=== PATIENT | female | born 1985 | race Caucasian/White ===

== ENCOUNTER 2017-02-16 17:50 | Emergency (ER) | payer OTHER ==
[2017-02-16] MEDS ORDERED: Ketorolac 30 MG/ML SDV IVPUSH ONE (18:14)
[2017-02-16] MEDS ORDERED: Ondansetron 4 MG/2 ML SDV IVPUSH ONE (18:14)
[2017-02-16] MEDS ORDERED: Sodium Chloride 0.9% 1,000 ML IV ONE (18:14)
--- NOTE | 2017-02-16 18:17 | EDM.PDOC ---
<Arsh Silva - Last Filed: 02/16/17 18:20> ED HPI GENERAL MEDICAL PROBLEM - General Chief Complaint: Flank Pain Stated Complaint: PT HAS STOMACH PAINS Time Seen by Provider: 02/16/17 18:15 Source of Information: Reports: Patient - History of Present Illness INITIAL COMMENTS - FREE TEXT/NARRATIVE: HISTORY AND PHYSICAL: History of present illness: [] Patient presents with acute onset 8/10 right flank pain increasing throughout the day no nausea vomiting chills sweats. pain does radiate around to her abdomen Previous history of cholecystectomy, appendectomy MCKENZIE with BLO and 2 laparoscopies History of renal stones requiring lithotripsy Review of systems: As per history of present illness and below otherwise all systems reviewed and negative. Past medical history: As per history of present illness and as reviewed below otherwise noncontributory. Surgical history: As per history of present illness and as reviewed below otherwise noncontributory. Social history: No reported history of drug or alcohol abuse. Family history: As per history of present illness and as reviewed below otherwise noncontributory. Physical exam: HEENT: Atraumatic, normocephalic, pupils reactive, negative for conjunctival pallor or scleral icterus, mucous membranes moist, throat clear, neck supple, nontender, trachea midline. Lungs: Clear to auscultation, breath sounds equal bilaterally, chest nontender. Heart: S1S2, regular, negative for clicks, rubs, or JVD. Abdomen: Soft, nondistended, nontender. Negative for masses or hepatosplenomegaly. Negative for costovertebral tenderness. Pelvis: Stable nontender. Genitourinary: Deferred. Rectal: Deferred. Extremities: Atraumatic, negative for cords or calf pain. Neurovascular unremarkable. Neuro: Awake, alert, oriented. Cranial nerves II through XII unremarkable. Cerebellum unremarkable. Motor and sensory unremarkable throughout. Exam nonfocal. Diagnostics: [] Lab as below CT abdomen pelvis with Therapeutics: [] Liter normal saline bolus Zofran 8 mg IV Toradol 30 mg IV Impression: [] Right flank pain Definitive disposition and diagnosis as appropriate pending reevaluation and review of above. Right Flank Pain Score (Numeric/FACES): 10 - Related Data Allergies Allergy/AdvReac Type Severity Reaction Status Date / Time codeine Allergy Severe Respiratory Verified 02/16/17 18:08 Distress Latex, Natural Rubber Allergy Mild Rash Verified 02/16/17 18:08 Home Meds: Home Meds Albuterol [Ventolin HFA] 1 puff INH ASDIRECTED PRN 03/05/14 [History] traZODone 1 tab PO BEDTIME 08/28/15 [History] traMADol [Take Home: traMADol 50 MG, 4 Tab Pack] 1 tab PO TID PRN 10/09/15 [ History] traMADol HCl [Ultram] 50 mg PO Q4HR PRN #10 tablet 02/18/16 [Rx] Fluticasone/Salmeterol [Advair 250-50 Diskus] 2 inh IH BID #1 disk.w.dev [Rx] Amitriptyline [Elavil] 10 mg PO BEDTIME 02/16/17 [History] Past Medical History HEENT History: Reports: None Cardiovascular History: Reports: Hypertension Respiratory History: Reports: Asthma Other OB/BYN History: Hysterectomy Musculoskeletal History: Reports: None Neurological History: Reports: None Other Neuro History: Seizures as a child Psychiatric History: Reports: None Endocrine/Metabolic History: Reports: None Other Endocrine/Metabolic History: borderline diabetic Hematologic History: Reports: None Immunologic History: Reports: None Oncologic (Cancer) History: Reports: None Dermatologic History: Reports: None - Infectious Disease History Infectious Disease History: Reports: None - Past Surgical History HEENT Surgical History: Reports: None GI Surgical History: Reports: Cholecystectomy Other GI Surgeries/Procedures: diagnostic laparoscopy 2x Female Surgical History: Reports: section, Hysterectomy Social & Family History - Family History Family Medical History: Noncontributory - Tobacco Use Smoking Status *Q: Former Smoker Years of Tobacco use: 10 Packs/Tins Daily: 0.1 Used Tobacco, but Quit: Yes Month Tobacco Last Used: May 2015 Second Hand Smoke Exposure: No - Caffeine Use Caffeine Use: Reports: Coffee, Soda - Alcohol Use Days Per Week of Alcohol Use: 0 - Recreational Drug Use Recreational Drug Use: No Course - Vital Signs Last Recorded V/S: Last Vital Signs Temp 36.3 C 02/16/17 18:11 Pulse 111 H 02/16/17 18:52 Resp 22 H 02/16/17 18:52 BP 159/109 H 02/16/17 18:52 Pulse Ox 97 02/16/17 18:52 - Orders/Labs/Meds Orders: Active Orders 24 hr Category Date Time Status Abdomen wo Cont [CT] Stat Exams 02/16/17 18:20 Taken CULTURE URINE [RM] Stat Lab 02/16/17 18:16 Received Labs: Laboratory Tests 02/16/17 02/16/17 02/16/17 Range/Units 18:16 18:28 18:28 WBC 12.98 H (4.0-11.0) K/uL RBC 4.52 (4.30-5.90) M/uL Hgb 13.0 (12.0-16.0) g/dL Hct 40.7 (36.0-46.0) % MCV 90.0 (80.0-98.0) fL MCH 28.8 (27.0-32.0) pg MCHC 31.9 (31.0-37.0) g/dL RDW Std Deviation 46.0 (28.0-62.0) fl RDW Coeff of Pineda 14 (11.0-15.0) % Plt Count 285 (150-400) K/uL MPV 10.10 (7.40-12.00) fL Neut % (Auto) 68.0 (48.0-80.0) % Lymph % (Auto) 21.6 (16.0-40.0) % [place] % (Auto) 7.6 (0.0-15.0) % Eos % (Auto) 2.4 (0.0-7.0) % Baso % (Auto) 0.4 (0.0-1.5) % Neut # (Auto) 8.8 H (1.4-5.7) K/uL Lymph # (Auto) 2.8 H (0.6-2.4) K/uL [place] # (Auto) 1.0 H (0.0-0.8) K/uL Eos # (Auto) 0.3 (0.0-0.7) K/uL Baso # (Auto) 0.1 (0.0-0.1) K/uL Nucleated RBC % 0.0 /100WBC Nucleated RBCs # 0 K/uL Sodium 140 (136-146) mmol/L Potassium 4.1 (3.5-5.1) mmol/L Chloride 106 (98-110) mmol/L Carbon Dioxide 23 (21-31) mmol/L BUN 12 (6.0-23.0) mg/dL Creatinine 0.8 (0.6-1.5) mg/dL Est Cr Clr Drug Dosing 98.18 mL/min Estimated GFR (MDRD) > 60.0 ml/min Glucose 79 (60-110) mg/dL Calcium 9.1 (8.8-10.8) mg/dL Total Bilirubin 0.3 (0.1-1.5) mg/dL AST 11 (5-40) IU/L ALT 20 (8-54) IU/L Alkaline Phosphatase 60 (40-150) Total Protein 7.8 (6.0-8.0) g/dL Albumin 4.1 (3.5-5.0) g/dL Globulin 3.7 H (2.0-3.5) g/dL Albumin/Globulin Ratio 1.1 L (1.3-2.8) Amylase 21 (10-90) U/L Lipase 10 (7-80) U/L Urine Color YELLOW Urine Appearance SLT CLOUDY Urine pH 5.5 (5.0-8.0) Ur Specific [place] >= 1.030 (1.001-1.035) Urine Protein NEGATIVE (NEGATIVE) mg/dL Urine Glucose (UA) NEGATIVE (NEGATIVE) mg/dL Urine Ketones NEGATIVE (NEGATIVE) mg/dL Urine Occult Blood LARGE H (NEGATIVE) Urine Nitrite NEGATIVE (NEGATIVE) Urine Bilirubin NEGATIVE (NEGATIVE) Urine Urobilinogen 0.2 (<2.0) EU/dL Ur Leukocyte Esterase SMALL (NEGATIVE) Urine RBC 8-10 (0-2/HPF) Urine WBC 3-6 (0-5/HPF) Ur Epithelial Cells FEW (NONE-FEW) Urine Bacteria FEW (NEGATIVE) Meds: Medications Discontinued Medications Generic Name Dose Route Start Last Admin Trade Name Freq PRN Reason Stop Dose Admin Hydromorphone HCl 1 mg 02/16/17 19:06 02/16/17 19:11 Dilaudid IVPUSH 02/16/17 19:07 1 mg ONETIME ONE Administration Sodium Chloride 1,000 mls @ 999 mls/hr 02/16/17 18:14 02/16/17 18:26 Normal Saline IV 02/16/17 19:14 999 mls/hr STAT ONE Administration Ketorolac Tromethamine 30 mg 02/16/17 18:14 02/16/17 18:29 Toradol IVPUSH 02/16/17 18:15 30 mg ONETIME ONE Administration Ondansetron HCl 8 mg 02/16/17 18:14 02/16/17 18:31 Zofran IVPUSH 02/16/17 18:15 8 mg ONETIME ONE Administration Departure - Departure Disposition: Home, Self-Care 01 Clinical Impression: Chronic abdominal pain Forms: ED Department Discharge Additional Instructions: The following information is given to patients seen in the emergency department who are being discharged to home. This information is to outline your options for follow-up care. We provide all patients seen in our emergency department with a follow-up referral. The need for follow-up, as well as the timing and circumstances, are variable depending upon the specifics of your emergency department visit. If you don't have a primary care physician on staff, we will provide you with a referral. We always advise you to contact your personal physician following an emergency department visit to inform them of the circumstance of the visit and for follow-up with them and/or the need for any referrals to a consulting specialist. The emergency department will also refer you to a specialist when appropriate. This referral assures that you have the opportunity for followup care with a specialist. All of these measure are taken in an effort to provide you with optimal care, which includes your followup. Under all circumstances we always encourage you to contact your private physician who remains a resource for coordinating your care. When calling for followup care, please make the office aware that this follow-up is from your recent emergency room visit. If for any reason you are refused follow-up, please contact the [facility] emergency department at and asked to speak to the emergency department charge nurse. Followup primary medical doctor one to 2 days return as needed as discussed continue current medication <Joesph Becerril - Last Filed: 02/16/17 19:34> ED ROS GENERAL - Review of Systems Review Of Systems: ROS reveals no pertinent complaints other than HPI. ED EXAM, GENERAL - Physical Exam Exam: See Below (See dictation) Course - Vital Signs Text/Narrative:: CT reviewed by myself uroliths noted within the kidney with no evidence of obstruction there is an ill-defined left adnexal process patient's pain remains on the right side there is no other reported acute findings I discussed this at length with the patient particularly chronic intermittent nature of this and the suggestion has been made by her private doctor as to adhesions contributing to this and the risk benefit of surgical evaluation and/or intervention patient understands this and will seek followup and further management of her intermittent pain with her private medical doctor. Departure - Departure Time of Disposition: 19:33 Condition: good
[2017-02-16 18:57] LABS: CHLORIDE,CL 106 mmol/L (98-110); SODIUM,NA 140 mmol/L (136-146)
[2017-02-16] MEDS ORDERED: HYDROmorphone 1 MG/ML Syringe IVPUSH ONE (19:06)
[2017-02-16 20:08] VITALS: BP 148/90
--- NOTE | 2017-02-17 15:16 | CT ---
EXAM DATE: 02/16/17 PATIENT'S AGE: 31 Patient: ELVIS CASEY Facility: [place], [place] Site . Site : 1985 Study: CT Abdomen/Pelvis [id number]/29/2017 6:49:42 PM Ordering Physician: Renan Caban Final Report: INDICATION: r flank pain. history of kidney stones TECHNIQUE: CT abdomen and pelvis without contrast. COMPARISON: 08/30/2015 FINDINGS: Lower chest: Unremarkable. Liver: Unremarkable. Spleen: Unremarkable. Pancreas: Unremarkable. Gallbladder and bile ducts: Cholecystectomy. Kidneys: Bilateral nonobstructive intrarenal calculi. Adrenal glands: Unremarkable. GI tract: Unremarkable. Appendix is normal. Vascular structures: Unremarkable. Lymph nodes: Unremarkable. Miscellaneous: Postsurgical change along the ventral abdominal wall. Bilateral inguinal hernias. No free air or significant free fluid. Pelvic Organs: Hysterectomy changes. Incompletely evaluated 2.6 cm low attenuated structure within the left adnexa. Bones: Unremarkable for age. IMPRESSION: 1. Bilateral nonobstructive intrarenal calculi. 2. Incompletely evaluated 2.6 cm low attenuated structure within the left adnexa. Dictated by Du Vargas MD @ 02/16/2017 7:21:06 PM Dictated by: Du Vargas MD @ 02/16/2017 19:21:16 (Electronic Signature) Report Signed by Proxy and Original Signed Document filed in the Medical Record. [facility]
== END 2017-02-16 19:50 | disposition home or self-care (01) ==
LOC: MW.ED 17:50
DX: R10.9 Unspecified abdominal pain (principal); N20.0 Calculus of kidney; I10 Essential (primary) hypertension; J45.909 Unspecified asthma, uncomplicated; R73.03 Prediabetes; Z87.891 Personal history of nicotine dependence; Z90.49 Acquired absence of other specified parts of digestive tract; Z90.710 Acquired absence of both cervix and uterus; Z91.040 Latex allergy status; Z88.5 Allergy status to narcotic agent
CPT/HCPCS: 36415; 74150; 80053; 81001; 82150; 83690; 85025; 87086; 96361; 96374; 96375; 99284; J1170; J1885; J2405; J7040

== ENCOUNTER 2017-04-21 14:51 | Emergency (ER) | payer SELFPAY ==
[2017-04-21] MEDS ORDERED: Sodium Chloride 0.9% 1,000 ML IV ONE (15:08)
[2017-04-21] MEDS ORDERED: Ondansetron 4 MG/2 ML SDV IVPUSH ONE (15:08)
--- NOTE | 2017-04-21 15:24 | EDM.PDOC ---
ED HPI GENERAL MEDICAL PROBLEM - General Chief Complaint: Respiratory Problem Stated Complaint: COUGHING UP BLOOD,NAUSEA Time Seen by Provider: 04/21/17 15:21 Source of Information: Reports: Patient History Limitations: Reports: No Limitations - History of Present Illness INITIAL COMMENTS - FREE TEXT/NARRATIVE: History of present illness: [31-year-old female presents with global feelings of being unwell. Patient with same area of symptoms that have progressively occurred over the last several days and that she identified as individually not concerning her but now in retrospect all of the symptoms together in addition to her chronic low-grade nausea has made her feel that she needs to be evaluated. Patient includes feelings of constant nausea, vomiting of blood 2 days ago but not again, some loose stool diarrhea without blood, and feelings of weakness and general malaise.] Review of systems: As per history of present illness and below otherwise all systems reviewed and negative. Past medical history: As per history of present illness and as reviewed below otherwise noncontributory. Surgical history: As per history of present illness and as reviewed below otherwise noncontributory. Social history: No reported history of drug or alcohol abuse. Family history: As per history of present illness and as reviewed below otherwise noncontributory. Physical exam: HEENT: Atraumatic, normocephalic, pupils reactive, negative for conjunctival pallor or scleral icterus, mucous membranes moist, throat clear, neck supple, nontender, trachea midline. Lungs: Clear to auscultation, breath sounds equal bilaterally, chest nontender. Heart: S1S2, regular, negative for clicks, rubs, or JVD. Abdomen: Soft, nondistended, nontender. Negative for masses or hepatosplenomegaly. Negative for costovertebral tenderness. Pelvis: Stable nontender. Genitourinary: Deferred. Rectal: Deferred. Extremities: Atraumatic, negative for cords or calf pain. Neurovascular unremarkable. Neuro: Awake, alert, oriented. Cranial nerves II through XII unremarkable. Cerebellum unremarkable. Motor and sensory unremarkable throughout. Exam nonfocal. Global assessment is benign save as noted in the history of present illness. Patient is eating and drinking food during the visit without signs of nausea or vomiting but does indicate she has taken Zofran prior to arrival. Diagnostics: [UA, urine hCG, CBC, CMP, amylase, lipase,] Therapeutics: [IV fluid, Zofran] Impression: [UTI] Plan: [Followup with PCP, antibiotics] Definitive disposition and diagnosis as appropriate pending reevaluation and review of above. Generalized Pain Score (Numeric/FACES): 6 - Related Data Allergies Allergy/AdvReac Type Severity Reaction Status Date / Time codeine Allergy Severe Respiratory Verified 04/21/17 14:52 Distress Latex, Natural Rubber Allergy Mild Rash Verified 04/21/17 14:52 Home Meds: Home Meds Albuterol [Ventolin HFA] 1 puff INH ASDIRECTED PRN 03/05/14 [History] traZODone 150 mg PO BEDTIME 08/28/15 [History] Fluticasone/Salmeterol [Advair 250-50 Diskus] 2 inh IH BID #1 disk.w.dev [Rx] Amitriptyline [Elavil] 10 mg PO BEDTIME 02/16/17 [History] Metoclopramide [Reglan] 10 mg PO Q6H 04/21/17 [History] Nitrofurantoin Monohyd/M-Cryst [Macrobid 100 mg Capsule] 100 mg PO BID #20 capsule 04/21/17 [Rx] buPROPion [Wellbutrin SR] 100 mg PO BID 04/21/17 [History] Past Medical History HEENT History: Reports: None Cardiovascular History: Reports: Hypertension Respiratory History: Reports: Asthma Gastrointestinal History: Reports: None Genitourinary History: Reports: None Other OB/BYN History: Hysterectomy Musculoskeletal History: Reports: None Neurological History: Reports: None Other Neuro History: Seizures as a child Psychiatric History: Reports: Anxiety, Depression Endocrine/Metabolic History: Reports: None Other Endocrine/Metabolic History: borderline diabetic Hematologic History: Reports: None Immunologic History: Reports: None Oncologic (Cancer) History: Reports: None Dermatologic History: Reports: None - Infectious Disease History Infectious Disease History: Reports: None - Past Surgical History Head Surgeries/Procedures: Reports: None HEENT Surgical History: Reports: None GI Surgical History: Reports: Cholecystectomy Other GI Surgeries/Procedures: diagnostic laparoscopy 2x Female Surgical History: Reports: Section, Hysterectomy Social & Family History - Family History Family Medical History: Noncontributory - Tobacco Use Smoking Status *Q: Former Smoker Years of Tobacco use: 10 Packs/Tins Daily: 0.1 Used Tobacco, but Quit: Yes Month Tobacco Last Used: May 2015 Second Hand Smoke Exposure: No - Caffeine Use Caffeine Use: Reports: Soda Caffeine Use Comment: 1-3/day - Alcohol Use Days Per Week of Alcohol Use: 0 - Recreational Drug Use Recreational Drug Use: No ED ROS GENERAL - Review of Systems Review Of Systems: See Below (See history of present illness) ED EXAM, GENERAL - Physical Exam Exam: See Below (The history of present illness) Course - Vital Signs Last Recorded V/S: Last Vital Signs Temp 36.6 C 04/21/17 14:54 Pulse 98 04/21/17 14:54 Resp 20 04/21/17 14:54 BP 135/99 H 04/21/17 14:54 Pulse Ox 96 04/21/17 14:54 - Orders/Labs/Meds Labs: Laboratory Tests 04/21/17 04/21/17 04/21/17 Range/Units 15:26 15:26 15:30 WBC 11.40 H (4.0-11.0) K/uL RBC 4.95 (4.30-5.90) M/uL Hgb 14.2 (12.0-16.0) g/dL Hct 44.0 (36.0-46.0) % MCV 88.9 (80.0-98.0) fL MCH 28.7 (27.0-32.0) pg MCHC 32.3 (31.0-37.0) g/dL RDW Std Deviation 45.9 (28.0-62.0) fl RDW Coeff of Pineda 14 (11.0-15.0) % Plt Count 344 (150-400) K/uL MPV 10.40 (7.40-12.00) fL Neut % (Auto) 71.3 (48.0-80.0) % Lymph % (Auto) 19.6 (16.0-40.0) % [place] % (Auto) 5.7 (0.0-15.0) % Eos % (Auto) 2.8 (0.0-7.0) % Baso % (Auto) 0.6 (0.0-1.5) % Neut # (Auto) 8.1 H (1.4-5.7) K/uL Lymph # (Auto) 2.2 (0.6-2.4) K/uL [place] # (Auto) 0.7 (0.0-0.8) K/uL Eos # (Auto) 0.3 (0.0-0.7) K/uL Baso # (Auto) 0.1 (0.0-0.1) K/uL Nucleated RBC % 0.0 /100WBC Nucleated RBCs # 0 K/uL Sodium (136-146) mmol/L Potassium (3.5-5.1) mmol/L Chloride (98-110) mmol/L Carbon Dioxide (21-31) mmol/L BUN (6.0-23.0) mg/dL Creatinine (0.6-1.5) mg/dL Est Cr Clr Drug Dosing mL/min Estimated GFR (MDRD) ml/min Glucose (60-110) mg/dL Hemoglobin A1c (0.0-6.0) % Calcium (8.8-10.8) mg/dL Total Bilirubin (0.1-1.5) mg/dL AST (5-40) IU/L ALT (8-54) IU/L Alkaline Phosphatase (40-150) Total Protein (6.0-8.0) g/dL Albumin (3.5-5.0) g/dL Globulin (2.0-3.5) g/dL Albumin/Globulin Ratio (1.3-2.8) Urine Color YELLOW Urine Appearance CLEAR Urine pH 6.5 (5.0-8.0) Ur Specific [place] 1.010 (1.001-1.035) Urine Protein NEGATIVE (NEGATIVE) mg/dL Urine Glucose (UA) NEGATIVE (NEGATIVE) mg/dL Urine Ketones NEGATIVE (NEGATIVE) mg/dL Urine Occult Blood TRACE-LYSED (NEGATIVE) Urine Nitrite NEGATIVE (NEGATIVE) Urine Bilirubin NEGATIVE (NEGATIVE) Urine Urobilinogen 0.2 (<2.0) EU/dL Ur Leukocyte Esterase SMALL (NEGATIVE) Urine RBC 0-1 (0-2/HPF) Urine WBC 1-4 (0-5/HPF) Ur Epithelial Cells FEW (NONE-FEW) Urine Bacteria FEW (NEGATIVE) Urine HCG, Qual NEGATIVE (NEGATIVE) 04/21/17 04/21/17 Range/Units 15:30 15:30 WBC (4.0-11.0) K/uL RBC (4.30-5.90) M/uL Hgb (12.0-16.0) g/dL Hct (36.0-46.0) % MCV (80.0-98.0) fL MCH (27.0-32.0) pg MCHC (31.0-37.0) g/dL RDW Std Deviation (28.0-62.0) fl RDW Coeff of Pineda (11.0-15.0) % Plt Count (150-400) K/uL MPV (7.40-12.00) fL Neut % (Auto) (48.0-80.0) % Lymph % (Auto) (16.0-40.0) % [place] % (Auto) (0.0-15.0) % Eos % (Auto) (0.0-7.0) % Baso % (Auto) (0.0-1.5) % Neut # (Auto) (1.4-5.7) K/uL Lymph # (Auto) (0.6-2.4) K/uL [place] # (Auto) (0.0-0.8) K/uL Eos # (Auto) (0.0-0.7) K/uL Baso # (Auto) (0.0-0.1) K/uL Nucleated RBC % /100WBC Nucleated RBCs # K/uL Sodium 138 (136-146) mmol/L Potassium 4.2 (3.5-5.1) mmol/L Chloride 106 (98-110) mmol/L Carbon Dioxide 21 (21-31) mmol/L BUN 10 (6.0-23.0) mg/dL Creatinine 0.8 (0.6-1.5) mg/dL Est Cr Clr Drug Dosing 98.18 mL/min Estimated GFR (MDRD) > 60.0 ml/min Glucose 111 H (60-110) mg/dL Hemoglobin A1c 5.2 (0.0-6.0) % Calcium 9.5 (8.8-10.8) mg/dL Total Bilirubin 0.4 (0.1-1.5) mg/dL AST 12 (5-40) IU/L ALT 18 (8-54) IU/L Alkaline Phosphatase 74 (40-150) Total Protein 8.2 H (6.0-8.0) g/dL Albumin 4.3 (3.5-5.0) g/dL Globulin 3.9 H (2.0-3.5) g/dL Albumin/Globulin Ratio 1.1 L (1.3-2.8) Urine Color Urine Appearance Urine pH (5.0-8.0) Ur Specific [place] (1.001-1.035) Urine Protein (NEGATIVE) mg/dL Urine Glucose (UA) (NEGATIVE) mg/dL Urine Ketones (NEGATIVE) mg/dL Urine Occult Blood (NEGATIVE) Urine Nitrite (NEGATIVE) Urine Bilirubin (NEGATIVE) Urine Urobilinogen (<2.0) EU/dL Ur Leukocyte Esterase (NEGATIVE) Urine RBC (0-2/HPF) Urine WBC (0-5/HPF) Ur Epithelial Cells (NONE-FEW) Urine Bacteria (NEGATIVE) Urine HCG, Qual (NEGATIVE) Meds: Medications Discontinued Medications Generic Name Dose Route Start Last Admin Trade Name Freq PRN Reason Stop Dose Admin Sodium Chloride 1,000 mls @ 999 mls/hr 04/21/17 15:08 04/21/17 15:35 Normal Saline IV 04/21/17 16:08 999 mls/hr STAT ONE Administration Ondansetron HCl 8 mg 04/21/17 15:08 04/21/17 15:35 Zofran IVPUSH 04/21/17 15:09 8 mg ONETIME ONE Administration Departure - Departure Time of Disposition: 16:56 Disposition: Home, Self-Care 01 Condition: good Clinical Impression: UTI (lower urinary tract infection) - Discharge Information Prescriptions: Nitrofurantoin Monohyd/M-Cryst [Macrobid 100 mg Capsule] 100 mg PO BID #20 capsule Forms: ED Department Discharge Additional Instructions: The following information is given to patients seen in the emergency department who are being discharged to home. This information is to outline your options for follow-up care. We provide all patients seen in our emergency department with a follow-up referral. The need for follow-up, as well as the timing and circumstances, are variable depending upon the specifics of your emergency department visit. If you don't have a primary care physician on staff, we will provide you with a referral. We always advise you to contact your personal physician following an emergency department visit to inform them of the circumstance of the visit and for follow-up with them and/or the need for any referrals to a consulting specialist. The emergency department will also refer you to a specialist when appropriate. This referral assures that you have the opportunity for follow-up care with a specialist. All of these measure are taken in an effort to provide you with optimal care, which includes your follow-up. Under all circumstances we always encourage you to contact your private physician who remains a resource for coordinating your care. When calling for follow-up care, please make the office aware that this follow-up is from your recent emergency room visit. If for any reason you are refused follow-up, please contact the [facility] Emergency Department at and asked to speak to the emergency department charge nurse. Take medication as directed Followup with PCP in one to 2 days Return to ED as needed as discussed
[2017-04-21 16:06] LABS: CHLORIDE,CL 106 mmol/L (98-110); SODIUM,NA 138 mmol/L (136-146)
--- NOTE | 2017-04-21 16:34 | CR ---
EXAM DATE: 04/21/17 PATIENT'S AGE: 31 Patient: ELVIS CASEY Facility: [place], [place] Site . Site : 1985 Study: XRay Chest [id number]/1/2017 4:02:06 PM Ordering Physician: Doctor Keller Final Report: INDICATION: sob, TECHNIQUE: Chest 2 views COMPARISON: None FINDINGS: Cardiovascular and mediastinum: Heart size and vasculature are normal in caliber and appearance. Mediastinum is within normal limits. Lungs and pleural spaces: No focal consolidation. No sign of pleural effusion. No pneumothorax. Bones and soft tissues: No significant findings. IMPRESSION: No acute cardiopulmonary disease. Dictated by Du Vargas MD @ 04/21/2017 4:24:44 PM Dictated by: Du Vargas MD @ 04/21/2017 16:24:57 (Electronic Signature) Report Signed by Proxy. [facility]
[2017-04-21 17:09] VITALS: BP 134/90
== END 2017-04-21 17:10 | disposition home or self-care (01) ==
LOC: MW.ED 14:51
DX: N39.0 Urinary tract infection, site not specified (principal); I10 Essential (primary) hypertension; J45.909 Unspecified asthma, uncomplicated; Z90.49 Acquired absence of other specified parts of digestive tract; Z90.710 Acquired absence of both cervix and uterus; Z87.891 Personal history of nicotine dependence; Z88.5 Allergy status to narcotic agent; Z91.040 Latex allergy status; F41.9 Anxiety disorder, unspecified; F32.9 Major depressive disorder, single episode, unspecified
CPT/HCPCS: 36415; 71020; 80053; 81001; 81025; 83036; 85025; 96361; 96374; 99284; J2405; J7040

== ENCOUNTER 2017-10-02 10:03 | Emergency (ER) | payer SELFPAY ==
[2017-10-02] MEDS ORDERED: Albuterol 0.083% 2.5 MG/3 ML Neb Soln NEB ONE (10:40)
[2017-10-02] MEDS ORDERED: methylPREDNISolone Sodium Succinate 125 MG/2 ML SDV IM ONE (10:40)
--- NOTE | 2017-10-02 10:45 | EDM.PDOC ---
ED HPI GENERAL MEDICAL PROBLEM - General Chief Complaint: General Stated Complaint: COLD, COUGHING Time Seen by Provider: 10/02/17 10:41 Source of Information: Reports: Patient History Limitations: Reports: No Limitations - History of Present Illness INITIAL COMMENTS - FREE TEXT/NARRATIVE: History of present illness: [31-year-old female presenting with a weak ineffective cough, indicating fever and viral type symptoms for several days. Patient now indicates that the cough is producing a productive dark green mayberry sputum and that she feels like her chest is tight and that she is not moving good air.] Review of systems: As per history of present illness and below otherwise all systems reviewed and negative. Past medical history: As per history of present illness and as reviewed below otherwise noncontributory. Surgical history: As per history of present illness and as reviewed below otherwise noncontributory. Social history: No reported history of drug or alcohol abuse. Family history: As per history of present illness and as reviewed below otherwise noncontributory. Physical exam: HEENT: Atraumatic, normocephalic, pupils reactive, negative for conjunctival pallor or scleral icterus, mucous membranes moist, throat clear, neck supple, nontender, trachea midline. Lungs: Breath sounds diminished throughout otherwise breath sounds are equal bilaterally, chest nontender, with a weak productive cough Heart: S1S2, regular, negative for clicks, rubs, or JVD. Abdomen: Soft, nondistended, nontender. Negative for masses or hepatosplenomegaly. Negative for costovertebral tenderness. Pelvis: Stable nontender. Genitourinary: Deferred. Rectal: Deferred. Extremities: Atraumatic, negative for cords or calf pain. Neurovascular unremarkable. Neuro: Awake, alert, oriented. Cranial nerves II through XII unremarkable. Cerebellum unremarkable. Motor and sensory unremarkable throughout. Exam nonfocal. Diagnostics: [Chest x-ray] Therapeutics: [Albuterol nebulizer, Solu-Medrol IM] Impression: [#1 bronchitis #2 URI 3 cough ] Plan: [Antibiotics follow-up with PCP] Definitive disposition and diagnosis as appropriate pending reevaluation and review of above. Lower Chest Pain Score (Numeric/FACES): 7 - Related Data Allergies Allergy/AdvReac Type Severity Reaction Status Date / Time codeine Allergy Severe Respiratory Verified 10/02/17 10:27 Distress Latex, Natural Rubber Allergy Mild Rash Verified 10/02/17 10:27 Home Meds: Home Meds Albuterol [Ventolin HFA] 1 puff INH ASDIRECTED PRN 03/05/14 [History] traZODone 150 mg PO BEDTIME 08/28/15 [History] Fluticasone/Salmeterol [Advair 250-50 Diskus] 2 inh IH BID #1 disk.w.dev [Rx] Amitriptyline [Elavil] 10 mg PO BEDTIME 02/16/17 [History] Metoclopramide [Reglan] 10 mg PO Q6H 04/21/17 [History] buPROPion [Wellbutrin SR] 100 mg PO BID 04/21/17 [History] Amoxicillin/Potassium Clav [Augmentin 875-125 Tablet] 1 each PO BID #20 tablet 10/02/17 [Rx] methylPREDNISolone [Medrol] 4 mg PO DAILY #21 tab.ds.pk 10/02/17 [Rx] Past Medical History HEENT History: Reports: None Cardiovascular History: Reports: Hypertension Respiratory History: Reports: Asthma Gastrointestinal History: Reports: None Genitourinary History: Reports: None Other OB/BYN History: Hysterectomy Musculoskeletal History: Reports: None Neurological History: Reports: None Other Neuro History: Seizures as a child Psychiatric History: Reports: Anxiety, Depression Endocrine/Metabolic History: Reports: None Other Endocrine/Metabolic History: borderline diabetic Hematologic History: Reports: None Immunologic History: Reports: None Oncologic (Cancer) History: Reports: None Dermatologic History: Reports: None - Infectious Disease History Infectious Disease History: Reports: Chicken Pox - Past Surgical History Head Surgeries/Procedures: Reports: None HEENT Surgical History: Reports: None GI Surgical History: Reports: Cholecystectomy Other GI Surgeries/Procedures: diagnostic laparoscopy 2x Female Surgical History: Reports: Section, Hysterectomy Social & Family History - Family History Family Medical History: Noncontributory - Tobacco Use Smoking Status *Q: Former Smoker Years of Tobacco use: 10 Packs/Tins Daily: 0.1 Used Tobacco, but Quit: Yes Month Tobacco Last Used: October Second Hand Smoke Exposure: No - Caffeine Use Caffeine Use: Reports: None Caffeine Use Comment: 1-3/day - Alcohol Use Days Per Week of Alcohol Use: 0 - Recreational Drug Use Recreational Drug Use: No ED ROS GENERAL - Review of Systems Review Of Systems: See Below (See history of present illness) ED EXAM, GENERAL - Physical Exam Exam: See Below (See history of present illness) Course - Vital Signs Last Recorded V/S: Last Vital Signs Temp 36.3 C 10/02/17 10:29 Pulse 90 10/02/17 10:29 Resp 18 10/02/17 10:29 BP 137/83 10/02/17 10:29 Pulse Ox 98 10/02/17 10:29 - Orders/Labs/Meds Orders: Active Orders 24 hr Category Date Time Status RT Aerosol Therapy [RC] ASDIRECTED Care 10/02/17 10:40 Active CXR [Chest 2V] [CR] Stat Exams 10/02/17 10:45 Taken Meds: Medications Discontinued Medications Generic Name Dose Route Start Last Admin Trade Name Freq PRN Reason Stop Dose Admin Albuterol 2.5 mg 10/02/17 10:40 10/02/17 10:47 Proventil Neb Soln NEB 10/02/17 10:41 2.5 mg ONETIME ONE Administration Methylprednisolone Sodium Succinate 125 mg 10/02/17 10:40 10/02/17 11:09 Solu-Medrol IM 10/02/17 10:41 125 mg ONETIME ONE Administration Departure - Departure Time of Disposition: 11:49 Disposition: Home, Self-Care 01 Condition: Good Clinical Impression: Upper respiratory infection, Exacerbation of asthma - Discharge Information Prescriptions: Amoxicillin/Potassium Clav [Augmentin 875-125 Tablet] 1 each PO BID #20 tablet methylPREDNISolone [Medrol] 4 mg PO DAILY #21 tab.ds.pk Referrals: PCP,None [Primary Care Provider] - Forms: ED Department Discharge Additional Instructions: The following information is given to patients seen in the emergency department who are being discharged to home. This information is to outline your options for follow-up care. We provide all patients seen in our emergency department with a follow-up referral. The need for follow-up, as well as the timing and circumstances, are variable depending upon the specifics of your emergency department visit. If you don't have a primary care physician on staff, we will provide you with a referral. We always advise you to contact your personal physician following an emergency department visit to inform them of the circumstance of the visit and for follow-up with them and/or the need for any referrals to a consulting specialist. The emergency department will also refer you to a specialist when appropriate. This referral assures that you have the opportunity for follow-up care with a specialist. All of these measure are taken in an effort to provide you with optimal care, which includes your follow-up. Under all circumstances we always encourage you to contact your private physician who remains a resource for coordinating your care. When calling for follow-up care, please make the office aware that this follow-up is from your recent emergency room visit. If for any reason you are refused follow-up, please contact the [facility] Emergency Department at and asked to speak to the emergency department charge nurse. Medication as directed Follow up with PCP 1-2 days Return to ED as needed as discussed - My Orders Last 24 Hours: My Active Orders 10/02/17 10:40 RT Aerosol Therapy [RC] ASDIRECTED 10/02/17 10:45 CXR [Chest 2V] [CR] Stat - Assessment/Plan Last 24 Hours: My Active Orders 10/02/17 10:40 RT Aerosol Therapy [RC] ASDIRECTED 10/02/17 10:45 CXR [Chest 2V] [CR] Stat
[2017-10-02 12:27] VITALS: BP 135/70
--- NOTE | 2017-10-03 14:36 | CR ---
EXAM DATE: 10/02/17 PATIENT'S AGE: 31 Patient: ELVIS CASEY Facility: [place], [place] Site . Site : 1985 Study: XRay Chest [id number] 11:10:14 AM Ordering Physician: Doctor Keller Final Report: Indication: Cough. Technique: Two view chest. Comparison: Correlation is made with a previous two-view chest x-ray report April 21, 2017. Findings: There is a very faint opacity in the left upper lobe which could reflect subtle pneumonitis. Alternatively this may reflect superimposition of pulmonary and extrapulmonary structures. Clear right lung. Normal heart size and pulmonary vascularity. No pleural effusions. The included skeletal thorax is normal. Impression: Questionable faint opacity in the left upper lobe for which radiographic follow up is recommended. This may reflect superimposition of pulmonary and extrapulmonary structures. Dictated by Donald Marie MD @ Oct 02 2017 11:12AM (Electronic Signature) Report Signed by Proxy. YVES
== END 2017-10-02 12:25 | disposition home or self-care (01) ==
LOC: MW.ED 10:03
DX: J45.901 Unspecified asthma with (acute) exacerbation (principal); J06.9 Acute upper respiratory infection, unspecified; I10 Essential (primary) hypertension; Z88.5 Allergy status to narcotic agent; Z79.899 Other long term (current) drug therapy; Z91.040 Latex allergy status; Z87.891 Personal history of nicotine dependence
CPT/HCPCS: 71020; 94640; 96372; 99283; J2930; 99282

== ENCOUNTER 2017-12-08 07:26 | Emergency (ER) | payer BC ==
[2017-12-08 07:39] VITALS: BP 134/111
--- NOTE | 2017-12-08 08:11 | EDM.PDOC ---
ED HPI GENERAL MEDICAL PROBLEM - General Chief Complaint: Gastrointestinal Problem Stated Complaint: UNABLE TO GO TO THE BATHROOM Time Seen by Provider: 12/08/17 07:52 - History of Present Illness INITIAL COMMENTS - FREE TEXT/NARRATIVE: HISTORY AND PHYSICAL: History of present illness: Patient's a 32-year-old female presents with a concern of constipation she states at times she has felt what can only be described as prolapsed hemorrhoids when she strains to try to move her bowels she does not have this on arrival here and denies any other concern. No fever chills nausea vomiting abdominal pain Review of systems: As per history of present illness and below otherwise all systems reviewed and negative. Past medical history: As per history of present illness and as reviewed below otherwise noncontributory. Surgical history: As per history of present illness and as reviewed below otherwise noncontributory. Social history: No reported history of drug or alcohol abuse. Family history: As per history of present illness and as reviewed below otherwise noncontributory. Physical exam: HEENT: Atraumatic, normocephalic, pupils reactive, negative for conjunctival pallor or scleral icterus, mucous membranes moist, throat clear, neck supple, nontender, trachea midline. Lungs: Clear to auscultation, breath sounds equal bilaterally, chest nontender. Heart: S1S2, regular, negative for clicks, rubs, or JVD. Abdomen: Soft, nondistended, nontender. Negative for masses or hepatosplenomegaly. Negative for costovertebral tenderness. Pelvis: Stable nontender. Genitourinary: Deferred. Rectal: No evidence of rectal fissure or trauma digital exam deferred by patient Extremities: Atraumatic, negative for cords or calf pain. Neurovascular unremarkable. Neuro: Awake, alert, oriented. Cranial nerves II through XII unremarkable. Cerebellum unremarkable. Motor and sensory unremarkable throughout. Exam nonfocal. Diagnostics: [employer]: None Impression: Are 1 constipation Definitive disposition and diagnosis as appropriate pending reevaluation and review of above. Rectal Pain Score (Numeric/FACES): 10 - Related Data Allergies Allergy/AdvReac Type Severity Reaction Status Date / Time codeine Allergy Severe Respiratory Verified 12/08/17 07:39 Distress Latex, Natural Rubber Allergy Mild Rash Verified 12/08/17 07:39 Home Meds: Home Meds Albuterol [Ventolin HFA] 1 puff INH ASDIRECTED PRN 03/05/14 [History] traZODone 150 mg PO BEDTIME 08/28/15 [History] Fluticasone/Salmeterol [Advair 250-50 Diskus] 2 inh IH BID #1 disk.w.dev [Rx] buPROPion [Wellbutrin SR] 300 mg PO DAILY 04/21/17 [History] LORazepam 1 mg PO BID PRN 12/08/17 [History] traMADol HCl [Tramadol HCl] 50 mg PO BID PRN 12/08/17 [History] Past Medical History HEENT History: Reports: None Cardiovascular History: Reports: Hypertension Respiratory History: Reports: Asthma Gastrointestinal History: Reports: None Genitourinary History: Reports: None Other OB/BYN History: Hysterectomy Musculoskeletal History: Reports: None Neurological History: Reports: None Other Neuro History: Seizures as a child Psychiatric History: Reports: Anxiety, Depression Endocrine/Metabolic History: Reports: None Other Endocrine/Metabolic History: borderline diabetic Hematologic History: Reports: None Immunologic History: Reports: None Oncologic (Cancer) History: Reports: None Dermatologic History: Reports: None - Infectious Disease History Infectious Disease History: Reports: Chicken Pox - Past Surgical History Head Surgeries/Procedures: Reports: None HEENT Surgical History: Reports: None GI Surgical History: Reports: Cholecystectomy Other GI Surgeries/Procedures: diagnostic laparoscopy 2x Female Surgical History: Reports: Section, Hysterectomy Social & Family History - Family History Family Medical History: Noncontributory - Tobacco Use Smoking Status *Q: Current Every Day Smoker Years of Tobacco use: 15 Packs/Tins Daily: 0.2 Used Tobacco, but Quit: Yes Month Tobacco Last Used: October Second Hand Smoke Exposure: No - Caffeine Use Caffeine Use: Reports: None Caffeine Use Comment: 1-3/day - Alcohol Use Days Per Week of Alcohol Use: 0 - Recreational Drug Use Recreational Drug Use: No ED ROS GENERAL - Review of Systems Review Of Systems: ROS reveals no pertinent complaints other than HPI. ED EXAM, GENERAL - Physical Exam Exam: See Below (See dictation) Course - Vital Signs Last Recorded V/S: Last Vital Signs Temp 37.2 C 12/08/17 07:36 Pulse 131 H 12/08/17 07:36 Resp 22 H 12/08/17 07:36 BP 134/111 H 12/08/17 07:36 Pulse Ox 94 L 12/08/17 07:36 Departure - Departure Time of Disposition: 10:23 Disposition: Home, Self-Care 01 Condition: Good Clinical Impression: Constipation - Discharge Information Referrals: Adelita Perez DO [Primary Care Provider] - Forms: ED Department Discharge Additional Instructions: The following information is given to patients seen in the emergency department who are being discharged to home. This information is to outline your options for follow-up care. We provide all patients seen in our emergency department with a follow-up referral. The need for follow-up, as well as the timing and circumstances, are variable depending upon the specifics of your emergency department visit. If you don't have a primary care physician on staff, we will provide you with a referral. We always advise you to contact your personal physician following an emergency department visit to inform them of the circumstance of the visit and for follow-up with them and/or the need for any referrals to a consulting specialist. The emergency department will also refer you to a specialist when appropriate. This referral assures that you have the opportunity for followup care with a specialist. All of these measure are taken in an effort to provide you with optimal care, which includes your followup. Under all circumstances we always encourage you to contact your private physician who remains a resource for coordinating your care. When calling for followup care, please make the office aware that this follow-up is from your recent emergency room visit. If for any reason you are refused follow-up, please contact the [facility] emergency department at and asked to speak to the emergency department charge nurse. [facility] - General Surgery Professional Building [address] [place] [address], [address] [place] [address] Colace as directed Fleet Enema as directed call to schedule appointment with general surgery above continue current medications and return as needed as discussed
--- NOTE | 2017-12-08 08:42 | CR ---
EXAMINATION: Abdomen HISTORY: Constipation COMPARISON: 02/16/2017 TECHNIQUE: AP views of the abdomen FINDINGS: Small amount stool within the colon without evidence of obstruction. Cholecystectomy clips are noted. No abnormal calcifications project over the kidneys. Visualized osseous structures appear normal. IMPRESSION: 1. No acute findings within the abdomen.
== END 2017-12-08 10:35 | disposition home or self-care (01) ==
LOC: MW.ED 07:26
DX: K59.00 Constipation, unspecified (principal); I10 Essential (primary) hypertension; J45.909 Unspecified asthma, uncomplicated; F32.9 Major depressive disorder, single episode, unspecified; F17.210 Nicotine dependence, cigarettes, uncomplicated; Z79.899 Other long term (current) drug therapy; Z88.5 Allergy status to narcotic agent; Z91.040 Latex allergy status
CPT/HCPCS: 74018; 74018-26; 99283

== ENCOUNTER 2018-02-22 10:46 | Emergency (ER) | payer BC ==
--- NOTE | 2018-02-22 10:49 | EDM.PDOC ---
ED HPI GENERAL MEDICAL PROBLEM - General Stated Complaint: PER PT. SHE IS HAVING KIDNEY PROBLEMS Time Seen by Provider: 02/22/18 10:48 Source of Information: Reports: Patient History Limitations: Reports: No Limitations - History of Present Illness INITIAL COMMENTS - FREE TEXT/NARRATIVE: History of present illness: []Patient's had 3 days of bilateral flank pain and ran out of her tramadol yesterday. Patient also has chronic abdominal and flank pain with a history of kidney stones with placement of several stents in the past. She also has a history of IBS. She states that she does not know why she has this discomfort and has been worked up by her doctor for years and they cannot find an answer. Review of systems: As per history of present illness and below otherwise all systems reviewed and negative. Past medical history: As per history of present illness and as reviewed below otherwise noncontributory. Surgical history: As per history of present illness and as reviewed below otherwise noncontributory. Social history: No reported history of drug or alcohol abuse. Family history: As per history of present illness and as reviewed below otherwise noncontributory. Physical exam: General: Well developed, well nourished in NAD HEENT: Atraumatic, normocephalic, pupils reactive, negative for conjunctival pallor or scleral icterus, mucous membranes moist, throat clear, neck supple, nontender, trachea midline. Lungs: Clear to auscultation, breath sounds equal bilaterally, chest nontender. Heart: S1S2, regular, negative for clicks, rubs, or JVD. Abdomen: Soft, nondistended, nontender, no rebound or guarding. Negative for masses or hepatosplenomegaly. Negative for costovertebral tenderness. Pelvis: Stable nontender. Genitourinary: Deferred. Rectal: Deferred. Extremities: Atraumatic, negative for cords or calf pain. Neurovascular unremarkable. Neuro: Awake, alert, oriented. Cranial nerves II through XII unremarkable. Cerebellum unremarkable. Motor and sensory unremarkable throughout. Exam nonfocal. Diagnostics: []UA negative for blood or white cells Therapeutics: []Toradol for pain Impression: []Bilateral flank pain Plan: []Levsin for pain follow-up primary care return if symptoms worsen or change. Patient ran out of tramadol and I offered to give her a few tablets until she can get to her primary care but she declined a prescription for tramadol. Definitive disposition and diagnosis as appropriate pending reevaluation and review of above. back Pain Score (Numeric/FACES): 8 - Related Data Allergies Allergy/AdvReac Type Severity Reaction Status Date / Time codeine Allergy Severe Respiratory Verified 02/22/18 10:57 Distress Latex, Natural Rubber Allergy Mild Rash Verified 02/22/18 10:57 Home Meds: Home Meds Albuterol [Ventolin HFA] 1 puff INH ASDIRECTED PRN 03/05/14 [History] traZODone 150 mg PO BEDTIME 08/28/15 [History] Fluticasone/Salmeterol [Advair 250-50 Diskus] 2 inh IH BID #1 disk.w.dev [Rx] buPROPion [Wellbutrin SR] 300 mg PO DAILY 04/21/17 [History] LORazepam 1 mg PO BID PRN 12/08/17 [History] traMADol HCl [Tramadol HCl] 50 mg PO BID PRN 12/08/17 [History] Hyoscyamine Sulfate [Levsin] 0.125 mg PO TID PRN #20 tablet 02/22/18 [Rx] Past Medical History HEENT History: Reports: None Cardiovascular History: Reports: Hypertension Respiratory History: Reports: Asthma Gastrointestinal History: Reports: None Genitourinary History: Reports: None Other OB/BYN History: Hysterectomy Musculoskeletal History: Reports: None Neurological History: Reports: None Other Neuro History: Seizures as a child Psychiatric History: Reports: Anxiety, Depression Endocrine/Metabolic History: Reports: None Other Endocrine/Metabolic History: borderline diabetic Hematologic History: Reports: None Immunologic History: Reports: None Oncologic (Cancer) History: Reports: None Dermatologic History: Reports: None - Infectious Disease History Infectious Disease History: Reports: Chicken Pox - Past Surgical History Head Surgeries/Procedures: Reports: None HEENT Surgical History: Reports: None GI Surgical History: Reports: Cholecystectomy Other GI Surgeries/Procedures: diagnostic laparoscopy 2x Female Surgical History: Reports: Section, Hysterectomy Social & Family History - Family History Family Medical History: Noncontributory - Tobacco Use Smoking Status *Q: Current Every Day Smoker Years of Tobacco use: 15 Packs/Tins Daily: 0.2 Used Tobacco, but Quit: Yes Month/Year Tobacco Last Used: October Second Hand Smoke Exposure: No - Caffeine Use Caffeine Use: Reports: None Caffeine Use Comment: 1-3/day - Alcohol Use Days Per Week of Alcohol Use: 0 - Recreational Drug Use Recreational Drug Use: No ED ROS GENERAL - Review of Systems Review Of Systems: See Below (See history of present illness) ED EXAM, RENAL/ - Physical Exam Exam: See Below (See history of present illness) Course - Vital Signs Last Recorded V/S: Last Vital Signs Temp 98.6 F 02/22/18 11:00 Pulse 102 H 02/22/18 11:00 Resp 20 02/22/18 11:00 BP 129/96 H 02/22/18 11:00 Pulse Ox 97 02/22/18 11:00 - Orders/Labs/Meds Orders: Active Orders 24 hr Category Date Time Status UA W/MICROSCOPIC [URIN] Stat Lab 02/22/18 10:51 Ordered Labs: Laboratory Tests 02/22/18 Range/Units 10:51 Urine Color YELLOW Urine Appearance CLEAR Urine pH 6.5 (5.0-8.0) Ur Specific [place] <= 1.005 (1.001-1.035) Urine Protein NEGATIVE (NEGATIVE) mg/dL Urine Glucose (UA) NEGATIVE (NEGATIVE) mg/dL Urine Ketones NEGATIVE (NEGATIVE) mg/dL Urine Occult Blood NEGATIVE (NEGATIVE) Urine Nitrite NEGATIVE (NEGATIVE) Urine Bilirubin NEGATIVE (NEGATIVE) Urine Urobilinogen 0.2 (<2.0) EU/dL Ur Leukocyte Esterase TRACE (NEGATIVE) Urine RBC 0-1 (0-2/HPF) Urine WBC 0-1 (0-5/HPF) Ur Epithelial Cells FEW (NONE-FEW) Urine Bacteria FEW (NEGATIVE) Meds: Medications Discontinued Medications Generic Name Dose Route Start Last Admin Trade Name Freq PRN Reason Stop Dose Admin Ketorolac Tromethamine 60 mg 02/22/18 11:11 02/22/18 11:22 Toradol IM 02/22/18 11:12 60 mg ONETIME ONE Administration Departure - Departure Time of Disposition: 11:44 Disposition: Home, Self-Care 01 Condition: Good Clinical Impression: Bilateral flank pain - Discharge Information Prescriptions: Hyoscyamine Sulfate [Levsin] 0.125 mg PO TID PRN #20 tablet PRN Reason: Pain Referrals: PCP,None [Primary Care Provider] - Additional Instructions: The following information is given to patients seen in the emergency department who are being discharged to home. This information is to outline your options for follow-up care. We provide all patients seen in our emergency department with a follow-up referral. The need for follow-up, as well as the timing and circumstances, are variable depending upon the specifics of your emergency department visit. If you don't have a primary care physician on staff, we will provide you with a referral. We always advise you to contact your personal physician following an emergency department visit to inform them of the circumstance of the visit and for follow-up with them and/or the need for any referrals to a consulting specialist. The emergency department will also refer you to a specialist when appropriate. This referral assures that you have the opportunity for follow-up care with a specialist. All of these measure are taken in an effort to provide you with optimal care, which includes your follow-up. Under all circumstances we always encourage you to contact your private physician who remains a resource for coordinating your care. When calling for follow-up care, please make the office aware that this follow-up is from your recent emergency room visit. If for any reason you are refused follow-up, please contact the [facility] Emergency Department at and asked to speak to the emergency department charge nurse. Lopez as directed, increase fluids, follow-up with her primary care. [facility] [address] [place] [id number] - My Orders Last 24 Hours: My Active Orders 02/22/18 10:51 UA W/MICROSCOPIC [URIN] Stat - Assessment/Plan Last 24 Hours: My Active Orders 02/22/18 10:51 UA W/MICROSCOPIC [URIN] Stat
[2018-02-22 11:02] VITALS: BP 129/96
[2018-02-22] MEDS ORDERED: Ketorolac 60 MG/2 ML SDV IM ONE (11:11)
== END 2018-02-22 12:00 | disposition home or self-care (01) ==
LOC: MW.ED 10:46
DX: R10.9 Unspecified abdominal pain (principal); I10 Essential (primary) hypertension; J45.909 Unspecified asthma, uncomplicated; F32.9 Major depressive disorder, single episode, unspecified; F41.9 Anxiety disorder, unspecified; Z87.891 Personal history of nicotine dependence; Z88.5 Allergy status to narcotic agent; Z91.040 Latex allergy status; Z79.899 Other long term (current) drug therapy
CPT/HCPCS: 81001; 96372; 99283; J1885

== ENCOUNTER 2018-04-29 12:04 | Emergency (ER) | payer BC, OTHER ==
[2018-04-29] MEDS ORDERED: Sodium Chloride 0.9% 1,000 ML IV ONE (12:14)
[2018-04-29] MEDS ORDERED: Ondansetron 4 MG/2 ML SDV IVPUSH ONE (12:14)
--- NOTE | 2018-04-29 12:37 | EDM.PDOC ---
ED HPI GENERAL MEDICAL PROBLEM - General Chief Complaint: Syncope Stated Complaint: AMB Time Seen by Provider: 04/29/18 12:04 Source of Information: Reports: Patient, EMS History Limitations: Reports: Altered Mental Status - History of Present Illness INITIAL COMMENTS - FREE TEXT/NARRATIVE: HISTORY AND PHYSICAL: History of present illness: [Pt comes to ER via EMS after they were called to her work place w/ reports that she passed out. She was working at [employer] when she felt a warm sensation spread over her. The next thing that she remembers is her boss was standing over her. EMS reports that she has been in and out of consciousness since they appeared on scene. She complains of a headache to her L frontal forehead and pain in her neck. Admits that she has been a lot of high sodium foods, and not drinking very much water. Temperature at work felt hot today. She has otherwise been feeling well and in her normal state of good health. Reports a history of seizure disorder, but has not had a seizure since 2010. Does not take medication for seizures. History of hysterectomy. No fever or chills. No sore throat or runny nose or headache. No cough, chest pain, SOA, dyspnea. Appetite has been normal. No abd pain, nausea, vomiting, constipation or vomiting. No swelling or cyanosis to extremities. Normal mood. Follows regularly w/ Dr. Perez. ] Review of systems: As per history of present illness and below otherwise all systems reviewed and negative. Past medical history: As per history of present illness and as reviewed below otherwise noncontributory. Surgical history: As per history of present illness and as reviewed below otherwise noncontributory. Social history: No reported history of drug or alcohol abuse. Family history: As per history of present illness and as reviewed below otherwise noncontributory. Physical exam: General: WDWN, female in no acute distress. She is dozing on and off throughout examination upon presentation to the ER. HEENT: Atraumatic, normocephalic. Nystgmus bilaterally. Oral mucous membranes moist, throat clear. neck supple, nontender, no lymphadenopathy. Lungs: Clear to auscultation, breath sounds equal bilaterally. Heart: S1S2, regular rate and rhythm. Abdomen: Abdomen is obese, Soft, nondistended, nontender. Negative for masses, guarding or rebound. Negative for costovertebral tenderness. Pelvis: Stable nontender. Genitourinary: Deferred. Rectal: Deferred. Extremities: Atraumatic, negative for cords or calf pain. NO cyanosis or edema to feet or lower leg. Neurovascular unremarkable. Neuro: Awake, alert, oriented. Motor and sensory unremarkable throughout. Exam nonfocal. Diagnostics: [CBC, CMP, UA, troponin, UDS, head CT without contrast, CT C-spine without contrast] Therapeutics: [1 liter NS, Zofran 4mg IV, Toradol 30mg IV] Impression: [concussion hematuria] Plan: [CT head and C-spine are WNL. C-collar removed at 1250. She is more alert and conversational. CBC, CMP, lactic acid are WNL. UA shows a large amount of blood , and 50-60 Complains of a headache. Toradol 30mg given IV. Rx written for Zofran ODT 4 mg #10 sig one by mouth every 8 hours as needed for nausea. Is given an excuse from work until she can follow-up with her primary care next week. We discussed brain rest, pushing fluids to avoid dehydration. She is in agreement with today's plan. All questions are answered and concerns are addressed. ] Definitive disposition and diagnosis as appropriate pending reevaluation and review of above. Head Pain Score (Numeric/FACES): 8 - Related Data Allergies Allergy/AdvReac Type Severity Reaction Status Date / Time codeine Allergy Severe Respiratory Verified 04/29/18 12:17 Distress Latex, Natural Rubber Allergy Mild Rash Verified 04/29/18 12:17 Home Meds: Home Meds Albuterol [Ventolin HFA] 1 puff INH ASDIRECTED PRN 03/05/14 [History] traZODone 150 mg PO BEDTIME 08/28/15 [History] Fluticasone/Salmeterol [Advair 250-50 Diskus] 2 inh IH BID #1 disk.w.dev [Rx] buPROPion [Wellbutrin SR] 300 mg PO DAILY 04/21/17 [History] LORazepam 1 mg PO BID PRN 12/08/17 [History] traMADol HCl [Tramadol HCl] 50 mg PO BID PRN 12/08/17 [History] Hyoscyamine Sulfate [Levsin] 0.125 mg PO TID PRN #20 tablet 02/22/18 [Rx] Past Medical History HEENT History: Reports: None Cardiovascular History: Reports: Hypertension Respiratory History: Reports: Asthma Gastrointestinal History: Reports: None Genitourinary History: Reports: Renal Calculus Other OB/BYN History: Hysterectomy Musculoskeletal History: Reports: None Neurological History: Reports: None Other Neuro History: Seizures as a child Psychiatric History: Reports: Anxiety, Depression Endocrine/Metabolic History: Reports: None Other Endocrine/Metabolic History: borderline diabetic Hematologic History: Reports: None Immunologic History: Reports: None Oncologic (Cancer) History: Reports: None Dermatologic History: Reports: None - Infectious Disease History Infectious Disease History: Reports: Chicken Pox - Past Surgical History Head Surgeries/Procedures: Reports: None HEENT Surgical History: Reports: None GI Surgical History: Reports: Cholecystectomy Other GI Surgeries/Procedures: diagnostic laparoscopy 2x Female Surgical History: Reports: Section, Hysterectomy, Lithotripsy /ESWL Social & Family History - Family History Family Medical History: Noncontributory - Tobacco Use Smoking Status *Q: Current Every Day Smoker Years of Tobacco use: 18 Packs/Tins Daily: 0.5 - Caffeine Use Caffeine Use: Reports: Coffee, Soda Caffeine Use Comment: 1-3/day - Recreational Drug Use Recreational Drug Use: No ED ROS GENERAL - Review of Systems Review Of Systems: ROS reveals no pertinent complaints other than HPI. - Physical Exam Exam: See Below Course - Vital Signs Last Recorded V/S: Last Vital Signs Temp 97.6 F 04/29/18 12:13 Pulse 72 04/29/18 14:25 Resp 18 04/29/18 14:25 BP 147/94 H 04/29/18 14:25 Pulse Ox 98 04/29/18 14:25 - Orders/Labs/Meds Orders: Active Orders 24 hr Category Date Time Status EKG Documentation Completion [RC] STAT Care 04/29/18 12:11 Active C-Spine [Cervical Spine wo Cont] [CT] Stat Exams 04/29/18 12:10 Taken Head wo Cont [CT] Stat Exams 04/29/18 12:09 Taken DRUG SCREEN, URINE [URCHEM] Stat Lab 04/29/18 13:34 Ordered UA W/MICROSCOPIC [URIN] Stat Lab 04/29/18 13:35 Ordered Labs: Laboratory Tests 04/29/18 04/29/18 04/29/18 Range/Units 12:45 12:45 12:45 WBC 7.37 (4.0-11.0) K/uL RBC 4.30 (4.30-5.90) M/uL Hgb 12.6 (12.0-16.0) g/dL Hct 39.3 (36.0-46.0) % MCV 91.4 (80.0-98.0) fL MCH 29.3 (27.0-32.0) pg MCHC 32.1 (31.0-37.0) g/dL RDW Std Deviation 45.2 (28.0-62.0) fl RDW Coeff of Pineda 14 (11.0-15.0) % Plt Count 275 (150-400) K/uL MPV 10.50 (7.40-12.00) fL Neut % (Auto) 68.4 (48.0-80.0) % Lymph % (Auto) 21.7 (16.0-40.0) % Grayson % (Auto) 6.6 (0.0-15.0) % Eos % (Auto) 2.6 (0.0-7.0) % Baso % (Auto) 0.7 (0.0-1.5) % Neut # (Auto) 5.0 (1.4-5.7) K/uL Lymph # (Auto) 1.6 (0.6-2.4) K/uL Grayson # (Auto) 0.5 (0.0-0.8) K/uL Eos # (Auto) 0.2 (0.0-0.7) K/uL Baso # (Auto) 0.1 (0.0-0.1) K/uL Nucleated RBC % 0.0 /100WBC Nucleated RBCs # 0 K/uL Lactate 1.6 (0.20-2.00) mmol/L Sodium 140 (136-145) mmol/L Potassium 4.1 (3.5-5.1) mmol/L Chloride 106 (98-107) mmol/L Carbon Dioxide 27.9 (21.0-32.0) mmol/L BUN 7 (7.0-18.0) mg/dL Creatinine 0.9 (0.6-1.0) mg/dL Est Cr Clr Drug Dosing 76.77 mL/min Estimated GFR (MDRD) > 60.0 ml/min Glucose 112 H (74-106) mg/dL Calcium 8.6 (8.5-10.1) mg/dL Total Bilirubin 0.3 (0.2-1.0) mg/dL AST 11 L (15-37) IU/L ALT 22 (14-63) IU/L Alkaline Phosphatase 60 (46-116) U/L Troponin I < 0.050 (0.000-0.056) ng/mL Total Protein 7.1 (6.4-8.2) g/dL Albumin 3.4 (3.4-5.0) g/dL Globulin 3.7 H (2.0-3.5) g/dL Albumin/Globulin Ratio 0.9 L (1.3-2.8) Urine Color Urine Appearance Urine pH (5.0-8.0) Ur Specific [place] (1.001-1.035) Urine Protein (NEGATIVE) mg/dL Urine Glucose (UA) (NEGATIVE) mg/dL Urine Ketones (NEGATIVE) mg/dL Urine Occult Blood (NEGATIVE) Urine Nitrite (NEGATIVE) Urine Bilirubin (NEGATIVE) Urine Urobilinogen (<2.0) EU/dL Ur Leukocyte Esterase (NEGATIVE) Urine RBC (0-2/HPF) Urine WBC (0-5/HPF) Ur Epithelial Cells (NONE-FEW) Amorphous Sediment (NEGATIVE) Urine Bacteria (NEGATIVE) Urine Opiates Screen (NEGATIVE) Ur Oxycodone Screen (NEGATIVE) Urine Methadone Screen (NEGATIVE) Ur Barbiturates Screen (NEGATIVE) Ur Phencyclidine Scrn (NEGATIVE) Ur Amphetamine Screen (NEGATIVE) U Methamphetamines Scrn (NEGATIVE) U Benzodiazepines Scrn (NEGATIVE) U Cocaine Metab Screen (NEGATIVE) U Marijuana (THC) Screen (NEGATIVE) 04/29/18 04/29/18 Range/Units 13:34 13:35 WBC (4.0-11.0) K/uL RBC (4.30-5.90) M/uL Hgb (12.0-16.0) g/dL Hct (36.0-46.0) % MCV (80.0-98.0) fL MCH (27.0-32.0) pg MCHC (31.0-37.0) g/dL RDW Std Deviation (28.0-62.0) fl RDW Coeff of Pineda (11.0-15.0) % Plt Count (150-400) K/uL MPV (7.40-12.00) fL Neut % (Auto) (48.0-80.0) % Lymph % (Auto) (16.0-40.0) % Grayson % (Auto) (0.0-15.0) % Eos % (Auto) (0.0-7.0) % Baso % (Auto) (0.0-1.5) % Neut # (Auto) (1.4-5.7) K/uL Lymph # (Auto) (0.6-2.4) K/uL Grayson # (Auto) (0.0-0.8) K/uL Eos # (Auto) (0.0-0.7) K/uL Baso # (Auto) (0.0-0.1) K/uL Nucleated RBC % /100WBC Nucleated RBCs # K/uL Lactate (0.20-2.00) mmol/L Sodium (136-145) mmol/L Potassium (3.5-5.1) mmol/L Chloride (98-107) mmol/L Carbon Dioxide (21.0-32.0) mmol/L BUN (7.0-18.0) mg/dL Creatinine (0.6-1.0) mg/dL Est Cr Clr Drug Dosing mL/min Estimated GFR (MDRD) ml/min Glucose (74-106) mg/dL Calcium (8.5-10.1) mg/dL Total Bilirubin (0.2-1.0) mg/dL AST (15-37) IU/L ALT (14-63) IU/L Alkaline Phosphatase (46-116) U/L Troponin I (0.000-0.056) ng/mL Total Protein (6.4-8.2) g/dL Albumin (3.4-5.0) g/dL Globulin (2.0-3.5) g/dL Albumin/Globulin Ratio (1.3-2.8) Urine Color YELLOW Urine Appearance CLOUDY Urine pH 7.5 (5.0-8.0) Ur Specific [place] 1.015 (1.001-1.035) Urine Protein NEGATIVE (NEGATIVE) mg/dL Urine Glucose (UA) NEGATIVE (NEGATIVE) mg/dL Urine Ketones NEGATIVE (NEGATIVE) mg/dL Urine Occult Blood LARGE H (NEGATIVE) Urine Nitrite NEGATIVE (NEGATIVE) Urine Bilirubin NEGATIVE (NEGATIVE) Urine Urobilinogen 0.2 (<2.0) EU/dL Ur Leukocyte Esterase NEGATIVE (NEGATIVE) Urine RBC 50-60 (0-2/HPF) Urine WBC 0-2 (0-5/HPF) Ur Epithelial Cells MODERATE (NONE-FEW) Amorphous Sediment LIGHT (NEGATIVE) Urine Bacteria FEW (NEGATIVE) Urine Opiates Screen NEGATIVE (NEGATIVE) Ur Oxycodone Screen NEGATIVE (NEGATIVE) Urine Methadone Screen NEGATIVE (NEGATIVE) Ur Barbiturates Screen NEGATIVE (NEGATIVE) Ur Phencyclidine Scrn NEGATIVE (NEGATIVE) Ur Amphetamine Screen NEGATIVE (NEGATIVE) U Methamphetamines Scrn NEGATIVE (NEGATIVE) U Benzodiazepines Scrn NEGATIVE (NEGATIVE) U Cocaine Metab Screen NEGATIVE (NEGATIVE) U Marijuana (THC) Screen NEGATIVE (NEGATIVE) Meds: Medications Discontinued Medications Generic Name Dose Route Start Last Admin Trade Name Freq PRN Reason Stop Dose Admin Sodium Chloride 1,000 mls @ 999 mls/hr 04/29/18 12:14 04/29/18 12:35 Normal Saline IV 04/29/18 13:14 999 mls/hr STAT ONE Administration Ketorolac Tromethamine 30 mg 04/29/18 13:21 04/29/18 13:29 Toradol IVPUSH 04/29/18 13:22 30 mg ONETIME ONE Administration Ondansetron HCl 4 mg 04/29/18 12:14 04/29/18 12:34 Zofran IVPUSH 04/29/18 12:15 4 mg ONETIME ONE Administration Departure - Departure Time of Disposition: 14:05 Disposition: Home, Self-Care 01 Condition: Good Clinical Impression: Concussion - Discharge Information Instructions: Concussion, Adult, [id number] Referrals: PCP,None [Primary Care Provider] - Forms: ED Department Discharge Additional Instructions: The following information is given to patients seen in the emergency department who are being discharged to home. This information is to outline your options for follow-up care. We provide all patients seen in our emergency department with a follow-up referral. The need for follow-up, as well as the timing and circumstances, are variable depending upon the specifics of your emergency department visit. If you don't have a primary care physician on staff, we will provide you with a referral. We always advise you to contact your personal physician following an emergency department visit to inform them of the circumstance of the visit and for follow-up with them and/or the need for any referrals to a consulting specialist. The emergency department will also refer you to a specialist when appropriate. This referral assures that you have the opportunity for follow-up care with a specialist. All of these measure are taken in an effort to provide you with optimal care, which includes your follow-up. Under all circumstances we always encourage you to contact your private physician who remains a resource for coordinating your care. When calling for follow-up care, please make the office aware that this follow-up is from your recent emergency room visit. If for any reason you are refused follow-up, please contact the [facility] emergency department at and asked to speak to the emergency department charge nurse. [address] [address] . Follow-up with your local PCP or at the clinic listed above on Tuesday as you have scheduled. Brain rest, push fluids, get plenty of rest. No work until follow-up with PCP. Return to ER as needed as discussed. - My Orders Last 24 Hours: My Active Orders 04/29/18 12:09 Head wo Cont [CT] Stat 04/29/18 12:10 C-Spine [Cervical Spine wo Cont] [CT] Stat 04/29/18 12:11 EKG Documentation Completion [RC] STAT 04/29/18 13:34 DRUG SCREEN, URINE [URCHEM] Stat 04/29/18 13:35 UA W/MICROSCOPIC [URIN] Stat - Assessment/Plan Last 24 Hours: My Active Orders 04/29/18 12:09 Head wo Cont [CT] Stat 04/29/18 12:10 C-Spine [Cervical Spine wo Cont] [CT] Stat 04/29/18 12:11 EKG Documentation Completion [RC] STAT 04/29/18 13:34 DRUG SCREEN, URINE [URCHEM] Stat 04/29/18 13:35 UA W/MICROSCOPIC [URIN] Stat
[2018-04-29 13:04] LABS: CHLORIDE,CL 106 mmol/L (98-107); SODIUM,NA 140 mmol/L (136-145)
[2018-04-29] MEDS ORDERED: Ketorolac 30 MG/ML SDV IVPUSH ONE (13:21)
[2018-04-29 14:31] VITALS: BP 147/94
--- NOTE | 2018-05-01 14:11 | CT ---
EXAM DATE: 04/29/18 PATIENT'S AGE: 32 Patient: ELVIS CSAEY Facility: [place], [place] Site . Site : 1985 Study: CT Head [id number] 12:33:44 PM Ordering Physician: Doctor Keller Final Report: INDICATION: fall, loc, head ache CT SCAN HEAD WITHOUT CONTRAST TECHNIQUE: Direct axial non-contrast images of the head from foramen magnum to vertex are provided. FINDINGS: Axial images of the brain demonstrate a normal appearance of the ventricles, sulci and basal cistern. There is no evidence of intracranial hemorrhage, infarct, mass or mass effect. Vera-white differentiation is normal throughout. Visualized mastoid air cells and middle ear cavities are clear. The visualized paranasal sinuses are clear other than mucous retention cyst dependent right maxillary. The orbits are symmetric. Calvarium intact. CONCLUSION: Unremarkable unenhanced head CT. Please note that all CT scans at this facility use dose modulation, iterative reconstruction, and/or weight-based dosing when appropriate to reduce radiation dose to as low as reasonably achievable. Dictated by: Artur Griffith MD @ 04/29/2018 12:43:18 (Electronic Signature) Report Signed by Proxy. [facility]
--- NOTE | 2018-05-01 14:12 | CT ---
EXAM DATE: 04/29/18 PATIENT'S AGE: 32 Patient: ELVIS CASEY Facility: [place], [place] Site . Site : 1985 Study: CT Spine Cervical [id number] 12:37:03 PM Ordering Physician: Doctor Keller Final Report: INDICATION: fall, loc, head ache, neck pain TECHNIQUE: Helical non-contrast images of the cervical spine from skull base to thoracic inlet were obtained. Axial, coronal and sagittal thin section 2-D reformats are provided. FINDINGS: There is no acute fracture or malalignment. Prevertebral soft tissues are within normal limits. No significant degenerative change is present. Visualized posterior fossa is unremarkable. Central canal is lower normal diameter. IMPRESSION: No acute fracture or malalignment cervical spine. No acute findings. Please note that all CT scans at this facility use dose modulation, iterative reconstruction, and/or weight-based dosing when appropriate to reduce radiation dose to as low as reasonably achievable. Dictated by: Artur Griffith MD @ 04/29/2018 12:51:41 (Electronic Signature) Report Signed by Proxy. [facility]
== END 2018-04-29 14:27 | disposition home or self-care (01) ==
LOC: MW.ED 12:04
DX: S06.0X9A Concussion with loss of consciousness of unspecified duration, initial encounter (principal); R31.9 Hematuria, unspecified; I10 Essential (primary) hypertension; J45.909 Unspecified asthma, uncomplicated; Z79.899 Other long term (current) drug therapy; Z88.5 Allergy status to narcotic agent; Z91.040 Latex allergy status; F41.9 Anxiety disorder, unspecified; F32.9 Major depressive disorder, single episode, unspecified; F17.210 Nicotine dependence, cigarettes, uncomplicated; W22.8XXA Striking against or struck by other objects, initial encounter; Y99.0 Civilian activity done for income or pay
CPT/HCPCS: 36415; 70450; 72125; 80053; 80305; 81001; 83605; 84484; 85025; 93005; 96361; 96374; 96375; 99285; J1885; J2405; J7040; 99284

== ENCOUNTER 2018-05-02 17:18 | Emergency (ER) | payer BC, OTHER ==
[2018-05-02] MEDS ORDERED: Ondansetron 4 MG/2 ML SDV IVPUSH ONE (17:59)
[2018-05-02] MEDS ORDERED: Acetaminophen 500 MG Tab PO ONE (18:01)
[2018-05-02] MEDS ORDERED: LORazepam 2 MG/ML SDV IVPUSH ONE (18:03)
--- NOTE | 2018-05-02 18:23 | EDM.PDOC ---
ED HPI GENERAL MEDICAL PROBLEM - General Chief Complaint: Headache Stated Complaint: FELL AND HIT HEAD A FEW DAYS AGO Time Seen by Provider: 05/02/18 17:35 Source of Information: Reports: Patient History Limitations: Reports: No Limitations - History of Present Illness INITIAL COMMENTS - FREE TEXT/NARRATIVE: Presents to the ER reporting concussion. 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 On that visit a review of the records indicates that CT scan of the head, hematology, chemistries and drug screens were negative. She was diagnosed with concussion. She saw her primary provider yesterday when she continued to have symptoms of word finding, nausea, difficulty remembering things and left frontal headache. She was put on what sounds like modified brain rest and sent home. She continues to have the same symptoms so she came in today. She did try to take some alternating Tylenol and ibuprofen for the headache but every time she tried she threw it back up. She did take Zofran for the nausea the first day which helped but since it has not helped. head Pain Score (Numeric/FACES): 7 - Related Data Allergies Allergy/AdvReac Type Severity Reaction Status Date / Time codeine Allergy Severe Respiratory Verified 05/02/18 17:20 Distress Latex, Natural Rubber Allergy Mild Rash Verified 05/02/18 17:20 Home Meds: Home Meds Albuterol [Ventolin HFA] 1 puff INH ASDIRECTED PRN 03/05/14 [History] traZODone 150 mg PO BEDTIME 08/28/15 [History] Fluticasone/Salmeterol [Advair 250-50 Diskus] 2 inh IH BID #1 disk.w.dev [Rx] buPROPion [Wellbutrin SR] 300 mg PO DAILY 04/21/17 [History] LORazepam 1 mg PO BID PRN 12/08/17 [History] traMADol HCl [Tramadol HCl] 50 mg PO BID PRN 12/08/17 [History] Hyoscyamine Sulfate [Levsin] 0.125 mg PO TID PRN #20 tablet 02/22/18 [Rx] Past Medical History HEENT History: Reports: None Cardiovascular History: Reports: Hypertension Respiratory History: Reports: Asthma Gastrointestinal History: Reports: None Genitourinary History: Reports: Renal Calculus [employer] 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 (See Below) Other OB/BYN History: Hysterectomy Musculoskeletal History: Reports: None Neurological History: Reports: Concussion, Other (See Below) Other Neuro History: Seizures as a child Psychiatric History: Reports: Anxiety, Depression Endocrine/Metabolic 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 (See Below) Other Endocrine/Metabolic History: borderline diabetic Hematologic History: Reports: None Immunologic History: Reports: None Oncologic (Cancer) History: Reports: None Dermatologic History: Reports: None - Infectious Disease History Infectious Disease History: Reports: Chicken Pox - Past Surgical History Head Surgeries/Procedures: Reports: None HEENT Surgical History: Reports: None Cardiovascular Surgical History: Reports: None Respiratory Surgical History: Reports: None GI Surgical History: Reports: Cholecystectomy Other GI Surgeries/Procedures: diagnostic laparoscopy 2x Female Surgical History: Reports: Section, Hysterectomy, Lithotripsy /ESWL Endocrine Surgical History: Reports: None Neurological Surgical History: Reports: None Musculoskeletal Surgical History: Reports: None Dermatological Surgical History: Reports: None Social & Family History - Family History Family Medical History: Noncontributory - Tobacco Use Smoking Status *Q: Never Smoker Second Hand Smoke Exposure: No - Caffeine Use Caffeine Use: Reports: None Caffeine Use Comment: 1-3/day - Recreational Drug Use Recreational Drug Use: No ED ROS GENERAL - Review of Systems Review Of Systems: ROS reveals no pertinent complaints other than HPI. Constitutional: Denies: Fever - Physical Exam Exam: See Below Exam Limited By: No Limitations General Appearance: Alert, Moderate Distress (Due to headache and anxiety) Eye Exam: Bilateral Eye: EOMI, PERRL Ears: Normal External Exam Nose: Normal Inspection Throat/Mouth: Normal Inspection Head Exam: Atraumatic, Normocephalic Neck: Normal Inspection Respiratory/Chest: No Respiratory Distress, Lungs Clear, Normal Breath Sounds Cardiovascular: Normal Peripheral Pulses, Regular Rate, Rhythm, No Murmur GI/Abdominal: Soft Neuro Exam (Abbreviated): Alert, Oriented, CN II-XII Intact, No Motor/Sensory Deficits, Slow to Respond (Took time to figure out how to respond to what I was asking but then responded appropriately), Memory Loss Recent Events (had to think before saying things) Psychiatric: Anxious, Other (Hyperventilating) Skin Exam: Warm, Dry, Intact, Normal Color, No Rash Course - Vital Signs Last Recorded V/S: Last Vital Signs Temp 36.2 C 05/02/18 17:20 Pulse 84 05/02/18 17:20 Resp 18 05/02/18 17:20 BP 150/94 H 05/02/18 17:20 Pulse Ox 100 05/02/18 17:20 - Orders/Labs/Meds Meds: Medications Discontinued Medications Generic Name Dose Route Start Last Admin Trade Name Galo PRN Reason Stop Dose Admin Acetaminophen 1,000 mg 05/02/18 18:01 05/02/18 18:16 Tylenol Extra Strength PO 05/02/18 18:02 1,000 mg ONETIME ONE Administration Lorazepam 0.5 mg 05/02/18 18:03 05/02/18 18:15 Ativan IVPUSH 05/02/18 18:04 0.5 mg ONETIME ONE Administration Ondansetron HCl 4 mg 05/02/18 17:59 05/02/18 18:10 Zofran IVPUSH 05/02/18 18:00 4 mg ONETIME ONE Administration - Re-Assessments/Exams Free Text/Narrative Re-Assessment/Exam: 05/02/18 19:18 The patient is calm, responding briskly and appropriately. Conversive without word finding or memory deficits. Headache has improved and nausea has resolved. Departure - Departure Time of Disposition: 19:19 Disposition: Home, Self-Care 01 Condition: Good Clinical Impression: Concussion Qualifiers: Encounter type: subsequent encounter - Discharge Information Referrals: Adelita Perez DO [Primary Care Provider] - Additional Instructions: 1. Brain rest: No flurescent lights, TV, computer screens, cell phone games, facebook, etc. No reading, analytic or technical activities. 2. Zofran every 6 hours as needed for nausea. 3. Ativan 1/2 tab every 4-6 hours as needed for anxiety and 1 tab at bedtime for sleep. 4. Tylenol 500mg tabs 2 tabs three times daily for headache. 5. Follow up with Dr. Perez. May suggest the SAC and SADA tests to gauge recovery progress. 6. Rest quietly. May get up to bathroom and around house. Guard against blood clots in the legs by doing ankle flex/extend exercises often.
[2018-05-02 19:44] VITALS: BP 133/88
== END 2018-05-02 19:40 | disposition home or self-care (01) ==
LOC: MW.ED 17:18
DX: S06.0X9A Concussion with loss of consciousness of unspecified duration, initial encounter (principal); I10 Essential (primary) hypertension; J45.909 Unspecified asthma, uncomplicated; F41.9 Anxiety disorder, unspecified; F32.9 Major depressive disorder, single episode, unspecified; Z88.5 Allergy status to narcotic agent; Z91.040 Latex allergy status; Z79.899 Other long term (current) drug therapy; W19.XXXA Unspecified fall, initial encounter
CPT/HCPCS: 96374; 96375; 99283; A9270; J2060; J2405; 99284

== ENCOUNTER 2019-02-03 22:11 | Emergency (ER) | payer SELFPAY ==
--- NOTE | 2019-02-03 23:42 | EDM.PDOC ---
ED HPI GENERAL MEDICAL PROBLEM - General Chief Complaint: Upper Extremity Injury/Pain Stated Complaint: LT HAND HURTS Time Seen by Provider: 02/03/19 23:39 Source of Information: Reports: Patient - History of Present Illness INITIAL COMMENTS - FREE TEXT/NARRATIVE: HISTORY AND PHYSICAL: History of present illness: [Patient fell forward today hyperflexing her second third digit on her left hand she has pain with extension swelling of the second digit tendon function is intact flexor and extensor the entire limb is neurovascularly intact unaffected above the wrist, she did splint earlier however her fingers are sore in the straight position or extended position rather, she presents as such 5 out of 10 nonradiating pain No other injury no head injury or loss of consciousness no fever nausea vomiting chills sweats Review of systems: As per history of present illness and below otherwise all systems reviewed and negative. Past medical history: As per history of present illness and as reviewed below otherwise noncontributory. Surgical history: As per history of present illness and as reviewed below otherwise noncontributory. Social history: No reported history of drug or alcohol abuse. Family history: As per history of present illness and as reviewed below otherwise noncontributory. Physical exam: HEENT: Atraumatic, normocephalic, pupils reactive, negative for conjunctival pallor or scleral icterus, mucous membranes moist, throat clear, neck supple, nontender, trachea midline. Lungs: Clear to auscultation, breath sounds equal bilaterally, chest nontender. Heart: S1S2, regular, negative for clicks, rubs, or JVD. Abdomen: Soft, nondistended, nontender. Negative for masses or hepatosplenomegaly. Negative for costovertebral tenderness. Pelvis: Stable nontender. Genitourinary: Deferred. Rectal: Deferred. Extremities: Atraumatic, negative for cords or calf pain. Neurovascular unremarkable. Neuro: Awake, alert, oriented. Cranial nerves II through XII unremarkable. Cerebellum unremarkable. Motor and sensory unremarkable throughout. Exam nonfocal. Diagnostics: [Left hand 3 views ] Therapeutics: [Splint Rest ice ibuprofen] Impression: [Left hand injury] Definitive disposition and diagnosis as appropriate pending reevaluation and review of above. left hand Pain Score (Numeric/FACES): 9 - Related Data Allergies Allergy/AdvReac Type Severity Reaction Status Date / Time codeine Allergy Severe Respiratory Verified 09/13/18 07:29 Distress Latex, Natural Rubber Allergy Mild Rash Verified 09/13/18 07:29 Home Meds: Home Meds traZODone 150 mg PO BEDTIME 08/28/15 [History] traMADol HCl [Tramadol HCl] 50 mg PO BID PRN 12/08/17 [History] clonazePAM [Clonazepam] 1 mg PO BID PRN 09/13/18 [History] Divalproex Sodium [Depakote] 500 mg PO DAILY 02/03/19 [History] Vortioxetine Hydrobromide [Trintellix] 5 mg PO DAILY 02/03/19 [History] Past Medical History HEENT History: Reports: None Cardiovascular History: Reports: Hypertension Respiratory History: Reports: Asthma Gastrointestinal History: Reports: None Genitourinary History: Reports: Renal Calculus 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 OFFICE DIRECTOR 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 (See Below) Other FRONT OFFICE DIRECTOR History: Hysterectomy Musculoskeletal History: Reports: None Neurological History: Reports: Concussion, Other (See Below) Other Neuro History: Seizures as a child Psychiatric History: Reports: Anxiety, Depression Endocrine/Metabolic 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 (See Below) Other Endocrine/Metabolic History: borderline diabetic Hematologic History: Reports: None Immunologic History: Reports: None Oncologic (Cancer) History: Reports: None Dermatologic History: Reports: None - Infectious Disease History Infectious Disease History: Reports: Chicken Pox - Past Surgical History Head Surgeries/Procedures: Reports: None HEENT Surgical History: Reports: None Cardiovascular Surgical History: Reports: None Respiratory Surgical History: Reports: None GI Surgical History: Reports: Cholecystectomy Other GI Surgeries/Procedures: diagnostic laparoscopy 2x Female Surgical History: Reports: Section, Hysterectomy, Lithotripsy /ESWL Endocrine Surgical History: Reports: None Neurological Surgical History: Reports: None Musculoskeletal Surgical History: Reports: None Dermatological Surgical History: Reports: None Social & Family History - Family History Family Medical History: Noncontributory - Tobacco Use Smoking Status *Q: Never Smoker - Caffeine Use Caffeine Use: Reports: Coffee, Soda Caffeine Use Comment: 1-3/day - Recreational Drug Use Recreational Drug Use: No Review of Systems - Review of Systems Review Of Systems: See Below ED EXAM, GENERAL - Physical Exam Exam: See Below Course - Vital Signs Last Recorded V/S: Last Vital Signs Temp 98.1 F 02/03/19 22:30 Pulse 94 02/03/19 22:30 Resp 20 02/03/19 22:30 BP 157/105 H 02/03/19 22:30 Pulse Ox 97 02/03/19 22:30 - Orders/Labs/Meds Orders: Active Orders 24 hr Category Date Time Status Hand Comp Min 3V Lt [CR] Stat Exams 02/03/19 22:40 Taken Departure - Departure Time of Disposition: 23:41 Disposition: Home, Self-Care 01 Condition: Good Clinical Impression: Injury of left hand - Discharge Information Referrals: PCP,None [Primary Care Provider] - Additional Instructions: The following information is given to patients seen in the emergency department who are being discharged to home. This information is to outline your options for follow-up care. We provide all patients seen in our emergency department with a follow-up referral. The need for follow-up, as well as the timing and circumstances, are variable depending upon the specifics of your emergency department visit. If you don't have a primary care physician on staff, we will provide you with a referral. We always advise you to contact your personal physician following an emergency department visit to inform them of the circumstance of the visit and for follow-up with them and/or the need for any referrals to a consulting specialist. The emergency department will also refer you to a specialist when appropriate. This referral assures that you have the opportunity for follow-up care with a specialist. All of these measure are taken in an effort to provide you with optimal care, which includes your follow-up. Under all circumstances we always encourage you to contact your private physician who remains a resource for coordinating your care. When calling for follow-up care, please make the office aware that this follow-up is from your recent emergency room visit. If for any reason you are refused follow-up, please contact the [facility] emergency department at and asked to speak to the emergency department charge nurse. - My Orders Last 24 Hours: My Active Orders 02/03/19 22:40 Hand Comp Min 3V Lt [CR] Stat - Assessment/Plan Last 24 Hours: My Active Orders 02/03/19 22:40 Hand Comp Min 3V Lt [CR] Stat
[2019-02-04 00:36] VITALS: BP 153/107
--- NOTE | 2019-02-05 11:23 | CR ---
EXAM DATE: 02/03/19 PATIENT'S AGE: 33 Patient: ELVIS CASEY Facility: [facility] Site . Site : 1985 Study: XRay-Extremity Left hand-02/03/2019 10:57:51 PM Ordering Physician: Doctor Keller Final Report: Indication: Pain after fall Technique: Three views left hand Comparison: Nine Findings: Bones: Alignment is normal. No fractures or bone lesions. Joint spaces: Unremarkable. Soft tissues: Unremarkable. Impression: Negative. Dictated by Melanie Rivas MD @ Feb 03 2019 11:19PM Signed by: Melanie Rivas MD @02/03/2019 11:19:30 PM (Electronic Signature) Report Signed by Proxy. YVES
== END 2019-02-04 00:35 | disposition home or self-care (01) ==
LOC: MW.ED 22:11
DX: S69.92XA Unspecified injury of left wrist, hand and finger(s), initial encounter (principal); I10 Essential (primary) hypertension; J45.909 Unspecified asthma, uncomplicated; F41.9 Anxiety disorder, unspecified; F32.9 Major depressive disorder, single episode, unspecified; Z88.5 Allergy status to narcotic agent; Z91.040 Latex allergy status; Z79.899 Other long term (current) drug therapy; X50.9XXA Other and unspecified overexertion or strenuous movements or postures, initial encounter
CPT/HCPCS: 73130-26-LT; 73130-LT; 99283-25

== ENCOUNTER 2019-07-01 15:18 | Emergency (ER) | payer SELFPAY ==
--- NOTE | 2019-07-01 15:22 | EDM.PDOC ---
ED HPI GENERAL MEDICAL PROBLEM - General Stated Complaint: SPIDER BITE/INFECTION Time Seen by Provider: 07/01/19 15:19 Source of Information: Reports: Patient History Limitations: Reports: No Limitations - History of Present Illness INITIAL COMMENTS - FREE TEXT/NARRATIVE: History of present illness: []She has a lesion on her left inner thigh that she thinks is a spider bite that has progressively gotten bigger and more painful. There is no drainage from the wound. She denies any fevers or chills. Review of systems: As per history of present illness and below otherwise all systems reviewed and negative. Past medical history: As per history of present illness and as reviewed below otherwise noncontributory. Surgical history: As per history of present illness and as reviewed below otherwise noncontributory. Social history: No reported history of drug or alcohol abuse. Family history: As per history of present illness and as reviewed below otherwise noncontributory. Physical exam: General: Well developed, well nourished in NAD HEENT: Atraumatic, normocephalic, pupils reactive, negative for conjunctival pallor or scleral icterus, mucous membranes moist, throat clear, neck supple, nontender, trachea midline. Lungs: Clear to auscultation, breath sounds equal bilaterally, chest nontender. Heart: S1S2, regular, negative for clicks, rubs, or JVD. Abdomen: NABS, Soft, nondistended, nontender. Negative for masses or hepatosplenomegaly. Negative for costovertebral tenderness. Pelvis: Stable nontender. Genitourinary: Deferred. Rectal: Deferred. Extremities: Patient has a 12 x 12 cm area of erythema with a center pustule on her left medial thigh there is no fluctuance tender and warm to palpation. No drainage., negative for cords or calf pain. Neurovascular unremarkable. Neuro: Awake, alert, oriented. Cranial nerves II through XII unremarkable. Cerebellum unremarkable. Motor and sensory unremarkable throughout. Exam nonfocal. Skin:warm and dry Diagnostics: None Therapeutics: None ED Course: Stable Impression: Insect bite with secondary cellulitis Prescriptions: Keflex Plan: Take meds as directed, follow up with your primary care physician, return to ER if symptoms worsen or change. Definitive disposition and diagnosis as appropriate pending reevaluation and review of above. Left Leg Pain Score (Numeric/FACES): 6 - Related Data Allergies Allergy/AdvReac Type Severity Reaction Status Date / Time codeine Allergy Severe Respiratory Verified 07/01/19 15:27 Distress Latex, Natural Rubber Allergy Mild Rash Verified 07/01/19 15:27 Home Meds: Home Meds traZODone 150 mg PO BEDTIME 08/28/15 [History] traMADol HCl [Tramadol HCl] 50 mg PO BID PRN 12/08/17 [History] clonazePAM [Clonazepam] 1 mg PO BID PRN 09/13/18 [History] Divalproex Sodium [Depakote] 500 mg PO DAILY 02/03/19 [History] Vortioxetine Hydrobromide [Trintellix] 5 mg PO DAILY 02/03/19 [History] cephALEXin [Keflex] 500 mg PO Q8H #21 cap 07/01/19 [Rx] Past Medical History HEENT History: Reports: None Cardiovascular History: Reports: Hypertension Respiratory History: Reports: Asthma Gastrointestinal History: Reports: None Genitourinary History: Reports: Renal Calculus 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 STAYER 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 (See Below) Other SEAM STAYER History: Hysterectomy Musculoskeletal History: Reports: None Neurological History: Reports: Concussion, Other (See Below) Other Neuro History: Seizures as a child Psychiatric History: Reports: Anxiety, Depression Endocrine/Metabolic 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 (See Below) Other Endocrine/Metabolic History: borderline diabetic Hematologic History: Reports: None Immunologic History: Reports: None Oncologic (Cancer) History: Reports: None Dermatologic History: Reports: None - Infectious Disease History Infectious Disease History: Reports: Chicken Pox - Past Surgical History Head Surgeries/Procedures: Reports: None HEENT Surgical History: Reports: None Cardiovascular Surgical History: Reports: None Respiratory Surgical History: Reports: None GI Surgical History: Reports: Cholecystectomy Other GI Surgeries/Procedures: diagnostic laparoscopy 2x Female Surgical History: Reports: Section, Hysterectomy, Lithotripsy /ESWL Endocrine Surgical History: Reports: None Neurological Surgical History: Reports: None Musculoskeletal Surgical History: Reports: None Dermatological Surgical History: Reports: None Social & Family History - Family History Family Medical History: Noncontributory - Caffeine Use Caffeine Use: Reports: Coffee, Soda Caffeine Use Comment: 1-3/day ED ROS GENERAL - Review of Systems Review Of Systems: See Below ED EXAM, SKIN/RASH Exam: See Below Course - Vital Signs Last Recorded V/S: Last Vital Signs Temp 96.6 F 07/01/19 15:30 Pulse 100 07/01/19 15:30 Resp 20 07/01/19 15:30 BP 159/92 H 07/01/19 15:30 Pulse Ox 97 07/01/19 15:30 Departure - Departure Time of Disposition: 15:35 Disposition: Home, Self-Care 01 Condition: Good Clinical Impression: Cellulitis of thigh Insect bite Qualifiers: Encounter type: initial encounter - Discharge Information *PRESCRIPTION DRUG MONITORING PROGRAM REVIEWED*: No *COPY OF PRESCRIPTION DRUG MONITORING REPORT IN PATIENT JOSE A: No Prescriptions: cephALEXin [Keflex] 500 mg PO Q8H #21 cap Additional Instructions: The following information is given to patients seen in the emergency department who are being discharged to home. This information is to outline your options for follow-up care. We provide all patients seen in our emergency department with a follow-up referral. The need for follow-up, as well as the timing and circumstances, are variable depending upon the specifics of your emergency department visit. If you don't have a primary care physician on staff, we will provide you with a referral. We always advise you to contact your personal physician following an emergency department visit to inform them of the circumstance of the visit and for follow-up with them and/or the need for any referrals to a consulting specialist. The emergency department will also refer you to a specialist when appropriate. This referral assures that you have the opportunity for follow-up care with a specialist. All of these measure are taken in an effort to provide you with optimal care, which includes your follow-up. Under all circumstances we always encourage you to contact your private physician who remains a resource for coordinating your care. When calling for follow-up care, please make the office aware that this follow-up is from your recent emergency room visit. If for any reason you are refused follow-up, please contact the [facility] Emergency Department at and asked to speak to the emergency department charge nurse. Take meds as directed, follow up with your primary care physician, return to ER if symptoms worsen or change. [facility] [address] [place] [id number]
[2019-07-01 15:32] VITALS: BP 159/92; PULSE 100
== END 2019-07-01 15:58 | disposition home or self-care (01) ==
LOC: MW.ED 15:18
DX: S70.362A Insect bite (nonvenomous), left thigh, initial encounter (principal); L03.116 Cellulitis of left lower limb; I10 Essential (primary) hypertension; J45.909 Unspecified asthma, uncomplicated; F41.9 Anxiety disorder, unspecified; F32.9 Major depressive disorder, single episode, unspecified; Z88.5 Allergy status to narcotic agent; Z91.040 Latex allergy status; Z79.899 Other long term (current) drug therapy; W57.XXXA Bitten or stung by nonvenomous insect and other nonvenomous arthropods, initial encounter
CPT/HCPCS: 99282

== ENCOUNTER 2019-07-08 20:33 | Emergency (ER) | payer SELFPAY ==
--- NOTE | 2019-07-08 20:46 | EDM.PDOC ---
ED HPI GENERAL MEDICAL PROBLEM - General Chief Complaint: Skin Complaint Stated Complaint: LEFT THIGH- SPIDER BITE? Time Seen by Provider: 07/08/19 20:40 - History of Present Illness INITIAL COMMENTS - FREE TEXT/NARRATIVE: HISTORY AND PHYSICAL: History of present illness: Patient's a 33-year-old white female sensory concern of cellulitis to her left thigh she was seen and initially put on Keflex after incision and drainage there is no significant improvement so she was recently prescribed clindamycin this was 2 days prior. No fever chills nausea vomiting or other complaints Review of systems: As per history of present illness and below otherwise all systems reviewed and negative. Past medical history: As per history of present illness and as reviewed below otherwise noncontributory. Surgical history: As per history of present illness and as reviewed below otherwise noncontributory. Social history: No reported history of drug or alcohol abuse. Family history: As per history of present illness and as reviewed below otherwise noncontributory. Physical exam: HEENT: Atraumatic, normocephalic, pupils reactive, negative for conjunctival pallor or scleral icterus, mucous membranes moist, throat clear, neck supple, nontender, trachea midline. Lungs: Clear to auscultation, breath sounds equal bilaterally, chest nontender. Heart: S1S2, regular, negative for clicks, rubs, or JVD. Abdomen: Soft, nondistended, nontender. Negative for masses or hepatosplenomegaly. Negative for costovertebral tenderness. Pelvis: Stable nontender. Genitourinary: Deferred. Rectal: Deferred. Extremities: Patient has a area of erythema with a central area of excoriation there is no fluctuance noted minimal induration CMS neurovascular exams unremarkable Neuro: Awake, alert, oriented. Cranial nerves II through XII unremarkable. Cerebellum unremarkable. Motor and sensory unremarkable throughout. Exam nonfocal. Diagnostics: None Therapeutics: None Impression: #1 cellulitis Definitive disposition and diagnosis as appropriate pending reevaluation and review of above. - Related Data Allergies Allergy/AdvReac Type Severity Reaction Status Date / Time codeine Allergy Severe Respiratory Verified 07/01/19 15:27 Distress Latex, Natural Rubber Allergy Mild Rash Verified 07/01/19 15:27 Home Meds: Home Meds traZODone 150 mg PO BEDTIME 08/28/15 [History] traMADol HCl [Tramadol HCl] 50 mg PO BID PRN 12/08/17 [History] clonazePAM [Clonazepam] 1 mg PO BID PRN 09/13/18 [History] Divalproex Sodium [Depakote] 500 mg PO DAILY 02/03/19 [History] Vortioxetine Hydrobromide [Trintellix] 5 mg PO DAILY 02/03/19 [History] cephALEXin [Keflex] 500 mg PO Q8H #21 cap 07/01/19 [Rx] Past Medical History HEENT History: Reports: None Cardiovascular History: Reports: Hypertension Respiratory History: Reports: Asthma Gastrointestinal History: Reports: None Genitourinary History: Reports: Renal Calculus TALCER 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 (See Below) Other TALCER History: Hysterectomy Musculoskeletal History: Reports: None Neurological History: Reports: Concussion, Other (See Below) Other Neuro History: Seizures as a child Psychiatric History: Reports: Anxiety, Depression Endocrine/Metabolic 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 (See Below) Other Endocrine/Metabolic History: borderline diabetic Hematologic History: Reports: None Immunologic History: Reports: None Oncologic (Cancer) History: Reports: None Dermatologic History: Reports: None - Infectious Disease History Infectious Disease History: Reports: Chicken Pox - Past Surgical History Head Surgeries/Procedures: Reports: None HEENT Surgical History: Reports: None Cardiovascular Surgical History: Reports: None Respiratory Surgical History: Reports: None GI Surgical History: Reports: Cholecystectomy Other GI Surgeries/Procedures: diagnostic laparoscopy 2x Female Surgical History: Reports: Section, Hysterectomy, Lithotripsy /ESWL Endocrine Surgical History: Reports: None Neurological Surgical History: Reports: None Musculoskeletal Surgical History: Reports: None Dermatological Surgical History: Reports: None Social & Family History - Family History Family Medical History: Noncontributory - Caffeine Use Caffeine Use: Reports: Coffee, Soda Caffeine Use Comment: 1-3/day ED ROS GENERAL - Review of Systems Review Of Systems: ROS reveals no pertinent complaints other than HPI. ED EXAM, SKIN/RASH Exam: See Below (See dictation) Departure - Departure Time of Disposition: 20:46 Disposition: Home, Self-Care 01 Condition: Good Clinical Impression: Cellulitis - Discharge Information Referrals: PCP,None [Primary Care Provider] - Additional Instructions: The following information is given to patients seen in the emergency department who are being discharged to home. This information is to outline your options for follow-up care. We provide all patients seen in our emergency department with a follow-up referral. The need for follow-up, as well as the timing and circumstances, are variable depending upon the specifics of your emergency department visit. If you don't have a primary care physician on staff, we will provide you with a referral. We always advise you to contact your personal physician following an emergency department visit to inform them of the circumstance of the visit and for follow-up with them and/or the need for any referrals to a consulting specialist. The emergency department will also refer you to a specialist when appropriate. This referral assures that you have the opportunity for followup care with a specialist. All of these measure are taken in an effort to provide you with optimal care, which includes your followup. Under all circumstances we always encourage you to contact your private physician who remains a resource for coordinating your care. When calling for followup care, please make the office aware that this follow-up is from your recent emergency room visit. If for any reason you are refused follow-up, please contact the [facility] emergency department at and asked to speak to the emergency department charge nurse. [facility] - General Surgery Professional Building [address] [place] [address], [address] [place] [address] Continue clindamycin as prescribed Bactrim as prescribed follow-up Gen. surgery above call to schedule appointment return as needed as discussed
[2019-07-08 21:18] VITALS: BP 156/74
== END 2019-07-08 21:06 | disposition home or self-care (01) ==
LOC: MW.ED 20:33
DX: L03.116 Cellulitis of left lower limb (principal); F41.9 Anxiety disorder, unspecified; F32.9 Major depressive disorder, single episode, unspecified; I10 Essential (primary) hypertension; J45.909 Unspecified asthma, uncomplicated; Z88.5 Allergy status to narcotic agent; Z91.030 Bee allergy status; Z79.899 Other long term (current) drug therapy
CPT/HCPCS: 99282; 99283

== ENCOUNTER 2019-08-11 09:18 | Emergency (ER) | payer SELFPAY ==
[2019-08-11] MEDS ORDERED: Albuterol/Ipratropium 3.0-0.5 MG/3 ML Neb Soln NEB ONE (09:20)
--- NOTE | 2019-08-11 09:21 | EDM.PDOC ---
ED HPI GENERAL MEDICAL PROBLEM - General Stated Complaint: SOB, COUGHING , WHEEZING Time Seen by Provider: 08/11/19 09:20 Source of Information: Reports: Patient - History of Present Illness INITIAL COMMENTS - FREE TEXT/NARRATIVE: HISTORY AND PHYSICAL: History of present illness: [Patient with asthma presents with cough shortness of breath and wheeze able speak in full sentences no pursed lip breathing no muffled voice drooling or trismus No fever nausea vomiting chills sweats She has secondary complaint of sore throat and tonsillar swelling again no muffled voice drooling or trismus And a another complaint of pedal edema ] Review of systems: As per history of present illness and below otherwise all systems reviewed and negative. Past medical history: As per history of present illness and as reviewed below otherwise noncontributory. Surgical history: As per history of present illness and as reviewed below otherwise noncontributory. Social history: No reported history of drug or alcohol abuse. Family history: As per history of present illness and as reviewed below otherwise noncontributory. Physical exam: HEENT: Atraumatic, normocephalic, pupils reactive, negative for conjunctival pallor or scleral icterus, mucous membranes moist, throat clear, neck supple, nontender, trachea midline. Tonsillar swelling Lungs: Clear to auscultation, breath sounds equal bilaterally, chest nontender. Heart: S1S2, regular, negative for clicks, rubs, or JVD. Abdomen: Soft, nondistended, nontender. Negative for masses or hepatosplenomegaly. Negative for costovertebral tenderness. Pelvis: Stable nontender. Genitourinary: Deferred. Rectal: Deferred. Extremities: Atraumatic, negative for cords or calf pain. Neurovascular unremarkable. Neuro: Awake, alert, oriented. Cranial nerves II through XII unremarkable. Cerebellum unremarkable. Motor and sensory unremarkable throughout. Exam nonfocal. Diagnostics: BC BMP UA [HCG, chest 1 view ]Chest 1 view Soft tissue neck with contrast CT Therapeutics: [DuoNeb Solu-Medrol Cleocin 300 mg 3 times a day #30 no refill Lasix 10 mg by mouth daily #5 no refill Prednisone 20 mg by mouth daily #5 no refill Patient discussed in detail with Dr. Echeverria, ENT on-call at [facility] he will see the shunt Tuesday morning 9 AM at his clinic for tonsil evaluation ] Impression: [Asthma exacerbation] Bronchitis Sinusitis Possible tonsillar abscess Definitive disposition and diagnosis as appropriate pending reevaluation and review of above. throat Pain Score (Numeric/FACES): 7 - Related Data Allergies Allergy/AdvReac Type Severity Reaction Status Date / Time codeine Allergy Severe Respiratory Verified 08/11/19 09:22 Distress Latex, Natural Rubber Allergy Mild Rash Verified 08/11/19 09:22 Home Meds: Home Meds traZODone 150 mg PO BEDTIME 08/28/15 [History] traMADol HCl [Tramadol HCl] 50 mg PO BID PRN 12/08/17 [History] clonazePAM [Clonazepam] 1 mg PO BID PRN 09/13/18 [History] Past Medical History HEENT History: Reports: None Cardiovascular History: Reports: Hypertension Respiratory History: Reports: Asthma Gastrointestinal History: Reports: None Genitourinary History: Reports: Renal Calculus VAMP MAKER 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 (See Below) Other VAMP MAKER History: Hysterectomy Musculoskeletal History: Reports: None Neurological History: Reports: Concussion, Other (See Below) Other Neuro History: Seizures as a child Psychiatric History: Reports: Anxiety, Depression Endocrine/Metabolic 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 (See Below) Other Endocrine/Metabolic History: borderline diabetic Hematologic History: Reports: None Immunologic History: Reports: None Oncologic (Cancer) History: Reports: None Dermatologic History: Reports: None - Infectious Disease History Infectious Disease History: Reports: Chicken Pox - Past Surgical History Head Surgeries/Procedures: Reports: None HEENT Surgical History: Reports: None Cardiovascular Surgical History: Reports: None Respiratory Surgical History: Reports: None GI Surgical History: Reports: Cholecystectomy Other GI Surgeries/Procedures: diagnostic laparoscopy 2x Female Surgical History: Reports: Section, Hysterectomy, Lithotripsy /ESWL Endocrine Surgical History: Reports: None Neurological Surgical History: Reports: None Musculoskeletal Surgical History: Reports: None Dermatological Surgical History: Reports: None Social & Family History - Family History Family Medical History: Noncontributory - Caffeine Use Caffeine Use: Reports: Coffee, Soda Caffeine Use Comment: 1-3/day ED ROS GENERAL - Review of Systems Review Of Systems: See Below ED EXAM, GENERAL - Physical Exam Exam: See Below Course - Vital Signs Last Recorded V/S: Last Vital Signs Temp 97.3 F 08/11/19 09:24 Pulse 91 08/11/19 11:02 Resp 16 08/11/19 11:02 BP 151/88 H 08/11/19 11:02 Pulse Ox 97 08/11/19 11:02 - Orders/Labs/Meds Orders: Active Orders 24 hr Category Date Time Status RT Aerosol Therapy [RC] ASDIRECTED Care 08/11/19 09:20 Active Labs: Laboratory Tests 08/11/19 08/11/19 08/11/19 Range/Units 09:27 09:27 09:50 WBC 9.63 (4.0-11.0) K/uL RBC 4.56 (4.30-5.90) M/uL Hgb 13.1 (12.0-16.0) g/dL Hct 41.7 (36.0-46.0) % MCV 91.4 (80.0-98.0) fL MCH 28.7 (27.0-32.0) pg MCHC 31.4 (31.0-37.0) g/dL RDW Std Deviation 51.4 (28.0-62.0) fl RDW Coeff of Pineda 15 (11.0-15.0) % Plt Count 358 (150-400) K/uL MPV 10.30 (7.40-12.00) fL Neut % (Auto) 70.3 (48.0-80.0) % Lymph % (Auto) 17.7 (16.0-40.0) % [place] % (Auto) 8.1 (0.0-15.0) % Eos % (Auto) 3.4 (0.0-7.0) % Baso % (Auto) 0.5 (0.0-1.5) % Neut # (Auto) 6.8 H (1.4-5.7) K/uL Lymph # (Auto) 1.7 (0.6-2.4) K/uL [place] # (Auto) 0.8 (0.0-0.8) K/uL Eos # (Auto) 0.3 (0.0-0.7) K/uL Baso # (Auto) 0.1 (0.0-0.1) K/uL Nucleated RBC % 0.0 /100WBC Nucleated RBCs # 0 K/uL Sodium (136-145) mmol/L Potassium (3.5-5.1) mmol/L Chloride (98-107) mmol/L Carbon Dioxide (21.0-32.0) mmol/L BUN (7.0-18.0) mg/dL Creatinine (0.6-1.0) mg/dL Est Cr Clr Drug Dosing mL/min Estimated GFR (MDRD) ml/min Glucose (74-106) mg/dL Calcium (8.5-10.1) mg/dL Urine Color YELLOW Urine Appearance SLT CLOUDY Urine pH 7.0 (5.0-8.0) Ur Specific [place] 1.010 (1.001-1.035) Urine Protein NEGATIVE (NEGATIVE) mg/dL Urine Glucose (UA) NEGATIVE (NEGATIVE) mg/dL Urine Ketones NEGATIVE (NEGATIVE) mg/dL Urine Occult Blood NEGATIVE (NEGATIVE) Urine Nitrite NEGATIVE (NEGATIVE) Urine Bilirubin NEGATIVE (NEGATIVE) Urine Urobilinogen 0.2 (<2.0) EU/dL Ur Leukocyte Esterase NEGATIVE (NEGATIVE) Urine RBC 0-2 (0-2/HPF) Urine WBC 0-3 (0-5/HPF) Ur Epithelial Cells MODERATE (NONE-FEW) Urine Bacteria FEW (NEGATIVE) Urine HCG, Qual NEGATIVE (NEGATIVE) 08/11/19 Range/Units 09:50 WBC (4.0-11.0) K/uL RBC (4.30-5.90) M/uL Hgb (12.0-16.0) g/dL Hct (36.0-46.0) % MCV (80.0-98.0) fL MCH (27.0-32.0) pg MCHC (31.0-37.0) g/dL RDW Std Deviation (28.0-62.0) fl RDW Coeff of Pineda (11.0-15.0) % Plt Count (150-400) K/uL MPV (7.40-12.00) fL Neut % (Auto) (48.0-80.0) % Lymph % (Auto) (16.0-40.0) % [place] % (Auto) (0.0-15.0) % Eos % (Auto) (0.0-7.0) % Baso % (Auto) (0.0-1.5) % Neut # (Auto) (1.4-5.7) K/uL Lymph # (Auto) (0.6-2.4) K/uL [place] # (Auto) (0.0-0.8) K/uL Eos # (Auto) (0.0-0.7) K/uL Baso # (Auto) (0.0-0.1) K/uL Nucleated RBC % /100WBC Nucleated RBCs # K/uL Sodium 139 (136-145) mmol/L Potassium 4.1 (3.5-5.1) mmol/L Chloride 104 (98-107) mmol/L Carbon Dioxide 26.0 (21.0-32.0) mmol/L BUN 11 (7.0-18.0) mg/dL Creatinine 0.8 (0.6-1.0) mg/dL Est Cr Clr Drug Dosing 96.36 mL/min Estimated GFR (MDRD) > 60.0 ml/min Glucose 99 (74-106) mg/dL Calcium 8.9 (8.5-10.1) mg/dL Urine Color Urine Appearance Urine pH (5.0-8.0) Ur Specific [place] (1.001-1.035) Urine Protein (NEGATIVE) mg/dL Urine Glucose (UA) (NEGATIVE) mg/dL Urine Ketones (NEGATIVE) mg/dL Urine Occult Blood (NEGATIVE) Urine Nitrite (NEGATIVE) Urine Bilirubin (NEGATIVE) Urine Urobilinogen (<2.0) EU/dL Ur Leukocyte Esterase (NEGATIVE) Urine RBC (0-2/HPF) Urine WBC (0-5/HPF) Ur Epithelial Cells (NONE-FEW) Urine Bacteria (NEGATIVE) Urine HCG, Qual (NEGATIVE) Meds: Medications Discontinued Medications Generic Name Dose Route Start Last Admin Trade Name Galo PRN Reason Stop Dose Admin Albuterol/Ipratropium 3 ml 08/11/19 09:20 08/11/19 09:43 Duoneb 3.0-0.5 Mg/3 Ml NEB 08/11/19 09:21 3 ml ONETIME ONE Administration Iopamidol 80 ml 08/11/19 10:55 08/11/19 10:56 Isovue Multipack-370 (76%) IVPUSH 08/11/19 10:56 80 ml ONETIME STA Administration Methylprednisolone Sodium Succinate 125 mg 08/11/19 09:35 08/11/19 09:43 Solu-Medrol IVPUSH 08/11/19 09:36 125 mg ONETIME ONE Administration Departure - Departure Time of Disposition: 11:42 Disposition: Home, Self-Care 01 Condition: Good Clinical Impression: Asthma exacerbation, Sinusitis, Bronchitis - Discharge Information Referrals: Adelita Perez DO [Primary Care Provider] - Additional Instructions: Medication as prescribed Return if symptoms persist or worsen despite treatment Patient was discussed in detail with , ENT on-call at [facility] He has recommended medications as above as well as follow-up with him at 9 AM on Tuesday morning in his clinic [facility] phone number [phone], the switchboard could connect you with his clinic however he is expecting you at 9 AM in his clinic for evaluation The following information is given to patients seen in the emergency department who are being discharged to home. This information is to outline your options for follow-up care. We provide all patients seen in our emergency department with a follow-up referral. The need for follow-up, as well as the timing and circumstances, are variable depending upon the specifics of your emergency department visit. If you don't have a primary care physician on staff, we will provide you with a referral. We always advise you to contact your personal physician following an emergency department visit to inform them of the circumstance of the visit and for follow-up with them and/or the need for any referrals to a consulting specialist. The emergency department will also refer you to a specialist when appropriate. This referral assures that you have the opportunity for follow-up care with a specialist. All of these measure are taken in an effort to provide you with optimal care, which includes your follow-up. Under all circumstances we always encourage you to contact your private physician who remains a resource for coordinating your care. When calling for follow-up care, please make the office aware that this follow-up is from your recent emergency room visit. If for any reason you are refused follow-up, please contact the [facility] emergency department at and asked to speak to the emergency department charge nurse. - My Orders Last 24 Hours: My Active Orders 08/11/19 09:20 RT Aerosol Therapy [RC] ASDIRECTED - Assessment/Plan Last 24 Hours: My Active Orders 08/11/19 09:20 RT Aerosol Therapy [RC] ASDIRECTED
[2019-08-11] MEDS ORDERED: methylPREDNISolone Sodium Succinate 125 MG/2 ML SDV IVPUSH ONE (09:35)
[2019-08-11 10:24] LABS: BLOOD UREA NITROGEN,BUN 11 mg/dL (7.0-18.0); CHLORIDE,CL 104 mmol/L (98-107); GLUCOSE RANDOM 99 mg/dL (74-106); POTASSIUM,K 4.1 mmol/L (3.5-5.1); SODIUM,NA 139 mmol/L (136-145)
[2019-08-11] MEDS ORDERED: Iopamidol 755 MG/ML 500 ML Multipack Bottle IVPUSH STA (10:55)
[2019-08-11 11:03] VITALS: PULSE 91
--- NOTE | 2019-08-11 11:06 | CR ---
HISTORY: Shortness of breath, cough. TECHNIQUE: One view chest. COMPARISON: No prior. FINDINGS: Cardiac size and pulmonary vasculature within normal limits. There is no consolidation or pulmonary edema. No pneumothorax or pleural effusion. No acute bony abnormality. IMPRESSION: No acute disease. Dictated by Gabe Ramos MD @ 08/11/2019 11:04:29 AM Dictated by: Gabe Ramos MD @ 08/11/2019 11:04:31 (Electronically Signed)
--- NOTE | 2019-08-11 11:17 | CT ---
INDICATION: Left pain, swelling and sore throat for 1 week. No fever. TECHNIQUE: CT of the neck with 80 cc Isovue 370 IV iodinated contrast agent. Coronal and sagittal reconstructions. COMPARISON: No prior studies available for comparison at this institution. FINDINGS: Enlargement of the palatine tonsils with mild associated narrowing of the airway. On the right, there is an approximately 6-7 mm area of low density within the right palatine tonsil (series 201, image 26 and 25). The parapharyngeal fat planes are maintained. The epiglottis is normal. Increased size and number of bilateral cervical lymph nodes which may be reactive. There is a 2.4 cm polyp versus mucous retention cyst in the right maxillary sinus. All the major vascular structures opacify normally with contrast material. There are scattered vascular calcifications within the aortic arch and branch vessels. The salivary glands and thyroid gland are normal in appearance. The oral cavity, pharyngeal and laryngeal spaces are normal in appearance. No periapical lucencies surrounding the visualized teeth. The suprahyoid and infrahyoid spaces are normal. There is reversal of cervical lordosis which may be due to muscle spasm or posture. No lytic or blastic process within the imaged osseous structures. The paraspinous muscles are symmetric and normal in appearance. Visualized portions of the brain are within normal limits. The orbital contents are normal. No abnormality is demonstrated in the mediastinum or supraclavicular regions. No pneumothorax or pleural effusion. The visualized pulmonary apices are clear. IMPRESSION: 1. Enlargement of the palatine tonsils with mild associated narrowing of the airway. On the right, there is an approximately 6-7 mm area of low density within the right palatine tonsil consistent with small intratonsillar developing abscess. 2. Increased size and number of bilateral cervical lymph nodes which may be reactive in etiology. Please note that all CT scans at this facility use dose modulation, iterative reconstruction, and/or weight-based dosing when appropriate to reduce radiation dose to as low as reasonably achievable. Dictated by Eliezer Lala MD @ Aug 13 2019 9:08AM Signed by Dr. Eliezer Lala @ Aug 13 2019 9:19AM
[2019-08-11 12:01] VITALS: BP 161/98
== END 2019-08-11 12:00 | disposition home or self-care (01) ==
LOC: MW.ED 09:18
DX: J45.901 Unspecified asthma with (acute) exacerbation (principal); J32.9 Chronic sinusitis, unspecified; I10 Essential (primary) hypertension; Z79.899 Other long term (current) drug therapy; Z88.5 Allergy status to narcotic agent; Z91.040 Latex allergy status
CPT/HCPCS: 70491; 71045; 80048; 81001; 81025; 85025; 94640; 96374; 99284; J2930; Q9967; J7620-GY

== ENCOUNTER 2019-10-03 06:16 | Emergency (ER) | payer SELFPAY ==
--- NOTE | 2019-10-03 06:47 | EDM.PDOC ---
ED HPI GENERAL MEDICAL PROBLEM - General Chief Complaint: ENT Problem Stated Complaint: RECENT TONSILLECTOMY- SPITTING UP BLOOD Time Seen by Provider: 10/03/19 06:31 - History of Present Illness INITIAL COMMENTS - FREE TEXT/NARRATIVE: HISTORY AND PHYSICAL: History of present illness: The patient is a 33-year-old female who underwent a tonsillectomy in [place] with Dr. Dubois on September 26, one week ago, and who has been doing well and finished her liquid hydrocodone and has been doing well with just plain Tylenol and presents with complaints of bleeding from her tonsillectomy surgical site that started this morning. She said that she had an episode of some gagging and a small episode of vomiting and it started him pink tinged blood. She says she is not feeling gross bleeding down the back of her throat and she is spitting up some blood. There've not been any clots. She has Zofran at home that she took for the nausea and vomiting. She is just very stressed about the bleeding and came for evaluation. Review of systems: As per history of present illness and below otherwise all systems reviewed and negative. Past medical history: As per history of present illness and as reviewed below otherwise noncontributory. Surgical history: As per history of present illness and as reviewed below otherwise noncontributory. Social history: No reported history of drug or alcohol abuse. Family history: As per history of present illness and as reviewed below otherwise noncontributory. Physical exam: General: Well-developed well-nourished female who is overweight and nontoxic and has only slightly muffled voice and is phonating well and not breathless. Vital signs are noted by me HEENT: Atraumatic, normocephalic, pupils reactive, negative for conjunctival pallor or scleral icterus, mucous membranes moist, throat clear, neck supple, nontender, trachea midline. There is some shoddy anterior cervical adenopathy but no nuchal rigidity and no posterior adenopathy. The tonsillar crypts are not swollen or erythematous and the healing eschar and tonsillectomy scabs are intact with a small area that is missing on the left side with some fresh streaks of red blood there but no active bleeding or clots are appreciated. Lungs: Clear to auscultation, breath sounds equal bilaterally, chest nontender. Heart: S1S2, regular Abdomen: Soft, nondistended, nontender. Negative for masses or hepatosplenomegaly. Negative for costovertebral tenderness. Pelvis: Stable nontender. Genitourinary: Deferred. Rectal: Deferred. Extremities: Atraumatic, negative for cords or calf pain. Neurovascular unremarkable. Neuro: Awake, alert, oriented. Cranial nerves II through XII unremarkable. Cerebellum unremarkable. Motor and sensory unremarkable throughout. Exam nonfocal. Diagnostics: [] Therapeutics: [] Case was discussed with the patient's surgeon Dr. Dubois at 6:42 AM. He says that that part of the scab likely fell off when the patient had a small emesis and that is normal to have some bleeding. He asked me to let the patient know that he will be in his office this afternoon for clinic hours and that she is welcome to make an appointment to have him take a look at things as she chooses. She should continue all of her home management as previously. She states understanding and is comfortable with this care plan. She is not spitting any blood here in the ED Impression: Postoperative bleeding status post tonsillectomy stable Definitive disposition and diagnosis as appropriate pending reevaluation and review of above. throat area Pain Score (Numeric/FACES): 8 - Related Data Allergies Allergy/AdvReac Type Severity Reaction Status Date / Time codeine Allergy Severe Respiratory Verified 10/03/19 06:23 Distress Latex, Natural Rubber Allergy Mild Rash Verified 10/03/19 06:23 Home Meds: Home Meds traZODone 150 mg PO BEDTIME 08/28/15 [History] traMADol HCl [Tramadol HCl] 50 mg PO BID PRN 12/08/17 [History] clonazePAM [Clonazepam] 1 mg PO BID PRN 09/13/18 [History] Albuterol Sulfate [Proair Hfa] 8.5 gm IH ASDIRECTED 10/03/19 [History] Fluticasone/Salmeterol [Advair 250-50 Diskus] 1 each IH ASDIRECTED 10/03/19 [ History] Past Medical History HEENT History: Reports: None Cardiovascular History: Reports: Hypertension Respiratory History: Reports: Asthma Gastrointestinal History: Reports: None Genitourinary History: Reports: Renal Calculus DELINEATOR 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 (See Below) Other DELINEATOR History: Hysterectomy Musculoskeletal History: Reports: None Neurological History: Reports: Concussion, Other (See Below) Other Neuro History: Seizures as a child Psychiatric History: Reports: Anxiety, Depression Endocrine/Metabolic 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 (See Below) Other Endocrine/Metabolic History: borderline diabetic Insulin Pump Model and Warm In Worker: None Hematologic History: Reports: None Immunologic History: Reports: None Oncologic (Cancer) History: Reports: None Dermatologic History: Reports: None - Infectious Disease History Infectious Disease History: Reports: None - Past Surgical History Head Surgeries/Procedures: Reports: None HEENT Surgical History: Reports: Tonsillectomy Cardiovascular Surgical History: Reports: None Respiratory Surgical History: Reports: None GI Surgical History: Reports: Cholecystectomy Other GI Surgeries/Procedures: diagnostic laparoscopy 2x Female Surgical History: Reports: Section, Hysterectomy, Lithotripsy /ESWL Endocrine Surgical History: Reports: None Neurological Surgical History: Reports: None Musculoskeletal Surgical History: Reports: None Dermatological Surgical History: Reports: None Social & Family History - Family History Family Medical History: Noncontributory - Tobacco Use Smoking Status *Q: Former Smoker Used Tobacco, but Quit: No - Caffeine Use Caffeine Use: Reports: None Caffeine Use Comment: 1-3/day - Recreational Drug Use Recreational Drug Use: No ED ROS GENERAL - Review of Systems Review Of Systems: Comprehensive ROS is negative, except as noted in HPI. ED EXAM, GENERAL - Physical Exam Exam: See Below (See dictation) Course - Vital Signs Last Recorded V/S: Last Vital Signs Temp 36.4 C 10/03/19 06:23 Pulse 89 10/03/19 06:23 Resp 18 10/03/19 06:23 BP 173/98 H 10/03/19 06:23 Pulse Ox 98 10/03/19 06:23 Departure - Departure Time of Disposition: 06:48 Disposition: Home, Self-Care 01 Condition: Good Clinical Impression: Postoperative bleeding from incision - Discharge Information Referrals: Adelita Perez DO [Primary Care Provider] - Yash Dubois MD [Ordering Only Provider] - Additional Instructions: The following information is given to patients seen in the emergency department who are being discharged to home. This information is to outline your options for follow-up care. We provide all patients seen in our emergency department with a follow-up referral. The need for follow-up, as well as the timing and circumstances, are variable depending upon the specifics of your emergency department visit. If you don't have a primary care physician on staff, we will provide you with a referral. We always advise you to contact your personal physician following an emergency department visit to inform them of the circumstance of the visit and for follow-up with them and/or the need for any referrals to a consulting specialist. The emergency department will also refer you to a specialist when appropriate. This referral assures that you have the opportunity for followup care with a specialist. All of these measure are taken in an effort to provide you with optimal care, which includes your followup. Under all circumstances we always encourage you to contact your private physician who remains a resource for coordinating your care. When calling for followup care, please make the office aware that this follow-up is from your recent emergency room visit. If for any reason you are refused follow-up, please contact the [facility] emergency department at and ask to speak to the emergency department charge nurse. [address] [place] [address] [facility] Primary care- Internal Medicine and Family [id number] Dubois's office this morning and schedule an appointment with him this afternoon as you choose to have him take a look at the area. Continue all other postoperative care instructions. Push hydration and take Zofran regularly today to prevent any nausea or vomiting. Return to the ER as needed and as discussed
[2019-10-03 06:58] VITALS: BP 150/78; PULSE 74
== END 2019-10-03 06:55 | disposition home or self-care (01) ==
LOC: MW.ED 06:16
DX: J95.831 Postprocedural hemorrhage of a respiratory system organ or structure following other procedure (principal); I10 Essential (primary) hypertension; J45.909 Unspecified asthma, uncomplicated; F41.9 Anxiety disorder, unspecified; F32.9 Major depressive disorder, single episode, unspecified; Z88.5 Allergy status to narcotic agent; Z79.899 Other long term (current) drug therapy; Z87.891 Personal history of nicotine dependence
CPT/HCPCS: 99283

== ENCOUNTER 2019-10-05 23:38 | Emergency (ER) | payer SELFPAY ==
--- NOTE | 2019-10-05 23:54 | EDM.PDOC ---
ED HPI GENERAL MEDICAL PROBLEM - General Chief Complaint: ENT Problem Stated Complaint: COUGHING UP BLOOD Time Seen by Provider: 10/05/19 23:43 - History of Present Illness INITIAL COMMENTS - FREE TEXT/NARRATIVE: HISTORY AND PHYSICAL: History of present illness: The patient is a 33-year-old female who underwent a tonsillectomy approximately 9-10 days ago and who was seen here 2 days ago for an episode of vomiting with some bleeding after the left tonsillar crypt scab had fallen off and who was supposed to follow-up with Dr. Dubois later that afternoon but did not make that appointment, presents this evening with complaints of bleeding from the tonsillar areas again. She said that she had a normal day and ate normally and then she was lying in bed and felt some trickling of blood which made her gag and cough and she has been spitting up small amounts of blood since that time. She does not have any specific increase in her pain in this area and is having no trouble breathing or swallowing. She is concerned about this repeat bleeding. The patient says she only gag and then coughed and the bleeding seemed to worsen she has not actually coughing consistently. She has no shortness of breath. She's had no recent fevers or chills nausea or vomiting Review of systems: As per history of present illness and below otherwise all systems reviewed and negative. Past medical history: As per history of present illness and as reviewed below otherwise noncontributory. Surgical history: As per history of present illness and as reviewed below otherwise noncontributory. Social history: No reported history of drug or alcohol abuse. Family history: As per history of present illness and as reviewed below otherwise noncontributory. Physical exam: MO: Well-developed well-nourished overweight female who is nontoxic and vital signs are noted by me. Patient was making a throat clearing noise on my evaluation which she was strictly told not to do as this may aggravate the area HEENT: Atraumatic, normocephalic, pupils reactive, negative for conjunctival pallor or scleral icterus, mucous membranes moist, throat clear, neck supple, nontender, trachea midline. The tonsillar crypts have some oozing of blood noted left greater than right and the scab on the right that it seemed to days ago on the right tonsillar crypt is now on. There is no swelling and uvula is midline and there is no overt ac aggressive bleeding appreciated Lungs: Clear to auscultation, breath sounds equal bilaterally, chest nontender. Heart: S1S2, regular rhythm and borderline heart rate at 100 but no overt murmurs Abdomen: Soft, nondistended, nontender. NABS Pelvis: Deferred Genitourinary: Deferred. Rectal: Deferred. Extremities: Atraumatic, full range of motion Neurovascular unremarkable. Neuro: Awake, alert, oriented. Cranial nerves II through XII unremarkable. Cerebellum unremarkable. Motor and sensory unremarkable throughout. Exam nonfocal. Diagnostics: [] Therapeutics: Patient was given cold ice water to put in her mouth and tilt her head back and allowed to sit there and then either spit or swallow. She was told not to gargle or clear her throat. 0002: Case was discussed with Silvino who agreed with my management and said there is really nothing else to do other than that. He has advised me to tell the patient that if this recurs she should do the cold ice water treatment as we did here and if it continues for an hour she needs to go to [facility] ER and have him called and he will have to come in if potentially cauterize the areas. The patient is currently not bleeding and feels improved and is aware of this plan. Impression: Postoperative bleeding Definitive disposition and diagnosis as appropriate pending reevaluation and review of above. throat Pain Score (Numeric/FACES): 10 - Related Data Allergies Allergy/AdvReac Type Severity Reaction Status Date / Time codeine Allergy Severe Respiratory Verified 10/05/19 23:47 Distress Latex, Natural Rubber Allergy Mild Rash Verified 10/05/19 23:47 Home Meds: Home Meds . 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 Musculoskeletal History: Reports: None Neurological History: Reports: Concussion, Other (See Below) Other Neuro History: Seizures as a child Psychiatric History: Reports: Anxiety, Depression Endocrine/Metabolic 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 (See Below) Other Endocrine/Metabolic History: borderline diabetic Insulin Pump Model and Business Support Administrator: None Hematologic History: Reports: None Immunologic History: Reports: None Oncologic (Cancer) History: Reports: None Dermatologic History: Reports: None - Infectious Disease History Infectious Disease History: Reports: None - Past Surgical History Head Surgeries/Procedures: Reports: None HEENT Surgical History: Reports: Tonsillectomy Cardiovascular Surgical History: Reports: None Respiratory Surgical History: Reports: None GI Surgical History: Reports: Cholecystectomy Other GI Surgeries/Procedures: diagnostic laparoscopy 2x Female Surgical History: Reports: Section, Hysterectomy, Lithotripsy /ESWL Endocrine Surgical History: Reports: None Neurological Surgical History: Reports: None Musculoskeletal Surgical History: Reports: None Dermatological Surgical History: Reports: None Social & Family History - Family History Family Medical History: Noncontributory - Caffeine Use Caffeine Use: Reports: None Caffeine Use Comment: 1-3/day ED ROS GENERAL - Review of Systems Review Of Systems: Comprehensive ROS is negative, except as noted in HPI. ED EXAM, GENERAL - Physical Exam Exam: See Below (See dictation) Course - Vital Signs Last Recorded V/S: Last Vital Signs Temp 36.2 C 10/05/19 23:40 Pulse 100 10/05/19 23:40 Resp 18 10/05/19 23:40 BP 146/104 H 10/05/19 23:40 Pulse Ox 96 10/05/19 23:40 Departure - Departure Time of Disposition: 00:16 Disposition: Home, Self-Care 01 Condition: Good Clinical Impression: Postoperative bleeding from incision - Discharge Information Forms: ED Department Discharge Additional Instructions: The following information is given to patients seen in the emergency department who are being discharged to home. This information is to outline your options for follow-up care. We provide all patients seen in our emergency department with a follow-up referral. The need for follow-up, as well as the timing and circumstances, are variable depending upon the specifics of your emergency department visit. If you don't have a primary care physician on staff, we will provide you with a referral. We always advise you to contact your personal physician following an emergency department visit to inform them of the circumstance of the visit and for follow-up with them and/or the need for any referrals to a consulting specialist. The emergency department will also refer you to a specialist when appropriate. This referral assures that you have the opportunity for followup care with a specialist. All of these measure are taken in an effort to provide you with optimal care, which includes your followup. Under all circumstances we always encourage you to contact your private physician who remains a resource for coordinating your care. When calling for followup care, please make the office aware that this follow-up is from your recent emergency room visit. If for any reason you are refused follow-up, please contact the [facility] emergency department at and ask to speak to the emergency department charge nurse. [facility]- Internal Medicine and Family [address] [address] Please continue to monitor the symptoms and do the cold/ice water treatment as we did here in the ED to stop any further bleeding going forward. Remember that if the bleeding persists doing the ice water or 1 hour you need to go to the ER in [place] and have Dr. Dubois paged to come to see you as we discussed. Do not clear your throat are goal or cough and less absolutely necessary as this will aggravate the bleeding. Return to ER as needed and as discussed
[2019-10-06 00:27] VITALS: BP 150/100; PULSE 88
== END 2019-10-06 00:25 | disposition home or self-care (01) ==
LOC: MW.ED 23:38
DX: J95.830 Postprocedural hemorrhage of a respiratory system organ or structure following a respiratory system procedure (principal); I10 Essential (primary) hypertension; Z90.710 Acquired absence of both cervix and uterus; Z88.5 Allergy status to narcotic agent; Z91.040 Latex allergy status; Z98.890 Other specified postprocedural states; Z90.49 Acquired absence of other specified parts of digestive tract
CPT/HCPCS: 99282; 99283

== ENCOUNTER 2020-02-02 22:15 | Emergency (ER) | payer SELFPAY | END 2020-02-02 22:36 | disposition left against medical advice (07) | LOC: MW.ED 22:15 | DX: Z53.21 Procedure and treatment not carried out due to patient leaving prior to being seen by health care provider (principal) ==

== ENCOUNTER 2020-02-03 09:11 | Emergency (ER) | payer SELFPAY ==
[2020-02-03] MEDS ORDERED: Promethazine 25 MG/ML SDV IM ONE (09:38)
[2020-02-03] MEDS ORDERED: Sodium Chloride 0.9% 1,000 ML IV ONE (09:38)
--- NOTE | 2020-02-03 10:03 | EDM.PDOC ---
ED HPI GENERAL MEDICAL PROBLEM - General Chief Complaint: Gastrointestinal Problem Stated Complaint: VOMITING Time Seen by Provider: 02/03/20 09:32 Source of Information: Reports: Patient History Limitations: Reports: No Limitations - History of Present Illness INITIAL COMMENTS - FREE TEXT/NARRATIVE: HISTORY OF PRESENT ILLNESS: Patient is a 34-year-old female who complains of nausea vomiting diarrhea since . She has multiple episodes of emesis per day which is now progressed to dry heaving. States she has upper crampy abdominal pain just prior to episodes of emesis. Denies any present abdominal pain. No rash or neck stiffness. Has chronic mild dry cough secondary to GERD which is unchanged from baseline. Denies any chest pain or dyspnea. No fevers or chills. Denies any urinary symptoms. No melena hematochezia. No vaginal bleeding or discharge. Patient has history of hysterectomy. Pt needs a work note REVIEW OF SYSTEMS: Other than the symptoms associated with the present events, the following is reported with regard to recent health: General: (-) fever. HENT: (-) congestion. Respiratory: (-) cough. Cardiovascular: (-) chest pain. GI: (+) n/v/d : (-) urinary complaints. Musculoskeletal: (-) other aches or pains. Endocrine: (-) generalized weakness. Neurological: (-) localized weakness. Skin: (-) rash PAST MEDICAL HISTORY: reviewed as per nursing notes SOCIAL HISTORY: reviewed as per nursing notes, MEDICATIONS: Per nurse's note ALLERGIES: Per nurse's note, reviewed by me PHYSICAL EXAMINATION: GENERALIZED APPEARANCE: well developed, well nourished in no distress VITAL SIGNS: Per nurse's note, reviewed by me SKIN: Warm, dry; (-) cyanosis; (-) rash. HEAD: (-) scalp swelling, (-) tenderness. EYES: (-) conjunctival pallor, (-) scleral icterus. ENMT: (-) stridor; mucous membranes moist. NECK: (-) tenderness, (-) stiffness, CHEST AND RESPIRATORY: (-) rales, (-) rhonchi, (-) wheezes; breath sounds equal bilaterally. HEART AND CARDIOVASCULAR: (-) irregularity; (-) murmur, (-) gallop. ABDOMEN AND GI: Soft; (-) tenderness, (-) guarding, (-) rebound, (-) palpable masses, (-) CVAT EXTREMITIES: (-) deformity, (-) edema. NEURO AND PSYCH: Alert. Cranial nerves grossly intact; strength symmetric. gait steady DIAGNOSTICS: Labs ordered and reviewed EMERGENCY DEPARTMENT COURSE AND TREATMENT: Patient's condition remained stable during Emergency Department evaluation. Given IVF and Phenergan. After history , physical exam, and diagnostic evaluation, the etiology for the patient's vomiting and diarrhea is unclear, but likely viral. On serial examination, the abdomen remained soft without peritoneal signs. Laboratory data was non- diagnostic. After treatment, vomiting resolved and hydration status was satisfactory. I think the patient is at low risk for significant abdominal pathology based on serial exams and ER evaluation. I felt that outpatient management with close followup by the patient's primary care provider in 1-2 days was appropriate. The patient's questions were answered, and discharge precautions and reasons to return to the ER were discussed. Pt states she has Zofran at home and does not require any prescriptions. PLAN AND FOLLOW-UP: Patient received written and verbal instructions regarding this condition. Return to ED immediately with any new or worsening symptoms. Follow up to be arranged by Patient with pcp in 1-2 days for further evaluation. Given discharge precautions. Patient expressed verbal understanding. Abdominal Pain Score (Numeric/FACES): 6 - Related Data Allergies Allergy/AdvReac Type Severity Reaction Status Date / Time codeine Allergy Severe Respiratory Verified 02/03/20 09:24 Distress Latex, Natural Rubber Allergy Mild Rash Verified 02/03/20 09:24 Home Meds: Home Meds Bismuth Subsalicylate [Pepto Bismol] 262 mg PO DAILY 02/03/20 [History] Cholecalciferol (Vitamin D3) [Vitamin D3] 5,000 unit PO DAILY 02/03/20 [History] Famotidine [Acid Controller] 10 mg PO DAILY 02/03/20 [History] Furosemide 20 mg PO DAILY 02/03/20 [History] Metoprolol Tartrate 25 mg PO BID 02/03/20 [History] Mv-Min/Vit C/Glut/Lysine/Hb124 [Airborne Effervescent Tablet] 1 each PO DAILY [History] Ondansetron [Zofran ODT] 4 mg PO Q6H PRN 02/03/20 [History] Past Medical History HEENT History: Reports: None Cardiovascular History: Reports: Hypertension Respiratory History: Reports: Asthma Gastrointestinal History: Reports: None Genitourinary History: Reports: Renal Calculus 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 (See Below) 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: Hysterectomy Musculoskeletal History: Reports: None Neurological History: Reports: Concussion, Other (See Below) Other Neuro History: Seizures as a child Psychiatric History: Reports: Anxiety, Depression Endocrine/Metabolic 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 (See Below) Other Endocrine/Metabolic History: borderline diabetic Insulin Pump Model and Director Of Integrated Marketing: None Hematologic History: Reports: None Immunologic History: Reports: None Oncologic (Cancer) History: Reports: None Dermatologic History: Reports: None - Infectious Disease History Infectious Disease History: Reports: MRSA - Past Surgical History Head Surgeries/Procedures: Reports: None HEENT Surgical History: Reports: Tonsillectomy Cardiovascular Surgical History: Reports: None Respiratory Surgical History: Reports: None GI Surgical History: Reports: Cholecystectomy Other GI Surgeries/Procedures: diagnostic laparoscopy 2x Female Surgical History: Reports: Section, Hysterectomy, Lithotripsy /ESWL Endocrine Surgical History: Reports: None Neurological Surgical History: Reports: None Musculoskeletal Surgical History: Reports: None Dermatological Surgical History: Reports: None Social & Family History - Family History Family Medical History: Noncontributory - Tobacco Use Smoking Status *Q: Never Smoker Second Hand Smoke Exposure: No - Caffeine Use Caffeine Use: Reports: Soda Caffeine Use Comment: 1-3/day - Recreational Drug Use Recreational Drug Use: No ED ROS GENERAL - Review of Systems Review Of Systems: See Below (see dictation) ED EXAM, GENERAL - Physical Exam Exam: See Below (see dictation) Course - Vital Signs Last Recorded V/S: Last Vital Signs Temp 97.6 F 02/03/20 09:31 Pulse 91 02/03/20 09:31 Resp 23 H 02/03/20 09:31 BP 151/93 H 02/03/20 09:31 Pulse Ox 97 02/03/20 09:31 - Orders/Labs/Meds Labs: Laboratory Tests 02/03/20 02/03/20 Range/Units 09:55 09:55 WBC 9.30 (4.0-11.0) K/uL RBC 4.48 (4.30-5.90) M/uL Hgb 12.6 (12.0-16.0) g/dL Hct 40.8 (36.0-46.0) % MCV 91.1 (80.0-98.0) fL MCH 28.1 (27.0-32.0) pg MCHC 30.9 L (31.0-37.0) g/dL RDW Std Deviation 50.9 (28.0-62.0) fl RDW Coeff of Pineda 15 (11.0-15.0) % Plt Count 312 (150-400) K/uL MPV 10.60 (7.40-12.00) fL Neut % (Auto) 56.3 (48.0-80.0) % Lymph % (Auto) 30.8 (16.0-40.0) % [place] % (Auto) 8.3 (0.0-15.0) % Eos % (Auto) 4.0 (0.0-7.0) % Baso % (Auto) 0.6 (0.0-1.5) % Neut # (Auto) 5.2 (1.4-5.7) K/uL Lymph # (Auto) 2.9 H (0.6-2.4) K/uL [place] # (Auto) 0.8 (0.0-0.8) K/uL Eos # (Auto) 0.4 (0.0-0.7) K/uL Baso # (Auto) 0.1 (0.0-0.1) K/uL Nucleated RBC % 0.0 /100WBC Nucleated RBCs # 0 K/uL Sodium 140 (136-145) mmol/L Potassium 4.2 (3.5-5.1) mmol/L Chloride 104 (98-107) mmol/L Carbon Dioxide 25.3 (21.0-32.0) mmol/L BUN 10 (7.0-18.0) mg/dL Creatinine 0.8 (0.6-1.0) mg/dL Est Cr Clr Drug Dosing TNP Estimated GFR (MDRD) > 60.0 ml/min Glucose 87 (74-106) mg/dL Calcium 8.6 (8.5-10.1) mg/dL Total Bilirubin 0.2 (0.2-1.0) mg/dL AST 13 L (15-37) IU/L ALT 30 (14-63) IU/L Alkaline Phosphatase 70 (46-116) U/L Total Protein 7.1 (6.4-8.2) g/dL Albumin 3.3 L (3.4-5.0) g/dL Globulin 3.8 (2.6-4.0) g/dL Albumin/Globulin Ratio 0.9 (0.9-1.6) Lipase 70 L (73-393) U/L Meds: Medications Discontinued Medications Generic Name Dose Route Start Last Admin Trade Name Freq PRN Reason Stop Dose Admin Sodium Chloride 1,000 mls @ 1,000 mls/hr 02/03/20 09:38 02/03/20 10:08 Normal Saline IV 02/03/20 10:37 1,000 mls/hr .Bolus ONE Administration Promethazine HCl 25 mg 02/03/20 09:38 02/03/20 10:08 Phenergan IM 02/03/20 09:39 25 mg ONETIME ONE Administration Departure - Departure Time of Disposition: 11:21 Disposition: Home, Self-Care 01 Condition: Good Clinical Impression: Vomiting, Diarrhea - Discharge Information *PRESCRIPTION DRUG MONITORING PROGRAM REVIEWED*: Not Applicable *COPY OF PRESCRIPTION DRUG MONITORING REPORT IN PATIENT JOSE A: Not Applicable Instructions: Vomiting, Adult, Diarrhea, Adult, [id number] Referrals: PCP,None [Primary Care Provider] - Christi Underwood [Ordering Only Provider] - 2 Days Forms: ED Department Discharge Additional Instructions: The following information is given to patients seen in the emergency department who are being discharged to home. This information is to outline your options for follow-up care. We provide all patients seen in our emergency department with a follow-up referral. The need for follow-up, as well as the timing and circumstances, are variable depending upon the specifics of your emergency department visit. If you don't have a primary care physician on staff, we will provide you with a referral. We always advise you to contact your personal physician following an emergency department visit to inform them of the circumstance of the visit and for follow-up with them and/or the need for any referrals to a consulting specialist. The emergency department will also refer you to a specialist when appropriate. This referral assures that you have the opportunity for follow-up care with a specialist. All of these measure are taken in an effort to provide you with optimal care, which includes your follow-up. Under all circumstances we always encourage you to contact your private physician who remains a resource for coordinating your care. When calling for follow-up care, please make the office aware that this follow-up is from your recent emergency room visit. If for any reason you are refused follow-up, please contact the [facility] Emergency Department at and asked to speak to the emergency department charge nurse. Sepsis Event Note - Evaluation Sepsis Screening Result: No Definite Risk - Focused Exam Vital Signs: Vital Signs Temp Pulse Resp BP Pulse Ox 02/03/20 09:31 97.6 F 91 23 H 151/93 H 97 Date Exam was Performed: 02/03/20 Time Exam was Performed: 11:22
[2020-02-03 10:34] LABS: BLOOD UREA NITROGEN,BUN 10 mg/dL (7.0-18.0); CARBON DIOXIDE,CO2 25.3 mmol/L (21.0-32.0); CHLORIDE,CL 104 mmol/L (98-107); GLUCOSE RANDOM 87 mg/dL (74-106); LIPASE 70 U/L (73-393); POTASSIUM,K 4.2 mmol/L (3.5-5.1); SODIUM,NA 140 mmol/L (136-145)
[2020-02-03 12:08] VITALS: BP 132/88; PULSE 105
== END 2020-02-03 11:39 | disposition home or self-care (01) ==
LOC: MW.ED 09:11
DX: R11.2 Nausea with vomiting, unspecified (principal); R19.7 Diarrhea, unspecified; I10 Essential (primary) hypertension; J45.909 Unspecified asthma, uncomplicated; Z90.49 Acquired absence of other specified parts of digestive tract; Z88.5 Allergy status to narcotic agent; Z91.040 Latex allergy status; Z79.899 Other long term (current) drug therapy
CPT/HCPCS: 36415; 80053; 83690; 85025; 96360; 96372; 99284; J2550; J7030; 99283

== ENCOUNTER 2020-05-21 22:27 | Emergency (ER) | payer SELFPAY ==
--- NOTE | 2020-05-21 22:58 | EDM.PDOC ---
ED HPI GENERAL MEDICAL PROBLEM - General Chief Complaint: Skin Complaint Stated Complaint: POSSIBLE TATTOO INFECTION Time Seen by Provider: 05/21/20 22:29 Source of Information: Reports: Patient History Limitations: Reports: No Limitations - History of Present Illness INITIAL COMMENTS - FREE TEXT/NARRATIVE: 34-year-old female past medical history of GERD, asthma, MRSA infections presenting with concern for an infected tattoo. Approximately 10 days ago, the patient had her brother placed some tattoo ink in a pre-existing tattoo. Since then, she has been concerned about the presence of a scab in the area where the tattoo work is done, she is concerned that the tattoo site may be infected. Denies any history of diabetes, fever, chills, nausea, vomiting, or leg swelling. right lower leg Pain Score (Numeric/FACES): 6 - Related Data Allergies Allergy/AdvReac Type Severity Reaction Status Date / Time codeine Allergy Severe Respiratory Verified 05/21/20 22:42 Distress Latex, Natural Rubber Allergy Mild Rash Verified 05/21/20 22:42 Penicillins Allergy Respiratory Verified 05/21/20 22:42 Distress Home Meds: Home Meds ClonazePAM [KlonoPIN] 0.5 mg PO BID 05/21/20 [History] traMADol [Ultram] 50 tab PO BID 05/21/20 [History] traZODone HCl [Trazodone HCl] 150 mg PO DAILY 05/21/20 [History] Past Medical History HEENT History: Reports: None Cardiovascular History: Reports: Hypertension Respiratory History: Reports: Asthma Gastrointestinal History: Reports: None Genitourinary History: Reports: Renal Calculus PHARMACEUTICAL COMPOUNDING SUPERVISOR History: Reports: None Other PHARMACEUTICAL COMPOUNDING SUPERVISOR History: Hysterectomy Musculoskeletal History: Reports: None Neurological History: Reports: Concussion, Other (See Below) Other Neuro History: Seizures as a child Psychiatric History: Reports: Anxiety, Depression Endocrine/Metabolic 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 (See Below) Other Endocrine/Metabolic History: borderline diabetic Insulin Pump Model and Mill Turner: None Hematologic History: Reports: None Immunologic History: Reports: None Oncologic (Cancer) History: Reports: None Dermatologic History: Reports: None - Infectious Disease History Infectious Disease History: Reports: MRSA - Past Surgical History Head Surgeries/Procedures: Reports: None HEENT Surgical History: Reports: Tonsillectomy Cardiovascular Surgical History: Reports: None Respiratory Surgical History: Reports: None GI Surgical History: Reports: Cholecystectomy Other GI Surgeries/Procedures: diagnostic laparoscopy 2x Female Surgical History: Reports: Section, Hysterectomy, Lithotripsy/ESWL Endocrine Surgical History: Reports: None Neurological Surgical History: Reports: None Musculoskeletal Surgical History: Reports: None Dermatological Surgical History: Reports: None Social & Family History - Family History Family Medical History: Noncontributory - Tobacco Use Smoking Status *Q: Never Smoker - Caffeine Use Caffeine Use: Reports: Soda Caffeine Use Comment: 1-3/day - Recreational Drug Use Recreational Drug Use: No ED ROS GENERAL - Review of Systems Review Of Systems: See Below Constitutional: Denies: Fever, Chills Respiratory: Denies: Shortness of Breath Cardiovascular: Denies: Chest Pain GI/Abdominal: Denies: Nausea, Vomiting Skin: Reports: Lesions. Denies: Pruritis, Rash, Erythema, Urticaria ED EXAM, SKIN/RASH Exam: See Below Text/Narrative:: Vital signs reviewed. Nursing notes reviewed. Constitutional: Awake, alert, non-distressed. Head: Normocephalic, atraumatic. Eyes: EOMI, conjunctiva normal, no discharge, no scleral icterus. Ears, Nose, Throat: External ears and nose normal, moist oral mucosa. Cardiovascular: Tachycardic, 2+ radial pulse, capillary refill less than 2 seconds. Pulmonary: normal work of breathing, no accessory muscle use. Abdomen/GI: nondistended Musculoskeletal: No deformities. Integumentary: Appropriate color for ethnicity, warm, dry, no pallor or jaundice, no rash. Tattoo to the lateral aspect of the right lower leg with expected scabbing, mild surrounding erythema in a symmetric fashion not c onsistent with cellulitis. No streaking, induration, warmth, or fluctuance. Neurologic: Alert, answering questions appropriately, normal speech, no facial droop, moving all extremities well. Psychiatric: Appropriate mood and affect, normal thought process. Course - Vital Signs Text/Narrative:: Patient hemodynamically stable, afebrile, well-appearing, looks nontoxic. Differential diagnosis includes but is not limited to: Scalp, expected tattoo healing, cellulitis, abscess, etc. Initially mildly tachycardic, heart rate spontaneously improved. Examination of the tattoo shows no evidence of infection, but it is somewhat scabbed over. No sign of an abscess. No indication for antibiotics at this point. I counseled the patient to continue her triple antibiotic ointment as she is already doing and follow-up with a primary medical clinic if needed in the next week or so. Plan: Patient is stable to discharge home with outpatient primary care follow- up. Strict emergency department return precautions were provided, patient indicated understanding. All questions were answered prior to departure. Discharged in good condition. Last Recorded V/S: Last Vital Signs Temp 36.5 C 05/21/20 22:40 Pulse 102 H 05/21/20 22:40 Resp 18 05/21/20 22:40 BP 140/99 H 05/21/20 22:40 Pulse Ox 98 05/21/20 22:55 Departure - Departure Time of Disposition: 22:57 Disposition: Home, Self-Care 01 Condition: Good Clinical Impression: Tattoo reaction - Discharge Information *PRESCRIPTION DRUG MONITORING PROGRAM REVIEWED*: Not Applicable *COPY OF PRESCRIPTION DRUG MONITORING REPORT IN PATIENT JOSE A: Not Applicable Referrals: Adelita Perez DO [Primary Care Provider] - 1 Week (As needed) Forms: ED Department Discharge Additional Instructions: Thank you for choosing the [facility] emergency department in [place] for your medical needs today. It was a pleasure caring for you. You were seen in the emergency department for valuation of your tattoo site. There does not appear to be an infection at this point. I would continue applying the antibiotic ointment 2-3 times daily as you already are. Return to the ER immediately if you notice worsening symptoms such as swelling, streaking redness, fever, nausea, vomiting, chills, or any other concerns. Please return the emergency department immediately if your symptoms worsen or if you feel worse. The following information is given to patients seen in the emergency department who are being discharged. This information is to outline your options for follow-up care. We provide all patients seen in our emergency department with a follow-up referral. The need for follow-up, as well as the timing and circumstances, are variable depending upon the specifics of your emergency department visit. If you don't have a primary care physician on staff, we will provide you with a referral. We always advise you to contact your personal physician following an emergency department visit to inform them of the circumstance of the visit and for follow-up with them and/or the need for any referrals to a consulting specialist. The emergency department will also refer you to a specialist when appropriate. This referral assures that you have the opportunity for follow-up care with a specialist. All of these measure are taken in an effort to provide you with optimal care, which includes your follow-up. Under all circumstances we always encourage you to contact your private physician who remains a resource for coordinating your care. When calling for follow-up care, please make the office aware that this follow-up is from your recent emergency room visit. If for any reason you are refused follow-up, please contact the [facility] Emergency Department at and asked to speak to the emergency department charge nurse. If you do not have a primary care physician that is caring for you, you can contact these clinics below to set up an appointment to establish care: [facility] - Primary Care [address] [place] [id number] [address] Sepsis Event Note (ED) - Evaluation Sepsis Screening Result: No Definite Risk - Focused Exam Vital Signs: Vital Signs Temp Pulse Resp BP Pulse Ox 05/21/20 22:55 98 05/21/20 22:40 36.5 C 102 H 18 140/99 H 97
[2020-05-21 23:20] VITALS: BP 135/91; PULSE 96
== END 2020-05-21 23:10 | disposition home or self-care (01) ==
LOC: MW.ED 22:27
DX: L81.8 Other specified disorders of pigmentation (principal); I10 Essential (primary) hypertension; F41.9 Anxiety disorder, unspecified; F32.9 Major depressive disorder, single episode, unspecified; Z88.5 Allergy status to narcotic agent; Z88.0 Allergy status to penicillin; Z91.040 Latex allergy status; Z79.899 Other long term (current) drug therapy
CPT/HCPCS: 99282

== ENCOUNTER 2020-08-05 13:26 | Emergency (ER) | payer SELFPAY ==
[2020-08-05] MEDS ORDERED: Sodium Chloride 0.9% 1,000 ML IV ONE ×2 (13:33→15:09)
--- NOTE | 2020-08-05 14:09 | EDM.PDOC ---
<Loida Jama R - Last Filed: 08/05/20 19:07> ED HPI GENERAL MEDICAL PROBLEM - General Chief Complaint: Respiratory Problem Stated Complaint: TROUBLE BREATHING Time Seen by Provider: 08/05/20 13:30 - Related Data Allergies Allergy/AdvReac Type Severity Reaction Status Date / Time codeine Allergy Severe Respiratory Verified 08/05/20 13:40 Distress Latex, Natural Rubber Allergy Mild Rash Verified 08/05/20 13:40 Penicillins Allergy Respiratory Verified 08/05/20 13:40 Distress Home Meds: Home Meds ClonazePAM [KlonoPIN] 0.5 mg PO BID 05/21/20 [History] traMADol [Ultram] 50 tab PO BID 05/21/20 [History] traZODone HCl [Trazodone HCl] 150 mg PO DAILY 05/21/20 [History] lisinopriL [Lisinopril] mg PO DAILY 08/05/20 [History] ED ROS GENERAL - Review of Systems Review Of Systems: Comprehensive ROS is negative, except as noted in HPI. ED EXAM, GENERAL - Physical Exam Exam: See Below Departure - Departure Time of Disposition: 19:07 Disposition: Home, Self-Care 01 Clinical Impression: Cough - Discharge Information Instructions: Cough, Adult, [id number] Referrals: Adelita Perez DO [Primary Care Provider] - Forms: ED Department Discharge Additional Instructions: The following information is given to patients seen in the emergency department who are being discharged to home. This information is to outline your options for follow-up care. We provide all patients seen in our emergency department with a follow-up referral. The need for follow-up, as well as the timing and circumstances, are variable depending upon the specifics of your emergency department visit. If you don't have a primary care physician on staff, we will provide you with a referral. We always advise you to contact your personal physician following an emergency department visit to inform them of the circumstance of the visit and for follow-up with them and/or the need for any referrals to a consulting specialist. The emergency department will also refer you to a specialist when appropriate. This referral assures that you have the opportunity for follow-up care with a specialist. All of these measure are taken in an effort to provide you with optimal care, which includes your follow-up. Under all circumstances we always encourage you to contact your private physician who remains a resource for coordinating your care. When calling for follow-up care, please make the office aware that this follow-up is from your recent emergency room visit. If for any reason you are refused follow-up, please contact the [facility] Emergency Department at and asked to speak to the emergency department charge nurse. 1. It is uncertain what is causing your long-standing cough. Please follow-up with your primary provider and seek a pulmonology referral. <Renard Cardenas E - Last Filed: 08/06/20 10:13> ED HPI GENERAL MEDICAL PROBLEM - General Source of Information: Reports: Patient History Limitations: Reports: No Limitations - History of Present Illness INITIAL COMMENTS - FREE TEXT/NARRATIVE: HISTORY AND PHYSICAL: History of present illness: Patient is a 34-year-old female who presents to the emergency room with complaints of cough, shortness of breath, generalized weakness and chills. She states she has had a cough for approximately 4 months that kind of waxes and wanes. States she has seen her primary care provider, Dr. Perez who has done several chest x-rays and has placed her on antibiotics. States she last took "2 separate antibiotics" in April, although unsure of what medication she was taking. Today she had to leave work early as she felt "weak in the knees" and could not stop coughing. Upon registering into the emergency room she states she had a coughing fit and fell to the ground. She does not believe she lost consciousness but felt "weak". She denies hitting her head or having any loss of consciousness. She states she has had multiple COVID-19 screenings and all have been negative, she finds this inaccurate. Review of systems: As per history of present illness and below otherwise all systems reviewed and negative. Past medical history: As per history of present illness and as reviewed below otherwise noncontributory. Surgical history: As per history of present illness and as reviewed below otherwise noncontributory. Social history: See social history for further information Family history: As per history of present illness and as reviewed below otherwise noncontributory. Physical exam: General: Well developed and well nourished. Alert and orientated x 3. Nontoxic in appearance and in no acute distress. Vital signs are stable and have been reviewed by me. Nursing notes were reviewed. HEENT: Atraumatic, normocephalic, pupils equal and reactive bilaterally, negative for conjunctival pallor or scleral icterus, mucous membranes moist, TMs normal bilaterally, throat clear, neck supple, nontender, trachea midline. No drooling or trismus noted. No meningeal signs. No hot potato voice noted. Lungs: Diminished with fine expiratory wheezing to the bases upon auscultation, breath sounds equal bilaterally. Dry harsh cough noted Heart: S1S2, regular rate and rhythm without overt murmur Abdomen: Soft, nondistended, nontender. Negative for masses or hepatosplenomegaly. Negative for costovertebral tenderness. Skin: Intact, warm, dry. No lesions or rashes noted. Hematologic: No petechiae or purpra. Mucosa appropriate color and normal nail bed color and refill. Extremities: Atraumatic, moves all extremities per self without difficulty or deficits, negative for cords or calf pain. Neurovascular unremarkable. Neuro: Awake, alert, oriented. Cranial nerves II through XII unremarkable. Cerebellum unremarkable. Motor and sensory unremarkable throughout. Exam nonfocal. Psychiatric: Mood and affect are appropriate. Normal thought process. Answering questions appropriately. Notes: I did have Dr Cevallos evaluate this patient as well. The initial CT of chest was suboptimal due to IV site/timing. Loida Beck and Dr Cevallos took over on this patient at 1700. Please see note. Diagnostics: CBC, CMP, UA, urine , CT chest Therapeutics: IV fluid Definitive disposition and diagnosis as appropriate pending reevaluation and review of above. Past Medical History HEENT History: Reports: None Cardiovascular History: Reports: Hypertension Respiratory History: Reports: Asthma Gastrointestinal History: Reports: None Genitourinary History: Reports: Renal Calculus VEGETABLE SORTER History: Reports: None Other VEGETABLE SORTER History: Hysterectomy Musculoskeletal History: Reports: None Neurological History: Reports: Concussion, Other (See Below) Other Neuro History: Seizures as a child Psychiatric History: Reports: Anxiety, Depression Endocrine/Metabolic 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 (See Below) Other Endocrine/Metabolic History: borderline diabetic Insulin Pump Model and Finance Insurance Manager: None Hematologic History: Reports: None Immunologic History: Reports: None Oncologic (Cancer) History: Reports: None Dermatologic History: Reports: None - Infectious Disease History Infectious Disease History: Reports: MRSA - Past Surgical History Head Surgeries/Procedures: Reports: None HEENT Surgical History: Reports: Tonsillectomy Cardiovascular Surgical History: Reports: None Respiratory Surgical History: Reports: None GI Surgical History: Reports: Cholecystectomy Other GI Surgeries/Procedures: diagnostic laparoscopy 2x Female Surgical History: Reports: Section, Hysterectomy, Lithotripsy/ESWL Endocrine Surgical History: Reports: None Neurological Surgical History: Reports: None Musculoskeletal Surgical History: Reports: None Dermatological Surgical History: Reports: None Social & Family History - Family History Family Medical History: Noncontributory - Tobacco Use Smoking Status *Q: Current Every Day Smoker Years of Tobacco use: 5 Packs/Tins Daily: 1 - Caffeine Use Caffeine Use: Reports: None Caffeine Use Comment: 1-3/day - Recreational Drug Use Recreational Drug Use: No Course - Vital Signs Last Recorded V/S: Last Vital Signs Temp 97.7 F 08/05/20 19:22 Pulse 71 08/05/20 19:22 Resp 18 08/05/20 19:22 BP 116/82 08/05/20 19:22 Pulse Ox 97 08/05/20 19:22 - Orders/Labs/Meds Orders: Active Orders 24 hr Category Date Time Status Ang Chest [CT] Routine Exams 08/05/20 15:38 Taken Ang Chest [CT] Stat Exams 08/05/20 15:00 Taken Labs: Laboratory Tests 08/05/20 08/05/20 08/05/20 Range/Units 13:45 13:45 13:45 WBC 14.36 H (4.0-11.0) K/uL RBC 4.85 (4.30-5.90) M/uL Hgb 13.6 (12.0-16.0) g/dL Hct 43.1 (36.0-46.0) % MCV 88.9 (80.0-98.0) fL MCH 28.0 (27.0-32.0) pg MCHC 31.6 (31.0-37.0) g/dL RDW Std Deviation 49.2 (28.0-62.0) fl RDW Coeff of Pineda 15 (11.0-15.0) % Plt Count 362 (150-400) K/uL MPV 10.50 (7.40-12.00) fL Neut % (Auto) 71.6 (48.0-80.0) % Lymph % (Auto) 20.3 (16.0-40.0) % Jennings % (Auto) 6.1 (0.0-15.0) % Eos % (Auto) 1.7 (0.0-7.0) % Baso % (Auto) 0.3 (0.0-1.5) % Neut # (Auto) 10.3 H (1.4-5.7) K/uL Lymph # (Auto) 2.9 H (0.6-2.4) K/uL Jennings # (Auto) 0.9 H (0.0-0.8) K/uL Eos # (Auto) 0.2 (0.0-0.7) K/uL Baso # (Auto) 0.1 (0.0-0.1) K/uL Nucleated RBC % 0.0 /100WBC Nucleated RBCs # 0 K/uL D-Dimer, Quantitative 0.71 H (0.0-0.50) mg/L FEU Sodium 138 (136-145) mmol/L Potassium 4.1 (3.5-5.1) mmol/L Chloride 105 (98-107) mmol/L Carbon Dioxide 18.3 L (21.0-32.0) mmol/L BUN 14 (7.0-18.0) mg/dL Creatinine 0.7 (0.6-1.0) mg/dL Est Cr Clr Drug Dosing 109.08 mL/min Estimated GFR (MDRD) > 60.0 ml/min Glucose 96 (74-106) mg/dL Calcium 8.7 (8.5-10.1) mg/dL Total Bilirubin 0.3 (0.2-1.0) mg/dL AST 15 (15-37) IU/L ALT 30 (14-63) IU/L Alkaline Phosphatase 68 (46-116) U/L Troponin I (0.000-0.056) ng/mL Total Protein 7.9 (6.4-8.2) g/dL Albumin 3.7 (3.4-5.0) g/dL Globulin 4.2 H (2.6-4.0) g/dL Albumin/Globulin Ratio 0.9 (0.9-1.6) TSH 3rd Generation 1.97 (0.36-3.74) uIU/mL Urine Color Urine Appearance Urine pH (5.0-8.0) Ur Specific [place] (1.001-1.035) Urine Protein (NEGATIVE) mg/dL Urine Glucose (UA) (NEGATIVE) mg/dL Urine Ketones (NEGATIVE) mg/dL Urine Occult Blood (NEGATIVE) Urine Nitrite (NEGATIVE) Urine Bilirubin (NEGATIVE) Urine Urobilinogen (<2.0) EU/dL Ur Leukocyte Esterase (NEGATIVE) Urine RBC (0-2/HPF) Urine WBC (0-5/HPF) Ur Epithelial Cells (NONE-FEW) Urine Bacteria (NEGATIVE) Urine HCG, Qual (NEGATIVE) SARS CoV-2 RNA Rapid ANGELES (NEGATIVE) 08/05/20 08/05/20 08/05/20 Range/Units 13:45 14:38 14:38 WBC (4.0-11.0) K/uL RBC (4.30-5.90) M/uL Hgb (12.0-16.0) g/dL Hct (36.0-46.0) % MCV (80.0-98.0) fL MCH (27.0-32.0) pg MCHC (31.0-37.0) g/dL RDW Std Deviation (28.0-62.0) fl RDW Coeff of Pineda (11.0-15.0) % Plt Count (150-400) K/uL MPV (7.40-12.00) fL Neut % (Auto) (48.0-80.0) % Lymph % (Auto) (16.0-40.0) % Jennings % (Auto) (0.0-15.0) % Eos % (Auto) (0.0-7.0) % Baso % (Auto) (0.0-1.5) % Neut # (Auto) (1.4-5.7) K/uL Lymph # (Auto) (0.6-2.4) K/uL Jennings # (Auto) (0.0-0.8) K/uL Eos # (Auto) (0.0-0.7) K/uL Baso # (Auto) (0.0-0.1) K/uL Nucleated RBC % /100WBC Nucleated RBCs # K/uL D-Dimer, Quantitative (0.0-0.50) mg/L FEU Sodium (136-145) mmol/L Potassium (3.5-5.1) mmol/L Chloride (98-107) mmol/L Carbon Dioxide (21.0-32.0) mmol/L BUN (7.0-18.0) mg/dL Creatinine (0.6-1.0) mg/dL Est Cr Clr Drug Dosing mL/min Estimated GFR (MDRD) ml/min Glucose (74-106) mg/dL Calcium (8.5-10.1) mg/dL Total Bilirubin (0.2-1.0) mg/dL AST (15-37) IU/L ALT (14-63) IU/L Alkaline Phosphatase (46-116) U/L Troponin I < 0.050 (0.000-0.056) ng/mL Total Protein (6.4-8.2) g/dL Albumin (3.4-5.0) g/dL Globulin (2.6-4.0) g/dL Albumin/Globulin Ratio (0.9-1.6) TSH 3rd Generation (0.36-3.74) uIU/mL Urine Color YELLOW Urine Appearance SLT CLOUDY Urine pH 6.5 (5.0-8.0) Ur Specific [place] 1.020 (1.001-1.035) Urine Protein NEGATIVE (NEGATIVE) mg/dL Urine Glucose (UA) NEGATIVE (NEGATIVE) mg/dL Urine Ketones NEGATIVE (NEGATIVE) mg/dL Urine Occult Blood TRACE-INTACT H (NEGATIVE) Urine Nitrite NEGATIVE (NEGATIVE) Urine Bilirubin NEGATIVE (NEGATIVE) Urine Urobilinogen 0.2 (<2.0) EU/dL Ur Leukocyte Esterase NEGATIVE (NEGATIVE) Urine RBC 1-3 (0-2/HPF) Urine WBC 0-1 (0-5/HPF) Ur Epithelial Cells FEW (NONE-FEW) Urine Bacteria FEW (NEGATIVE) Urine HCG, Qual NEGATIVE (NEGATIVE) SARS CoV-2 RNA Rapid ANGELES (NEGATIVE) 08/05/20 Range/Units 18:05 WBC (4.0-11.0) K/uL RBC (4.30-5.90) M/uL Hgb (12.0-16.0) g/dL Hct (36.0-46.0) % MCV (80.0-98.0) fL MCH (27.0-32.0) pg MCHC (31.0-37.0) g/dL RDW Std Deviation (28.0-62.0) fl RDW Coeff of Pineda (11.0-15.0) % Plt Count (150-400) K/uL MPV (7.40-12.00) fL Neut % (Auto) (48.0-80.0) % Lymph % (Auto) (16.0-40.0) % Jennings % (Auto) (0.0-15.0) % Eos % (Auto) (0.0-7.0) % Baso % (Auto) (0.0-1.5) % Neut # (Auto) (1.4-5.7) K/uL Lymph # (Auto) (0.6-2.4) K/uL Jennings # (Auto) (0.0-0.8) K/uL Eos # (Auto) (0.0-0.7) K/uL Baso # (Auto) (0.0-0.1) K/uL Nucleated RBC % /100WBC Nucleated RBCs # K/uL D-Dimer, Quantitative (0.0-0.50) mg/L FEU Sodium (136-145) mmol/L Potassium (3.5-5.1) mmol/L Chloride (98-107) mmol/L Carbon Dioxide (21.0-32.0) mmol/L BUN (7.0-18.0) mg/dL Creatinine (0.6-1.0) mg/dL Est Cr Clr Drug Dosing mL/min Estimated GFR (MDRD) ml/min Glucose (74-106) mg/dL Calcium (8.5-10.1) mg/dL Total Bilirubin (0.2-1.0) mg/dL AST (15-37) IU/L ALT (14-63) IU/L Alkaline Phosphatase (46-116) U/L Troponin I (0.000-0.056) ng/mL Total Protein (6.4-8.2) g/dL Albumin (3.4-5.0) g/dL Globulin (2.6-4.0) g/dL Albumin/Globulin Ratio (0.9-1.6) TSH 3rd Generation (0.36-3.74) uIU/mL Urine Color Urine Appearance Urine pH (5.0-8.0) Ur Specific [place] (1.001-1.035) Urine Protein (NEGATIVE) mg/dL Urine Glucose (UA) (NEGATIVE) mg/dL Urine Ketones (NEGATIVE) mg/dL Urine Occult Blood (NEGATIVE) Urine Nitrite (NEGATIVE) Urine Bilirubin (NEGATIVE) Urine Urobilinogen (<2.0) EU/dL Ur Leukocyte Esterase (NEGATIVE) Urine RBC (0-2/HPF) Urine WBC (0-5/HPF) Ur Epithelial Cells (NONE-FEW) Urine Bacteria (NEGATIVE) Urine HCG, Qual (NEGATIVE) SARS CoV-2 RNA Rapid ANGELES NEGATIVE (NEGATIVE) Meds: Medications Discontinued Medications Generic Name Dose Route Start Last Admin Trade Name Freq PRN Reason Stop Dose Admin Sodium Chloride 1,000 mls @ 999 mls/hr 08/05/20 13:33 08/05/20 13:52 Normal Saline IV 08/05/20 14:33 999 mls/hr STAT ONE Administration Sodium Chloride 1,000 mls @ 999 mls/hr 08/05/20 15:09 08/05/20 15:55 Normal Saline IV 08/05/20 16:09 999 mls/hr STAT ONE Administration Sepsis Event Note (ED) - Evaluation Sepsis Screening Result: No Definite Risk
[2020-08-05 14:30] LABS: BLOOD UREA NITROGEN,BUN 14 mg/dL (7.0-18.0); CARBON DIOXIDE,CO2 18.3 mmol/L (21.0-32.0); CHLORIDE,CL 105 mmol/L (98-107); GLUCOSE RANDOM 96 mg/dL (74-106); POTASSIUM,K 4.1 mmol/L (3.5-5.1); SODIUM,NA 138 mmol/L (136-145)
--- NOTE | 2020-08-05 15:23 | PCM.SN.2 ---
- Free Text/Narrative Note: The patient was presented to me by the mid-level provider, who sees patients independently as a licensed independent practitioner by [facility] and [facility] law. Up until the time that I was consulted and assumed supervision, the mid-level provider had been solely and independently caring for this patient and they were responsible for all aspects of care including performing the history and physical, formulating medical decision making, ordering medications, and ordering and evaluating testing. I have personally and independently seen and evaluated the patient at bedside and, if available, have spoken with the with the family. I agree with the history, physical, medical decision making, and plan of treatment as documented by the mid-level provider. I have performed the medical decision making for this patient, including assessing the results of all diagnostic testing and I have instructed the mid-level provider to document the results and carry through with the treatment plan that I deemed appropriate. If needed, any other comments, a focused physical examination, or my own medical decision making are documented below. In brief, this is a 34-year-old female with a past medical history of GERD, asthma, hypertension presenting with chronic cough and shortness of breath. Noted of had multiple negative COVID tests. Patient experienced a near syncopal episode at the triage desk and was helped up off the floor by nurses. Had a near syncopal episode after coughing repeatedly. 4 month history of nonproductive cough and SOB. States she has been evaluated by her primary clinic and has had several COVID tests and chest x-ray series without a diagnosis. Not feeling better. Cough and SOB are at baseline, not changed today. Denies CP. States she is now feeling generally weak, which prompted her ED presentation today. She was coughing multiple times in rapid succession in triage and felt like she was going to lose consciousness due to lightheadedness, which she states has happened before due to her cough. No longer feeling lightheaded now. Work-up here shows mild leukocytosis. D-dimer elevated at 0.71. Troponin negative. TSH within normal limits. Electrolytes show mildly low CO2 at 18.3. Urinalysis shows trace occult blood, no evidence of infection. 12-lead ECG non-i schemic, no RV strain, preexcitation, or arrhythmia. SARS-CoV-2 testing negative. LIN Cardenas had initially pursued CT pulmonary angiogram but my suspicion for PE is low. Cough and SOB present for four months, not any worse today. When I examined the pt, HR is 93, SPO2 100% on room air. Not hypoxic or tachypneic. 12-lead ECG shows no RV strain pattern. No historical RFs for VTE such as leg pain/swelling, hemoptysis, recent surgery or immobilization or long travel, no h/o active malignancy. Symptoms chronic at this point, not any different today. She did feel transiently lightheaded after a forceful coughing spell in triage but is feeling better now. Low suspicion for cardiogenic syncope given the details of the presentation, work-up, and review of ECG. POWER TRANSFORMER REPAIR SUPERVISOR Ronald did pursue a CT pulmonary angiogram study. The contrast did not adequately opacify the pulmonary vasculature, but the lung parenchyma itself shows no infiltrate. We did attempt to re-establish more robust IV access to pursue the CT pulmonary angiogram, unfortunately the new IV stopped functioning. I did engage in shared decision making with the patient regarding additional attempts at IV access to repeat the CT pulmonary angiogram. She does not want any more IV starts to facilitate this and is comfortable not repeating the CTPA. I explained that my concern for PE/VTE is low at this point and she is comfortable with the very minor risk of a missed PE. She is comfortable with this risk. My suspicion for PE is low and she does not need to be anticoagulated empirically. There is no evidence of pneumonia, COVID infection, or another infectious process. No e/o bronchospasm, lungs are clear. Hemodynamically stable. We are going to discharge her home to follow-up with her primary doctor's office, she likely needs to be referred to pulmonology at this point given that her symptoms are chronic. She is comfortable with this plan.
--- NOTE | 2020-08-05 18:53 | CT ---
CT chest Technique: Multiple axial sections through the chest were obtained. Very suboptimal opacification of the pulmonary arteries are seen. No gross filling defects within the main pulmonary arteries are seen. Emboli within the segmental or subsegmental pulmonary arteries could easily be missed. The visualized upper abdominal structures show no discrete abnormality. No pericardial thickening is appreciated. Aorta shows no aneurysm. Mediastinum and hilar regions show no adenopathy. Lungs are clear with no acute parenchymal change. No pleural effusions are seen. Bone window settings were reviewed which show no acute bony abnormality. Impression: 1. Poor opacification of pulmonary arteries. No larger pulmonary emboli within the main pulmonary arteries are seen. Pulmonary emboli within the segmental or subsegmental branches could be missed. 2. Nothing acute is otherwise seen on CT study of the chest. Diagnostic code #3 This report was dictated in MDT MTDD
[2020-08-05 19:23] VITALS: BP 116/82; PULSE 71
== END 2020-08-05 19:20 | disposition home or self-care (01) ==
LOC: MW.ED 13:26
DX: R05 Cough (principal); F32.9 Major depressive disorder, single episode, unspecified; I10 Essential (primary) hypertension; J45.909 Unspecified asthma, uncomplicated; F17.210 Nicotine dependence, cigarettes, uncomplicated; Z88.0 Allergy status to penicillin; Z88.5 Allergy status to narcotic agent; Z91.040 Latex allergy status; Z79.899 Other long term (current) drug therapy; Z90.49 Acquired absence of other specified parts of digestive tract
CPT/HCPCS: 36415; 71275; 80053; 81001; 81025; 84443; 84484; 85025; 85379; 87635; 93005; 96360; 96361; 99285; J7030; U0002

== ENCOUNTER 2021-01-22 10:31 | Emergency (ER) | payer SELFPAY ==
--- NOTE | 2021-01-22 10:40 | EDM.PDOC ---
ED HPI GENERAL MEDICAL PROBLEM - General Stated Complaint: COUGH WEAKNESS Time Seen by Provider: 01/22/21 10:33 Source of Information: Reports: Patient History Limitations: Reports: No Limitations - History of Present Illness INITIAL COMMENTS - FREE TEXT/NARRATIVE: 35-year-old female with history of hypertension and asthma presents with symptoms concerning for Covid. She has had 2 days of generalized malaise, diffuse myalgia, dry cough, subjective fevers and chills, decreased appetite, dizziness, lightheadedness, shortness of breath. 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 She coughs so hard that she would gag and vomit. ROS: A 10-point review of systems, other than pertinent positives and negatives as stated per HPI, is otherwise negative Past medical history: No additional pertinent history Past Surgical history: No additional pertinent history Social history: No additional pertinent history Family history: No additional pertinent history PHYSICAL EXAM General: AOx4, GCS = 15, BMI = 45 HEENT: dry mucous membrane Neck: supple, no meningismus, no Kernig or Brudzinski Cardiac: S1S2 RRR Respiratory: Diminished breath sounds with trace wheezing bilaterally Abdomen: Soft, nontender, no rebound or guarding, nondistended, no pulsatile mass. Back: nontender Musculoskeletal: NVI distally, no deformity Neuro: No focal deficits, CN 2 - 12 WNL. general aches Pain Score (Numeric/FACES): 8 - Related Data Allergies Allergy/AdvReac Type Severity Reaction Status Date / Time codeine Allergy Severe Respiratory Verified 01/22/21 10:58 Distress Latex, Natural Rubber Allergy Mild Rash Verified 01/22/21 10:58 Penicillins Allergy Respiratory Verified 01/22/21 10:58 Distress Home Meds: Home Meds ClonazePAM [KlonoPIN] 0.5 mg PO BID 05/21/20 [History] traMADol [Ultram] 50 tab PO BID 05/21/20 [History] traZODone HCl [Trazodone HCl] 150 mg PO DAILY 05/21/20 [History] lisinopriL [Lisinopril] mg PO DAILY 08/05/20 [History] predniSONE [Prednisone] 50 mg PO DAILY #5 tablet 01/22/21 [Rx] Past Medical History HEENT History: Reports: None Cardiovascular History: Reports: Hypertension Respiratory History: Reports: Asthma Gastrointestinal History: Reports: None Genitourinary History: Reports: Renal Calculus CEMENT DESPATCH OPERATOR History: Reports: None Other CEMENT DESPATCH OPERATOR History: Hysterectomy Musculoskeletal History: Reports: None Neurological History: Reports: Concussion, Other (See Below) Other Neuro History: Seizures as a child Psychiatric History: Reports: Anxiety, Depression Endocrine/Metabolic 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 (See Below) Other Endocrine/Metabolic History: borderline diabetic Insulin Pump Model and Metallurgical Lab Technician: None Hematologic History: Reports: None Immunologic History: Reports: None Oncologic (Cancer) History: Reports: None Dermatologic History: Reports: None - Infectious Disease History Infectious Disease History: Reports: MRSA - Past Surgical History Head Surgeries/Procedures: Reports: None HEENT Surgical History: Reports: Tonsillectomy Cardiovascular Surgical History: Reports: None Respiratory Surgical History: Reports: None GI Surgical History: Reports: Cholecystectomy Other GI Surgeries/Procedures: diagnostic laparoscopy 2x Female Surgical History: Reports: Section, Hysterectomy, Lithotripsy/ESWL Endocrine Surgical History: Reports: None Neurological Surgical History: Reports: None Musculoskeletal Surgical History: Reports: None Dermatological Surgical History: Reports: None Social & Family History - Family History Family Medical History: No Pertinent Family History - Caffeine Use Caffeine Use: Reports: None Caffeine Use Comment: 1-3/day ED ROS GENERAL - Review of Systems Review Of Systems: See Below (see dictation) ED EXAM, GENERAL - Physical Exam Exam: See Below (see dictation) Course - Vital Signs Last Recorded V/S: Last Vital Signs Temp 97.6 F 01/22/21 10:59 Pulse 105 H 01/22/21 10:59 Resp 16 01/22/21 10:59 BP 158/102 H 01/22/21 10:59 Pulse Ox 93 L 01/22/21 10:59 - Orders/Labs/Meds Orders: Active Orders 24 hr Category Date Time Status RT Aerosol Therapy [RC] ASDIRECTED Care 01/22/21 11:34 Active Labs: Laboratory Tests 01/22/21 Range/Units 10:48 Influenza Type A RNA NEGATIVE (NEGATIVE) Influenza Type B RNA NEGATIVE (NEGATIVE) SARS-CoV-2 RNA (ANGELES) NEGATIVE (NEGATIVE) Meds: Medications Discontinued Medications Generic Name Dose Route Start Last Admin Trade Name Desmondq PRN Reason Stop Dose Admin Albuterol/Ipratropium 3 ml 01/22/21 11:34 01/22/21 12:34 Duoneb 3.0-0.5 Mg/3 Ml NEB 01/22/21 11:35 3 ml ONETIME ONE Administration Prednisone 60 mg 01/22/21 11:34 01/22/21 12:38 Prednisone PO 01/22/21 11:35 60 mg ONETIME ONE Administration - Re-Assessments/Exams Free Text/Narrative Re-Assessment/Exam: 01/22/21 1304 After duoneb treatment in the ER, she improved and is currently stable for discharge. I performed a repeat exam and did not appreciate new abnormal findings. Patient exhibits normal vital signs and has a normal gait on road test. I advised the patient to return to the ER for reevaluation if symptoms worsened, including fever, worsening pain, or any other worrisome symptoms. I instructed the patient to follow up with their PCP within 2-3 days. MEDICAL DECISION MAKING: I reviewed the patients past medical records, lab and radiographic findings. I discussed the case with the patient. My differential diagnosis included: Bronchitis, Covid, URI. This patient was evaluated for the symptoms described in the history of present illness. They were evaluated in the context of the global COVID-19 pandemic, which necessitated consideration that the patient might be at risk for infection with the SARS-CoV-2 virus that causes COVID-19. Institutional protocols and algorithms that pertain to the evaluation of patients at risk for COVID-19 are in a state of rapid change based on information released by regulatory bodies including the CDC and federal and state organizations. These policies and algorithms were followed during the patient's care. I wore full PPE, N95, face shield, gown and gloves throughout my evaluation and care of this patient. I recommended home isolation. given home isolation instructions. The patient is well appearing, not in respiratory distress, not hypoxic, no tachyneia, no retractions. I instructed patient to measure her pulse ox using a pulse oximeter whenever she feels dyspneic, and to return if her pulse ox is less than 90%, and to return immediately for worsening symptoms, sob, chest pain, lightheadedness or other concerns. Patient voiced understanding and questions answered. Departure - Departure Time of Disposition: 13:05 Disposition: Home, Self-Care 01 Condition: Good Clinical Impression: Suspected COVID-19 virus infection Asthma Qualifiers: Asthma severity: unspecified severity Asthma complication type: with acute exacerbation Qualified Code(s): J45.901 - Unspecified asthma with (acute) exacerbation - Discharge Information *PRESCRIPTION DRUG MONITORING PROGRAM REVIEWED*: Not Applicable *COPY OF PRESCRIPTION DRUG MONITORING REPORT IN PATIENT JOSE A: Not Applicable Prescriptions: predniSONE [Prednisone] 50 mg PO DAILY #5 tablet Instructions: Asthma Attack Referrals: Adelita Perez DO [Primary Care Provider] - Additional Instructions: The need for follow-up, as well as the timing and circumstances, are variable depending upon the specifics of your emergency department visit. If you don't have a primary care physician on staff, we will provide you with a referral. We always advise you to contact your personal physician following an emergency department visit to inform them of the circumstance of the visit and for follow-up with them and/or the need for any referrals to a consulting specialist. The emergency department will also refer you to a specialist when appropriate. This referral assures that you have the opportunity for follow-up care with a specialist. All of these measure are taken in an effort to provide you with optimal care, which includes your follow-up. Under all circumstances we always encourage you to contact your private physician who remains a resource for coordinating your care. When calling for follow-up care, please make the office aware that this follow-up is from your recent emergency room visit. If for any reason you are refused follow-up, please contact the [facility] Emergency Department at and asked to speak to the emergency department charge nurse. If you do not have a primary care doctor, please follow up with the clinics below within 3-5 days. [facility] - Primary Care [address] [place] [address] [facility] [address] [place] [address] Sepsis Event Note (ED) - Focused Exam Vital Signs: Vital Signs Temp Pulse Resp BP Pulse Ox 01/22/21 10:59 97.6 F 105 H 16 158/102 H 93 L - My Orders Last 24 Hours: My Active Orders 01/22/21 11:34 RT Aerosol Therapy [RC] ASDIRECTED - Assessment/Plan Last 24 Hours: My Active Orders 01/22/21 11:34 RT Aerosol Therapy [RC] ASDIRECTED
[2021-01-22 11:04] VITALS: BP 158/102; PULSE 105
[2021-01-22] MEDS ORDERED: Albuterol/Ipratropium 3.0-0.5 MG/3 ML Neb Soln NEB ONE (11:34)
[2021-01-22] MEDS ORDERED: predniSONE 20 MG Tab PO ONE (11:34)
[2021-01-22 11:51] LABS: CORONAVIRUS COVID-19 NAA NEGATIVE (NEGATIVE); INFLUENZA A NAA NEGATIVE (NEGATIVE); INFLUENZA B NAA NEGATIVE (NEGATIVE)
--- NOTE | 2021-01-22 12:35 | CR ---
HISTORY: Cough. TECHNIQUE: Portable frontal view the chest. COMPARISON: Chest x-ray 08/11/2019. FINDINGS: No airspace consolidation. No pleural effusion or pneumothorax. Pulmonary vasculature and cardiomediastinal silhouette are within normal limits. IMPRESSION: No cardiopulmonary abnormality. Dictated by Arsh Barfield MD @ Jan 22 2021 12:33PM Signed by Dr. Arsh Barfield @ Jan 22 2021 12:34PM
== END 2021-01-22 13:15 | disposition home or self-care (01) ==
LOC: MW.ED 10:31
DX: J45.901 Unspecified asthma with (acute) exacerbation (principal); I10 Essential (primary) hypertension; Z90.710 Acquired absence of both cervix and uterus; Z88.5 Allergy status to narcotic agent; Z91.040 Latex allergy status; Z88.0 Allergy status to penicillin; Z79.899 Other long term (current) drug therapy; Z20.822 Contact with and (suspected) exposure to COVID-19
CPT/HCPCS: 0240U; 71045; 94640; 99284; A9270; 99282; J7620-GY

== ENCOUNTER 2021-03-30 19:41 | Emergency (ER) | payer SELFPAY ==
[2021-03-30] MEDS ORDERED: Doxycycline 100 MG Cap PO ONE (20:20)
--- NOTE | 2021-03-30 20:26 | EDM.PDOC ---
ED HPI GENERAL MEDICAL PROBLEM - General Chief Complaint: Skin Complaint Stated Complaint: BUMP ON RT UNDERARM, POSSIBLE INFECTION Time Seen by Provider: 03/30/21 19:48 - History of Present Illness INITIAL COMMENTS - FREE TEXT/NARRATIVE: History of present illness: [] The patient has an abscess in the right axilla. Its been there for a month. It was purulent and she drained it after sterilizing and needle with heat and then alcohol. She still has accumulation of right axillary purulent material at the abscess site and she has pain and tenderness there. She has no systemic signs of illness. She has previous MRSA abscess that was quite complicated in the left groin. Review of systems: As per history of present illness and below otherwise all systems reviewed and negative. Past medical history: As per history of present illness and as reviewed below otherwise noncontributory. Surgical history: As per history of present illness and as reviewed below otherwise noncontributory. Social history: No reported history of drug or alcohol abuse. Family history: As per history of present illness and as reviewed below otherwise noncontributory. Physical exam: Constitutional - well developed, well-nourished and in no acute distress HEENT - normocephalic, no evidence of trauma - external nose and mouth normal - no mass in neck and no JVD - mucosae moist EYES - full EOM, PERRL, no icterus - no evidence of inflammation, injection, or drainage Respiratory - no respiratory distress, equal bilateral expansion Musculoskeletal no gross deformity of long bones or joints - no tenderness, swelling or edema Neurologic - Alert and oriented times four - CN II-XII grossly intact - motor sensory and coordination symmetrically normal Psychiatric - appropriate mood and affect with normal thought content Hematologic - No petechiae or purpura - mucosa appropriate color and sclera not pale - normal nail bed color and refill Integument -right axilla has an erythematous area that is quite tender. It is not fluctuant. There is purulence in the entrance to a elliptical shaped 6 mm incision that has begun to heal pretty well but is still somewhat open in the center. No rash or evidence of trauma - normal turgor Diagnostics: [] Therapeutics: [] Impression: [] Plan: [] Definitive disposition and diagnosis as appropriate pending reevaluation and review of above. right arm pit Pain Score (Numeric/FACES): 6 - Related Data Allergies Allergy/AdvReac Type Severity Reaction Status Date / Time codeine Allergy Severe Respiratory Verified 03/30/21 19:59 Distress Latex, Natural Rubber Allergy Mild Rash Verified 03/30/21 19:59 Penicillins Allergy Respiratory Verified 03/30/21 19:59 Distress Home Meds: Home Meds ClonazePAM [KlonoPIN] 0.5 mg PO BID 05/21/20 [History] traMADol [Ultram] 50 tab PO BID 05/21/20 [History] traZODone HCl [Trazodone HCl] 150 mg PO DAILY 05/21/20 [History] lisinopriL [Lisinopril] mg PO DAILY 08/05/20 [History] predniSONE [Prednisone] 50 mg PO DAILY #5 tablet 01/22/21 [Rx] Doxycycline [Vibramycin] 100 mg PO BID 5 Days #10 cap 03/30/21 [Rx] Past Medical History HEENT History: Reports: None Cardiovascular History: Reports: Hypertension Respiratory History: Reports: Asthma Gastrointestinal History: Reports: None Genitourinary History: Reports: Renal Calculus GREENHOUSE TECHNICIAN History: Reports: None Other GREENHOUSE TECHNICIAN History: Hysterectomy Musculoskeletal History: Reports: None Neurological History: Reports: Concussion, Other (See Below) Other Neuro History: Seizures as a child Psychiatric History: Reports: Anxiety, Depression Endocrine/Metabolic 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 (See Below) Other Endocrine/Metabolic History: borderline diabetic Insulin Pump Model and Paper Winder: None Hematologic History: Reports: None Immunologic History: Reports: None Oncologic (Cancer) History: Reports: None Dermatologic History: Reports: None - Infectious Disease History Infectious Disease History: Reports: Chicken Pox, MRSA - Past Surgical History Head Surgeries/Procedures: Reports: None HEENT Surgical History: Reports: Tonsillectomy Cardiovascular Surgical History: Reports: None Respiratory Surgical History: Reports: None GI Surgical History: Reports: Cholecystectomy Other GI Surgeries/Procedures: diagnostic laparoscopy 2x Female Surgical History: Reports: Section, Hysterectomy, Lithotripsy/ESWL Endocrine Surgical History: Reports: None Neurological Surgical History: Reports: None Musculoskeletal Surgical History: Reports: None Oncologic Surgical History: Reports: None Dermatological Surgical History: Reports: None Social & Family History - Family History Family Medical History: No Pertinent Family History - Caffeine Use Caffeine Use: Reports: None Caffeine Use Comment: 1-3/day ED ROS GENERAL - Review of Systems Review Of Systems: Comprehensive ROS is negative, except as noted in HPI. ED EXAM, SKIN/RASH Exam: See Below Text/Narrative:: My physical exam is in the HPI ED SKIN PROCEDURES - I&D Site: Right axilla Probed to Break Up Loculations: No Progress/Comments: A sterile needle was placed beneath the purulent material in the open wound on the right axilla and saline used to irrigate. The purulence came out in its entirety and the wound appears clear. Course - Vital Signs Last Recorded V/S: Last Vital Signs Temp 36.6 C 03/30/21 20:00 Pulse 88 03/30/21 20:00 Resp 18 03/30/21 20:00 BP 153/92 H 03/30/21 20:00 Pulse Ox 97 03/30/21 20:00 - Orders/Labs/Meds Meds: Medications Discontinued Medications Generic Name Dose Route Start Last Admin Trade Name Freq PRN Reason Stop Dose Admin Doxycycline Hyclate 100 mg 03/30/21 20:20 Doxycycline 100 Mg Cap PO 03/30/21 20:21 ONETIME ONE Departure - Departure Time of Disposition: 20:21 Disposition: Home, Self-Care 01 Condition: Good Clinical Impression: Abscess of axilla, right - Discharge Information Prescriptions: Doxycycline [Vibramycin] 100 mg PO BID 5 Days #10 cap Instructions: Skin Abscess Referrals: Adelita Perez DO [Primary Care Provider] - Additional Instructions: Warm compresses are advised. If there is accumulation of purulent material gently put the sterile needle deeper than the purulent material and irrigate with sterile saline. [facility] - Primary Care [address] [place] [id number] [id number] The following information is given to patients seen in the emergency department who are being discharged to home. This information is to outline your options for follow-up care. We provide all patients seen in our emergency department with a follow-up referral. The need for follow-up, as well as the timing and circumstances, are variable depending upon the specifics of your emergency department visit. If you don't have a primary care physician on staff, we will provide you with a referral. We always advise you to contact your personal physician following an emergency department visit to inform them of the circumstance of the visit and for follow-up with them and/or the need for any referrals to a consulting specialist. The emergency department will also refer you to a specialist when appropriate. This referral assures that you have the opportunity for follow-up care with a specialist. All of these measure are taken in an effort to provide you with optimal care, which includes your follow-up. Under all circumstances we always encourage you to contact your private physician who remains a resource for coordinating your care. When calling for follow-up care, please make the office aware that this follow-up is from your recent emergency room visit. If for any reason you are refused follow-up, please contact the [facility] Emergency Department at and asked to speak to the emergency department charge nurse. Sepsis Event Note (ED) - Evaluation Sepsis Screening Result: No Definite Risk - Focused Exam Vital Signs: Vital Signs Temp Pulse Resp BP Pulse Ox 03/30/21 20:00 36.6 C 88 18 153/92 H 97
[2021-03-30 20:42] VITALS: BP 142/102; PULSE 83
== END 2021-03-30 20:44 | disposition home or self-care (01) ==
LOC: MW.ED 19:41
DX: L02.411 Cutaneous abscess of right axilla (principal); I10 Essential (primary) hypertension; Z88.5 Allergy status to narcotic agent; Z88.0 Allergy status to penicillin; Z91.040 Latex allergy status; Z79.899 Other long term (current) drug therapy
CPT/HCPCS: 99283; A9270; 10060

== ENCOUNTER 2021-04-19 12:21 | Emergency (ER) | payer SELFPAY ==
[2021-04-19] MEDS ORDERED: Albuterol/Ipratropium 3.0-0.5 MG/3 ML Neb Soln ONE ×2 (13:27→14:16)
--- NOTE | 2021-04-19 14:20 | EDM.PDOC ---
ED HPI GENERAL MEDICAL PROBLEM - General Chief Complaint: Respiratory Problem Stated Complaint: PHLEM VOMITTING Time Seen by Provider: 04/19/21 12:23 Source of Information: Reports: Patient History Limitations: Reports: No Limitations - History of Present Illness INITIAL COMMENTS - FREE TEXT/NARRATIVE: HISTORY AND PHYSICAL: History of present illness: Patient is a 35-year-old female who presents to the emergency department secondary to a persistent cough which started 6 days ago with concerned asthma exacerbation. Patient reports that she has a history of asthma and occasionally she will get asthma exacerbations when she gets a viral infection and noted that she initially had runny nose start her symptoms. Patient states that she called her doctor's office 6 days ago and was given Medrol Dosepak to help with her symptoms and finished the pack yesterday with worsening cough again today. Patient reports that she normally has well-controlled asthma and only uses her rescue inhaler occasionally and her Advair twice per day. Patient is a former smoker and denies any current tobacco use. Patient denies any sick contacts. Patient denies any dyspnea or shortness of breath. Notes that she has vomited a few times due to heavy coughing. Patient denies fever, chills, chest pain, shortness of breath. Denies headache, neck stiff ness, change in vision, syncope, or near syncope. Denies nausea, abdominal pain, diarrhea, constipation, or dysuria. Has not noted any blood in urine or stool. Patient has been eating and drinking appropriately. Review of systems: As per history of present illness and below otherwise all systems reviewed and negative. Past medical history: As per history of present illness and as reviewed below otherwise noncontributory. Surgical history: As per history of present illness and as reviewed below otherwise noncontributory. Social history: See social history for further information Family history: As per history of present illness and as reviewed below otherwise noncontributory. Physical exam: General: Patient is alert, oriented, and in no acute distress. Patient sitting comfortably on exam table. Patient tachycardic at 110 but remainder vitals are stable and reviewed by me. HEENT: Atraumatic, normocephalic, pupils equal and reactive bilaterally, negative for conjunctival pallor or scleral icterus, mucous membranes moist, TMs normal bilaterally, throat clear, neck supple, nontender, trachea midline. No drooling or trismus noted. No meningeal signs. No hot potato voice noted. Lungs: Expiratory wheezing noted throughout all lung nieto. Spasmatic dry cough on exam. Otherwise, breath sounds equal. Patient speaking clearly without breathlessness, no stridor, no accessory muscle use or respiratory distress. Heart: S1S2, regular rate and rhythm without overt murmur Abdomen: Exam limited due to body habitus. Soft, nondistended, nontender. Negative for masses or hepatosplenomegaly. Negative for costovertebral tenderness. Pelvis: Stable nontender. Genitourinary: Deferred. Rectal: Deferred. Skin: Intact, warm, dry. No lesions or rashes noted. Extremities: Atraumatic, negative for cords or calf pain. Neurovascular unremarkable. Neuro: Awake, alert, oriented. Cranial nerves II through XII unremarkable. Cerebellum unremarkable. Motor and sensory unremarkable throughout. Exam nonfocal. Notes: Patient is a 35-year-old female that presents emergency department secondary to a 6-day history of cough and viral symptoms. Upon examination patient, she is noted to have a spasmodic dry cough but able to carry out a conversation and in no respiratory distress. Patient noted to be tachycardic in the 110s the remainder of vitals are stable with oxygen 97% on room air. Diffuse expiratory wheezes in all lung nieto noted. DuoNeb x 3 initiated. Will obtain cardiac evaluation including D-dimer, and chest x-ray. After obtained urine sample from patient, noted to have gross hematuria. Patient mentions that she has had hematuria for the last several days but had not mention this prior on HPI and also notes vague back discomfort. Will obtain abdominal pelvic CT due to gross hematuria. While awaiting lab work, upon reevaluation of patient, she is more comfortable following total of 3 continuous DuoNebs. Wheezing has completely resolved and patient has also obtained IV Solu-Medrol and magnesium at this time. She continues to have occasional spasmodic coughing but is much more comfortable on exam and remains vitally stable. HR 110s. See Dr. Dickson dictation for specific EKG interpretation. However, EKG showed regular sinus tachycardia without signs of ischemia. Chest x-ray shows no acute cardiopulmonary findings. Bladder scan shows postvoid residual of 20 cc. CBC and CMP mild derangements, unremarkable. D-dimer within normal limits. UA showed elevated urine protein, large occult blood, nitrate positive, bilirubin small, trace leukocyte esterase, and RBCs too numerous to count with 0 white blood cells. Abdominal pelvic CT scan shows the urinary bladder is only minimally distended and cannot be optimally evaluated. By history, the patient has a urinary tract infection. No CT evidence for pyelonephritis. Few small stones in the left kidney not as well-visualized as on the prior exam due to IV contrast. The tiny stones in the right kidney are not discernibly possibly r elated to them being obscured by renal enhancement. Splenomegaly with the spleen being slightly larger today. Moderate subcutaneous edema abdomen and pelvis was more prominent. Hysterectomy. Upon reexamination patient is tearful and crying on exam/anxious appearing with continued bouts of increasing spasmodic coughing but vitally remained stable and tachycardic around 120s to 130s at this time. Patient also is expressing a headache due to frequent coughing. Will give patient IV Toradol, Ativan, guaifenesin-codeine, and nebulized lidocaine and reassess patient. Upon reexamination patient following therapeutics, she is much more comfortable with only intermittent light coughing. Heart rate has come down to 108 on exam and has remaines otherwise vitally stable throughout stay in ED. She expresses much improvement of her symptoms. All incidental findings of imaging and lab work today discussed with patient and the importance to have this followed up with her primary care provider. With improvement of symptoms with therapeutics, and tachycardia noted to be related to coughing episodes in the presence of a negative ddimer and no SOB, and HR that improves with resolution of her coughing, will place patient on prednisone due to asthma exacerbation with instruction of continuing her home asthma medications. Patient also has significant hematuria, positive nitrate, and leukocyte esterase so will treat for possible underlying urinary tract infection with Bactrim with instruction for follow up for resolution of hematuria. Patient is stable for discharge to home. Strict return precautions thoroughly discussed with patient. Discussed importance for follow-up with a primary care provider Voices understanding and is agreeable to plan of care. Denies any further questions or concerns at this time. Diagnostics: CBC, CMP, chest x-ray, EKG, D-dimer, abdominal pelvic CT, UA with culture, pertussis, Covid and influenza Therapeutics: DuoNeb, IV Solu-Medrol, magnesium, Toradol, Ativan, cough suppressant with codeine, nebulized lidocaine, bladder scan Prescription: Bactrim, prednisone, guaifenesin with codeine Impression: Asthma exacerbation Upper respiratory infection Urinary tract infection Plan: 1. Start taking the Prednisone prescription tomorrow as prescribed to you. Otherwise, take medications as prescribed. Use cough drops and/or other over the counter medications as needed for throat discomfort as discussed. Drink small but frequent sips of fluid to prevent dehydration. 2. Alternate Ibuprofen and Tylenol as directed for pain and discomfort. 3. Follow up with your primary care provider as discussed. Continue to use your at home asthma medications as needed and as prescribed to you. 4. Return to the ED as needed and as discussed. Definitive disposition and diagnosis as appropriate pending reevaluation and review of above. Back Pain Score (Numeric/FACES): 8 - Related Data Allergies Allergy/AdvReac Type Severity Reaction Status Date / Time codeine Allergy Severe Respiratory Verified 04/19/21 12:53 Distress Latex, Natural Rubber Allergy Mild Rash Verified 04/19/21 12:53 Penicillins Allergy Respiratory Verified 04/19/21 12:53 Distress Home Meds: Home Meds traMADol [Ultram] 50 tab PO BID 05/21/20 [History] traZODone HCl [Trazodone HCl] 150 mg PO DAILY 05/21/20 [History] lisinopriL [Lisinopril] mg PO DAILY 08/05/20 [History] Doxycycline [Vibramycin] 100 mg PO BID 5 Days #10 cap 03/30/21 [Rx] Albuterol [Ventolin HFA] 04/19/21 [History] Budesonide [Pulmicort] 0.5 mg IH BID 04/19/21 [History] Cyclobenzaprine [Flexeril] 10 mg PO TID PRN 04/19/21 [History] Fluticasone Propion/Salmeterol [Advair 250-50 Diskus] 2 puff INH DAILY 04/19/21 [History] LORazepam [Ativan] 1 mg PO BID PRN 04/19/21 [History] traZODone 50 mg PO DAILY 04/19/21 [History] Past Medical History HEENT History: Reports: None Cardiovascular History: Reports: Hypertension Respiratory History: Reports: Asthma Gastrointestinal History: Reports: None Genitourinary History: Reports: Renal Calculus CARD SERVICES SPECIALIST History: Reports: None Other CARD SERVICES SPECIALIST History: Hysterectomy Musculoskeletal History: Reports: None Neurological History: Reports: Concussion, Other (See Below) Other Neuro History: Seizures as a child Psychiatric History: Reports: Anxiety, Depression Endocrine/Metabolic 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 (See Below) Other Endocrine/Metabolic History: borderline diabetic Insulin Pump Model and Inner Diameter Grinder Tool: None Hematologic History: Reports: None Immunologic History: Reports: None Oncologic (Cancer) History: Reports: None Dermatologic History: Reports: None - Infectious Disease History Infectious Disease History: Reports: Chicken Pox, MRSA - Past Surgical History Head Surgeries/Procedures: Reports: None HEENT Surgical History: Reports: Tonsillectomy Cardiovascular Surgical History: Reports: None Respiratory Surgical History: Reports: None GI Surgical History: Reports: Cholecystectomy Other GI Surgeries/Procedures: diagnostic laparoscopy 2x Female Surgical History: Reports: Section, Hysterectomy, Lithotripsy/ESWL Endocrine Surgical History: Reports: None Neurological Surgical History: Reports: None Musculoskeletal Surgical History: Reports: None Oncologic Surgical History: Reports: None Dermatological Surgical History: Reports: None Social & Family History - Family History Family Medical History: No Pertinent Family History - Caffeine Use Caffeine Use: Reports: Coffee Caffeine Use Comment: 1-3/day - Recreational Drug Use Recreational Drug Use: No ED ROS GENERAL - Review of Systems Review Of Systems: Comprehensive ROS is negative, except as noted in HPI. ED EXAM, GENERAL - Physical Exam Exam: See Below (See dictation) Course - Vital Signs Last Recorded V/S: Last Vital Signs Temp 97.1 F 04/19/21 12:42 Pulse 108 H 04/19/21 19:45 Resp 20 04/19/21 19:45 BP 149/85 H 04/19/21 19:41 Pulse Ox 99 04/19/21 19:45 - Orders/Labs/Meds Orders: Active Orders 24 hr Category Date Time Status Bladder Scan [RC] ASDIRECTED Care 04/19/21 14:47 Active EKG Documentation Completion [RC] STAT Care 04/19/21 13:48 Active RT Aerosol Therapy [RC] ASDIRECTED Care 04/19/21 14:29 Active RT Aerosol Therapy [RC] ASDIRECTED Care 04/19/21 14:30 Active RT Aerosol Therapy [RC] ASDIRECTED Care 04/19/21 14:40 Active B PERTUSSIS IGG/M/A AB [REF] Stat Lab 04/19/21 14:05 Received SAUL PERTUSS NUCLEIC ACID AMP [MREF] Stat Lab 04/19/21 14:20 Received CULTURE URINE [MREF] Stat Lab 04/19/21 15:04 Received Labs: Laboratory Tests 04/19/21 04/19/21 04/19/21 Range/Units 13:39 14:05 14:05 WBC 7.76 (4.0-11.0) K/uL RBC 4.61 (4.30-5.90) M/uL Hgb 13.2 (12.0-16.0) g/dL Hct 41.9 (36.0-46.0) % MCV 90.9 (80.0-98.0) fL MCH 28.6 (27.0-32.0) pg MCHC 31.5 (31.0-37.0) g/dL RDW Std Deviation 52.6 (28.0-62.0) fl RDW Coeff of Pineda 16 H (11.0-15.0) % Plt Count 328 (150-400) K/uL MPV 10.50 (7.40-12.00) fL Neut % (Auto) 53.9 (48.0-80.0) % Lymph % (Auto) 35.7 (16.0-40.0) % [place] % (Auto) 7.0 (0.0-15.0) % Eos % (Auto) 2.8 (0.0-7.0) % Baso % (Auto) 0.6 (0.0-1.5) % Neut # (Auto) 4.2 (1.4-5.7) K/uL Lymph # (Auto) 2.8 H (0.6-2.4) K/uL [place] # (Auto) 0.5 (0.0-0.8) K/uL Eos # (Auto) 0.2 (0.0-0.7) K/uL Baso # (Auto) 0.1 (0.0-0.1) K/uL Nucleated RBC % 0.0 /100WBC Nucleated RBCs # 0 K/uL D-Dimer, Quantitative (0.0-0.50) mg/L FEU Sodium 136 (136-145) mmol/L Potassium 3.7 (3.5-5.1) mmol/L Chloride 103 (98-107) mmol/L Carbon Dioxide 19.3 L (21.0-32.0) mmol/L BUN 9 (7.0-18.0) mg/dL Creatinine 0.8 (0.6-1.0) mg/dL Est Cr Clr Drug Dosing 94.54 mL/min Estimated GFR (MDRD) > 60.0 ml/min Glucose 118 H (74-106) mg/dL Calcium 8.4 L (8.5-10.1) mg/dL Total Bilirubin 0.2 (0.2-1.0) mg/dL AST 15 (15-37) IU/L ALT 35 (14-63) IU/L Alkaline Phosphatase 79 (46-116) U/L Total Protein 7.8 (6.4-8.2) g/dL Albumin 3.6 (3.4-5.0) g/dL Globulin 4.2 H (2.6-4.0) g/dL Albumin/Globulin Ratio 0.9 (0.9-1.6) Urine Color RED Urine Appearance CLOUDY Urine pH 5.0 (5.0-8.0) Ur Specific [place] 1.025 (1.001-1.035) Urine Protein 100 H (NEGATIVE) mg/dL Urine Glucose (UA) NEGATIVE (NEGATIVE) mg/dL Urine Ketones NEGATIVE (NEGATIVE) mg/dL Urine Occult Blood LARGE H (NEGATIVE) Urine Nitrite POSITIVE H (NEGATIVE) Urine Bilirubin SMALL H (NEGATIVE) Urine Ictotest Urine Urobilinogen 1.0 (<2.0) EU/dL Ur Leukocyte Esterase TRACE H (NEGATIVE) Urine RBC TOO NUMEROUS TO CT H (0-2/HPF) Urine WBC 0-2 (0-5/HPF) Ur Epithelial Cells RARE (NONE-FEW) Urine Bacteria RARE (NEGATIVE) Urinalysis Comment Influenza Type A RNA (NEGATIVE) Influenza Type B RNA (NEGATIVE) SARS-CoV-2 RNA (ANGELES) (NEGATIVE) 04/19/21 04/19/21 Range/Units 14:20 16:37 WBC (4.0-11.0) K/uL RBC (4.30-5.90) M/uL Hgb (12.0-16.0) g/dL Hct (36.0-46.0) % MCV (80.0-98.0) fL MCH (27.0-32.0) pg MCHC (31.0-37.0) g/dL RDW Std Deviation (28.0-62.0) fl RDW Coeff of Pineda (11.0-15.0) % Plt Count (150-400) K/uL MPV (7.40-12.00) fL Neut % (Auto) (48.0-80.0) % Lymph % (Auto) (16.0-40.0) % [place] % (Auto) (0.0-15.0) % Eos % (Auto) (0.0-7.0) % Baso % (Auto) (0.0-1.5) % Neut # (Auto) (1.4-5.7) K/uL Lymph # (Auto) (0.6-2.4) K/uL [place] # (Auto) (0.0-0.8) K/uL Eos # (Auto) (0.0-0.7) K/uL Baso # (Auto) (0.0-0.1) K/uL Nucleated RBC % /100WBC Nucleated RBCs # K/uL D-Dimer, Quantitative 0.50 (0.0-0.50) mg/L FEU Sodium (136-145) mmol/L Potassium (3.5-5.1) mmol/L Chloride (98-107) mmol/L Carbon Dioxide (21.0-32.0) mmol/L BUN (7.0-18.0) mg/dL Creatinine (0.6-1.0) mg/dL Est Cr Clr Drug Dosing mL/min Estimated GFR (MDRD) ml/min Glucose (74-106) mg/dL Calcium (8.5-10.1) mg/dL Total Bilirubin (0.2-1.0) mg/dL AST (15-37) IU/L ALT (14-63) IU/L Alkaline Phosphatase (46-116) U/L Total Protein (6.4-8.2) g/dL Albumin (3.4-5.0) g/dL Globulin (2.6-4.0) g/dL Albumin/Globulin Ratio (0.9-1.6) Urine Color Urine Appearance Urine pH (5.0-8.0) Ur Specific [place] (1.001-1.035) Urine Protein (NEGATIVE) mg/dL Urine Glucose (UA) (NEGATIVE) mg/dL Urine Ketones (NEGATIVE) mg/dL Urine Occult Blood (NEGATIVE) Urine Nitrite (NEGATIVE) Urine Bilirubin (NEGATIVE) Urine Ictotest Urine Urobilinogen (<2.0) EU/dL Ur Leukocyte Esterase (NEGATIVE) Urine RBC (0-2/HPF) Urine WBC (0-5/HPF) Ur Epithelial Cells (NONE-FEW) Urine Bacteria (NEGATIVE) Urinalysis Comment Influenza Type A RNA NEGATIVE (NEGATIVE) Influenza Type B RNA NEGATIVE (NEGATIVE) SARS-CoV-2 RNA (ANGELES) NEGATIVE (NEGATIVE) Meds: Medications Discontinued Medications Generic Name Dose Route Start Last Admin Trade Name Freq PRN Reason Stop Dose Admin Albuterol/Ipratropium Confirm 04/19/21 13:27 04/19/21 14:41 Albuterol/Ipratropium 3.0-0.5 Mg/3 Ml Neb Soln Administered 04/19/21 13:28 Not Given Dose 3 ml .ROUTE .STK-MED ONE Albuterol/Ipratropium Confirm 04/19/21 14:16 04/19/21 14:41 Albuterol/Ipratropium 3.0-0.5 Mg/3 Ml Neb Soln Administered 04/19/21 14:17 Not Given Dose 6 ml .ROUTE .STK-MED ONE Albuterol/Ipratropium 3 ml 04/19/21 14:29 04/19/21 19:38 Albuterol/Ipratropium 3.0-0.5 Mg/3 Ml Neb Soln NEB 04/19/21 14:30 3 ml ONETIME ONE Administration Albuterol/Ipratropium 3 ml 04/19/21 14:30 04/19/21 19:38 Albuterol/Ipratropium 3.0-0.5 Mg/3 Ml Neb Soln NEB 04/19/21 14:31 3 ml ONETIME ONE Administration Albuterol/Ipratropium 3 ml 04/19/21 14:40 04/19/21 19:38 Albuterol/Ipratropium 3.0-0.5 Mg/3 Ml Neb Soln NEB 04/19/21 14:41 3 ml ONETIME ONE Administration Guaifenesin/Codeine Phosphate 5 ml 04/19/21 18:13 04/19/21 19:20 Codeine/Guaifenesin 10-100 Mg/5 Ml Syrup 5 Ml Cup PO 04/19/21 18:14 5 ml ONETIME ONE Administration Sodium Chloride 1,000 mls @ 999 mls/hr 04/19/21 14:31 04/19/21 15:14 Normal Saline IV 04/19/21 15:31 999 mls/hr STAT ONE Administration Magnesium Sulfate 2 gm in 50 mls @ 50 mls/hr 04/19/21 14:45 04/19/21 15:23 Magnesium Sulfate In Water 2 Gm/50 Ml IV 04/19/21 15:44 50 mls/hr ONETIME ONE Administration Sodium Chloride 1,000 mls @ 999 mls/hr 04/19/21 18:25 04/19/21 18:32 Normal Saline IV 04/19/21 19:25 999 mls/hr STAT ONE Administration Iopamidol 100 ml 04/19/21 15:48 04/19/21 15:48 Iopamidol 755 Mg/Ml 500 Ml Multipack Bottle IVPUSH 04/19/21 15:49 100 ml ONETIME ONE Administration Ketorolac Tromethamine 30 mg 04/19/21 18:12 04/19/21 18:26 Ketorolac 30 Mg/Ml Sdv IVPUSH 04/19/21 18:13 30 mg ONETIME ONE Administration Lidocaine HCl 5 ml 04/19/21 18:23 04/19/21 19:20 Lidocaine 1% 5 Ml Sdv INJECT 04/19/21 18:24 5 ml ONETIME ONE Administration Lorazepam 1 mg 04/19/21 18:13 04/19/21 18:22 Lorazepam 2 Mg/Ml Sdv IVPUSH 04/19/21 18:14 1 mg ONETIME ONE Administration Magnesium Sulfate 2 gm 04/19/21 14:31 Magnesium Sulfate (4.06 Meq/Ml) 5 Gm/10 Ml Sdv IV 04/19/21 14:32 NOW STA Methylprednisolone Sodium Succinate 125 mg 04/19/21 14:29 04/19/21 15:18 Methylprednisolone Sodium Succinate 125 Mg/2 Ml Sdv IVPUSH 04/19/21 14:30 125 mg ONETIME ONE Administration Ondansetron HCl 4 mg 04/19/21 18:18 04/19/21 18:53 Ondansetron 4 Mg/2 Ml Sdv IVPUSH 04/19/21 18:19 4 mg ONETIME ONE Administration Departure - Departure Time of Disposition: 19:46 Disposition: Home, Self-Care 01 Clinical Impression: Asthma exacerbation Qualifiers: Asthma severity: moderate Asthma persistence: unspecified Qualified Code(s): J45.901 - Unspecified asthma with (acute) exacerbation Upper respiratory infection Qualifiers: URI type: unspecified URI Qualified Code(s): J06.9 - Acute upper respiratory infection, unspecified Urinary tract infection Qualifiers: Urinary tract infection type: acute cystitis Hematuria presence: with hematuria Qualified Code(s): N30.01 - Acute cystitis with hematuria - Discharge Information Instructions: Upper Respiratory Infection, Adult, Urinary Tract Infection, Adult, Asthma Attack Referrals: Adelita Perez DO [Primary Care Provider] - Forms: ED Department Discharge Additional Instructions: The following information is given to patients seen in the emergency department who are being discharged to home. This information is to outline your options for follow-up care. We provide all patients seen in our emergency department with a follow-up referral. The need for follow-up, as well as the timing and circumstances, are variable depending upon the specifics of your emergency department visit. If you don't have a primary care physician on staff, we will provide you with a referral. We always advise you to contact your personal physician following an emergency department visit to inform them of the circumstance of the visit and for follow-up with them and/or the need for any referrals to a consulting specialist. The emergency department will also refer you to a specialist when appropriate. This referral assures that you have the opportunity for follow-up care with a specialist. All of these measure are taken in an effort to provide you with optimal care, which includes your follow-up. Under all circumstances we always encourage you to contact your private physician who remains a resource for coordinating your care. When calling for follow-up care, please make the office aware that this follow-up is from your recent emergency room visit. If for any reason you are refused follow-up, please contact the [facility] Emergency Department at and asked to speak to the emergency department charge nurse. [facility] [address] [place] [id number] [facility] [address] [place] [address] 1. Start taking the Prednisone prescription tomorrow as prescribed to you. Otherwise, take medications as prescribed. Use cough drops and/or other over the counter medications as needed for throat discomfort as discussed. Drink small but frequent sips of fluid to prevent dehydration. 2. Alternate Ibuprofen and Tylenol as directed for pain and discomfort. 3. Follow up with your primary care provider as discussed. Continue to use your at home asthma medications as needed and as prescribed to you. 4. Return to the ED as needed and as discussed. Sepsis Event Note (ED) - Evaluation Sepsis Screening Result: No Definite Risk - Focused Exam Vital Signs: Vital Signs Temp Pulse Resp BP Pulse Ox 04/19/21 19:45 108 H 20 99 04/19/21 19:41 113 H 20 149/85 H 99 04/19/21 12:42 97.1 F 109 H 152/96 H 97 - My Orders Last 24 Hours: My Active Orders 04/19/21 13:48 EKG Documentation Completion [RC] STAT 04/19/21 14:05 B PERTUSSIS IGG/M/A AB [REF] Stat 04/19/21 14:20 BORD PERTUSS NUCLEIC ACID AMP [MREF] Stat 04/19/21 14:29 RT Aerosol Therapy [RC] ASDIRECTED 04/19/21 14:30 RT Aerosol Therapy [RC] ASDIRECTED 04/19/21 14:40 RT Aerosol Therapy [RC] ASDIRECTED 04/19/21 14:47 Bladder Scan [RC] ASDIRECTED 04/19/21 15:04 CULTURE URINE [MREF] Stat - Assessment/Plan Last 24 Hours: My Active Orders 04/19/21 13:48 EKG Documentation Completion [RC] STAT 04/19/21 14:05 B PERTUSSIS IGG/M/A AB [REF] Stat 04/19/21 14:20 BORD PERTUSS NUCLEIC ACID AMP [MREF] Stat 04/19/21 14:29 RT Aerosol Therapy [RC] ASDIRECTED 04/19/21 14:30 RT Aerosol Therapy [RC] ASDIRECTED 04/19/21 14:40 RT Aerosol Therapy [RC] ASDIRECTED 04/19/21 14:47 Bladder Scan [RC] ASDIRECTED 04/19/21 15:04 CULTURE URINE [MREF] Stat
[2021-04-19] MEDS ORDERED: Albuterol/Ipratropium 3.0-0.5 MG/3 ML Neb Soln NEB ONE ×3 (14:29→14:40)
[2021-04-19] MEDS ORDERED: methylPREDNISolone Sodium Succinate 125 MG/2 ML SDV IVPUSH ONE (14:29)
[2021-04-19] MEDS ORDERED: Sodium Chloride 0.9% 1,000 ML IV ONE ×2 (14:31→18:25)
[2021-04-19] MEDS ORDERED: Magnesium Sulfate (4.06 MEQ/ML) 5 GM/10 ML SDV IV STA (14:31)
[2021-04-19] MEDS ORDERED: Magnesium Sulfate/Water 2 GM/50 ML BAG IV ONE (14:45)
[2021-04-19 14:52] LABS: BLOOD UREA NITROGEN,BUN 9 mg/dL (7.0-18.0); CARBON DIOXIDE,CO2 19.3 mmol/L (21.0-32.0); CHLORIDE,CL 103 mmol/L (98-107); GLUCOSE RANDOM 118 mg/dL (74-106); POTASSIUM,K 3.7 mmol/L (3.5-5.1); SODIUM,NA 136 mmol/L (136-145)
--- NOTE | 2021-04-19 15:07 | CR ---
Indication: Severe cough Comparison: Single view chest January 22, 2021 Technique: PA and Lateral views chest Findings: There is no focal consolidation, effusion, or pneumothorax. The cardiomediastinal silhouette is within normal limits. The bony thorax is grossly intact. Impression: No acute cardiopulmonary abnormality. Dictated by Claude Gonzalez MD @ 04/19/2021 3:06:[address] Claude Gonzalez @ Apr 19 2021 3:06PM
[2021-04-19 15:16] LABS: CORONAVIRUS COVID-19 NAA NEGATIVE (NEGATIVE); INFLUENZA A NAA NEGATIVE (NEGATIVE); INFLUENZA B NAA NEGATIVE (NEGATIVE)
--- NOTE | 2021-04-19 15:21 | PCM.EKG ---
#1 Interpretation EKG Date: 04/19/21 Time: 14:08 Rhythm: NSR Rate (Beats/Min): 111 [place]: Normal P-Wave: Present QRS: Normal ST-T: Normal QT: Normal RI/PQ Interval: 117 Comparison: NA - No Prior EKG EKG Interpretation Comments: normal EKG
[2021-04-19] MEDS ORDERED: Iopamidol 755 MG/ML 500 ML Multipack Bottle IVPUSH ONE (15:48)
--- NOTE | 2021-04-19 16:44 | CT ---
INDICATION: Gross hematuria with coughing. Bilateral flank pain. Current urinary tract infection. TECHNIQUE: CT of abdomen and pelvis performed after IV injection of 100 mL of Isovue-370. Comparison : CT 02/16/2017 FINDINGS: Moderate subcutaneous edema diffusely in the abdominal and pelvic wall more prominent. Cholecystectomy without significant biliary dilatation. The spleen is moderately enlarged measuring 15 cm and is larger when it measured 13.5 cm. The splenic prominence is likely in part related to body habitus. Mild nodular thickening of the adrenal glands benign greater on the left. Small stones in the left kidney stable. The tiny stones in the right kidney seen previously are difficult to identify a possibly due to IV contrast obscuring them. The urinary bladder is only minimally distended and cannot be optimally evaluated. By history the patient has cystitis. No specific CT abnormality identified to explain the hematuria other than the left renal stones. Postoperative changes involving anterior abdominal wall again noted. Collateral vessels in the anterior abdominal wall and posterior to the anterior abdominal wall. Hysterectomy. Appendix is normal. Follicles in the left ovary. Remainder negative. IMPRESSION: 1. The urinary bladder is only minimally distended and cannot be optimally evaluated. By history the patient has a urinary tract infection. No CT evidence for pyelonephritis. 2. Few small stones in the left kidney not as well visualized as on the prior exam due to IV contrast. The tiny stones in the right kidney are not discernible possibly related to them being obscured by renal enhancement. 3. Splenomegaly with the spleen being slightly larger today. 4. Moderate subcutaneous edema abdomen and pelvis walker more prominent. 5. Hysterectomy. Please note that all CT scans at this facility use dose modulation, iterative reconstruction, and/or weight-based dosing when appropriate to reduce radiation dose to as low as reasonably achievable. Dictated by Charles Kidd MD @ 04/19/2021 4:43:[address] Charles Kidd @ Apr 19 2021 4:43PM
[2021-04-19] MEDS ORDERED: Ketorolac 30 MG/ML SDV IVPUSH ONE (18:12)
[2021-04-19] MEDS ORDERED: Codeine/guaiFENesin 10-100 MG/5 ML Syrup 5 ML Cup PO ONE (18:13)
[2021-04-19] MEDS ORDERED: LORazepam 2 MG/ML SDV IVPUSH ONE (18:13)
[2021-04-19] MEDS ORDERED: Ondansetron 4 MG/2 ML SDV IVPUSH ONE (18:18)
[2021-04-19 21:59] VITALS: BP 149/91; PULSE 118
== END 2021-04-19 20:00 | disposition home or self-care (01) ==
LOC: MW.ED 12:21
DX: J45.901 Unspecified asthma with (acute) exacerbation (principal); N39.0 Urinary tract infection, site not specified; J06.9 Acute upper respiratory infection, unspecified; I10 Essential (primary) hypertension; Z88.5 Allergy status to narcotic agent; Z91.040 Latex allergy status; Z88.0 Allergy status to penicillin; Z20.822 Contact with and (suspected) exposure to COVID-19
CPT/HCPCS: 0240U; 36415; 71046; 74177; 80053; 81001; 85025; 85379; 86615; 87086; 93005; 96365; 96375; 99284; A9270; J1885; J2060; J2405; J2930; J3475; J7030; Q9967; 93010; J7620-GY

== ENCOUNTER 2021-08-14 19:13 | Emergency (ER) | payer SELFPAY ==
--- NOTE | 2021-08-14 19:20 | EDM.PDOC ---
ED HPI GENERAL MEDICAL PROBLEM - General Chief Complaint: General Stated Complaint: EMS Time Seen by Provider: 08/14/21 19:14 Source of Information: Reports: Patient History Limitations: Reports: No Limitations - History of Present Illness INITIAL COMMENTS - FREE TEXT/NARRATIVE: Patient is a 35-year-old female with a history of a heart murmur and depression presents today for syncope-like episodes. Per EMS and the patient she was at home to where she will have bouts of passing out for few minutes and wake up was not postictal. Patient does not remember this. EMS states that she does a few times while there was transported here and she did not have any shakiness and that she would wake up and not have any confusion. Patient states that she may have failed no other syncopes at home has some pain to her right eye. Denies any vision changes any confusion at the moment changes patient numbness weakness in the extremities. She denies any fever chills or drug use. Right Face/Facial Pain Score (Numeric/FACES): 9 - Related Data Allergies Allergy/AdvReac Type Severity Reaction Status Date / Time Latex, Natural Rubber Allergy Mild Rash Verified 04/19/21 12:53 Penicillins Allergy Respiratory Verified 04/19/21 12:53 Distress Home Meds: Home Meds traMADol [Ultram] 50 tab PO BID 05/21/20 [History] traZODone HCl [Trazodone HCl] 150 mg PO DAILY 05/21/20 [History] lisinopriL [Lisinopril] mg PO DAILY 08/05/20 [History] Doxycycline [Vibramycin] 100 mg PO BID 5 Days #10 cap 03/30/21 [Rx] Albuterol [Ventolin HFA] 04/19/21 [History] Budesonide [Pulmicort] 0.5 mg IH BID 04/19/21 [History] Cyclobenzaprine [Flexeril] 10 mg PO TID PRN 04/19/21 [History] Fluticasone Propion/Salmeterol [Advair 250-50 Diskus] 2 puff INH DAILY 04/19/21 [History] LORazepam [Ativan] 1 mg PO BID PRN 04/19/21 [History] traZODone 50 mg PO DAILY 04/19/21 [History] Past Medical History HEENT History: Reports: None Cardiovascular History: Reports: Hypertension Respiratory History: Reports: Asthma Gastrointestinal History: Reports: None Genitourinary History: Reports: Renal Calculus MANAGER FINANCIAL PLANNING History: Reports: None Other MANAGER FINANCIAL PLANNING History: Hysterectomy Musculoskeletal History: Reports: None Neurological History: Reports: Concussion, Other (See Below) Other Neuro History: Seizures as a child Psychiatric History: Reports: Anxiety, Depression Endocrine/Metabolic 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 (See Below) Other Endocrine/Metabolic History: borderline diabetic Insulin Pump Model and Gasoline 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 Hematologic History: Reports: None Immunologic History: Reports: None Oncologic (Cancer) History: Reports: None Dermatologic History: Reports: None - Infectious Disease History Infectious Disease History: Reports: Chicken Pox, MRSA - Past Surgical History Head Surgeries/Procedures: Reports: None HEENT Surgical History: Reports: Tonsillectomy Cardiovascular Surgical History: Reports: None Respiratory Surgical History: Reports: None GI Surgical History: Reports: Cholecystectomy Other GI Surgeries/Procedures: diagnostic laparoscopy 2x Female Surgical History: Reports: Section, Hysterectomy, Lithotripsy/ESWL Endocrine Surgical History: Reports: None Neurological Surgical History: Reports: None Musculoskeletal Surgical History: Reports: None Oncologic Surgical History: Reports: None Dermatological Surgical History: Reports: None Social & Family History - Family History Family Medical History: No Pertinent Family History - Caffeine Use Caffeine Use: Reports: Coffee Caffeine Use Comment: 1-3/day ED ROS GENERAL - Review of Systems Review Of Systems: See Below Constitutional: Reports: No Symptoms HEENT: Reports: No Symptoms Respiratory: Reports: No Symptoms Cardiovascular: Reports: Syncope Endocrine: Reports: No Symptoms GI/Abdominal: Reports: No Symptoms : Reports: No Symptoms Musculoskeletal: Reports: No Symptoms Skin: Reports: No Symptoms Neurological: Reports: No Symptoms Psychiatric: Reports: No Symptoms Hematologic/Lymphatic: Reports: No Symptoms Immunologic: Reports: No Symptoms - Physical Exam Exam: See Below Exam Limited By: No Limitations General Appearance: Alert, WD/WN, No Apparent Distress Eye Exam: Bilateral Eye: EOMI, PERRL Nose: Normal Inspection Head Exam: Atraumatic, Normocephalic Respiratory/Chest: No Respiratory Distress, Lungs Clear, Normal Breath Sounds Cardiovascular: Normal Peripheral Pulses, Regular Rate, Rhythm GI/Abdominal: Normal Bowel Sounds, Soft, Non-Tender Neuro Exam (Abbreviated): Alert, Oriented, CN II-XII Intact, Normal Cognition Extremities: Normal Inspection #1 Interpretation EKG Date: 08/14/21 Time: 19:16 Rhythm: NSR Rate (Beats/Min): 79 ST-T: Normal Course - Vital Signs Last Recorded V/S: Last Vital Signs Temp 97.2 F 08/14/21 19:17 Pulse 91 08/14/21 19:17 Resp 20 08/14/21 19:17 BP 145/100 H 08/14/21 19:17 Pulse Ox 98 08/14/21 19:17 - Orders/Labs/Meds Labs: Laboratory Tests 08/14/21 08/14/21 08/14/21 Range/Units 19:20 19:22 19:45 WBC (4.0-11.0) K/uL RBC (4.30-5.90) M/uL Hgb (12.0-16.0) g/dL Hct (36.0-46.0) % MCV (80.0-98.0) fL MCH (27.0-32.0) pg MCHC (31.0-37.0) g/dL RDW Std Deviation (28.0-62.0) fl RDW Coeff of Pineda (11.0-15.0) % Plt Count (150-400) K/uL MPV (7.40-12.00) fL Neut % (Auto) (48.0-80.0) % Lymph % (Auto) (16.0-40.0) % Irwin % (Auto) (0.0-15.0) % Eos % (Auto) (0.0-7.0) % Baso % (Auto) (0.0-1.5) % Neut # (Auto) (1.4-5.7) K/uL Lymph # (Auto) (0.6-2.4) K/uL Irwin # (Auto) (0.0-0.8) K/uL Eos # (Auto) (0.0-0.7) K/uL Baso # (Auto) (0.0-0.1) K/uL Nucleated RBC % /100WBC Nucleated RBCs # K/uL Sodium (136-145) mmol/L Potassium (3.5-5.1) mmol/L Chloride (98-107) mmol/L Carbon Dioxide (21.0-32.0) mmol/L BUN (7.0-18.0) mg/dL Creatinine (0.6-1.0) mg/dL Est Cr Clr Drug Dosing mL/min Estimated GFR (MDRD) ml/min Glucose (74-106) mg/dL Lactic Acid 1.7 (0.4-2.0) mmol/L Calcium (8.5-10.1) mg/dL Phosphorus (2.6-4.7) mg/dL Magnesium (1.8-2.4) mg/dL Total Bilirubin (0.2-1.0) mg/dL AST (15-37) IU/L ALT (14-63) IU/L Alkaline Phosphatase (46-116) U/L Creatine Kinase (26-308) U/L Total Protein (6.4-8.2) g/dL Albumin (3.4-5.0) g/dL Globulin (2.6-4.0) g/dL Albumin/Globulin Ratio (0.9-1.6) Lipase (73-393) U/L HCG, Qual (NEG) Urine Color YELLOW Urine Appearance CLEAR Urine pH 6.0 (5.0-8.0) Ur Specific [place] >= 1.030 (1.001-1.035) Urine Protein NEGATIVE (NEGATIVE) mg/dL Urine Glucose (UA) NEGATIVE (NEGATIVE) mg/dL Urine Ketones NEGATIVE (NEGATIVE) mg/dL Urine Occult Blood NEGATIVE (NEGATIVE) Urine Nitrite NEGATIVE (NEGATIVE) Urine Bilirubin NEGATIVE (NEGATIVE) Urine Urobilinogen 0.2 (<2.0) EU/dL Ur Leukocyte Esterase NEGATIVE (NEGATIVE) Urine Opiates Screen NEGATIVE (NEGATIVE) Ur Oxycodone Screen NEGATIVE (NEGATIVE) Urine Methadone Screen NEGATIVE (NEGATIVE) Ur Barbiturates Screen NEGATIVE (NEGATIVE) Ur Phencyclidine Scrn NEGATIVE (NEGATIVE) Ur Amphetamine Screen NEGATIVE (NEGATIVE) U Methamphetamines Scrn NEGATIVE (NEGATIVE) U Benzodiazepines Scrn POSITIVE (NEGATIVE) U Cocaine Metab Screen NEGATIVE (NEGATIVE) U Marijuana (THC) Screen NEGATIVE (NEGATIVE) Ethyl Alcohol mg/dL 08/14/21 08/14/21 08/14/21 Range/Units 19:45 19:45 19:45 WBC 10.85 (4.0-11.0) K/uL RBC 4.64 (4.30-5.90) M/uL Hgb 13.4 (12.0-16.0) g/dL Hct 41.2 (36.0-46.0) % MCV 88.8 (80.0-98.0) fL MCH 28.9 (27.0-32.0) pg MCHC 32.5 (31.0-37.0) g/dL RDW Std Deviation 47.8 (28.0-62.0) fl RDW Coeff of Pineda 15 (11.0-15.0) % Plt Count 339 (150-400) K/uL MPV 10.00 (7.40-12.00) fL Neut % (Auto) 64.4 (48.0-80.0) % Lymph % (Auto) 24.8 (16.0-40.0) % Irwin % (Auto) 6.1 (0.0-15.0) % Eos % (Auto) 4.2 (0.0-7.0) % Baso % (Auto) 0.5 (0.0-1.5) % Neut # (Auto) 7.0 H (1.4-5.7) K/uL Lymph # (Auto) 2.7 H (0.6-2.4) K/uL Irwin # (Auto) 0.7 (0.0-0.8) K/uL Eos # (Auto) 0.5 (0.0-0.7) K/uL Baso # (Auto) 0.1 (0.0-0.1) K/uL Nucleated RBC % 0.0 /100WBC Nucleated RBCs # 0 K/uL Sodium 141 (136-145) mmol/L Potassium 3.6 (3.5-5.1) mmol/L Chloride 107 (98-107) mmol/L Carbon Dioxide 26.5 (21.0-32.0) mmol/L BUN 10 (7.0-18.0) mg/dL Creatinine 0.8 (0.6-1.0) mg/dL Est Cr Clr Drug Dosing 94.54 mL/min Estimated GFR (MDRD) > 60.0 ml/min Glucose 126 H (74-106) mg/dL Lactic Acid (0.4-2.0) mmol/L Calcium 8.4 L (8.5-10.1) mg/dL Phosphorus 3.6 (2.6-4.7) mg/dL Magnesium 1.9 (1.8-2.4) mg/dL Total Bilirubin 0.2 (0.2-1.0) mg/dL AST 9 L (15-37) IU/L ALT 30 (14-63) IU/L Alkaline Phosphatase 81 (46-116) U/L Creatine Kinase 59 (26-308) U/L Total Protein 7.5 (6.4-8.2) g/dL Albumin 3.4 (3.4-5.0) g/dL Globulin 4.1 H (2.6-4.0) g/dL Albumin/Globulin Ratio 0.8 L (0.9-1.6) Lipase 105 (73-393) U/L HCG, Qual NEGATIVE (NEG) Urine Color Urine Appearance Urine pH (5.0-8.0) Ur Specific [place] (1.001-1.035) Urine Protein (NEGATIVE) mg/dL Urine Glucose (UA) (NEGATIVE) mg/dL Urine Ketones (NEGATIVE) mg/dL Urine Occult Blood (NEGATIVE) Urine Nitrite (NEGATIVE) Urine Bilirubin (NEGATIVE) Urine Urobilinogen (<2.0) EU/dL Ur Leukocyte Esterase (NEGATIVE) Urine Opiates Screen (NEGATIVE) Ur Oxycodone Screen (NEGATIVE) Urine Methadone Screen (NEGATIVE) Ur Barbiturates Screen (NEGATIVE) Ur Phencyclidine Scrn (NEGATIVE) Ur Amphetamine Screen (NEGATIVE) U Methamphetamines Scrn (NEGATIVE) U Benzodiazepines Scrn (NEGATIVE) U Cocaine Metab Screen (NEGATIVE) U Marijuana (THC) Screen (NEGATIVE) Ethyl Alcohol < 3.0 mg/dL Meds: Medications Discontinued Medications Generic Name Dose Route Start Last Admin Trade Name Galo PRN Reason Stop Dose Admin Diphenhydramine HCl 25 mg 08/14/21 19:23 08/14/21 19:28 Diphenhydramine 50 Mg/Ml Sdv IVPUSH 08/14/21 19:24 25 mg ONETIME ONE Administration Metoclopramide HCl 10 mg 08/14/21 19:23 08/14/21 19:28 Metoclopramide 10 Mg/2 Ml Sdv IVPUSH 08/14/21 19:24 10 mg ONETIME ONE Administration - Re-Assessments/Exams Free Text/Narrative Re-Assessment/Exam: 08/15/21 05:39 As per orders okay for some reason the globe we cannot locate patient or family. Departure - Departure Time of Disposition: 19:00 Disposition: Eloped 07 Condition: Good Clinical Impression: Syncope - Discharge Information Referrals: Adelita Perez DO [Primary Care Provider] - Forms: ED Department Discharge Sepsis Event Note (ED) - Focused Exam Vital Signs: Vital Signs Temp Pulse Resp BP Pulse Ox 08/14/21 19:17 97.2 F 91 20 145/100 H 98 - Assessment/Plan Plan: Patient is a 35-year-old female presents today for possible syncope. Will obtain EKG labs x-ray and CT scans and reassess patient.
[2021-08-14 19:22] VITALS: BP 145/100; PULSE 91
[2021-08-14] MEDS ORDERED: Metoclopramide 10 MG/2 ML SDV IVPUSH ONE (19:23)
[2021-08-14] MEDS ORDERED: diphenhydrAMINE 50 MG/ML SDV IVPUSH ONE (19:23)
[2021-08-14 20:09] LABS: BLOOD UREA NITROGEN,BUN 10 mg/dL (7.0-18.0); CARBON DIOXIDE,CO2 26.5 mmol/L (21.0-32.0); CHLORIDE,CL 107 mmol/L (98-107); GLUCOSE RANDOM 126 mg/dL (74-106); LIPASE 105 U/L (73-393); POTASSIUM,K 3.6 mmol/L (3.5-5.1); SODIUM,NA 141 mmol/L (136-145)
== END 2021-08-14 20:12 | disposition left against medical advice (07) ==
LOC: MW.ED 19:13
DX: R55 Syncope and collapse (principal); I10 Essential (primary) hypertension; Z91.048 Other nonmedicinal substance allergy status; Z79.899 Other long term (current) drug therapy
CPT/HCPCS: 36415; 80053; 80305; 80307; 81003; 82550; 83605; 83690; 83735; 84100; 84703; 85025; 93005; 96374; 96375; 99284; J1200; J2765

== ENCOUNTER 2021-10-02 17:54 | Emergency (ER) | payer SELFPAY ==
[2021-10-02] MEDS ORDERED: Sodium Chloride 0.9% 10 ML Syringe FLUSH PRN (18:10)
[2021-10-02] MEDS ORDERED: Sodium Chloride 0.9% 2.5 ML Syringe FLUSH PRN (18:10)
[2021-10-02] MEDS ORDERED: Albuterol 8 GM Inhaler INH ONE (18:13)
--- NOTE | 2021-10-02 18:18 | EDM.PDOC ---
<Armand Saldivar - Last Filed: 10/02/21 18:40> ED HPI GENERAL MEDICAL PROBLEM - General Chief Complaint: Respiratory Problem Stated Complaint: NOT FEELING WELL Time Seen by Provider: 10/02/21 18:00 - History of Present Illness INITIAL COMMENTS - FREE TEXT/NARRATIVE: 35-year-old female with a history of asthma presents with concern for COVID. Patient initially felt ill on September 16 with headache and muscle aches. She is slowly developed a gradually worsening cough and shortness of breath associated with low-grade temperatures to 100.7 as well as myalgias arthralgias and profound fatigue. Patient also notes that diarrhea started for 5 days ago and posttussive emesis began 2 or 3 days ago. Patient's family all have similar symptoms. Patient had a positive home Covid test on September 22 she then had a negative COVID home test on the on the . Patient has been taking Tylenol and ibuprofen with minimal relief no radiation or other associated symptoms. back Pain Score (Numeric/FACES): 8 - Related Data Allergies Allergy/AdvReac Type Severity Reaction Status Date / Time Latex, Natural Rubber Allergy Mild Rash Verified 10/02/21 18:06 Penicillins Allergy Respiratory Verified 10/02/21 18:06 Distress Home Meds: Home Meds traMADol [Ultram] 50 tab PO BID 05/21/20 [History] traZODone HCl [Trazodone HCl] 150 mg PO DAILY 05/21/20 [History] lisinopriL [Lisinopril] 10 mg PO DAILY 08/05/20 [History] Doxycycline [Vibramycin] 100 mg PO BID 5 Days #10 cap 03/30/21 [Rx] Albuterol [Ventolin HFA] 2 puff INH Q6H PRN 04/19/21 [History] Budesonide [Pulmicort] 0.5 mg IH BID 04/19/21 [History] Cyclobenzaprine [Flexeril] 10 mg PO TID PRN 04/19/21 [History] Fluticasone Propion/Salmeterol [Advair 250-50 Diskus] 2 puff INH DAILY 04/19/21 [History] LORazepam [Ativan] 1 mg PO BID PRN 04/19/21 [History] traZODone 50 mg PO DAILY 04/19/21 [History] predniSONE [Prednisone] 50 mg PO DAILY #4 tablet 10/02/21 [Rx] Past Medical History HEENT History: Reports: None Cardiovascular History: Reports: Hypertension Respiratory History: Reports: Asthma Gastrointestinal History: Reports: None Genitourinary History: Reports: Renal Calculus RN DELIVERY History: Reports: None Other RN DELIVERY History: Hysterectomy Musculoskeletal History: Reports: None Neurological History: Reports: Concussion, Other (See Below) Other Neuro History: Seizures as a child Psychiatric History: Reports: Anxiety, Depression Endocrine/Metabolic 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 (See Below) Other Endocrine/Metabolic History: borderline diabetic Insulin Pump Model and Dimensional Inspector: None Hematologic History: Reports: None Immunologic History: Reports: None Oncologic (Cancer) History: Reports: None Dermatologic History: Reports: None - Infectious Disease History Infectious Disease History: Reports: Chicken Pox, MRSA - Past Surgical History Head Surgeries/Procedures: Reports: None HEENT Surgical History: Reports: Tonsillectomy Cardiovascular Surgical History: Reports: None Respiratory Surgical History: Reports: None GI Surgical History: Reports: Cholecystectomy Other GI Surgeries/Procedures: diagnostic laparoscopy 2x Female Surgical History: Reports: Section, Hysterectomy, Lithotripsy/ESWL Endocrine Surgical History: Reports: None Neurological Surgical History: Reports: None Musculoskeletal Surgical History: Reports: None Oncologic Surgical History: Reports: None Dermatological Surgical History: Reports: None Social & Family History - Family History Family Medical History: No Pertinent Family History - Caffeine Use Caffeine Use: Reports: Coffee, Soda Caffeine Use Comment: 1-3/day ED ROS GENERAL - Review of Systems Review Of Systems: See Below Free Text/Narrative/Comment: General: Per HPI Skin: No rash. Eyes: No vision problems. ENT: No sore throat. Neck: No neck stiffness. Respiratory: Per HPI Cardiac: Positive for mild chest tightness Gastrointestinal: Per HPI Urinary: No dysuria. Musculoskeletal: Per HPI Neurologic: Per HPI ED EXAM, GENERAL - Physical Exam Exam: See Below Free Text/Narrative:: General Appearance: No acute distress, nontoxic but diaphoretic Skin: No rash HEENT: Normocephalic/atraumatic, sclera anicteric, mucous membranes moist Neck: Normal range of motion Chest and Lungs: Globally distant breath sounds likely related to body habitus faint crackles with diffuse expiratory wheeze, no tachypnea and no retractions Cardiovascular: Minimally tachycardic rate regular rhythm intact distal perfusion Abdomen: Soft, non-tender Back: Normal Musculoskeletal: No edema or tenderness Neurologic: Awake, alert, no obvious deficits, moving all extremities Psychiatric: Appropriate, cooperative #1 Interpretation EKG Date: 10/02/21 Time: 18:40 EKG Interpretation Comments: Sinus tachycardia rate of 102 otherwise unremarkable EKG without acute ischemia Departure - Departure Disposition: DC/Tfer to [facility]/[place] [address] Clinical Impression: Pneumonia due to COVID-19 virus Asthma Qualifiers: Asthma severity: unspecified severity Asthma complication type: with acute exacerbation Qualified Code(s): J45.901 - Unspecified asthma with (acute) exacerbation - Discharge Information Instructions: Asthma, Adult, COVID-19: What to Do If You Are Sick- [facility] (02/04/2021) Referrals: Adelita Perez DO [Primary Care Provider] - Forms: ED Department Discharge Additional Instructions: Use inhaler 2 puffs 4 times a day for the next 2 days then as needed. Take steroids as prescribed. It is daily once and since you took a dose today your next dose is tomorrow. Return for any shortness of breath or change or worsening condition. The following information is given to patients seen in the emergency department who are being discharged to home. This information is to outline your options for follow-up care. We provide all patients seen in our emergency department with a follow-up referral. The need for follow-up, as well as the timing and circumstances, are variable depending upon the specifics of your emergency department visit. If you don't have a primary care physician on staff, we will provide you with a referral. We always advise you to contact your personal physician following an emergency department visit to inform them of the circumstance of the visit and for follow-up with them and/or the need for any referrals to a consulting specialist. The emergency department will also refer you to a specialist when appropriate. This referral assures that you have the opportunity for follow-up care with a specialist. All of these measure are taken in an effort to provide you with optimal care, which includes your follow-up. Primary care clinics in the area: [facility] [address] [place] [address] [facility] [address] [place] [id number] Under all circumstances we always encourage you to contact your private physician who remains a resource for coordinating your care. When calling for follow-up care, please make the office aware that this follow-up is from your [facility] emergency room visit. If for any reason you are refused follow-up, please contact the [facility] Emergency Department at and asked to speak to the emergency department charge nurse. - Assessment/Plan Assessment:: 35-year-old female presenting with signs and symptoms that are most consistent with COVID-19 infection. I suspect her home Covid test were false negatives will do formal testing here. Bacterial pneumonia is a consideration x-ray pending. Given the vomiting dehydration is a consideration TATIANA is a consideration relevant labs are pending. Myocarditis is a consideration felt less likely but EKG troponin pending. Patient does have a headache but has no meningismus nothing suggest meningitis or encephalitis. Patient is oxygen on room air primarily in the low 90s. Will give 4 puffs from an albuterol inhaler and continue to monitor oxygen. EKG is w/out acute ischemia. Pt signed out to Dr. Mendenhall pending results and final disposition. <Matt Mendenhall - Last Filed: 10/02/21 21:46> Course - Vital Signs Text/Narrative:: Differential diagnosis :PE, Covid, asthma, ACS, CHF, other Patient presents as outlined above. Patient is positive for Covid has some mild hypoxia and after breathing treatment reevaluation O2 sats near 95%. She is well-appearing and nontoxic. Steroids with the breathing treatments that she has at home with return precautions Last Recorded V/S: Last Vital Signs Temp 36.8 C 10/02/21 21:14 Pulse 93 10/02/21 19:20 Resp 17 10/02/21 19:20 BP 143/95 H 10/02/21 19:20 Pulse Ox 91 L 10/02/21 19:20 - Orders/Labs/Meds Orders: Active Orders 24 hr Category Date Time Status RT Post Treatment Assessment [RC] Click to Edit Care 10/02/21 18:13 Active RT Pre-Treatment Assessment [RC] Click to Edit Care 10/02/21 18:13 Active Sodium Chloride 0.9% [Saline Flush] Med 10/02/21 18:10 Active 10 ml FLUSH ASDIRECTED PRN Sodium Chloride 0.9% [Saline Flush] Med 10/02/21 18:10 Active 2.5 ml FLUSH ASDIRECTED PRN Saline Lock Insert [OM.PC] Stat Oth 10/02/21 18:10 Ordered Medication Orders Sodium Chloride (Sodium Chloride 0.9% 10 Ml Syringe) 10 ml FLUSH ASDIRECTED PRN PRN Reason: Keep Vein Open Last Admin: 10/02/21 18:45 Dose: 10 ml Documented by: JENNY Sodium Chloride (Sodium Chloride 0.9% 2.5 Ml Syringe) 2.5 ml FLUSH ASDIRECTED PRN PRN Reason: Keep Vein Open Last Admin: 10/02/21 18:45 Dose: 2.5 ml Documented by: JENNY Labs: Laboratory Tests 10/02/21 10/02/21 10/02/21 Range/Units 18:31 20:50 20:50 WBC 3.84 L (4.0-11.0) K/uL RBC 4.56 (4.30-5.90) M/uL Hgb 12.8 (12.0-16.0) g/dL Hct 40.1 (36.0-46.0) % MCV 87.9 (80.0-98.0) fL MCH 28.1 (27.0-32.0) pg MCHC 31.9 (31.0-37.0) g/dL RDW Std Deviation 51.7 (28.0-62.0) fl RDW Coeff of Pineda 16 H (11.0-15.0) % Plt Count 170 (150-400) K/uL MPV 10.20 (7.40-12.00) fL Neut % (Auto) 60.9 (48.0-80.0) % Lymph % (Auto) 30.7 (16.0-40.0) % Richardson % (Auto) 7.8 (0.0-15.0) % Eos % (Auto) 0.3 (0.0-7.0) % Baso % (Auto) 0.3 (0.0-1.5) % Neut # (Auto) 2.3 (1.4-5.7) K/uL Lymph # (Auto) 1.2 (0.6-2.4) K/uL Richardson # (Auto) 0.3 (0.0-0.8) K/uL Eos # (Auto) 0.0 (0.0-0.7) K/uL Baso # (Auto) 0.0 (0.0-0.1) K/uL Nucleated RBC % 0.0 /100WBC Nucleated RBCs # 0 K/uL Sodium 140 (136-145) mmol/L Potassium 3.6 (3.5-5.1) mmol/L Chloride 104 (98-107) mmol/L Carbon Dioxide 25.5 (21.0-32.0) mmol/L BUN 7 (7.0-18.0) mg/dL Creatinine 0.8 (0.6-1.0) mg/dL Est Cr Clr Drug Dosing 94.54 mL/min Estimated GFR (MDRD) > 60.0 ml/min Glucose 113 H (74-106) mg/dL Calcium 8.1 L (8.5-10.1) mg/dL Total Bilirubin 0.3 (0.2-1.0) mg/dL AST 71 H (15-37) IU/L ALT 62 (14-63) IU/L Alkaline Phosphatase 72 (46-116) U/L Troponin I < 0.050 (0.000-0.056) ng/mL B-Natriuretic Peptide (<100) PG/ML Total Protein 7.7 (6.4-8.2) g/dL Albumin 3.2 L (3.4-5.0) g/dL Globulin 4.5 H (2.6-4.0) g/dL Albumin/Globulin Ratio 0.7 L (0.9-1.6) Influenza Type A RNA NEGATIVE (NEGATIVE) Influenza Type B RNA NEGATIVE (NEGATIVE) SARS-CoV-2 RNA (ANGELES) POSITIVE H (NEGATIVE) 10/02/21 Range/Units 20:50 WBC (4.0-11.0) K/uL RBC (4.30-5.90) M/uL Hgb (12.0-16.0) g/dL Hct (36.0-46.0) % MCV (80.0-98.0) fL MCH (27.0-32.0) pg MCHC (31.0-37.0) g/dL RDW Std Deviation (28.0-62.0) fl RDW Coeff of Pineda (11.0-15.0) % Plt Count (150-400) K/uL MPV (7.40-12.00) fL Neut % (Auto) (48.0-80.0) % Lymph % (Auto) (16.0-40.0) % Richardson % (Auto) (0.0-15.0) % Eos % (Auto) (0.0-7.0) % Baso % (Auto) (0.0-1.5) % Neut # (Auto) (1.4-5.7) K/uL Lymph # (Auto) (0.6-2.4) K/uL Richardson # (Auto) (0.0-0.8) K/uL Eos # (Auto) (0.0-0.7) K/uL Baso # (Auto) (0.0-0.1) K/uL Nucleated RBC % /100WBC Nucleated RBCs # K/uL Sodium (136-145) mmol/L Potassium (3.5-5.1) mmol/L Chloride (98-107) mmol/L Carbon Dioxide (21.0-32.0) mmol/L BUN (7.0-18.0) mg/dL Creatinine (0.6-1.0) mg/dL Est Cr Clr Drug Dosing mL/min Estimated GFR (MDRD) ml/min Glucose (74-106) mg/dL Calcium (8.5-10.1) mg/dL Total Bilirubin (0.2-1.0) mg/dL AST (15-37) IU/L ALT (14-63) IU/L Alkaline Phosphatase (46-116) U/L Troponin I (0.000-0.056) ng/mL B-Natriuretic Peptide 4 (<100) PG/ML Total Protein (6.4-8.2) g/dL Albumin (3.4-5.0) g/dL Globulin (2.6-4.0) g/dL Albumin/Globulin Ratio (0.9-1.6) Influenza Type A RNA (NEGATIVE) Influenza Type B RNA (NEGATIVE) SARS-CoV-2 RNA (ANGELES) (NEGATIVE) Meds: Medications Generic Name Dose Route Start Last Admin Trade Name Freq PRN Reason Stop Dose Admin Sodium Chloride 10 ml 10/02/21 18:10 10/02/21 18:45 Sodium Chloride 0.9% 10 Ml Syringe FLUSH 10 ml ASDIRECTED PRN Administration Keep Vein Open Sodium Chloride 2.5 ml 10/02/21 18:10 10/02/21 18:45 Sodium Chloride 0.9% 2.5 Ml Syringe FLUSH 2.5 ml ASDIRECTED PRN Administration Keep Vein Open Discontinued Medications Generic Name Dose Route Start Last Admin Trade Name Freq PRN Reason Stop Dose Admin Acetaminophen 975 mg 10/02/21 20:34 10/02/21 21:14 Acetaminophen 325 Mg Tab PO 10/02/21 20:35 975 mg NOW ONE Administration Albuterol 8 gm 10/02/21 18:13 10/02/21 18:40 Albuterol 8 Gm Inhaler INH 10/02/21 18:14 8 gm ONETIME ONE Administration Prednisone 50 mg 10/02/21 19:41 10/02/21 19:54 Prednisone 10 Mg Tab PO 10/02/21 19:42 50 mg ONETIME ONE Administration Departure - Departure Time of Disposition: 21:43 Condition: Good Sepsis Event Note (ED) - Focused Exam Vital Signs: Vital Signs Temp Temp Pulse Resp BP Pulse Ox 10/02/21 21:14 36.8 C 10/02/21 19:20 93 17 143/95 H 91 L 10/02/21 18:06 38.3 C H 108 H 28 H 147/94 H 89 L
--- NOTE | 2021-10-02 19:20 | CR ---
INDICATION: Cough. Shortness of breath. COMPARISON: 04/19/2021. FINDINGS: A portable AP upright view of the chest was obtained. The cardiac silhouette and pulmonary vasculature are within normal limits. The lungs are clear of acute infiltrates. Impression: No evidence of acute pulmonary disease. Dictated by Alexander Alexander MD @ 10/02/2021 7:18:56 PM (Electronically Signed)
[2021-10-02 19:25] LABS: CORONAVIRUS COVID-19 NAA POSITIVE (NEGATIVE); INFLUENZA A NAA NEGATIVE (NEGATIVE); INFLUENZA B NAA NEGATIVE (NEGATIVE)
[2021-10-02] MEDS ORDERED: predniSONE 10 MG Tab PO ONE (19:41)
[2021-10-02] MEDS ORDERED: Acetaminophen 325 MG Tab PO ONE (20:34)
[2021-10-02 21:21] LABS: BLOOD UREA NITROGEN,BUN 7 mg/dL (7.0-18.0); CARBON DIOXIDE,CO2 25.5 mmol/L (21.0-32.0); CHLORIDE,CL 104 mmol/L (98-107); GLUCOSE RANDOM 113 mg/dL (74-106); POTASSIUM,K 3.6 mmol/L (3.5-5.1); SODIUM,NA 140 mmol/L (136-145)
[2021-10-02 22:01] VITALS: BP 171/112; PULSE 108
== END 2021-10-02 22:22 | disposition home or self-care (01) ==
LOC: MW.ED 17:54
DX: U07.1 COVID-19 (principal); J12.82 Pneumonia due to coronavirus disease 2019; J45.901 Unspecified asthma with (acute) exacerbation; I10 Essential (primary) hypertension; Z91.040 Latex allergy status; Z88.0 Allergy status to penicillin; Z79.899 Other long term (current) drug therapy
CPT/HCPCS: 0240U; 36415; 71045; 80053; 83880; 84484; 85025; 99285; A9270

== ENCOUNTER 2021-10-05 12:28 | Inpatient (IN) | payer SELFPAY ==
[2021-10-05] MEDS ORDERED: Sodium Chloride 0.9% 1,000 ML IV ONE (12:42)
[2021-10-05] MEDS ORDERED: Acetaminophen 500 MG Tab PO ONE (12:43)
[2021-10-05] MEDS ORDERED: Ondansetron 4 MG/2 ML SDV IVPUSH ONE (12:43)
--- NOTE | 2021-10-05 12:49 | EDM.PDOC ---
ED HPI GENERAL MEDICAL PROBLEM - General Chief Complaint: Respiratory Problem Stated Complaint: COVID POS/SOB Time Seen by Provider: 10/05/21 12:32 Source of Information: Reports: Patient History Limitations: Reports: No Limitations - History of Present Illness INITIAL COMMENTS - FREE TEXT/NARRATIVE: HISTORY AND PHYSICAL: History of present illness: Patient is a 35-year-old female who presents to the emergency room with known COVID-19 complaining of increased shortness of breath and feeling generally unwell. Patient states symptoms started with a mild cough on 09/22/2021. She was evaluated in the emergency room on 10/02/2021 and tested positive but was well enough to go home. She was given an albuterol inhaler and prescription for prednisone. She states she has progressively has had increased shortness of breath, cough, fever, nausea and diarrhea over the past 24 to 48 hours. She has been using Tylenol and ibuprofen without much relief. Patient denies any change in vision, syncope or near syncope. Denies any chest pain, back pain, abdominal pain, constipation or dysuria. Has not noted any blood in urine or stool. Patient has not been eating and drinking appropriately to decreased appetite and illness. Review of systems: As per history of present illness and below otherwise all systems reviewed and negative. Past medical history: As per history of present illness and as reviewed below otherwise noncontributory. Surgical history: As per history of present illness and as reviewed below otherwise noncontributory. Social history: See social history for further information Family history: As per history of present illness and as reviewed below otherwise noncontributory. Physical exam: General: Well developed and well nourished 35-year-old female. Alert and orientated x 3. Nontoxic in appearance and in no acute distress. Vital signs are stable and have been reviewed by me. Nursing notes were reviewed. HEENT: Atraumatic, normocephalic, pupils equal and reactive bilaterally, negative for conjunctival pallor or scleral icterus, mucous membranes dry/tacky, TMs normal bilaterally, throat clear, neck supple, nontender, trachea midline. No drooling or trismus noted. No meningeal signs. No hot potato voice noted. Lungs: Clear to auscultation bilaterally. No wheezes, rales, or rhonchi. Chest nontender. Normal work of breathing, no accessory muscles used. Heart: S1S2, regular rate and rhythm without overt murmur, gallops, or rubs. No JVD. No peripheral edema Abdomen: Soft, nondistended, nontender. Normoactive bowel sounds. Negative for masses or costovertebral tenderness. Skin: Intact, warm, dry. No lesions or rashes noted. Hematologic: No petechiae or purpra. Mucosa appropriate color and normal nail bed color and refill. Extremities: Atraumatic, moves all extremities per self without difficulty or deficits, negative for cords or calf pain. Neurovascular unremarkable. Neuro: Awake, alert, oriented. Cranial nerves II through XII unremarkable. Cerebellum unremarkable. Motor and sensory unremarkable throughout. Exam nonfocal. Psychiatric: Mood and affect are appropriate. Normal thought process. Answering questions appropriately. Please note that the patient was seen and evaluated during the 2019 SARS-CoV-2 novel coronavirus pandemic period. Community viral transmission is ongoing at time of this encounter and the emergency department is operating under pandemic response procedures. Medical Decision Makin10/02/21: COVID-19 testing is positive. Essentially normal CBC and CMP. Normal chest x-ray per radiology. Patient is a 35-year-old female who presents to the emergency room with complaints of increased shortness of breath, fever and generally feeling unwell over the past few days. Patient states she has had COVID type symptoms since 09/22/2021 was officially diagnosed on 10/02/2021. Since being seen in the emergency room on the she has progressively gotten worse. Upon arrival the patient is tachycardic with a temperature of 102. She did meet criteria for sepsis although I do not have any concern for sepsis as this is typical with COVID-19. Due to these risk factors I will do blood cultures and a lactate at this time. We will hold on any antibiotics as I do not feel it is warranted. Chest x-ray shows patchy bilateral infiltrates possibly increased compared to prior study. Findings worrisome for COVID pneumonia. Patient has mild lab derangements. Normal lactate. She continues to require 2 L per nasal cannula to sat above 90%. I have talked with the patient about today's findings, in addition to providing specific details for plan of care. Dr. Toth, hospitalist on-call, was consulted on this patient. He is agreeable to keeping her for further care and management. Patient is aware and agreeable as well. Vital signs are improving. Diagnostics: CBC, CMP, CXR, VBG, Lactate, BC x 2 Therapeutics: NS @ 125mls, Remdesivir, Decadron Impression: COVID pneumonia Plan: Inpatient admission Definitive disposition and diagnosis as appropriate pending reevaluation and review of above. - Related Data Allergies Allergy/AdvReac Type Severity Reaction Status Date / Time Latex, Natural Rubber Allergy Mild Rash Verified 10/05/21 12:42 Penicillins Allergy Respiratory Verified 10/05/21 12:42 Distress Home Meds: Home Meds traMADol [Ultram] 50 tab PO BID 05/21/20 [History] traZODone HCl [Trazodone HCl] 150 mg PO DAILY 05/21/20 [History] lisinopriL [Lisinopril] 10 mg PO DAILY 08/05/20 [History] Doxycycline [Vibramycin] 100 mg PO BID 5 Days #10 cap 03/30/21 [Rx] Albuterol [Ventolin HFA] 2 puff INH Q6H PRN 04/19/21 [History] Budesonide [Pulmicort] 0.5 mg IH BID 04/19/21 [History] Cyclobenzaprine [Flexeril] 10 mg PO TID PRN 04/19/21 [History] Fluticasone Propion/Salmeterol [Advair 250-50 Diskus] 2 puff INH DAILY 04/19/21 [History] LORazepam [Ativan] 1 mg PO BID PRN 04/19/21 [History] predniSONE [Prednisone] 50 mg PO DAILY #4 tablet 10/02/21 [Rx] Past Medical History HEENT History: Reports: None Cardiovascular History: Reports: Hypertension Respiratory History: Reports: Asthma Gastrointestinal History: Reports: None Genitourinary History: Reports: Renal Calculus [employer] SAL[employer]ANT History: Reports: None Other [employer] SAL[employer]ANT History: Hysterectomy Musculoskeletal History: Reports: None Neurological History: Reports: Concussion, Other (See Below) Other Neuro History: Seizures as a child Psychiatric History: Reports: Anxiety, Depression Endocrine/Metabolic 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 (See Below) Other Endocrine/Metabolic History: borderline diabetic Insulin Pump Model and Meat Team Lead: None Hematologic History: Reports: None Immunologic History: Reports: None Oncologic (Cancer) History: Reports: None Dermatologic History: Reports: None - Infectious Disease History Infectious Disease History: Reports: Chicken Pox, MRSA - Past Surgical History Head Surgeries/Procedures: Reports: None HEENT Surgical History: Reports: Tonsillectomy Cardiovascular Surgical History: Reports: None Respiratory Surgical History: Reports: None GI Surgical History: Reports: Cholecystectomy Other GI Surgeries/Procedures: diagnostic laparoscopy 2x Female Surgical History: Reports: Section, Hysterectomy, L ithotripsy/ESWL Endocrine Surgical History: Reports: None Neurological Surgical History: Reports: None Musculoskeletal Surgical History: Reports: None Oncologic Surgical History: Reports: None Dermatological Surgical History: Reports: None Social & Family History - Family History Family Medical History: No Pertinent Family History - Caffeine Use Caffeine Use: Reports: None Caffeine Use Comment: 1-3/day ED ROS GENERAL - Review of Systems Review Of Systems: Comprehensive ROS is negative, except as noted in HPI. ED EXAM, GENERAL - Physical Exam Exam: See Below (See dictation) Course - Vital Signs Last Recorded V/S: Last Vital Signs Temp 101.5 F H 10/05/21 13:42 Pulse 111 H 10/05/21 13:42 Resp 18 10/05/21 13:42 BP 134/91 H 10/05/21 13:42 Pulse Ox 96 10/05/21 13:42 - Orders/Labs/Meds Orders: Active Orders 24 hr Category Date Time Status EKG Documentation Completion [RC] STAT Care 10/05/21 12:42 Active COMPREHENSIVE METABOLIC PN,CMP [CHEM] Stat Lab 10/05/21 13:44 Received CULTURE BLOOD [BC] Stat Lab 10/05/21 13:11 Received CULTURE BLOOD [BC] Stat Lab 10/05/21 13:21 Received UA RFX JACKY AND CULT IF INDIC [URIN] Stat Lab 10/05/21 12:42 Ordered Remdesivir 200 mg Med 10/05/21 13:50 Active Sodium Chloride 0.9% [Normal Saline] 250 ml IV ONETIME Sodium Chloride 0.9% [Normal Saline] 1,000 ml Med 10/05/21 12:42 Active IV STAT Blood Culture x2 Reflex Set [OM.PC] Stat Oth 10/05/21 12:44 Ordered Medication Orders Sodium Chloride (Normal Saline) 1,000 mls @ 100 mls/hr IV STAT ONE Stop: 10/05/21 22:41 Last Admin: 10/05/21 13:31 Dose: 100 mls/hr Documented by: JENNY Remdesivir 200 mg/ Sodium (Chloride) 250 mls @ 250 mls/hr IV ONETIME ONE Stop: 10/05/21 14:49 Last Admin: 10/05/21 13:59 Dose: 250 mls/hr Documented by: JENNY Labs: Laboratory Tests 10/05/21 10/05/21 10/05/21 Range/Units 13:03 13:11 13:11 WBC 5.15 (4.0-11.0) K/uL RBC 4.62 (4.30-5.90) M/uL Hgb 12.8 (12.0-16.0) g/dL Hct 40.3 (36.0-46.0) % MCV 87.2 (80.0-98.0) fL MCH 27.7 (27.0-32.0) pg MCHC 31.8 (31.0-37.0) g/dL RDW Std Deviation 52.0 (28.0-62.0) fl RDW Coeff of Pineda 16 H (11.0-15.0) % Plt Count 194 (150-400) K/uL MPV 10.70 (7.40-12.00) fL Neut % (Auto) 77.5 (48.0-80.0) % Lymph % (Auto) 18.4 (16.0-40.0) % Giles % (Auto) 3.9 (0.0-15.0) % Eos % (Auto) 0.0 (0.0-7.0) % Baso % (Auto) 0.2 (0.0-1.5) % Neut # (Auto) 4.0 (1.4-5.7) K/uL Lymph # (Auto) 1.0 (0.6-2.4) K/uL Giles # (Auto) 0.2 (0.0-0.8) K/uL Eos # (Auto) 0.0 (0.0-0.7) K/uL Baso # (Auto) 0.0 (0.0-0.1) K/uL Nucleated RBC % 0.0 /100WBC Nucleated RBCs # 0 K/uL VBG pH 7.43 H (7.31-7.41) VBG pCO2 38 L (41-51) mmHG VBG pO2 51 mmHG VBG HCO3 26 (23-28) mEq/L VBG Total CO2 23 L (24-29) mmol/L VBG Base Excess 1.3 (-2.0-3.0) Lactic Acid 1.1 (0.4-2.0) mmol/L Meds: Medications Generic Name Dose Route Start Last Admin Trade Name Freq PRN Reason Stop Dose Admin Sodium Chloride 1,000 mls @ 100 mls/hr 10/05/21 12:42 10/05/21 13:31 Normal Saline IV 10/05/21 22:41 100 mls/hr STAT ONE Administration Remdesivir 200 mg/ Sodium 250 mls @ 250 mls/hr 10/05/21 13:50 10/05/21 13:59 Chloride IV 10/05/21 14:49 250 mls/hr ONETIME ONE Administration Discontinued Medications Generic Name Dose Route Start Last Admin Trade Name Freq PRN Reason Stop Dose Admin Acetaminophen 1,000 mg 10/05/21 12:43 10/05/21 13:25 Acetaminophen 500 Mg Tab PO 10/05/21 12:44 1,000 mg ONETIME ONE Administration Dexamethasone 6 mg 10/05/21 13:15 10/05/21 13:31 Dexamethasone 4 Mg/Ml Sdv IVPUSH 10/05/21 13:16 6 mg ONETIME ONE Administration Remdesivir 200 mg/ Sodium 250 mls @ 250 mls/hr 10/05/21 13:15 10/05/21 13:54 Chloride IV 10/05/21 13:16 Not Given ONETIME ONE Ondansetron HCl 4 mg 10/05/21 12:43 10/05/21 13:22 Ondansetron 4 Mg/2 Ml Sdv IVPUSH 10/05/21 12:44 4 mg ONETIME ONE Administration Departure - Departure Time of Disposition: 14:14 Disposition: Admitted As Inpatient 65 Clinical Impression: Pneumonia due to COVID-19 virus, Hypoxia - Discharge Information Sepsis Event Note (ED) - Evaluation Sepsis Screening Result: Possible Sepsis Risk - Focused Exam Vital Signs: Vital Signs Temp Pulse Resp BP Pulse Ox 10/05/21 13:42 101.5 F H 111 H 18 134/91 H 96 10/05/21 12:34 102.8 F H 123 H 22 H 130/92 H 87 L - My Orders Last 24 Hours: My Active Orders 10/05/21 12:42 EKG Documentation Completion [RC] STAT UA RFX JACKY AND CULT IF INDIC [URIN] Stat Sodium Chloride 0.9% [Normal Saline] 1,000 ml IV STAT 10/05/21 12:44 Blood Culture x2 Reflex Set [OM.PC] Stat 10/05/21 13:11 CULTURE BLOOD [BC] Stat 10/05/21 13:21 CULTURE BLOOD [BC] Stat 10/05/21 13:44 COMPREHENSIVE METABOLIC PN,CMP [CHEM] Stat 10/05/21 13:50 Remdesivir 200 mg Sodium Chloride 0.9% [Normal Saline] 250 ml IV ONETIME - Assessment/Plan Last 24 Hours: My Active Orders 10/05/21 12:42 EKG Documentation Completion [RC] STAT UA RFX JACKY AND CULT IF INDIC [URIN] Stat Sodium Chloride 0.9% [Normal Saline] 1,000 ml IV STAT 10/05/21 12:44 Blood Culture x2 Reflex Set [OM.PC] Stat 10/05/21 13:11 CULTURE BLOOD [BC] Stat 10/05/21 13:21 CULTURE BLOOD [BC] Stat 10/05/21 13:44 COMPREHENSIVE METABOLIC PN,CMP [CHEM] Stat 10/05/21 13:50 Remdesivir 200 mg Sodium Chloride 0.9% [Normal Saline] 250 ml IV ONETIME
[2021-10-05] MEDS ORDERED: REMDESIVIR 200 MG in Sodium Chloride 0.9% 250 ML IV ONE ×2 (13:15→13:50)
[2021-10-05] MEDS ORDERED: Dexamethasone 4 MG/ML SDV IVPUSH ONE (13:15)
--- NOTE | 2021-10-05 13:19 | CR ---
INDICATION: Hypoxia, COVID TECHNIQUE: Chest 2 views. COMPARISON: 10/02/2021 FINDINGS: Cardiovascular and mediastinum: Heart size and vasculature are normal in caliber and appearance. Mediastinum is within normal limits. Lungs and pleural spaces: Patchy bilateral infiltrates. No sign of pleural effusion. No pneumothorax. Bones and soft tissues: No significant findings. IMPRESSION: Patchy bilateral infiltrates possibly increased compared to prior study. Findings worrisome for COVID pneumonia. Dictated by Eliezer Aviles MD @ 10/05/2021 1:18:57 PM (Electronically Signed)
[2021-10-05 14:20] LABS: BLOOD UREA NITROGEN,BUN 10 mg/dL (7.0-18.0); CARBON DIOXIDE,CO2 25.9 mmol/L (21.0-32.0); CHLORIDE,CL 103 mmol/L (98-107); GLUCOSE RANDOM 142 mg/dL (74-106); SODIUM,NA 138 mmol/L (136-145)
--- NOTE | 2021-10-05 14:48 | PCM.HP.2 ---
H&P History of Present Illness - General Date of Service: 10/05/21 Admit Problem/Dx: Admission Diagnosis/Problem Admission Diagnosis/Problem Viral pneumonia - History of Present Illness Initial Comments - Free Text/Narative: The patient is a 35-year-old female, on day 1 of service, who has a significant past medical history of asthma, hypertension, anxiety, and insomnia, who was admitted to the medical floor due to COVID-19 pneumonia. The patient first started to have symptoms on 09/22/2021 which included shortness of breath, weakness, body aches throughout her ribs and back, nausea and nonbilious and nonbloody vomiting, diarrhea devoid of blood or mucus, irritability, and loss of taste and smell. Over the last 10 days the symptoms have become worse. On 10/02/2021 the patient was diagnosed with COVID-19 infection and received prednisone and albuterol treatments, nonetheless her symptoms have become worse to the point where she came to the emergency department today with extreme shortness of breath and was found to be 86% on O2 saturation. When given 2 L of oxygen she jumped up to 94%. With respect to her social history, she denies smoking, alcohol consumption, and recreational drug use. Her family history is significant for breast cancer in her mother. She has allergies to latex as well as penicillin. She has no other health concerns at this time. On CBC, her white blood cell count is 5.15, hemoglobin is 12.8, hematocrit is 40.3, and platelet count is 194. On CMP, her sodium is 138, potassium is 4.0, chloride is 103, carbon dioxide 25.9, BUN is 10, creatinine is 0.8. On chest x-ray, bilateral infiltrates are seen representing COVID-19. On EKG, normal sinus rhythm is seen. In the emergency department, the patient received remdesivir 200 mg IV once, dexamethasone 6 mg once, Zofran 4 mg IV once, she had 2 blood cultures done, urine analysis with culture if necessary, she had 1000 mL IV bolus of normal saline, and the tests that are listed above. - Related Data Allergies/Adverse Reactions: Allergies Allergy/AdvReac Type Severity Reaction Status Date / Time Latex, Natural Rubber Allergy Mild Rash Verified 10/05/21 12:42 Penicillins Allergy Respiratory Verified 10/05/21 12:42 Distress Home Medications: Home Meds traMADol [Ultram] 50 tab PO BID 05/21/20 [History] traZODone HCl [Trazodone HCl] 150 mg PO DAILY 05/21/20 [History] lisinopriL [Lisinopril] 10 mg PO DAILY 08/05/20 [History] Doxycycline [Vibramycin] 100 mg PO BID 5 Days #10 cap 03/30/21 [Rx] Albuterol [Ventolin HFA] 2 puff INH Q6H PRN 04/19/21 [History] Budesonide [Pulmicort] 0.5 mg IH BID 04/19/21 [History] Cyclobenzaprine [Flexeril] 10 mg PO TID PRN 04/19/21 [History] Fluticasone Propion/Salmeterol [Advair 250-50 Diskus] 2 puff INH DAILY 04/19/21 [History] LORazepam [Ativan] 1 mg PO BID PRN 04/19/21 [History] predniSONE [Prednisone] 50 mg PO DAILY #4 tablet 10/02/21 [Rx] Past Medical History HEENT History: Reports: None Cardiovascular History: Reports: Hypertension Respiratory History: Reports: Asthma Gastrointestinal History: Reports: None Genitourinary History: Reports: Renal Calculus 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 Other OB/BYN History: Hysterectomy Musculoskeletal History: Reports: None Neurological History: Reports: Concussion, Other (See Below) Other Neuro History: Seizures as a child Psychiatric History: Reports: Anxiety, Depression Endocrine/Metabolic History: Reports: Obesity/BMI 30+, Other (See Below) Other Endocrine/Metabolic History: borderline diabetic 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 Hematologic History: Reports: None Immunologic History: Reports: None Oncologic (Cancer) History: Reports: None Dermatologic History: Reports: None - Infectious Disease History Infectious Disease History: Reports: Chicken Pox, MRSA - Past Surgical History Head Surgeries/Procedures: Reports: None HEENT Surgical History: Reports: Tonsillectomy Cardiovascular Surgical History: Reports: None Respiratory Surgical History: Reports: None GI Surgical History: Reports: Cholecystectomy Other GI Surgeries/Procedures: diagnostic laparoscopy 2x Female Surgical History: Reports: Section, Hysterectomy, Lithotripsy/ESWL Endocrine Surgical History: Reports: None Neurological Surgical History: Reports: None Musculoskeletal Surgical History: Reports: None Oncologic Surgical History: Reports: None Dermatological Surgical History: Reports: None Social & Family History - Family History Family Medical History: No Pertinent Family History - Tobacco Use Tobacco Use Status *Q: Former Tobacco User Used Tobacco, but Quit: Yes Month/Year Tobacco Last Used: 2019 - Caffeine Use Caffeine Use: Reports: Coffee Caffeine Use Comment: 1-3/day - Recreational Drug Use Recreational Drug Use: No H&P Review of Systems - Review of Systems: Review Of Systems: See Below General: Reports: Chills, Weakness, Fatigue. Denies: Fever, Diaphoresis HEENT: Denies: Headaches, Sore Throat Pulmonary: Reports: Shortness of Breath, Wheezing, Cough Cardiovascular: Reports: Dyspnea on Exertion. Denies: Chest Pain, Palpitations Gastrointestinal: Reports: Decreased Appetite, Nausea, Vomiting. Denies: Abdominal Pain Genitourinary: Denies: Dysuria Musculoskeletal: Reports: Back Pain, Muscle Pain Exam - Exam Exam: See Below - Vital Signs Vital Signs: Last Vital Signs Temp 101.5 F H 10/05/21 13:42 Pulse 111 H 10/05/21 13:42 Resp 18 10/05/21 13:42 BP 134/91 H 10/05/21 13:42 Pulse Ox 96 10/05/21 13:42 Weight: 350 lb - Exam General: Alert, Oriented, Mild Distress HEENT: EOMI, Other (Dry mucous membranes) Neck: Trachea Midline. No: Lymphadenopathy Lungs: Wheezing Cardiovascular: Regular Rate, Regular Rhythm GI/Abdominal Exam: Normal Bowel Sounds, Soft, Non-Tender Extremities: No Pedal Edema - Patient Data Lab Results Last 24 hrs: Laboratory Results - last 24 hr 10/05/21 10/05/21 10/05/21 Range/Units 13:03 13:11 13:11 WBC 5.15 (4.0-11.0) K/uL RBC 4.62 (4.30-5.90) M/uL Hgb 12.8 (12.0-16.0) g/dL Hct 40.3 (36.0-46.0) % MCV 87.2 (80.0-98.0) fL MCH 27.7 (27.0-32.0) pg MCHC 31.8 (31.0-37.0) g/dL RDW Std Deviation 52.0 (28.0-62.0) fl RDW Coeff of Pineda 16 H (11.0-15.0) % Plt Count 194 (150-400) K/uL MPV 10.70 (7.40-12.00) fL Neut % (Auto) 77.5 (48.0-80.0) % Lymph % (Auto) 18.4 (16.0-40.0) % [place] % (Auto) 3.9 (0.0-15.0) % Eos % (Auto) 0.0 (0.0-7.0) % Baso % (Auto) 0.2 (0.0-1.5) % Neut # (Auto) 4.0 (1.4-5.7) K/uL Lymph # (Auto) 1.0 (0.6-2.4) K/uL [place] # (Auto) 0.2 (0.0-0.8) K/uL Eos # (Auto) 0.0 (0.0-0.7) K/uL Baso # (Auto) 0.0 (0.0-0.1) K/uL Nucleated RBC % 0.0 /100WBC Nucleated RBCs # 0 K/uL VBG pH 7.43 H (7.31-7.41) VBG pCO2 38 L (41-51) mmHG VBG pO2 51 mmHG VBG HCO3 26 (23-28) mEq/L VBG Total CO2 23 L (24-29) mmol/L VBG Base Excess 1.3 (-2.0-3.0) Sodium (136-145) mmol/L Potassium (3.5-5.1) mmol/L Chloride (98-107) mmol/L Carbon Dioxide (21.0-32.0) mmol/L BUN (7.0-18.0) mg/dL Creatinine (0.6-1.0) mg/dL Est Cr Clr Drug Dosing mL/min Estimated GFR (MDRD) ml/min Glucose (74-106) mg/dL Lactic Acid 1.1 (0.4-2.0) mmol/L Calcium (8.5-10.1) mg/dL Total Bilirubin (0.2-1.0) mg/dL AST (15-37) IU/L ALT (14-63) IU/L Alkaline Phosphatase (46-116) U/L Total Protein (6.4-8.2) g/dL Albumin (3.4-5.0) g/dL Globulin (2.6-4.0) g/dL Albumin/Globulin Ratio (0.9-1.6) 10/05/21 Range/Units 13:44 WBC (4.0-11.0) K/uL RBC (4.30-5.90) M/uL Hgb (12.0-16.0) g/dL Hct (36.0-46.0) % MCV (80.0-98.0) fL MCH (27.0-32.0) pg MCHC (31.0-37.0) g/dL RDW Std Deviation (28.0-62.0) fl RDW Coeff of Pineda (11.0-15.0) % Plt Count (150-400) K/uL MPV (7.40-12.00) fL Neut % (Auto) (48.0-80.0) % Lymph % (Auto) (16.0-40.0) % [place] % (Auto) (0.0-15.0) % Eos % (Auto) (0.0-7.0) % Baso % (Auto) (0.0-1.5) % Neut # (Auto) (1.4-5.7) K/uL Lymph # (Auto) (0.6-2.4) K/uL [place] # (Auto) (0.0-0.8) K/uL Eos # (Auto) (0.0-0.7) K/uL Baso # (Auto) (0.0-0.1) K/uL Nucleated RBC % /100WBC Nucleated RBCs # K/uL VBG pH (7.31-7.41) VBG pCO2 (41-51) mmHG VBG pO2 mmHG VBG HCO3 (23-28) mEq/L VBG Total CO2 (24-29) mmol/L VBG Base Excess (-2.0-3.0) Sodium 138 (136-145) mmol/L Potassium 4.0 (3.5-5.1) mmol/L Chloride 103 (98-107) mmol/L Carbon Dioxide 25.9 (21.0-32.0) mmol/L BUN 10 (7.0-18.0) mg/dL Creatinine 0.8 (0.6-1.0) mg/dL Est Cr Clr Drug Dosing 94.54 mL/min Estimated GFR (MDRD) > 60.0 ml/min Glucose 142 H (74-106) mg/dL Lactic Acid (0.4-2.0) mmol/L Calcium 7.4 L (8.5-10.1) mg/dL Total Bilirubin 0.3 (0.2-1.0) mg/dL AST 87 H (15-37) IU/L ALT 74 H (14-63) IU/L Alkaline Phosphatase 73 (46-116) U/L Total Protein 7.4 (6.4-8.2) g/dL Albumin 2.9 L (3.4-5.0) g/dL Globulin 4.5 H (2.6-4.0) g/dL Albumin/Globulin Ratio 0.6 L (0.9-1.6) Result Diagrams: 10/05/21 13:11 10/05/21 13:44 Sepsis Event Note - Evaluation Sepsis Screening Result: Possible Sepsis Risk - Focused Exam Vital Signs: Vital Signs Temp Pulse Resp BP Pulse Ox 10/05/21 13:42 101.5 F H 111 H 18 134/91 H 96 10/05/21 12:34 102.8 F H 123 H 22 H 130/92 H 87 L - Problem List (1) HTN (hypertension) SNOMED Code(s): 89486470 ICD Code: I10 - ESSENTIAL (PRIMARY) HYPERTENSION Status: Acute Current Visit: Yes (2) Anxiety SNOMED Code(s): 27501015 ICD Code: F41.9 - ANXIETY DISORDER, UNSPECIFIED Status: Acute Current Visit: Yes (3) Insomnia SNOMED Code(s): 536025627 ICD Code: G47.00 - INSOMNIA, UNSPECIFIED Status: Acute Current Visit: Yes (4) Hypoxia SNOMED Code(s): 099716597 ICD Code: R09.02 - HYPOXEMIA Status: Acute Current Visit: Yes (5) Pneumonia due to COVID-19 virus SNOMED Code(s): 757424135764587801 ICD Code: U07.1 - COVID-19; J12.82 - PNEUMONIA DUE TO CORONAVIRUS DISEASE 2019 Status: Acute Current Visit: Yes (6) Asthma SNOMED Code(s): 018476684 ICD Code: J45.909 - UNSPECIFIED ASTHMA, UNCOMPLICATED Status: Acute Current Visit: No Qualifiers: Asthma severity: unspecified severity Asthma complication type: with acute exacerbation Qualified Code(s): J45.901 - Unspecified asthma with (acute) exacerbation (7) Vomiting SNOMED Code(s): 827511778 ICD Code: R11.10 - VOMITING, UNSPECIFIED Status: Acute Current Visit: No Problem List Initiated/Reviewed/Updated: Yes Orders Last 24hrs: Active Orders 24 hr Category Date Time Status Admission Status [Patient Status] [ADT] Stat ADT 10/05/21 13:52 Active RT Post Treatment Assessment [RC] Click to Edit Care 10/05/21 14:40 Ordered RT Pre-Treatment Assessment [RC] Click to Edit Care 10/05/21 14:40 Ordered Clear Liquid Diet [DIET] Diet 10/05/21 Dinner Ordered CBC WITH AUTO DIFF [HEME] AM Lab 10/06/21 05:11 Ordered CBC WITH AUTO DIFF [HEME] AM Lab 10/07/21 05:11 Ordered CBC WITH AUTO DIFF [HEME] AM Lab 10/08/21 05:11 Ordered CMP [COMPREHENSIVE METABOLIC PN,CMP] [CHEM] AM Lab 10/06/21 05:11 Ordered CMP [COMPREHENSIVE METABOLIC PN,CMP] [CHEM] AM Lab 10/07/21 05:11 Ordered CMP [COMPREHENSIVE METABOLIC PN,CMP] [CHEM] AM Lab 10/08/21 05:11 Ordered CULTURE BLOOD [BC] Stat Lab 10/05/21 13:11 Received CULTURE BLOOD [BC] Stat Lab 10/05/21 13:21 Received UA RFX JACKY AND CULT IF INDIC [URIN] Stat Lab 10/05/21 12:42 Ordered Albuterol/Ipratropium [Combivent Respimat] Med 10/05/21 14:45 Ordered 1 gm INH Q4H Enoxaparin [Lovenox] Med 10/05/21 14:45 Ordered 40 mg SUBCUT Q24H Ondansetron [Zofran] Med 10/05/21 14:33 Ordered 4 mg IVPUSH Q4H PRN Pantoprazole [ProTONIX IV] 40 mg Med 10/05/21 14:45 Ordered Sodium Chloride 0.9% [Normal Saline] 10 ml IV DAILY Remdesivir 100 mg Med 10/06/21 14:45 Ordered Sodium Chloride 0.9% [Normal Saline AdvBag] 100 ml IV Q24H Remdesivir 200 mg Med 10/05/21 13:50 Active Sodium Chloride 0.9% [Normal Saline] 250 ml IV ONETIME Sodium Chloride 0.9% [Normal Saline] 1,000 ml Med 10/05/21 12:42 Active IV STAT dexAMETHasone [Decadron] Med 10/06/21 13:00 Ordered 6 mg IVPUSH Q24H guaiFENesin [Robitussin] Med 10/05/21 14:41 Ordered 100 mg PO Q6H PRN Blood Culture x2 Reflex Set [OM.PC] Stat Oth 10/05/21 12:44 Ordered Code Status [Resuscitation Status] Stat Resus Stat 10/05/21 14:29 Ordered Medication Orders Albuterol/Ipratropium (Albuterol/Ipratropium 4 Gm Inhalation [place]) 1 gm INH Q4H IMLAD Dexamethasone (Dexamethasone 4 Mg/Ml Sdv) 6 mg IVPUSH Q24H MILAD Enoxaparin Sodium (Enoxaparin 40 Mg/0.4 Ml Syringe) 40 mg SUBCUT Q24H MILAD Guaifenesin (Guaifenesin 100 Mg/5 Ml Soln 5 Ml Ud Cup) 100 mg PO Q6H PRN PRN Reason: Cough Sodium Chloride (Normal Saline) 1,000 mls @ 100 mls/hr IV STAT ONE Stop: 10/05/21 22:41 Last Admin: 10/05/21 13:31 Dose: 100 mls/hr Documented by: STRUALA Remdesivir 200 mg/ Sodium (Chloride) 250 mls @ 250 mls/hr IV ONETIME ONE Stop: 10/05/21 14:49 Last Admin: 10/05/21 13:59 Dose: 250 mls/hr Documented by: STRUALA Pantoprazole Sodium 40 mg/ (Sodium Chloride) 10 mls @ 300 mls/hr IV DAILY MILAD Remdesivir 100 mg/ Sodium (Chloride) 100 mls @ 100 mls/hr IV Q24H MILAD Stop: 10/09/21 15:44 Ondansetron HCl (Ondansetron 4 Mg/2 Ml Sdv) 4 mg IVPUSH Q4H PRN PRN Reason: Vomiting Assessment/Plan Comment:: Admit the patient to the medical floor, vitals per unit routine, activity up ad radha., clear liquid diet, DVT prophylaxis with Lovenox 40 mg subcutaneously once a day, GI prophylaxis with pantoprazole 40 mg per IV route once a day, the patient is full code. 1. COVID-19 pneumonia -The patient was given remdesivir 200 mg per IV route once in the ED, we will continue with 100 mg per IV route of the same medication starting tomorrow, 1 of 4 bags -The patient was given dexamethasone while in the ED, we will continue with IV Decadron 6 mg starting tomorrow afternoon, every 24 hours -We started Zofran because the patient feels nauseous and is vomiting and can only hold down liquids -Combivent is scheduled and duo nebs are as needed, for shortness of breath -Robitussin is on board for cough -Oxygen will be supplied as needed -We will encourage incentive spirometry in the prone position -Monitor the patient with daily CBC/CMP 2. Hypertension -We will continue the patient's home dose of lisinopril 3. Insomnia -We will continue the patient's home dose of trazodone 4. Anxiety -We will continue the patient's home dose of lorazepam 5. Asthma -We are holding the patient's home medications, duo nebs and Combivent are on board
[2021-10-05] MEDS ORDERED: Albuterol/Ipratropium 3.0-0.5 MG/3 ML Neb Soln NEB PRN (14:50)
[2021-10-05] MEDS ORDERED: LISINOPRIL 2.5 MG PO SCH (15:00)
[2021-10-05] MEDS ORDERED: Losartan 50 MG Tab PO SCH (15:19)
[2021-10-05] MEDS: Albuterol/Ipratropium 4 GM Inhalation Spray INH SCH ×3 (15:32→22:11)
[2021-10-05] MEDS: Pantoprazole 40 MG in Sodium Chloride 0.9% 10 ML IV SCH (15:33)
[2021-10-05] MEDS: Enoxaparin 40 MG/0.4 ML Syringe SUBCUT SCH (15:38)
[2021-10-05] MEDS: guaiFENesin 100 MG/5 ML Soln 5 ML UD Cup PO PRN ×2 (16:22→22:25)
--- NOTE | 2021-10-05 16:29 | PCM.EKG ---
#1 Interpretation EKG Date: 10/05/21 Time: 13:50 Rhythm: Other (sinus tach) Rate (Beats/Min): 110 ST-T: Normal
[2021-10-05] MEDS: LORazepam 1 MG Tab PO PRN (16:41)
[2021-10-05] MEDS: Losartan 50 MG Tab PO SCH (16:42)
[2021-10-05] MEDS: Levofloxacin/Dextrose 5%-Water 750 MG in Premix Bag 1 BAG IV SCH (17:22)
[2021-10-05] MEDS: Ondansetron 4 MG/2 ML SDV IVPUSH PRN (20:49)
[2021-10-05] MEDS: traZODone 50 MG Tab PO SCH (22:11)
[2021-10-06] MEDS: Ondansetron 4 MG/2 ML SDV IVPUSH PRN ×2 (01:19→06:44)
[2021-10-06] MEDS: Albuterol/Ipratropium 4 GM Inhalation Spray INH SCH ×6 (03:37→22:15)
[2021-10-06] MEDS: guaiFENesin 100 MG/5 ML Soln 5 ML UD Cup PO PRN ×3 (06:44→20:10)
[2021-10-06 07:45] LABS: BLOOD UREA NITROGEN,BUN 9 mg/dL (7.0-18.0); CARBON DIOXIDE,CO2 24.2 mmol/L (21.0-32.0); CHLORIDE,CL 105 mmol/L (98-107); GLUCOSE RANDOM 149 mg/dL (74-106); POTASSIUM,K 3.8 mmol/L (3.5-5.1); SODIUM,NA 138 mmol/L (136-145)
[2021-10-06] MEDS: Losartan 50 MG Tab PO SCH (09:00)
[2021-10-06] MEDS: Pantoprazole 40 MG in Sodium Chloride 0.9% 10 ML IV SCH (09:01)
--- NOTE | 2021-10-06 11:26 | PCM.PN ---
- General Info Date of Service: 10/06/21 Subjective Update: The patient is a 35-year-old female, on day 2 of service, who has a significant past medical history of asthma, hypertension, anxiety, and insomnia, who was admitted to the medical floor due to COVID-19 pneumonia. The patient is currently on Vapotherm, oxygen flow rate of 40, FiO2 of 85, and saturating at 92%. The patient upon interview complains of shortness of breath upon rest and on exertion. She is also complaining of a cough productive of clear to white sputum devoid of blood or mucus. The use of baricitinib was explained to the patient along with the risks and benefits and she complied to its use. Both the patient and myself have signed the baricitinib fact sheet and it has been provided to nursing staff. She will be started on baricitinib 4 mg per oral route once a day starting today. She has no other health concerns at this time. - Review of Systems General: Reports: Weakness, Fatigue. Denies: Fever HEENT: Denies: Headaches, Sore Throat, Rhinitis Pulmonary: Reports: Shortness of Breath, Cough, Sputum Cardiovascular: Denies: Chest Pain, Palpitations Gastrointestinal: Denies: Abdominal Pain Genitourinary: Denies: Dysuria - Patient Data Vitals - Most Recent: Last Vital Signs Temp 97.2 F 10/06/21 09:00 Pulse 87 10/06/21 09:00 Resp 18 10/06/21 09:00 BP 136/101 H 10/06/21 09:00 Pulse Ox 92 L 10/06/21 09:00 Weight - Most Recent: 351 lb 3.2 oz I&O - Last 24 Hours: Intake & Output 10/05/21 10/06/21 10/06/21 22:59 06:59 14:59 Intake Total 360 700 Output Total 0 1400 Balance 360 -700 Lab Results Last 24 Hours: Laboratory Results - last 24 hr 10/05/21 10/05/21 10/05/21 Range/Units 13:03 13:11 13:11 WBC 5.15 (4.0-11.0) K/uL RBC 4.62 (4.30-5.90) M/uL Hgb 12.8 (12.0-16.0) g/dL Hct 40.3 (36.0-46.0) % MCV 87.2 (80.0-98.0) fL MCH 27.7 (27.0-32.0) pg MCHC 31.8 (31.0-37.0) g/dL RDW Std Deviation 52.0 (28.0-62.0) fl RDW Coeff of [place] 16 H (11.0-15.0) % Plt Count 194 (150-400) K/uL MPV 10.70 (7.40-12.00) fL Neut % (Auto) 77.5 (48.0-80.0) % Lymph % (Auto) 18.4 (16.0-40.0) % [place] % (Auto) 3.9 (0.0-15.0) % Eos % (Auto) 0.0 (0.0-7.0) % Baso % (Auto) 0.2 (0.0-1.5) % Neut # (Auto) 4.0 (1.4-5.7) K/uL Lymph # (Auto) 1.0 (0.6-2.4) K/uL [place] # (Auto) 0.2 (0.0-0.8) K/uL Eos # (Auto) 0.0 (0.0-0.7) K/uL Baso # (Auto) 0.0 (0.0-0.1) K/uL Nucleated RBC % 0.0 /100WBC Nucleated RBCs # 0 K/uL VBG pH 7.43 H (7.31-7.41) VBG pCO2 38 L (41-51) mmHG VBG pO2 51 mmHG VBG HCO3 26 (23-28) mEq/L VBG Total CO2 23 L (24-29) mmol/L VBG Base Excess 1.3 (-2.0-3.0) Sodium (136-145) mmol/L Potassium (3.5-5.1) mmol/L Chloride (98-107) mmol/L Carbon Dioxide (21.0-32.0) mmol/L BUN (7.0-18.0) mg/dL Creatinine (0.6-1.0) mg/dL Est Cr Clr Drug Dosing mL/min Estimated GFR (MDRD) ml/min Glucose (74-106) mg/dL Lactic Acid 1.1 (0.4-2.0) mmol/L Calcium (8.5-10.1) mg/dL Total Bilirubin (0.2-1.0) mg/dL AST (15-37) IU/L ALT (14-63) IU/L Alkaline Phosphatase (46-116) U/L C-Reactive Protein (0.00-0.90) mg/dL Total Protein (6.4-8.2) g/dL Albumin (3.4-5.0) g/dL Globulin (2.6-4.0) g/dL Albumin/Globulin Ratio (0.9-1.6) Urine Color Urine Appearance Urine pH (5.0-8.0) Ur Specific [place] (1.001-1.035) Urine Protein (NEGATIVE) mg/dL Urine Glucose (UA) (NEGATIVE) mg/dL Urine Ketones (NEGATIVE) mg/dL Urine Occult Blood (NEGATIVE) Urine Nitrite (NEGATIVE) Urine Bilirubin (NEGATIVE) Urine Urobilinogen (<2.0) EU/dL Ur Leukocyte Esterase (NEGATIVE) Urine RBC (0-2/HPF) Urine WBC (0-5/HPF) Ur Epithelial Cells (NONE-FEW) Urine Bacteria (NEGATIVE) Urine Mucus (NONE-MOD) 10/05/21 10/05/21 10/06/21 Range/Units 13:44 16:20 06:45 WBC 4.19 (4.0-11.0) K/uL RBC 4.47 (4.30-5.90) M/uL Hgb 12.6 (12.0-16.0) g/dL Hct 39.5 (36.0-46.0) % MCV 88.4 (80.0-98.0) fL MCH 28.2 (27.0-32.0) pg MCHC 31.9 (31.0-37.0) g/dL RDW Std Deviation 53.8 (28.0-62.0) fl RDW Coeff of [place] 17 H (11.0-15.0) % Plt Count 228 (150-400) K/uL MPV 10.50 (7.40-12.00) fL Neut % (Auto) 55.8 (48.0-80.0) % Lymph % (Auto) 32.5 (16.0-40.0) % [place] % (Auto) 11.5 (0.0-15.0) % Eos % (Auto) 0.0 (0.0-7.0) % Baso % (Auto) 0.2 (0.0-1.5) % Neut # (Auto) 2.3 (1.4-5.7) K/uL Lymph # (Auto) 1.4 (0.6-2.4) K/uL [place] # (Auto) 0.5 (0.0-0.8) K/uL Eos # (Auto) 0.0 (0.0-0.7) K/uL Baso # (Auto) 0.0 (0.0-0.1) K/uL Nucleated RBC % 0.0 /100WBC Nucleated RBCs # 0 K/uL VBG pH (7.31-7.41) VBG pCO2 (41-51) mmHG VBG pO2 mmHG VBG HCO3 (23-28) mEq/L VBG Total CO2 (24-29) mmol/L VBG Base Excess (-2.0-3.0) Sodium 138 (136-145) mmol/L Potassium 4.0 (3.5-5.1) mmol/L Chloride 103 (98-107) mmol/L Carbon Dioxide 25.9 (21.0-32.0) mmol/L BUN 10 (7.0-18.0) mg/dL Creatinine 0.8 (0.6-1.0) mg/dL Est Cr Clr Drug Dosing 94.54 mL/min Estimated GFR (MDRD) > 60.0 ml/min Glucose 142 H (74-106) mg/dL Lactic Acid (0.4-2.0) mmol/L Calcium 7.4 L (8.5-10.1) mg/dL Total Bilirubin 0.3 (0.2-1.0) mg/dL AST 87 H (15-37) IU/L ALT 74 H (14-63) IU/L Alkaline Phosphatase 73 (46-116) U/L C-Reactive Protein (0.00-0.90) mg/dL Total Protein 7.4 (6.4-8.2) g/dL Albumin 2.9 L (3.4-5.0) g/dL Globulin 4.5 H (2.6-4.0) g/dL Albumin/Globulin Ratio 0.6 L (0.9-1.6) Urine Color YELLOW Urine Appearance CLEAR Urine pH 6.0 (5.0-8.0) Ur Specific [place] 1.020 (1.001-1.035) Urine Protein TRACE H (NEGATIVE) mg/dL Urine Glucose (UA) NEGATIVE (NEGATIVE) mg/dL Urine Ketones 40 H (NEGATIVE) mg/dL Urine Occult Blood NEGATIVE (NEGATIVE) Urine Nitrite NEGATIVE (NEGATIVE) Urine Bilirubin NEGATIVE (NEGATIVE) Urine Urobilinogen 0.2 (<2.0) EU/dL Ur Leukocyte Esterase NEGATIVE (NEGATIVE) Urine RBC 0-2 (0-2/HPF) Urine WBC 0-2 (0-5/HPF) Ur Epithelial Cells OCCASIONAL (NONE-FEW) Urine Bacteria FEW (NEGATIVE) Urine Mucus LIGHT (NONE-MOD) 10/06/21 10/06/21 Range/Units 06:45 06:45 WBC (4.0-11.0) K/uL RBC (4.30-5.90) M/uL Hgb (12.0-16.0) g/dL Hct (36.0-46.0) % MCV (80.0-98.0) fL MCH (27.0-32.0) pg MCHC (31.0-37.0) g/dL RDW Std Deviation (28.0-62.0) fl RDW Coeff of [place] (11.0-15.0) % Plt Count (150-400) K/uL MPV (7.40-12.00) fL Neut % (Auto) (48.0-80.0) % Lymph % (Auto) (16.0-40.0) % [place] % (Auto) (0.0-15.0) % Eos % (Auto) (0.0-7.0) % Baso % (Auto) (0.0-1.5) % Neut # (Auto) (1.4-5.7) K/uL Lymph # (Auto) (0.6-2.4) K/uL [place] # (Auto) (0.0-0.8) K/uL Eos # (Auto) (0.0-0.7) K/uL Baso # (Auto) (0.0-0.1) K/uL Nucleated RBC % /100WBC Nucleated RBCs # K/uL VBG pH (7.31-7.41) VBG pCO2 (41-51) mmHG VBG pO2 mmHG VBG HCO3 (23-28) mEq/L VBG Total CO2 (24-29) mmol/L VBG Base Excess (-2.0-3.0) Sodium 138 (136-145) mmol/L Potassium 3.8 (3.5-5.1) mmol/L Chloride 105 (98-107) mmol/L Carbon Dioxide 24.2 (21.0-32.0) mmol/L BUN 9 (7.0-18.0) mg/dL Creatinine 0.8 (0.6-1.0) mg/dL Est Cr Clr Drug Dosing 94.54 mL/min Estimated GFR (MDRD) > 60.0 ml/min Glucose 149 H (74-106) mg/dL Lactic Acid (0.4-2.0) mmol/L Calcium 7.9 L (8.5-10.1) mg/dL Total Bilirubin 0.2 (0.2-1.0) mg/dL AST 74 H (15-37) IU/L ALT 77 H (14-63) IU/L Alkaline Phosphatase 61 (46-116) U/L C-Reactive Protein 8.90 H (0.00-0.90) mg/dL Total Protein 7.3 (6.4-8.2) g/dL Albumin 2.7 L (3.4-5.0) g/dL Globulin 4.6 H (2.6-4.0) g/dL Albumin/Globulin Ratio 0.6 L (0.9-1.6) Urine Color Urine Appearance Urine pH (5.0-8.0) Ur Specific [place] (1.001-1.035) Urine Protein (NEGATIVE) mg/dL Urine Glucose (UA) (NEGATIVE) mg/dL Urine Ketones (NEGATIVE) mg/dL Urine Occult Blood (NEGATIVE) Urine Nitrite (NEGATIVE) Urine Bilirubin (NEGATIVE) Urine Urobilinogen (<2.0) EU/dL Ur Leukocyte Esterase (NEGATIVE) Urine RBC (0-2/HPF) Urine WBC (0-5/HPF) Ur Epithelial Cells (NONE-FEW) Urine Bacteria (NEGATIVE) Urine Mucus (NONE-MOD) Med Orders - Current: Current Medications Albuterol/Ipratropium (Albuterol/Ipratropium 4 Gm Inhalation [place]) 1 gm INH Q4H [facility] Last Admin: 10/06/21 11:01 Dose: 1 puff Documented by: Albuterol/Ipratropium (Albuterol/Ipratropium 3.0-0.5 Mg/3 Ml Neb Soln) 3 ml NEB Q4HRRT PRN PRN Reason: Shortness of Breath Baricitinib (Baricitinib 2 Mg Tab) 4 mg PO DAILY [facility] Last Admin: 10/06/21 11:00 Dose: 4 mg Documented by: Dexamethasone (Dexamethasone 4 Mg/Ml Sdv) 6 mg IVPUSH Q24H [facility] Enoxaparin Sodium (Enoxaparin 40 Mg/0.4 Ml Syringe) 40 mg SUBCUT Q24H [facility] Last Admin: 10/05/21 15:38 Dose: 40 mg Documented by: Guaifenesin (Guaifenesin 100 Mg/5 Ml Soln 5 Ml Ud Cup) 100 mg PO Q6H PRN PRN Reason: Cough Last Admin: 10/06/21 06:44 Dose: 100 mg Documented by: Pantoprazole Sodium 40 mg/ (Sodium Chloride) 10 mls @ 300 mls/hr IV DAILY [facility] Last Admin: 10/06/21 09:01 Dose: 300 mls/hr Documented by: Remdesivir 100 mg/ Sodium (Chloride) 100 mls @ 100 mls/hr IV Q24H [facility] Stop: 10/09/21 15:44 Levofloxacin/Dextrose 750 mg/ (Premix) 150 mls @ 100 mls/hr IV Q24H [facility] Last Admin: 10/05/21 17:22 Dose: 100 mls/hr Documented by: Lorazepam (Lorazepam 1 Mg Tab) 1 mg PO BID PRN PRN Reason: anxiety Last Admin: 10/05/21 16:41 Dose: 1 mg Documented by: Losartan Potassium (Losartan 50 Mg Tab) 100 mg PO DAILY [facility] Last Admin: 10/06/21 09:00 Dose: 100 mg Documented by: Ondansetron HCl (Ondansetron 4 Mg/2 Ml Sdv) 4 mg IVPUSH Q4H PRN PRN Reason: Vomiting Last Admin: 10/06/21 06:44 Dose: 4 mg Documented by: Trazodone HCl (Trazodone 50 Mg Tab) 150 mg PO BEDTIME [facility] Last Admin: 10/05/21 22:11 Dose: 150 mg Documented by: Discontinued Medications Acetaminophen (Acetaminophen 500 Mg Tab) 1,000 mg PO ONETIME ONE Stop: 10/05/21 12:44 Last Admin: 10/05/21 13:25 Dose: 1,000 mg Documented by: Dexamethasone (Dexamethasone 4 Mg/Ml Sdv) 6 mg IVPUSH ONETIME ONE Stop: 10/05/21 13:16 Last Admin: 10/05/21 13:31 Dose: 6 mg Documented by: Sodium Chloride (Normal Saline) 1,000 mls @ 100 mls/hr IV STAT ONE Stop: 10/05/21 22:41 Last Admin: 10/05/21 13:31 Dose: 100 mls/hr Documented by: Remdesivir 200 mg/ Sodium (Chloride) 250 mls @ 250 mls/hr IV ONETIME ONE Stop: 10/05/21 13:16 Last Admin: 10/05/21 13:54 Dose: Not Given Documented by: Remdesivir 200 mg/ Sodium (Chloride) 250 mls @ 250 mls/hr IV ONETIME ONE Stop: 10/05/21 14:49 Last Admin: 10/05/21 13:59 Dose: 250 mls/hr Documented by: Losartan Potassium (Losartan 50 Mg Tab) 100 mg PO DAILY [facility] Non-Formulary Medication (Lisinopril) 10 mg PO DAILY [facility] Last Admin: 10/05/21 15:42 Dose: Not Given Documented by: Ondansetron HCl (Ondansetron 4 Mg/2 Ml Sdv) 4 mg IVPUSH ONETIME ONE Stop: 10/05/21 12:44 Last Admin: 10/05/21 13:22 Dose: 4 mg Documented by: - Exam General: Alert, Oriented, Mild Distress HEENT: Mucous Membr. Moist/[place] Neck: Trachea Midline Lungs: Wheezing Cardiovascular: Regular Rate, Regular Rhythm GI/Abdominal Exam: Normal Bowel Sounds, Soft, Non-Tender Extremities: No Pedal Edema - Patient Data Lab Results Last 24 hrs: Laboratory Results - last 24 hr 10/05/21 10/05/21 10/05/21 Range/Units 13:03 13:11 13:11 WBC 5.15 (4.0-11.0) K/uL RBC 4.62 (4.30-5.90) M/uL Hgb 12.8 (12.0-16.0) g/dL Hct 40.3 (36.0-46.0) % MCV 87.2 (80.0-98.0) fL MCH 27.7 (27.0-32.0) pg MCHC 31.8 (31.0-37.0) g/dL RDW Std Deviation 52.0 (28.0-62.0) fl RDW Coeff of [place] 16 H (11.0-15.0) % Plt Count 194 (150-400) K/uL MPV 10.70 (7.40-12.00) fL Neut % (Auto) 77.5 (48.0-80.0) % Lymph % (Auto) 18.4 (16.0-40.0) % [place] % (Auto) 3.9 (0.0-15.0) % Eos % (Auto) 0.0 (0.0-7.0) % Baso % (Auto) 0.2 (0.0-1.5) % Neut # (Auto) 4.0 (1.4-5.7) K/uL Lymph # (Auto) 1.0 (0.6-2.4) K/uL [place] # (Auto) 0.2 (0.0-0.8) K/uL Eos # (Auto) 0.0 (0.0-0.7) K/uL Baso # (Auto) 0.0 (0.0-0.1) K/uL Nucleated RBC % 0.0 /100WBC Nucleated RBCs # 0 K/uL VBG pH 7.43 H (7.31-7.41) VBG pCO2 38 L (41-51) mmHG VBG pO2 51 mmHG VBG HCO3 26 (23-28) mEq/L VBG Total CO2 23 L (24-29) mmol/L VBG Base Excess 1.3 (-2.0-3.0) Sodium (136-145) mmol/L Potassium (3.5-5.1) mmol/L Chloride (98-107) mmol/L Carbon Dioxide (21.0-32.0) mmol/L BUN (7.0-18.0) mg/dL Creatinine (0.6-1.0) mg/dL Est Cr Clr Drug Dosing mL/min Estimated GFR (MDRD) ml/min Glucose (74-106) mg/dL Lactic Acid 1.1 (0.4-2.0) mmol/L Calcium (8.5-10.1) mg/dL Total Bilirubin (0.2-1.0) mg/dL AST (15-37) IU/L ALT (14-63) IU/L Alkaline Phosphatase (46-116) U/L C-Reactive Protein (0.00-0.90) mg/dL Total Protein (6.4-8.2) g/dL Albumin (3.4-5.0) g/dL Globulin (2.6-4.0) g/dL Albumin/Globulin Ratio (0.9-1.6) Urine Color Urine Appearance Urine pH (5.0-8.0) Ur Specific [place] (1.001-1.035) Urine Protein (NEGATIVE) mg/dL Urine Glucose (UA) (NEGATIVE) mg/dL Urine Ketones (NEGATIVE) mg/dL Urine Occult Blood (NEGATIVE) Urine Nitrite (NEGATIVE) Urine Bilirubin (NEGATIVE) Urine Urobilinogen (<2.0) EU/dL Ur Leukocyte Esterase (NEGATIVE) Urine RBC (0-2/HPF) Urine WBC (0-5/HPF) Ur Epithelial Cells (NONE-FEW) Urine Bacteria (NEGATIVE) Urine Mucus (NONE-MOD) 10/05/21 10/05/21 10/06/21 Range/Units 13:44 16:20 06:45 WBC 4.19 (4.0-11.0) K/uL RBC 4.47 (4.30-5.90) M/uL Hgb 12.6 (12.0-16.0) g/dL Hct 39.5 (36.0-46.0) % MCV 88.4 (80.0-98.0) fL MCH 28.2 (27.0-32.0) pg MCHC 31.9 (31.0-37.0) g/dL RDW Std Deviation 53.8 (28.0-62.0) fl RDW Coeff of [place] 17 H (11.0-15.0) % Plt Count 228 (150-400) K/uL MPV 10.50 (7.40-12.00) fL Neut % (Auto) 55.8 (48.0-80.0) % Lymph % (Auto) 32.5 (16.0-40.0) % [place] % (Auto) 11.5 (0.0-15.0) % Eos % (Auto) 0.0 (0.0-7.0) % Baso % (Auto) 0.2 (0.0-1.5) % Neut # (Auto) 2.3 (1.4-5.7) K/uL Lymph # (Auto) 1.4 (0.6-2.4) K/uL [place] # (Auto) 0.5 (0.0-0.8) K/uL Eos # (Auto) 0.0 (0.0-0.7) K/uL Baso # (Auto) 0.0 (0.0-0.1) K/uL Nucleated RBC % 0.0 /100WBC Nucleated RBCs # 0 K/uL VBG pH (7.31-7.41) VBG pCO2 (41-51) mmHG VBG pO2 mmHG VBG HCO3 (23-28) mEq/L VBG Total CO2 (24-29) mmol/L VBG Base Excess (-2.0-3.0) Sodium 138 (136-145) mmol/L Potassium 4.0 (3.5-5.1) mmol/L Chloride 103 (98-107) mmol/L Carbon Dioxide 25.9 (21.0-32.0) mmol/L BUN 10 (7.0-18.0) mg/dL Creatinine 0.8 (0.6-1.0) mg/dL Est Cr Clr Drug Dosing 94.54 mL/min Estimated GFR (MDRD) > 60.0 ml/min Glucose 142 H (74-106) mg/dL Lactic Acid (0.4-2.0) mmol/L Calcium 7.4 L (8.5-10.1) mg/dL Total Bilirubin 0.3 (0.2-1.0) mg/dL AST 87 H (15-37) IU/L ALT 74 H (14-63) IU/L Alkaline Phosphatase 73 (46-116) U/L C-Reactive Protein (0.00-0.90) mg/dL Total Protein 7.4 (6.4-8.2) g/dL Albumin 2.9 L (3.4-5.0) g/dL Globulin 4.5 H (2.6-4.0) g/dL Albumin/Globulin Ratio 0.6 L (0.9-1.6) Urine Color YELLOW Urine Appearance CLEAR Urine pH 6.0 (5.0-8.0) Ur Specific [place] 1.020 (1.001-1.035) Urine Protein TRACE H (NEGATIVE) mg/dL Urine Glucose (UA) NEGATIVE (NEGATIVE) mg/dL Urine Ketones 40 H (NEGATIVE) mg/dL Urine Occult Blood NEGATIVE (NEGATIVE) Urine Nitrite NEGATIVE (NEGATIVE) Urine Bilirubin NEGATIVE (NEGATIVE) Urine Urobilinogen 0.2 (<2.0) EU/dL Ur Leukocyte Esterase NEGATIVE (NEGATIVE) Urine RBC 0-2 (0-2/HPF) Urine WBC 0-2 (0-5/HPF) Ur Epithelial Cells OCCASIONAL (NONE-FEW) Urine Bacteria FEW (NEGATIVE) Urine Mucus LIGHT (NONE-MOD) 10/06/21 10/06/21 Range/Units 06:45 06:45 WBC (4.0-11.0) K/uL RBC (4.30-5.90) M/uL Hgb (12.0-16.0) g/dL Hct (36.0-46.0) % MCV (80.0-98.0) fL MCH (27.0-32.0) pg MCHC (31.0-37.0) g/dL RDW Std Deviation (28.0-62.0) fl RDW Coeff of [place] (11.0-15.0) % Plt Count (150-400) K/uL MPV (7.40-12.00) fL Neut % (Auto) (48.0-80.0) % Lymph % (Auto) (16.0-40.0) % [place] % (Auto) (0.0-15.0) % Eos % (Auto) (0.0-7.0) % Baso % (Auto) (0.0-1.5) % Neut # (Auto) (1.4-5.7) K/uL Lymph # (Auto) (0.6-2.4) K/uL [place] # (Auto) (0.0-0.8) K/uL Eos # (Auto) (0.0-0.7) K/uL Baso # (Auto) (0.0-0.1) K/uL Nucleated RBC % /100WBC Nucleated RBCs # K/uL VBG pH (7.31-7.41) VBG pCO2 (41-51) mmHG VBG pO2 mmHG VBG HCO3 (23-28) mEq/L VBG Total CO2 (24-29) mmol/L VBG Base Excess (-2.0-3.0) Sodium 138 (136-145) mmol/L Potassium 3.8 (3.5-5.1) mmol/L Chloride 105 (98-107) mmol/L Carbon Dioxide 24.2 (21.0-32.0) mmol/L BUN 9 (7.0-18.0) mg/dL Creatinine 0.8 (0.6-1.0) mg/dL Est Cr Clr Drug Dosing 94.54 mL/min Estimated GFR (MDRD) > 60.0 ml/min Glucose 149 H (74-106) mg/dL Lactic Acid (0.4-2.0) mmol/L Calcium 7.9 L (8.5-10.1) mg/dL Total Bilirubin 0.2 (0.2-1.0) mg/dL AST 74 H (15-37) IU/L ALT 77 H (14-63) IU/L Alkaline Phosphatase 61 (46-116) U/L C-Reactive Protein 8.90 H (0.00-0.90) mg/dL Total Protein 7.3 (6.4-8.2) g/dL Albumin 2.7 L (3.4-5.0) g/dL Globulin 4.6 H (2.6-4.0) g/dL Albumin/Globulin Ratio 0.6 L (0.9-1.6) Urine Color Urine Appearance Urine pH (5.0-8.0) Ur Specific [place] (1.001-1.035) Urine Protein (NEGATIVE) mg/dL Urine Glucose (UA) (NEGATIVE) mg/dL Urine Ketones (NEGATIVE) mg/dL Urine Occult Blood (NEGATIVE) Urine Nitrite (NEGATIVE) Urine Bilirubin (NEGATIVE) Urine Urobilinogen (<2.0) EU/dL Ur Leukocyte Esterase (NEGATIVE) Urine RBC (0-2/HPF) Urine WBC (0-5/HPF) Ur Epithelial Cells (NONE-FEW) Urine Bacteria (NEGATIVE) Urine Mucus (NONE-MOD) Result Diagrams: 10/06/21 06:45 10/06/21 06:45 Sepsis Event Note - Evaluation Sepsis Screening Result: No Definite Risk - Focused Exam Vital Signs: Vital Signs Temp Pulse Resp BP BP BP Pulse Ox 10/06/21 09:00 97.2 F 87 18 136/101 H 136/101 H 92 L 10/06/21 03:38 97.4 F 20 115/67 92 L - Problem List & Annotations (1) HTN (hypertension) SNOMED Code(s): 18995878 Code(s): I10 - ESSENTIAL (PRIMARY) HYPERTENSION Status: Acute Current Visit: Yes (2) Anxiety SNOMED Code(s): 41465745 Code(s): F41.9 - ANXIETY DISORDER, UNSPECIFIED Status: Acute Current Visit: Yes (3) Insomnia SNOMED Code(s): 580437366 Code(s): G47.00 - INSOMNIA, UNSPECIFIED Status: Acute Current Visit: Yes (4) Hypoxia SNOMED Code(s): 568547539 Code(s): R09.02 - HYPOXEMIA Status: Acute Current Visit: Yes (5) Pneumonia due to COVID-19 virus SNOMED Code(s): 875173314196696255 Code(s): U07.1 - COVID-19; J12.82 - PNEUMONIA DUE TO CORONAVIRUS DISEASE 2019 Status: Acute Current Visit: Yes (6) Asthma SNOMED Code(s): 183704081 Code(s): J45.909 - UNSPECIFIED ASTHMA, UNCOMPLICATED Status: Acute Current Visit: No Qualifiers: Asthma severity: unspecified severity Asthma complication type: with acute exacerbation (7) Vomiting SNOMED Code(s): 086904562 Code(s): R11.10 - VOMITING, UNSPECIFIED Status: Acute Current Visit: No - Problem List Review Problem List Initiated/Reviewed/Updated: Yes - My Orders Last 24 Hours: My Active Orders 10/05/21 14:29 Code Status [Resuscitation Status] Stat 10/05/21 14:33 Ondansetron [Zofran] 4 mg IVPUSH Q4H PRN 10/05/21 14:40 RT Post Treatment Assessment [RC] Click to Edit RT Pre-Treatment Assessment [RC] Click to Edit 10/05/21 14:41 [email or web address] [Robitussin] 100 mg PO Q6H PRN 10/05/21 14:45 Albuterol/Ipratropium [Combivent Respimat] 1 gm INH Q4H Enoxaparin [Lovenox] 40 mg SUBCUT Q24H Pantoprazole [ProTONIX IV] 40 mg Sodium Chloride 0.9% [Normal Saline] 10 ml IV DAILY 10/05/21 14:48 LORazepam [Ativan] 1 mg PO BID PRN 10/05/21 14:50 RT Aerosol Therapy [RC] ASDIRECTED Albuterol/Ipratropium [DuoNeb 3.0-0.5 MG/3 ML] 3 ml NEB Q4HRRT PRN 10/05/21 16:40 Losartan [Cozaar] 100 mg PO DAILY 10/05/21 17:15 Levofloxacin/Dextrose 5%-Water [Levaquin in D5W 750 MG/150 ML] 750 mg Premix Bag 1 bag IV Q24H 10/05/21 21:00 traZODone 150 mg PO BEDTIME 10/06/21 09:30 Baricitinib [Olumiant] 4 mg PO DAILY 10/06/21 Lunch Soft Diet [DIET] 10/06/21 13:00 dexAMETHasone [Decadron] 6 mg IVPUSH Q24H 10/06/21 14:45 Remdesivir 100 mg Sodium Chloride 0.9% [Normal Saline AdvBag] 100 ml IV Q24H 10/07/21 05:11 CBC WITH AUTO DIFF [HEME] AM CMP [COMPREHENSIVE METABOLIC PN,CMP] [CHEM] AM 10/08/21 05:11 CBC WITH AUTO DIFF [HEME] AM CMP [COMPREHENSIVE METABOLIC PN,CMP] [CHEM] AM - Plan Plan:: 1. COVID-19 pneumonia -Continue remdesivir 100 mg per IV route once a day -Continue dexamethasone per IV route 6 mg -Start baricitinib 4 mg per oral route once a day -Continue Zofran -Patient would like a soft diet and as a result it has been progressed from a clear liquid -Combivent is scheduled and duo nebs are as needed, for shortness of breath -Robitussin is on board for cough -Oxygen will be supplied as needed -We will encourage incentive spirometry in the prone position -Monitor the patient with daily CBC/CMP 2. Hypertension -We will continue the patient's home dose of lisinopril 3. Insomnia -We will continue the patient's home dose of trazodone 4. Anxiety -We will continue the patient's home dose of lorazepam 5. Asthma -Duo nebs and Combivent are on board
[2021-10-06] MEDS: Dexamethasone 4 MG/ML SDV IVPUSH SCH (13:30)
[2021-10-06] MEDS: Enoxaparin 40 MG/0.4 ML Syringe SUBCUT SCH (15:18)
[2021-10-06] MEDS: REMDESIVIR 100 MG in Sodium Chloride 0.9% 100 ML IV SCH (15:19)
[2021-10-06] MEDS: LORazepam 1 MG Tab PO PRN (15:47)
[2021-10-06] MEDS: Levofloxacin/Dextrose 5%-Water 750 MG in Premix Bag 1 BAG IV SCH (17:28)
[2021-10-06] MEDS: Cyclobenzaprine 10 MG Tab PO PRN (22:11)
[2021-10-06] MEDS: traMADol 50 MG Tab PO PRN (22:13)
[2021-10-06] MEDS: traZODone 50 MG Tab PO SCH (22:14)
[2021-10-07] MEDS: Albuterol/Ipratropium 4 GM Inhalation Spray INH SCH ×6 (03:34→22:09)
[2021-10-07] MEDS: guaiFENesin 100 MG/5 ML Soln 5 ML UD Cup PO PRN ×3 (07:36→21:19)
[2021-10-07 07:59] LABS: BLOOD UREA NITROGEN,BUN 13 mg/dL (7.0-18.0); CARBON DIOXIDE,CO2 25.8 mmol/L (21.0-32.0); CHLORIDE,CL 107 mmol/L (98-107); GLUCOSE RANDOM 138 mg/dL (74-106); SODIUM,NA 141 mmol/L (136-145)
--- NOTE | 2021-10-07 08:48 | PCM.PN ---
- General Info Date of Service: 10/07/21 Subjective Update: The patient is a 35-year-old female, on day 3 of service, who has a significant past medical history of asthma, hypertension, anxiety, and insomnia, who was admitted to the medical floor due to COVID-19 pneumonia. The patient is currently on Vapotherm, oxygen flow rate of 40, FiO2 of 75, and saturating at 94%. The patient continues to have shortness of breath at rest and even with slight exertion to her commode. She has had coughing spells throughout the night and even upon interview today with the patient she was expectorating clear sputum. She is tolerating her soft diet well and has no issues with urination and/or defecation. She denies fever, chest pain, palpitations, nausea, and vomiting. She has no other health concerns at this time. - Review of Systems General: Reports: Weakness, Fatigue. Denies: Fever, Chills HEENT: Denies: Headaches, Sore Throat Pulmonary: Reports: Shortness of Breath, Cough, Sputum Cardiovascular: Denies: Chest Pain, Palpitations Gastrointestinal: Denies: Abdominal Pain Genitourinary: Denies: Dysuria - Patient Data Vitals - Most Recent: Last Vital Signs Temp 97.2 F 10/07/21 03:31 Pulse 61 10/07/21 03:31 Resp 24 H 10/07/21 03:31 BP 126/63 10/07/21 03:31 Pulse Ox 94 L 10/07/21 03:39 Weight - Most Recent: 351 lb 3.2 oz I&O - Last 24 Hours: Intake & Output 10/06/21 10/07/21 10/07/21 22:59 06:59 14:59 Intake Total 800 Output Total 900 Balance -100 Lab Results Last 24 Hours: Laboratory Results - last 24 hr 10/07/21 Range/Units 06:21 Sodium 141 (136-145) mmol/L Potassium 4.0 (3.5-5.1) mmol/L Chloride 107 (98-107) mmol/L Carbon Dioxide 25.8 (21.0-32.0) mmol/L BUN 13 (7.0-18.0) mg/dL Creatinine 0.6 (0.6-1.0) mg/dL Est Cr Clr Drug Dosing 126.05 mL/min Estimated GFR (MDRD) > 60.0 ml/min Glucose 138 H (74-106) mg/dL Calcium 8.0 L (8.5-10.1) mg/dL Total Bilirubin 0.3 (0.2-1.0) mg/dL AST 59 H (15-37) IU/L ALT 70 H (14-63) IU/L Alkaline Phosphatase 54 (46-116) U/L Total Protein 7.1 (6.4-8.2) g/dL Albumin 2.6 L (3.4-5.0) g/dL Globulin 4.5 H (2.6-4.0) g/dL Albumin/Globulin Ratio 0.6 L (0.9-1.6) Fernie Results Last 24 Hours: Microbiology 10/05/21 13:21 Aerobic Blood Culture - Preliminary Blood - Venous - Lab Draw NO GROWTH AFTER 1 DAY Anaerobic Blood Culture - Preliminary NO GROWTH AFTER 1 DAY 10/05/21 13:11 Aerobic Blood Culture - Preliminary Blood - Venous NO GROWTH AFTER 1 DAY Anaerobic Blood Culture - Preliminary NO GROWTH AFTER 1 DAY Med Orders - Current: Current Medications Albuterol/Ipratropium (Albuterol/Ipratropium 4 Gm Inhalation [place]) 1 gm INH Q4H [facility] Last Admin: 10/07/21 07:27 Dose: 1 puff Documented by: Albuterol/Ipratropium (Albuterol/Ipratropium 3.0-0.5 Mg/3 Ml Neb Soln) 3 ml NEB Q4HRRT PRN PRN Reason: Shortness of Breath Baricitinib (Baricitinib 2 Mg Tab) 4 mg PO DAILY [facility] Last Admin: 10/06/21 11:00 Dose: 4 mg Documented by: Cyclobenzaprine HCl (Cyclobenzaprine 10 Mg Tab) 10 mg PO TID PRN PRN Reason: muscle spasms Last Admin: 10/06/21 22:11 Dose: 10 mg Documented by: Dexamethasone (Dexamethasone 4 Mg/Ml Sdv) 6 mg IVPUSH Q24H [facility] Last Admin: 10/06/21 13:30 Dose: 6 mg Documented by: Enoxaparin Sodium (Enoxaparin 40 Mg/0.4 Ml Syringe) 40 mg SUBCUT Q12H [facility] Guaifenesin (Guaifenesin 100 Mg/5 Ml Soln 5 Ml Ud Cup) 100 mg PO Q6H PRN PRN Reason: Cough Last Admin: 10/07/21 07:36 Dose: 100 mg Documented by: Pantoprazole Sodium 40 mg/ (Sodium Chloride) 10 mls @ 300 mls/hr IV DAILY [facility] Last Admin: 10/06/21 09:01 Dose: 300 mls/hr Documented by: Remdesivir 100 mg/ Sodium (Chloride) 100 mls @ 100 mls/hr IV Q24H [facility] Stop: 10/09/21 15:44 Last Admin: 10/06/21 15:19 Dose: 100 mls/hr Documented by: Levofloxacin/Dextrose 750 mg/ (Premix) 150 mls @ 100 mls/hr IV Q24H [facility] Last Admin: 10/06/21 17:28 Dose: 100 mls/hr Documented by: Lorazepam (Lorazepam 1 Mg Tab) 1 mg PO BID PRN PRN Reason: anxiety Last Admin: 10/06/21 15:47 Dose: 1 mg Documented by: Losartan Potassium (Losartan 50 Mg Tab) 100 mg PO DAILY [facility] Last Admin: 10/06/21 09:00 Dose: 100 mg Documented by: Ondansetron HCl (Ondansetron 4 Mg/2 Ml Sdv) 4 mg IVPUSH Q4H PRN PRN Reason: Vomiting Last Admin: 10/06/21 06:44 Dose: 4 mg Documented by: Tramadol HCl (Tramadol 50 Mg Tab) 50 mg PO BID PRN PRN Reason: Pain Last Admin: 10/06/21 22:13 Dose: 50 mg Documented by: Trazodone HCl (Trazodone 50 Mg Tab) 150 mg PO BEDTIME [facility] Last Admin: 10/06/21 22:14 Dose: Not Given Documented by: Discontinued Medications Acetaminophen (Acetaminophen 500 Mg Tab) 1,000 mg PO ONETIME ONE Stop: 10/05/21 12:44 Last Admin: 10/05/21 13:25 Dose: 1,000 mg Documented by: Dexamethasone (Dexamethasone 4 Mg/Ml Sdv) 6 mg IVPUSH ONETIME ONE Stop: 10/05/21 13:16 Last Admin: 10/05/21 13:31 Dose: 6 mg Documented by: Enoxaparin Sodium (Enoxaparin 40 Mg/0.4 Ml Syringe) 40 mg SUBCUT Q24H [facility] Last Admin: 10/06/21 15:18 Dose: 40 mg Documented by: Sodium Chloride (Normal Saline) 1,000 mls @ 100 mls/hr IV STAT ONE Stop: 10/05/21 22:41 Last Admin: 10/05/21 13:31 Dose: 100 mls/hr Documented by: Remdesivir 200 mg/ Sodium (Chloride) 250 mls @ 250 mls/hr IV ONETIME ONE Stop: 10/05/21 13:16 Last Admin: 10/05/21 13:54 Dose: Not Given Documented by: Remdesivir 200 mg/ Sodium (Chloride) 250 mls @ 250 mls/hr IV ONETIME ONE Stop: 10/05/21 14:49 Last Admin: 10/05/21 13:59 Dose: 250 mls/hr Documented by: Losartan Potassium (Losartan 50 Mg Tab) 100 mg PO DAILY [facility] Non-Formulary Medication (Lisinopril) 10 mg PO DAILY [facility] Last Admin: 10/05/21 15:42 Dose: Not Given Documented by: Ondansetron HCl (Ondansetron 4 Mg/2 Ml Sdv) 4 mg IVPUSH ONETIME ONE Stop: 10/05/21 12:44 Last Admin: 10/05/21 13:22 Dose: 4 mg Documented by: - Exam General: Alert, Oriented, Cooperative HEENT: Mucous Membr. Moist/[place] Neck: Trachea Midline Lungs: Wheezing Cardiovascular: Regular Rate, Regular Rhythm GI/Abdominal Exam: Normal Bowel Sounds, Soft, Non-Tender - Patient Data Lab Results Last 24 hrs: Laboratory Results - last 24 hr 10/07/21 Range/Units 06:21 Sodium 141 (136-145) mmol/L Potassium 4.0 (3.5-5.1) mmol/L Chloride 107 (98-107) mmol/L Carbon Dioxide 25.8 (21.0-32.0) mmol/L BUN 13 (7.0-18.0) mg/dL Creatinine 0.6 (0.6-1.0) mg/dL Est Cr Clr Drug Dosing 126.05 mL/min Estimated GFR (MDRD) > 60.0 ml/min Glucose 138 H (74-106) mg/dL Calcium 8.0 L (8.5-10.1) mg/dL Total Bilirubin 0.3 (0.2-1.0) mg/dL AST 59 H (15-37) IU/L ALT 70 H (14-63) IU/L Alkaline Phosphatase 54 (46-116) U/L Total Protein 7.1 (6.4-8.2) g/dL Albumin 2.6 L (3.4-5.0) g/dL Globulin 4.5 H (2.6-4.0) g/dL Albumin/Globulin Ratio 0.6 L (0.9-1.6) Result Diagrams: 10/06/21 06:45 10/07/21 06:21 Fernie Results Last 24 hrs: Microbiology 10/05/21 13:21 Aerobic Blood Culture - Preliminary Blood - Venous - Lab Draw NO GROWTH AFTER 1 DAY Anaerobic Blood Culture - Preliminary NO GROWTH AFTER 1 DAY 10/05/21 13:11 Aerobic Blood Culture - Preliminary Blood - Venous NO GROWTH AFTER 1 DAY Anaerobic Blood Culture - Preliminary NO GROWTH AFTER 1 DAY Sepsis Event Note - Evaluation Sepsis Screening Result: No Definite Risk - Focused Exam Vital Signs: Vital Signs Temp Pulse Resp BP Pulse Ox 10/07/21 03:39 94 L 10/07/21 03:31 97.2 F 61 24 H 126/63 97 10/06/21 23:57 97.6 F 67 21 H 125/83 94 L - Problem List & Annotations (1) HTN (hypertension) SNOMED Code(s): 45166782 Code(s): I10 - ESSENTIAL (PRIMARY) HYPERTENSION Status: Acute Current Visit: Yes (2) Anxiety SNOMED Code(s): 10723044 Code(s): F41.9 - ANXIETY DISORDER, UNSPECIFIED Status: Acute Current Visit: Yes (3) Insomnia SNOMED Code(s): 038827812 Code(s): G47.00 - INSOMNIA, UNSPECIFIED Status: Acute Current Visit: Yes (4) Hypoxia SNOMED Code(s): 083813975 Code(s): R09.02 - HYPOXEMIA Status: Acute Current Visit: Yes (5) Pneumonia due to COVID-19 virus SNOMED Code(s): 036448971745734998 Code(s): U07.1 - COVID-19; J12.82 - PNEUMONIA DUE TO CORONAVIRUS DISEASE 2019 Status: Acute Current Visit: Yes (6) Asthma SNOMED Code(s): 994769918 Code(s): J45.909 - UNSPECIFIED ASTHMA, UNCOMPLICATED Status: Acute Current Visit: No Qualifiers: Asthma severity: unspecified severity Asthma complication type: with acute exacerbation (7) Vomiting SNOMED Code(s): 620893192 Code(s): R11.10 - VOMITING, UNSPECIFIED Status: Acute Current Visit: No - Problem List Review Problem List Initiated/Reviewed/Updated: Yes - My Orders Last 24 Hours: My Active Orders 10/06/21 09:30 Baricitinib [Olumiant] 4 mg PO DAILY 10/06/21 Lunch Soft Diet [DIET] 10/06/21 13:00 dexAMETHasone [Decadron] 6 mg IVPUSH Q24H 10/06/21 14:45 Remdesivir 100 mg Sodium Chloride 0.9% [Normal Saline AdvBag] 100 ml IV Q24H 10/07/21 06:21 CBC WITH AUTO DIFF [HEME] AM 10/08/21 05:11 CBC WITH AUTO DIFF [HEME] AM CMP [COMPREHENSIVE METABOLIC PN,CMP] [CHEM] AM - Plan Plan:: 1. COVID-19 pneumonia -Continue remdesivir 100 mg per IV route -Continue dexamethasone per IV route 6 mg -Continue baricitinib 4 mg per oral route -Continue Zofran -Continue soft diet -Combivent is scheduled and duo nebs are as needed, for shortness of breath -Robitussin is on board for cough -Oxygen supplied as needed -Encourage incentive spirometry in the prone position -Monitor daily CBC/CMP 2. Hypertension -We will continue the patient's home dose of lisinopril 3. Insomnia -We will continue the patient's home dose of trazodone 4. Anxiety -We will continue the patient's home dose of lorazepam 5. Asthma -Duo nebs and Combivent are on board
[2021-10-07] MEDS: Enoxaparin 40 MG/0.4 ML Syringe SUBCUT SCH ×2 (08:59→21:19)
[2021-10-07] MEDS: Pantoprazole 40 MG in Sodium Chloride 0.9% 10 ML IV SCH (09:00)
[2021-10-07] MEDS: Losartan 50 MG Tab PO SCH (09:03)
[2021-10-07] MEDS: Ondansetron 4 MG/2 ML SDV IVPUSH PRN ×2 (09:04→21:19)
[2021-10-07] MEDS ORDERED: Iopamidol 755 MG/ML 500 ML Multipack Bottle IVPUSH STA (11:43)
--- NOTE | 2021-10-07 12:32 | CT ---
INDICATION: COVID positive, question PE. COMPARISON: Chest radiograph 10/05/2021. CT chest 08/05/2020. TECHNIQUE: CT of the chest with 100 cc of Isovue 370 IV contrast. Coronal and sagittal reconstructions. 3D post processing was performed. FINDINGS: Normal heart size. Normal caliber thoracic aorta and central pulmonary arteries. Exam quality limited by body habitus and slightly suboptimal bolus timing. Within these limitations, no acute pulmonary embolism is identified. No evidence of right heart strain. No pericardial effusion. No thoracic lymphadenopathy. There are moderate to severe patchy ground-glass opacities and areas of consolidation throughout the lungs bilaterally which have a peripheral and basilar predominance. Findings are compatible with COVID pneumonia. No pleural effusion or pneumothorax. No central endobronchial lesion. The thyroid gland is normal in appearance. Cholecystectomy. The spleen is enlarged measuring 15.5 cm in AP dimension. The visualized upper abdomen is otherwise unremarkable. The bones are unremarkable. IMPRESSION: 1. Negative for acute pulmonary embolism, however exam is suboptimal. 2. Moderate to severe bilateral patchy pulmonary opacities compatible with COVID pneumonia. 3. Splenomegaly. Please note that all CT scans at this facility use dose modulation, iterative reconstruction, and/or weight-based dosing when appropriate to reduce radiation dose to as low as reasonably achievable. Dictated by Umu Kimble MD @ 10/07/2021 12:31:24 PM (Electronically Signed)
[2021-10-07] MEDS: LORazepam 1 MG Tab PO PRN (13:43)
[2021-10-07] MEDS: Dexamethasone 4 MG/ML SDV IVPUSH SCH (13:44)
[2021-10-07] MEDS: REMDESIVIR 100 MG in Sodium Chloride 0.9% 100 ML IV SCH (13:47)
[2021-10-07] MEDS: Levofloxacin/Dextrose 5%-Water 750 MG in Premix Bag 1 BAG IV SCH (16:48)
[2021-10-07] MEDS: traZODone 50 MG Tab PO SCH (21:20)
[2021-10-07] MEDS: Cyclobenzaprine 10 MG Tab PO PRN (22:09)
[2021-10-08] MEDS: traZODone 50 MG Tab PO SCH ×2 (00:31→20:41)
[2021-10-08] MEDS: Albuterol/Ipratropium 4 GM Inhalation Spray INH SCH ×5 (03:41→18:47)
[2021-10-08 08:12] LABS: BLOOD UREA NITROGEN,BUN 16 mg/dL (7.0-18.0); CARBON DIOXIDE,CO2 27.7 mmol/L (21.0-32.0); CHLORIDE,CL 108 mmol/L (98-107); GLUCOSE RANDOM 170 mg/dL (74-106); POTASSIUM,K 4.1 mmol/L (3.5-5.1); SODIUM,NA 143 mmol/L (136-145)
[2021-10-08] MEDS: Pantoprazole 40 MG in Sodium Chloride 0.9% 10 ML IV SCH (08:46)
[2021-10-08] MEDS: Enoxaparin 40 MG/0.4 ML Syringe SUBCUT SCH ×2 (08:46→20:40)
[2021-10-08] MEDS: Losartan 50 MG Tab PO SCH (08:46)
[2021-10-08] MEDS: guaiFENesin 100 MG/5 ML Soln 5 ML UD Cup PO PRN ×2 (13:56→20:40)
[2021-10-08] MEDS: Ondansetron 4 MG/2 ML SDV IVPUSH PRN (13:56)
[2021-10-08] MEDS: LORazepam 1 MG Tab PO PRN (13:56)
[2021-10-08] MEDS: REMDESIVIR 100 MG in Sodium Chloride 0.9% 100 ML IV SCH (13:57)
[2021-10-08] MEDS: Dexamethasone 4 MG/ML SDV IVPUSH SCH (13:57)
--- NOTE | 2021-10-08 14:16 | PCM.PN ---
- General Info Date of Service: 10/08/21 - Review of Systems Systems Review Comment:: reports shortness of breath, cough - Patient Data Vitals - Most Recent: Last Vital Signs Temp 36.1 C 10/08/21 11:43 Pulse 76 10/08/21 11:43 Resp 22 H 10/08/21 11:43 BP 129/68 10/08/21 11:43 Pulse Ox 98 10/08/21 11:43 Weight - Most Recent: 159.302 kg I&O - Last 24 Hours: Intake & Output 10/07/21 10/08/21 10/08/21 22:59 06:59 14:59 Intake Total 800 Output Total 750 Balance 50 Lab Results Last 24 Hours: Laboratory Results - last 24 hr 10/08/21 10/08/21 Range/Units 07:06 07:06 WBC 5.66 (4.0-11.0) K/uL RBC 4.50 (4.30-5.90) M/uL Hgb 12.4 (12.0-16.0) g/dL Hct 40.7 (36.0-46.0) % MCV 90.4 (80.0-98.0) fL MCH 27.6 (27.0-32.0) pg MCHC 30.5 L (31.0-37.0) g/dL RDW Std Deviation 53.9 (28.0-62.0) fl RDW Coeff of Pineda 16 H (11.0-15.0) % Plt Count 323 (150-400) K/uL MPV 11.00 (7.40-12.00) fL Neut % (Auto) 51.9 (48.0-80.0) % Lymph % (Auto) 34.8 (16.0-40.0) % Crowley % (Auto) 13.1 (0.0-15.0) % Eos % (Auto) 0.0 (0.0-7.0) % Baso % (Auto) 0.2 (0.0-1.5) % Neut # (Auto) 2.9 (1.4-5.7) K/uL Lymph # (Auto) 2.0 (0.6-2.4) K/uL [place] # (Auto) 0.7 (0.0-0.8) K/uL Eos # (Auto) 0.0 (0.0-0.7) K/uL Baso # (Auto) 0.0 (0.0-0.1) K/uL Nucleated RBC % 0.0 /100WBC Nucleated RBCs # 0 K/uL Sodium 143 (136-145) mmol/L Potassium 4.1 (3.5-5.1) mmol/L Chloride 108 H (98-107) mmol/L Carbon Dioxide 27.7 (21.0-32.0) mmol/L BUN 16 (7.0-18.0) mg/dL Creatinine 0.7 (0.6-1.0) mg/dL Est Cr Clr Drug Dosing 108.04 mL/min Estimated GFR (MDRD) > 60.0 ml/min Glucose 170 H (74-106) mg/dL Calcium 8.2 L (8.5-10.1) mg/dL Total Bilirubin 0.2 (0.2-1.0) mg/dL AST 39 H (15-37) IU/L ALT 73 H (14-63) IU/L Alkaline Phosphatase 55 (46-116) U/L Total Protein 7.1 (6.4-8.2) g/dL Albumin 2.7 L (3.4-5.0) g/dL Globulin 4.4 H (2.6-4.0) g/dL Albumin/Globulin Ratio 0.6 L (0.9-1.6) Fernie Results Last 24 Hours: Microbiology 10/05/21 13:21 Aerobic Blood Culture - Preliminary Blood - Venous - Lab Draw NO GROWTH AFTER 3 DAYS Anaerobic Blood Culture - Preliminary NO GROWTH AFTER 3 DAYS 10/05/21 13:11 Aerobic Blood Culture - Preliminary Blood - Venous NO GROWTH AFTER 3 DAYS Anaerobic Blood Culture - Preliminary NO GROWTH AFTER 3 DAYS Med Orders - Current: Current Medications Albuterol/Ipratropium (Albuterol/Ipratropium 4 Gm Inhalation [place]) 1 gm INH Q4H [facility] Last Admin: 10/08/21 10:44 Dose: 1 puff Documented by: Albuterol/Ipratropium (Albuterol/Ipratropium 3.0-0.5 Mg/3 Ml Neb Soln) 3 ml NEB Q4HRRT PRN PRN Reason: Shortness of Breath Baricitinib (Baricitinib 2 Mg Tab) 4 mg PO DAILY [facility] Last Admin: 10/08/21 08:46 Dose: 4 mg Documented by: Cyclobenzaprine HCl (Cyclobenzaprine 10 Mg Tab) 10 mg PO TID PRN PRN Reason: muscle spasms Last Admin: 10/07/21 22:09 Dose: 10 mg Documented by: Dexamethasone (Dexamethasone 4 Mg/Ml Sdv) 6 mg IVPUSH Q24H [facility] Last Admin: 10/07/21 13:44 Dose: 6 mg Documented by: Enoxaparin Sodium (Enoxaparin 40 Mg/0.4 Ml Syringe) 40 mg SUBCUT Q12H [facility] Last Admin: 10/08/21 08:46 Dose: 40 mg Documented by: Guaifenesin (Guaifenesin 100 Mg/5 Ml Soln 5 Ml Ud Cup) 100 mg PO Q6H PRN PRN Reason: Cough Last Admin: 10/07/21 21:19 Dose: 100 mg Documented by: Pantoprazole Sodium 40 mg/ (Sodium Chloride) 10 mls @ 300 mls/hr IV DAILY [facility] Last Admin: 10/08/21 08:46 Dose: 300 mls/hr Documented by: Remdesivir 100 mg/ Sodium (Chloride) 100 mls @ 100 mls/hr IV Q24H [facility] Stop: 10/09/21 15:44 Last Admin: 10/07/21 13:47 Dose: 100 mls/hr Documented by: Levofloxacin/Dextrose 750 mg/ (Premix) 150 mls @ 100 mls/hr IV Q24H [facility] Last Admin: 10/07/21 16:48 Dose: 100 mls/hr Documented by: Lorazepam (Lorazepam 1 Mg Tab) 1 mg PO BID PRN PRN Reason: anxiety Last Admin: 10/07/21 13:43 Dose: 1 mg Documented by: Losartan Potassium (Losartan 50 Mg Tab) 100 mg PO DAILY [facility] Last Admin: 10/08/21 08:46 Dose: 100 mg Documented by: Ondansetron HCl (Ondansetron 4 Mg/2 Ml Sdv) 4 mg IVPUSH Q4H PRN PRN Reason: Vomiting Last Admin: 10/07/21 21:19 Dose: 4 mg Documented by: Tramadol HCl (Tramadol 50 Mg Tab) 50 mg PO BID PRN PRN Reason: Pain Last Admin: 10/06/21 22:13 Dose: 50 mg Documented by: Trazodone HCl (Trazodone 50 Mg Tab) 150 mg PO BEDTIME [facility] Last Admin: 10/08/21 00:31 Dose: 150 mg Documented by: Discontinued Medications Acetaminophen (Acetaminophen 500 Mg Tab) 1,000 mg PO ONETIME ONE Stop: 10/05/21 12:44 Last Admin: 10/05/21 13:25 Dose: 1,000 mg Documented by: Dexamethasone (Dexamethasone 4 Mg/Ml Sdv) 6 mg IVPUSH ONETIME ONE Stop: 10/05/21 13:16 Last Admin: 10/05/21 13:31 Dose: 6 mg Documented by: Enoxaparin Sodium (Enoxaparin 40 Mg/0.4 Ml Syringe) 40 mg SUBCUT Q24H [facility] Last Admin: 10/06/21 15:18 Dose: 40 mg Documented by: Sodium Chloride (Normal Saline) 1,000 mls @ 100 mls/hr IV STAT ONE Stop: 10/05/21 22:41 Last Admin: 10/05/21 13:31 Dose: 100 mls/hr Documented by: Remdesivir 200 mg/ Sodium (Chloride) 250 mls @ 250 mls/hr IV ONETIME ONE Stop: 10/05/21 13:16 Last Admin: 10/05/21 13:54 Dose: Not Given Documented by: Remdesivir 200 mg/ Sodium (Chloride) 250 mls @ 250 mls/hr IV ONETIME ONE Stop: 10/05/21 14:49 Last Admin: 10/05/21 13:59 Dose: 250 mls/hr Documented by: Iopamidol (Iopamidol 755 Mg/Ml 500 Ml Multipack Bottle) 100 ml IVPUSH ONETIME [facility] Stop: 10/07/21 11:44 Last Admin: 10/07/21 11:43 Dose: 100 ml Documented by: Losartan Potassium (Losartan 50 Mg Tab) 100 mg PO DAILY [facility] Non-Formulary Medication (Lisinopril) 10 mg PO DAILY [facility] Last Admin: 10/05/21 15:42 Dose: Not Given Documented by: Ondansetron HCl (Ondansetron 4 Mg/2 Ml Sdv) 4 mg IVPUSH ONETIME ONE Stop: 10/05/21 12:44 Last Admin: 10/05/21 13:22 Dose: 4 mg Documented by: - Exam General: Alert, Oriented Neck: Supple Lungs: Normal Respiratory Effort, Rhonchi Cardiovascular: Regular Rate, Regular Rhythm GI/Abdominal Exam: Soft, Non-Tender, No Distention Extremities: Non-Tender, No Pedal Edema Skin: Warm, Dry, Intact - Patient Data Lab Results Last 24 hrs: Laboratory Results - last 24 hr 10/08/21 10/08/21 Range/Units 07:06 07:06 WBC 5.66 (4.0-11.0) K/uL RBC 4.50 (4.30-5.90) M/uL Hgb 12.4 (12.0-16.0) g/dL Hct 40.7 (36.0-46.0) % MCV 90.4 (80.0-98.0) fL MCH 27.6 (27.0-32.0) pg MCHC 30.5 L (31.0-37.0) g/dL RDW Std Deviation 53.9 (28.0-62.0) fl RDW Coeff of Pineda 16 H (11.0-15.0) % Plt Count 323 (150-400) K/uL MPV 11.00 (7.40-12.00) fL Neut % (Auto) 51.9 (48.0-80.0) % Lymph % (Auto) 34.8 (16.0-40.0) % [place] % (Auto) 13.1 (0.0-15.0) % Eos % (Auto) 0.0 (0.0-7.0) % Baso % (Auto) 0.2 (0.0-1.5) % Neut # (Auto) 2.9 (1.4-5.7) K/uL Lymph # (Auto) 2.0 (0.6-2.4) K/uL [place] # (Auto) 0.7 (0.0-0.8) K/uL Eos # (Auto) 0.0 (0.0-0.7) K/uL Baso # (Auto) 0.0 (0.0-0.1) K/uL Nucleated RBC % 0.0 /100WBC Nucleated RBCs # 0 K/uL Sodium 143 (136-145) mmol/L Potassium 4.1 (3.5-5.1) mmol/L Chloride 108 H (98-107) mmol/L Carbon Dioxide 27.7 (21.0-32.0) mmol/L BUN 16 (7.0-18.0) mg/dL Creatinine 0.7 (0.6-1.0) mg/dL Est Cr Clr Drug Dosing 108.04 mL/min Estimated GFR (MDRD) > 60.0 ml/min Glucose 170 H (74-106) mg/dL Calcium 8.2 L (8.5-10.1) mg/dL Total Bilirubin 0.2 (0.2-1.0) mg/dL AST 39 H (15-37) IU/L ALT 73 H (14-63) IU/L Alkaline Phosphatase 55 (46-116) U/L Total Protein 7.1 (6.4-8.2) g/dL Albumin 2.7 L (3.4-5.0) g/dL Globulin 4.4 H (2.6-4.0) g/dL Albumin/Globulin Ratio 0.6 L (0.9-1.6) Result Diagrams: 10/08/21 07:06 10/08/21 07:06 Fernie Results Last 24 hrs: Microbiology 10/05/21 13:21 Aerobic Blood Culture - Preliminary Blood - Venous - Lab Draw NO GROWTH AFTER 3 DAYS Anaerobic Blood Culture - Preliminary NO GROWTH AFTER 3 DAYS 10/05/21 13:11 Aerobic Blood Culture - Preliminary Blood - Venous NO GROWTH AFTER 3 DAYS Anaerobic Blood Culture - Preliminary NO GROWTH AFTER 3 DAYS Sepsis Event Note - Evaluation Sepsis Screening Result: No Definite Risk - Focused Exam Vital Signs: Vital Signs Temp Pulse Resp BP BP Pulse Ox 10/08/21 11:43 36.1 C 76 22 H 129/68 98 10/08/21 08:46 120/48 L 10/08/21 08:44 36.2 C 73 22 H 120/48 L 92 L 10/08/21 03:40 36.1 C 68 22 H 113/65 98 - Problem List & Annotations (1) Hypoxia SNOMED Code(s): 196761465 Code(s): R09.02 - HYPOXEMIA Status: Acute Current Visit: Yes (2) Pneumonia due to COVID-19 virus SNOMED Code(s): 195585986142757684 Code(s): U07.1 - COVID-19; J12.82 - PNEUMONIA DUE TO CORONAVIRUS DISEASE 2019 Status: Acute Current Visit: Yes - Problem List Review Problem List Initiated/Reviewed/Updated: Yes - Plan Plan:: 35 yo female admitted COVID-19 pneumonia with acute hypoxic respiratory failure [place]: on HHFNC 40 L at 50% COVID-19 pneumonia: Continue remdesivir, dexamethasone and baricitinib, also on Levaquin
[2021-10-08] MEDS: Levofloxacin/Dextrose 5%-Water 750 MG in Premix Bag 1 BAG IV SCH (16:56)
[2021-10-08] MEDS: traMADol 50 MG Tab PO PRN (20:41)
[2021-10-09] MEDS: Albuterol/Ipratropium 4 GM Inhalation Spray INH SCH ×7 (01:00→22:42)
[2021-10-09] MEDS: guaiFENesin 100 MG/5 ML Soln 5 ML UD Cup PO PRN ×2 (05:13→14:00)
[2021-10-09 07:07] LABS: BLOOD UREA NITROGEN,BUN 19 mg/dL (7.0-18.0); CARBON DIOXIDE,CO2 25.1 mmol/L (21.0-32.0); CHLORIDE,CL 104 mmol/L (98-107); GLUCOSE RANDOM 185 mg/dL (74-106); POTASSIUM,K 4.1 mmol/L (3.5-5.1); SODIUM,NA 142 mmol/L (136-145)
[2021-10-09] MEDS: Losartan 50 MG Tab PO SCH (08:10)
[2021-10-09] MEDS: Pantoprazole 40 MG in Sodium Chloride 0.9% 10 ML IV SCH (08:11)
[2021-10-09] MEDS: Enoxaparin 40 MG/0.4 ML Syringe SUBCUT SCH ×2 (08:12→20:47)
[2021-10-09] MEDS: Ondansetron 4 MG/2 ML SDV IVPUSH PRN (08:25)
--- NOTE | 2021-10-09 13:49 | PCM.PN ---
- General Info Date of Service: 10/09/21 - Review of Systems Systems Review Comment:: feeling better, reports fatigue and shortness of breath - Patient Data Vitals - Most Recent: Last Vital Signs Temp 35.8 C L 10/09/21 11:25 Pulse 67 10/09/21 11:25 Resp 19 10/09/21 11:25 BP 123/64 10/09/21 11:25 Pulse Ox 99 10/09/21 11:25 Weight - Most Recent: 159.302 kg I&O - Last 24 Hours: Intake & Output 10/08/21 10/09/21 10/09/21 22:59 06:59 14:59 Intake Total 1000 Output Total 850 Balance 150 Lab Results Last 24 Hours: Laboratory Results - last 24 hr 10/09/21 10/09/21 Range/Units 06:30 06:30 WBC 6.07 (4.0-11.0) K/uL RBC 4.63 (4.30-5.90) M/uL Hgb 12.8 (12.0-16.0) g/dL Hct 41.4 (36.0-46.0) % MCV 89.4 (80.0-98.0) fL MCH 27.6 (27.0-32.0) pg MCHC 30.9 L (31.0-37.0) g/dL RDW Std Deviation 52.5 (28.0-62.0) fl RDW Coeff of Pineda 16 H (11.0-15.0) % Plt Count 317 (150-400) K/uL MPV 10.80 (7.40-12.00) fL Neut % (Auto) 55.2 (48.0-80.0) % Lymph % (Auto) 32.5 (16.0-40.0) % [place] % (Auto) 12.0 (0.0-15.0) % Eos % (Auto) 0.0 (0.0-7.0) % Baso % (Auto) 0.3 (0.0-1.5) % Neut # (Auto) 3.4 (1.4-5.7) K/uL Lymph # (Auto) 2.0 (0.6-2.4) K/uL [place] # (Auto) 0.7 (0.0-0.8) K/uL Eos # (Auto) 0.0 (0.0-0.7) K/uL Baso # (Auto) 0.0 (0.0-0.1) K/uL Nucleated RBC % 0.0 /100WBC Nucleated RBCs # 0 K/uL Sodium 142 (136-145) mmol/L Potassium 4.1 (3.5-5.1) mmol/L Chloride 104 (98-107) mmol/L Carbon Dioxide 25.1 (21.0-32.0) mmol/L BUN 19 H (7.0-18.0) mg/dL Creatinine 0.7 (0.6-1.0) mg/dL Est Cr Clr Drug Dosing 108.04 mL/min Estimated GFR (MDRD) > 60.0 ml/min Glucose 185 H (74-106) mg/dL Calcium 8.4 L (8.5-10.1) mg/dL Total Bilirubin 0.3 (0.2-1.0) mg/dL AST 28 (15-37) IU/L ALT 78 H (14-63) IU/L Alkaline Phosphatase 48 (46-116) U/L Total Protein 7.1 (6.4-8.2) g/dL Albumin 2.7 L (3.4-5.0) g/dL Globulin 4.4 H (2.6-4.0) g/dL Albumin/Globulin Ratio 0.6 L (0.9-1.6) Fernie Results Last 24 Hours: Microbiology 10/05/21 13:21 Aerobic Blood Culture - Preliminary Blood - Venous - Lab Draw NO GROWTH AFTER 4 DAYS Anaerobic Blood Culture - Preliminary NO GROWTH AFTER 4 DAYS 10/05/21 13:11 Aerobic Blood Culture - Preliminary Blood - Venous NO GROWTH AFTER 4 DAYS Anaerobic Blood Culture - Preliminary NO GROWTH AFTER 4 DAYS Med Orders - Current: Current Medications Albuterol/Ipratropium (Albuterol/Ipratropium 4 Gm Inhalation [place]) 1 gm INH Q4H [facility] Last Admin: 10/09/21 11:13 Dose: 1 puff Documented by: Albuterol/Ipratropium (Albuterol/Ipratropium 3.0-0.5 Mg/3 Ml Neb Soln) 3 ml NEB Q4HRRT PRN PRN Reason: Shortness of Breath Baricitinib (Baricitinib 2 Mg Tab) 4 mg PO DAILY [facility] Last Admin: 10/09/21 08:10 Dose: 4 mg Documented by: Cyclobenzaprine HCl (Cyclobenzaprine 10 Mg Tab) 10 mg PO TID PRN PRN Reason: muscle spasms Last Admin: 10/07/21 22:09 Dose: 10 mg Documented by: Dexamethasone (Dexamethasone 4 Mg/Ml Sdv) 6 mg IVPUSH Q24H [facility] Last Admin: 10/08/21 13:57 Dose: 6 mg Documented by: Enoxaparin Sodium (Enoxaparin 40 Mg/0.4 Ml Syringe) 40 mg SUBCUT Q12H [facility] Last Admin: 10/09/21 08:12 Dose: 40 mg Documented by: Guaifenesin (Guaifenesin 100 Mg/5 Ml Soln 5 Ml Ud Cup) 100 mg PO Q6H PRN PRN Reason: Cough Last Admin: 10/09/21 05:13 Dose: 100 mg Documented by: Pantoprazole Sodium 40 mg/ (Sodium Chloride) 10 mls @ 300 mls/hr IV DAILY [facility] Last Admin: 10/09/21 08:11 Dose: 300 mls/hr Documented by: Remdesivir 100 mg/ Sodium (Chloride) 100 mls @ 100 mls/hr IV Q24H [facility] Stop: 10/09/21 15:44 Last Admin: 10/08/21 13:57 Dose: 100 mls/hr Documented by: Levofloxacin/Dextrose 750 mg/ (Premix) 150 mls @ 100 mls/hr IV Q24H [facility] Last Admin: 10/08/21 16:56 Dose: 100 mls/hr Documented by: Lorazepam (Lorazepam 1 Mg Tab) 1 mg PO BID PRN PRN Reason: anxiety Last Admin: 10/08/21 13:56 Dose: 1 mg Documented by: Losartan Potassium (Losartan 50 Mg Tab) 100 mg PO DAILY [facility] Last Admin: 10/09/21 08:10 Dose: 100 mg Documented by: Ondansetron HCl (Ondansetron 4 Mg/2 Ml Sdv) 4 mg IVPUSH Q4H PRN PRN Reason: Vomiting Last Admin: 10/09/21 08:25 Dose: 4 mg Documented by: Tramadol HCl (Tramadol 50 Mg Tab) 50 mg PO BID PRN PRN Reason: Pain Last Admin: 10/08/21 20:41 Dose: 50 mg Documented by: Trazodone HCl (Trazodone 50 Mg Tab) 150 mg PO BEDTIME [facility] Last Admin: 10/08/21 20:41 Dose: 150 mg Documented by: Discontinued Medications Acetaminophen (Acetaminophen 500 Mg Tab) 1,000 mg PO ONETIME ONE Stop: 10/05/21 12:44 Last Admin: 10/05/21 13:25 Dose: 1,000 mg Documented by: Dexamethasone (Dexamethasone 4 Mg/Ml Sdv) 6 mg IVPUSH ONETIME ONE Stop: 10/05/21 13:16 Last Admin: 10/05/21 13:31 Dose: 6 mg Documented by: Enoxaparin Sodium (Enoxaparin 40 Mg/0.4 Ml Syringe) 40 mg SUBCUT Q24H [facility] Last Admin: 10/06/21 15:18 Dose: 40 mg Documented by: Sodium Chloride (Normal Saline) 1,000 mls @ 100 mls/hr IV STAT ONE Stop: 10/05/21 22:41 Last Admin: 10/05/21 13:31 Dose: 100 mls/hr Documented by: Remdesivir 200 mg/ Sodium (Chloride) 250 mls @ 250 mls/hr IV ONETIME ONE Stop: 10/05/21 13:16 Last Admin: 10/05/21 13:54 Dose: Not Given Documented by: Remdesivir 200 mg/ Sodium (Chloride) 250 mls @ 250 mls/hr IV ONETIME ONE Stop: 10/05/21 14:49 Last Admin: 10/05/21 13:59 Dose: 250 mls/hr Documented by: Iopamidol (Iopamidol 755 Mg/Ml 500 Ml Multipack Bottle) 100 ml IVPUSH ONETIME STA Stop: 10/07/21 11:44 Last Admin: 10/07/21 11:43 Dose: 100 ml Documented by: Losartan Potassium (Losartan 50 Mg Tab) 100 mg PO DAILY [facility] Non-Formulary Medication (Lisinopril) 10 mg PO DAILY [facility] Last Admin: 10/05/21 15:42 Dose: Not Given Documented by: Ondansetron HCl (Ondansetron 4 Mg/2 Ml Sdv) 4 mg IVPUSH ONETIME ONE Stop: 10/05/21 12:44 Last Admin: 10/05/21 13:22 Dose: 4 mg Documented by: - Exam General: Alert, Oriented Neck: Supple Lungs: Clear to Auscultation, Normal Respiratory Effort Cardiovascular: Regular Rate, Regular Rhythm GI/Abdominal Exam: Soft, Non-Tender, No Distention Extremities: Non-Tender, No Pedal Edema Skin: Warm, Dry, Intact Neurological: No New Focal Deficit - Patient Data Lab Results Last 24 hrs: Laboratory Results - last 24 hr 10/09/21 10/09/21 Range/Units 06:30 06:30 WBC 6.07 (4.0-11.0) K/uL RBC 4.63 (4.30-5.90) M/uL Hgb 12.8 (12.0-16.0) g/dL Hct 41.4 (36.0-46.0) % MCV 89.4 (80.0-98.0) fL MCH 27.6 (27.0-32.0) pg MCHC 30.9 L (31.0-37.0) g/dL RDW Std Deviation 52.5 (28.0-62.0) fl RDW Coeff of Pineda 16 H (11.0-15.0) % Plt Count 317 (150-400) K/uL MPV 10.80 (7.40-12.00) fL Neut % (Auto) 55.2 (48.0-80.0) % Lymph % (Auto) 32.5 (16.0-40.0) % [place] % (Auto) 12.0 (0.0-15.0) % Eos % (Auto) 0.0 (0.0-7.0) % Baso % (Auto) 0.3 (0.0-1.5) % Neut # (Auto) 3.4 (1.4-5.7) K/uL Lymph # (Auto) 2.0 (0.6-2.4) K/uL [place] # (Auto) 0.7 (0.0-0.8) K/uL Eos # (Auto) 0.0 (0.0-0.7) K/uL Baso # (Auto) 0.0 (0.0-0.1) K/uL Nucleated RBC % 0.0 /100WBC Nucleated RBCs # 0 K/uL Sodium 142 (136-145) mmol/L Potassium 4.1 (3.5-5.1) mmol/L Chloride 104 (98-107) mmol/L Carbon Dioxide 25.1 (21.0-32.0) mmol/L BUN 19 H (7.0-18.0) mg/dL Creatinine 0.7 (0.6-1.0) mg/dL Est Cr Clr Drug Dosing 108.04 mL/min Estimated GFR (MDRD) > 60.0 ml/min Glucose 185 H (74-106) mg/dL Calcium 8.4 L (8.5-10.1) mg/dL Total Bilirubin 0.3 (0.2-1.0) mg/dL AST 28 (15-37) IU/L ALT 78 H (14-63) IU/L Alkaline Phosphatase 48 (46-116) U/L Total Protein 7.1 (6.4-8.2) g/dL Albumin 2.7 L (3.4-5.0) g/dL Globulin 4.4 H (2.6-4.0) g/dL Albumin/Globulin Ratio 0.6 L (0.9-1.6) Result Diagrams: 10/09/21 06:30 10/09/21 06:30 Fernie Results Last 24 hrs: Microbiology 10/05/21 13:21 Aerobic Blood Culture - Preliminary Blood - Venous - Lab Draw NO GROWTH AFTER 4 DAYS Anaerobic Blood Culture - Preliminary NO GROWTH AFTER 4 DAYS 10/05/21 13:11 Aerobic Blood Culture - Preliminary Blood - Venous NO GROWTH AFTER 4 DAYS Anaerobic Blood Culture - Preliminary NO GROWTH AFTER 4 DAYS Sepsis Event Note - Evaluation Sepsis Screening Result: No Definite Risk - Focused Exam Vital Signs: Vital Signs Temp Pulse Resp BP BP BP Pulse Ox 10/09/21 11:25 35.8 C L 67 19 123/64 99 10/09/21 08:10 134/97 H 10/09/21 08:05 35.6 C L 76 20 134/97 H 96 10/09/21 05:00 35.9 C L 62 20 134/87 94 L - Problem List & Annotations (1) Hypoxia SNOMED Code(s): 174975966 Code(s): R09.02 - HYPOXEMIA Status: Acute Current Visit: Yes (2) Pneumonia due to COVID-19 virus SNOMED Code(s): 880083549344549032 Code(s): U07.1 - COVID-19; J12.82 - PNEUMONIA DUE TO CORONAVIRUS DISEASE 2019 Status: Acute Current Visit: Yes - Problem List Review Problem List Initiated/Reviewed/Updated: Yes - My Orders Last 24 Hours: My Active Orders 10/09/21 Lunch Regular Diet [DIET] - Plan Plan:: 35 yo female admitted COVID-19 pneumonia with acute hypoxic respiratory failure Hypoxa: weaned off hhFNC on simple NC this morning COVID-19 pneumonia: finished five days of remdesivir, continue dexamethasone and baricitinib, also on Levaquin lovenox for DVT prophylaxis
[2021-10-09] MEDS: Dexamethasone 4 MG/ML SDV IVPUSH SCH (14:00)
[2021-10-09] MEDS: REMDESIVIR 100 MG in Sodium Chloride 0.9% 100 ML IV SCH (14:01)
[2021-10-09] MEDS: LORazepam 1 MG Tab PO PRN (14:20)
[2021-10-09] MEDS: Levofloxacin/Dextrose 5%-Water 750 MG in Premix Bag 1 BAG IV SCH (16:31)
[2021-10-09] MEDS ORDERED: PANTOPRAZOLE IV SCH (17:09)
[2021-10-09] MEDS: traZODone 50 MG Tab PO SCH (20:46)
[2021-10-10] MEDS: Albuterol/Ipratropium 4 GM Inhalation Spray INH SCH ×7 (03:20→23:11)
[2021-10-10] MEDS: Losartan 50 MG Tab PO SCH (08:03)
[2021-10-10] MEDS: Enoxaparin 40 MG/0.4 ML Syringe SUBCUT SCH ×2 (08:04→20:35)
[2021-10-10] MEDS: guaiFENesin 100 MG/5 ML Soln 5 ML UD Cup PO PRN (08:07)
[2021-10-10 08:18] LABS: BLOOD UREA NITROGEN,BUN 20 mg/dL (7.0-18.0); CARBON DIOXIDE,CO2 27.3 mmol/L (21.0-32.0); CHLORIDE,CL 104 mmol/L (98-107); GLUCOSE RANDOM 145 mg/dL (74-106); SODIUM,NA 139 mmol/L (136-145)
[2021-10-10] MEDS: Dexamethasone 4 MG/ML SDV IVPUSH SCH (12:06)
--- NOTE | 2021-10-10 15:57 | PCM.PN ---
- General Info Date of Service: 10/10/21 - Review of Systems Systems Review Comment:: feeling better, reports shortness of breath and cough - Patient Data Vitals - Most Recent: Last Vital Signs Temp 36.3 C 10/10/21 15:00 Pulse 77 10/10/21 15:00 Resp 18 10/10/21 15:00 BP 106/57 L 10/10/21 15:00 Pulse Ox 96 10/10/21 15:00 Weight - Most Recent: 159.302 kg I&O - Last 24 Hours: Intake & Output 10/10/21 10/10/21 10/10/21 06:59 14:59 22:59 Intake Total 300 Output Total 750 Balance -450 Lab Results Last 24 Hours: Laboratory Results - last 24 hr 10/10/21 10/10/21 Range/Units 07:06 07:06 WBC 7.48 (4.0-11.0) K/uL RBC 4.84 (4.30-5.90) M/uL Hgb 13.3 (12.0-16.0) g/dL Hct 43.3 (36.0-46.0) % MCV 89.5 (80.0-98.0) fL MCH 27.5 (27.0-32.0) pg MCHC 30.7 L (31.0-37.0) g/dL RDW Std Deviation 51.4 (28.0-62.0) fl RDW Coeff of Pineda 16 H (11.0-15.0) % Plt Count 311 (150-400) K/uL MPV 11.10 (7.40-12.00) fL Add Manual Diff YES Neutrophils % (Manual) 57 (48.0-80.0) % Band Neutrophils % 2 % Lymphocytes % (Manual) 35 (16.0-40.0) % Monocytes % (Manual) 4 (0.0-15.0) % Metamyelocytes % 1 % Myelocytes % 1 % Nucleated RBC % 0.0 /100WBC Absolute Seg Neuts 4.3 (1.4-5.7) Band Neutrophils # 0.1 Lymphocytes # (Manual) 2.6 H (0.6-2.4) Monocytes # (Manual) 0.3 (0.0-0.8) Absolute Metamyelocyte 0.1 Absolute Myelocytes 0.1 Nucleated RBCs # 0 K/uL Reactive Lymphocytes MODERATE Sodium 139 (136-145) mmol/L Potassium 4.0 (3.5-5.1) mmol/L Chloride 104 (98-107) mmol/L Carbon Dioxide 27.3 (21.0-32.0) mmol/L BUN 20 H (7.0-18.0) mg/dL Creatinine 0.6 (0.6-1.0) mg/dL Est Cr Clr Drug Dosing 126.05 mL/min Estimated GFR (MDRD) > 60.0 ml/min Glucose 145 H (74-106) mg/dL Calcium 8.3 L (8.5-10.1) mg/dL Total Bilirubin 0.4 (0.2-1.0) mg/dL AST 22 (15-37) IU/L ALT 77 H (14-63) IU/L Alkaline Phosphatase 51 (46-116) U/L Total Protein 7.2 (6.4-8.2) g/dL Albumin 2.8 L (3.4-5.0) g/dL Globulin 4.4 H (2.6-4.0) g/dL Albumin/Globulin Ratio 0.6 L (0.9-1.6) Fernie Results Last 24 Hours: Microbiology 10/05/21 13:21 Aerobic Blood Culture - Final Blood - Venous - Lab Draw NO GROWTH AFTER 5 DAYS Anaerobic Blood Culture - Final NO GROWTH AFTER 5 DAYS 10/05/21 13:11 Aerobic Blood Culture - Final Blood - Venous NO GROWTH AFTER 5 DAYS Anaerobic Blood Culture - Final NO GROWTH AFTER 5 DAYS Med Orders - Current: Current Medications Albuterol/Ipratropium (Albuterol/Ipratropium 4 Gm Inhalation [place]) 1 gm INH Q4H [facility] Last Admin: 10/10/21 15:18 Dose: 1 puff Documented by: Albuterol/Ipratropium (Albuterol/Ipratropium 3.0-0.5 Mg/3 Ml Neb Soln) 3 ml NEB Q4HRRT PRN PRN Reason: Shortness of Breath Baricitinib (Baricitinib 2 Mg Tab) 4 mg PO DAILY [facility] Last Admin: 10/10/21 08:02 Dose: 4 mg Documented by: Cyclobenzaprine HCl (Cyclobenzaprine 10 Mg Tab) 10 mg PO TID PRN PRN Reason: muscle spasms Last Admin: 10/07/21 22:09 Dose: 10 mg Documented by: Dexamethasone (Dexamethasone 4 Mg/Ml Sdv) 6 mg IVPUSH Q24H [facility] Last Admin: 10/10/21 12:06 Dose: 6 mg Documented by: Enoxaparin Sodium (Enoxaparin 40 Mg/0.4 Ml Syringe) 40 mg SUBCUT Q12H [facility] Last Admin: 10/10/21 08:04 Dose: 40 mg Documented by: Guaifenesin (Guaifenesin 100 Mg/5 Ml Soln 5 Ml Ud Cup) 100 mg PO Q6H PRN PRN Reason: Cough Last Admin: 10/10/21 08:07 Dose: 100 mg Documented by: Levofloxacin/Dextrose 750 mg/ (Premix) 150 mls @ 100 mls/hr IV Q24H [facility] Last Admin: 10/09/21 16:31 Dose: 100 mls/hr Documented by: Lorazepam (Lorazepam 1 Mg Tab) 1 mg PO BID PRN PRN Reason: anxiety Last Admin: 10/09/21 14:20 Dose: 1 mg Documented by: Losartan Potassium (Losartan 50 Mg Tab) 100 mg PO DAILY [facility] Last Admin: 10/10/21 08:03 Dose: 100 mg Documented by: Ondansetron HCl (Ondansetron 4 Mg/2 Ml Sdv) 4 mg IVPUSH Q4H PRN PRN Reason: Vomiting Last Admin: 10/09/21 08:25 Dose: 4 mg Documented by: Tramadol HCl (Tramadol 50 Mg Tab) 50 mg PO BID PRN PRN Reason: Pain Last Admin: 10/08/21 20:41 Dose: 50 mg Documented by: Trazodone HCl (Trazodone 50 Mg Tab) 150 mg PO BEDTIME [facility] Last Admin: 10/09/21 20:46 Dose: 150 mg Documented by: Discontinued Medications Acetaminophen (Acetaminophen 500 Mg Tab) 1,000 mg PO ONETIME ONE Stop: 10/05/21 12:44 Last Admin: 10/05/21 13:25 Dose: 1,000 mg Documented by: Dexamethasone (Dexamethasone 4 Mg/Ml Sdv) 6 mg IVPUSH ONETIME ONE Stop: 10/05/21 13:16 Last Admin: 10/05/21 13:31 Dose: 6 mg Documented by: Enoxaparin Sodium (Enoxaparin 40 Mg/0.4 Ml Syringe) 40 mg SUBCUT Q24H [facility] Last Admin: 10/06/21 15:18 Dose: 40 mg Documented by: Sodium Chloride (Normal Saline) 1,000 mls @ 100 mls/hr IV STAT ONE Stop: 10/05/21 22:41 Last Admin: 10/05/21 13:31 Dose: 100 mls/hr Documented by: Remdesivir 200 mg/ Sodium (Chloride) 250 mls @ 250 mls/hr IV ONETIME ONE Stop: 10/05/21 13:16 Last Admin: 10/05/21 13:54 Dose: Not Given Documented by: Remdesivir 200 mg/ Sodium (Chloride) 250 mls @ 250 mls/hr IV ONETIME ONE Stop: 10/05/21 14:49 Last Admin: 10/05/21 13:59 Dose: 250 mls/hr Documented by: Pantoprazole Sodium 40 mg/ (Sodium Chloride) 10 mls @ 300 mls/hr IV DAILY [facility] Last Admin: 10/09/21 08:11 Dose: 300 mls/hr Documented by: Remdesivir 100 mg/ Sodium (Chloride) 100 mls @ 100 mls/hr IV Q24H [facility] Stop: 10/09/21 15:44 Last Admin: 10/09/21 14:01 Dose: 100 mls/hr Documented by: Pantoprazole Sodium 40 mg/ (Premix) 10 mls @ 300 mls/hr IV DAILY [facility] Last Admin: 10/10/21 08:37 Dose: 300 mls/hr Documented by: Iopamidol (Iopamidol 755 Mg/Ml 500 Ml Multipack Bottle) 100 ml IVPUSH ONETIME STA Stop: 10/07/21 11:44 Last Admin: 10/07/21 11:43 Dose: 100 ml Documented by: Losartan Potassium (Losartan 50 Mg Tab) 100 mg PO DAILY [facility] Non-Formulary Medication (Lisinopril) 10 mg PO DAILY [facility] Last Admin: 10/05/21 15:42 Dose: Not Given Documented by: Ondansetron HCl (Ondansetron 4 Mg/2 Ml Sdv) 4 mg IVPUSH ONETIME ONE Stop: 10/05/21 12:44 Last Admin: 10/05/21 13:22 Dose: 4 mg Documented by: - Exam General: Alert, Oriented Neck: Supple Lungs: Clear to Auscultation, Normal Respiratory Effort Cardiovascular: Regular Rate, Regular Rhythm GI/Abdominal Exam: Normal Bowel Sounds, Soft, Non-Tender Extremities: Non-Tender, No Pedal Edema Skin: Warm, Dry, Intact Neurological: No New Focal Deficit - Patient Data Lab Results Last 24 hrs: Laboratory Results - last 24 hr 10/10/21 10/10/21 Range/Units 07:06 07:06 WBC 7.48 (4.0-11.0) K/uL RBC 4.84 (4.30-5.90) M/uL Hgb 13.3 (12.0-16.0) g/dL Hct 43.3 (36.0-46.0) % MCV 89.5 (80.0-98.0) fL MCH 27.5 (27.0-32.0) pg MCHC 30.7 L (31.0-37.0) g/dL RDW Std Deviation 51.4 (28.0-62.0) fl RDW Coeff of Pineda 16 H (11.0-15.0) % Plt Count 311 (150-400) K/uL MPV 11.10 (7.40-12.00) fL Add Manual Diff YES Neutrophils % (Manual) 57 (48.0-80.0) % Band Neutrophils % 2 % Lymphocytes % (Manual) 35 (16.0-40.0) % Monocytes % (Manual) 4 (0.0-15.0) % Metamyelocytes % 1 % Myelocytes % 1 % Nucleated RBC % 0.0 /100WBC Absolute Seg Neuts 4.3 (1.4-5.7) Band Neutrophils # 0.1 Lymphocytes # (Manual) 2.6 H (0.6-2.4) Monocytes # (Manual) 0.3 (0.0-0.8) Absolute Metamyelocyte 0.1 Absolute Myelocytes 0.1 Nucleated RBCs # 0 K/uL Reactive Lymphocytes MODERATE Sodium 139 (136-145) mmol/L Potassium 4.0 (3.5-5.1) mmol/L Chloride 104 (98-107) mmol/L Carbon Dioxide 27.3 (21.0-32.0) mmol/L BUN 20 H (7.0-18.0) mg/dL Creatinine 0.6 (0.6-1.0) mg/dL Est Cr Clr Drug Dosing 126.05 mL/min Estimated GFR (MDRD) > 60.0 ml/min Glucose 145 H (74-106) mg/dL Calcium 8.3 L (8.5-10.1) mg/dL Total Bilirubin 0.4 (0.2-1.0) mg/dL AST 22 (15-37) IU/L ALT 77 H (14-63) IU/L Alkaline Phosphatase 51 (46-116) U/L Total Protein 7.2 (6.4-8.2) g/dL Albumin 2.8 L (3.4-5.0) g/dL Globulin 4.4 H (2.6-4.0) g/dL Albumin/Globulin Ratio 0.6 L (0.9-1.6) Result Diagrams: 10/10/21 07:06 10/10/21 07:06 Fernie Results Last 24 hrs: Microbiology 10/05/21 13:21 Aerobic Blood Culture - Final Blood - Venous - Lab Draw NO GROWTH AFTER 5 DAYS Anaerobic Blood Culture - Final NO GROWTH AFTER 5 DAYS 10/05/21 13:11 Aerobic Blood Culture - Final Blood - Venous NO GROWTH AFTER 5 DAYS Anaerobic Blood Culture - Final NO GROWTH AFTER 5 DAYS Sepsis Event Note - Evaluation Sepsis Screening Result: No Definite Risk - Focused Exam Vital Signs: Vital Signs Temp Pulse Resp BP BP BP Pulse Ox 10/10/21 15:00 36.3 C 77 18 106/57 L 96 10/10/21 11:00 35.9 C L 86 20 128/83 96 10/10/21 08:03 140/70 10/10/21 07:58 36.4 C 82 17 140/70 93 L - Problem List & Annotations (1) Hypoxia SNOMED Code(s): 023381345 Code(s): R09.02 - HYPOXEMIA Status: Acute Current Visit: Yes (2) Pneumonia due to COVID-19 virus SNOMED Code(s): 206595456452832160 Code(s): U07.1 - COVID-19; J12.82 - PNEUMONIA DUE TO CORONAVIRUS DISEASE 2019 Status: Acute Current Visit: Yes - Problem List Review Problem List Initiated/Reviewed/Updated: Yes - My Orders Last 24 Hours: My Active Orders 10/11/21 05:11 CBC WITH AUTO DIFF [HEME] AM COMPREHENSIVE METABOLIC PN,CMP [CHEM] AM 10/12/21 05:11 CBC WITH AUTO DIFF [HEME] AM COMPREHENSIVE METABOLIC PN,CMP [CHEM] AM 10/13/21 05:11 CBC WITH AUTO DIFF [HEME] AM COMPREHENSIVE METABOLIC PN,CMP [CHEM] AM - Plan Plan:: 35 yo female admitted COVID-19 pneumonia with acute hypoxic respiratory failure Hypoxa: on 6 L NC COVID-19 pneumonia: finished five days of remdesivir, continue dexamethasone and baricitinib, also on Levaquin lovenox for DVT prophylaxis
[2021-10-10] MEDS: Levofloxacin/Dextrose 5%-Water 750 MG in Premix Bag 1 BAG IV SCH (16:27)
[2021-10-10] MEDS: LORazepam 1 MG Tab PO PRN (20:35)
[2021-10-10] MEDS: traZODone 50 MG Tab PO SCH (20:36)
[2021-10-11] MEDS: Albuterol/Ipratropium 4 GM Inhalation Spray INH SCH ×2 (03:34→06:23)
[2021-10-11 07:46] VITALS: BP 150/113; PULSE 98
--- NOTE | 2021-10-11 08:00 | PCM.DCSUM1 ---
Discharge Summary - Discharge Data Discharge Date: 10/11/21 Discharge Disposition: Home, Self-Care 01 Condition: Stable - Referral to Home Health Primary Care Physician: PCP None - Discharge Diagnosis/Problem(s) (1) Hypoxia SNOMED Code(s): 662963303 ICD Code: R09.02 - HYPOXEMIA Status: Acute Current Visit: Yes (2) Pneumonia due to COVID-19 virus SNOMED Code(s): 030103713789948985 ICD Code: U07.1 - COVID-19; J12.82 - PNEUMONIA DUE TO CORONAVIRUS DISEASE 2019 Status: Acute Current Visit: Yes - Patient Summary/Data Hospital Course: 35-year-old female who presented with with two week history of cough, shortness of brath and myalgias. She was found to br hypoxic requring HHFNC to keep sats above 90%. She is COVID positive. CXR reported bilateral infiltrates. She was treated with dexamethasone, remdesivir and barcitinib. She was weened off heated high flow NC. She is requesting discharge today. She is satting 88% on RA. She was discharge home with home oxygen to follow up with Dr Perez. - Patient Instructions Diet: Regular Diet as Tolerated Activity: As Tolerated - Discharge Plan Home Medications: Home Meds traMADol [Ultram] 100 mg PO BID 05/21/20 [History] traZODone HCl [Trazodone HCl] 150 mg PO BEDTIME 05/21/20 [History] Albuterol [Ventolin HFA] 2 puff INH Q6H PRN 04/19/21 [History] Budesonide [Pulmicort] 0.5 mg IH BID 04/19/21 [History] Cyclobenzaprine [Flexeril] 10 mg PO TID PRN 04/19/21 [History] Fluticasone Propion/Salmeterol [Advair 250-50 Diskus] 2 puff INH DAILY 04/19/21 [History] LORazepam [Ativan] 1 mg PO BID PRN 04/19/21 [History] Losartan [Cozaar] 100 mg PO DAILY 10/05/21 [History] Patient Handouts: Hypoxia, COVID-19 Frequently Asked Questions, COVID-19, COVID-19 Vaccine Information, How to Take Your Blood Pressure, [id number], COVID-19: How to Protect Yourself and Others - CDC, Hypertension, Adult, [id number], Preventing Hypertension, Insomnia, COVID-19: Quarantine vs. Isolation - CDC (11/06/2020), Managing Anxiety, Adult, Managing Your Hypertension Referrals: Adelita Perez DO [Ordering Only Provider] - - Discharge Summary/Plan Comment DC Time >30 min.: No Total # of Minutes for Discharge Time: 15 - Patient Data Vitals - Most Recent: Last Vital Signs Temp 35.5 C L 10/11/21 07:44 Pulse 98 10/11/21 07:44 Resp 20 10/11/21 07:44 BP 150/113 H 10/11/21 07:44 Pulse Ox 92 L 10/11/21 07:44 Weight - Most Recent: 159.302 kg I&O - Last 24 hours: Intake & Output 10/10/21 10/11/21 10/11/21 22:59 06:59 14:59 Intake Total 1120 990 Output Total 1720 1000 Balance -600 -10 Lab Results - Last 24 hrs: Laboratory Results - last 24 hr 10/10/21 10/10/21 Range/Units 07:06 07:06 WBC 7.48 (4.0-11.0) K/uL RBC 4.84 (4.30-5.90) M/uL Hgb 13.3 (12.0-16.0) g/dL Hct 43.3 (36.0-46.0) % MCV 89.5 (80.0-98.0) fL MCH 27.5 (27.0-32.0) pg MCHC 30.7 L (31.0-37.0) g/dL RDW Std Deviation 51.4 (28.0-62.0) fl RDW Coeff of Pineda 16 H (11.0-15.0) % Plt Count 311 (150-400) K/uL MPV 11.10 (7.40-12.00) fL Add Manual Diff YES Neutrophils % (Manual) 57 (48.0-80.0) % Band Neutrophils % 2 % Lymphocytes % (Manual) 35 (16.0-40.0) % Monocytes % (Manual) 4 (0.0-15.0) % Metamyelocytes % 1 % Myelocytes % 1 % Nucleated RBC % 0.0 /100WBC Absolute Seg Neuts 4.3 (1.4-5.7) Band Neutrophils # 0.1 Lymphocytes # (Manual) 2.6 H (0.6-2.4) Monocytes # (Manual) 0.3 (0.0-0.8) Absolute Metamyelocyte 0.1 Absolute Myelocytes 0.1 Nucleated RBCs # 0 K/uL Reactive Lymphocytes MODERATE Sodium 139 (136-145) mmol/L Potassium 4.0 (3.5-5.1) mmol/L Chloride 104 (98-107) mmol/L Carbon Dioxide 27.3 (21.0-32.0) mmol/L BUN 20 H (7.0-18.0) mg/dL Creatinine 0.6 (0.6-1.0) mg/dL Est Cr Clr Drug Dosing 126.05 mL/min Estimated GFR (MDRD) > 60.0 ml/min Glucose 145 H (74-106) mg/dL Calcium 8.3 L (8.5-10.1) mg/dL Total Bilirubin 0.4 (0.2-1.0) mg/dL AST 22 (15-37) IU/L ALT 77 H (14-63) IU/L Alkaline Phosphatase 51 (46-116) U/L Total Protein 7.2 (6.4-8.2) g/dL Albumin 2.8 L (3.4-5.0) g/dL Globulin 4.4 H (2.6-4.0) g/dL Albumin/Globulin Ratio 0.6 L (0.9-1.6) JACKY Results - Last 24 hrs: Microbiology 10/05/21 13:21 Aerobic Blood Culture - Final Blood - Venous - Lab Draw NO GROWTH AFTER 5 DAYS Anaerobic Blood Culture - Final NO GROWTH AFTER 5 DAYS 10/05/21 13:11 Aerobic Blood Culture - Final Blood - Venous NO GROWTH AFTER 5 DAYS Anaerobic Blood Culture - Final NO GROWTH AFTER 5 DAYS Med Orders - Current: Current Medications Albuterol/Ipratropium (Albuterol/Ipratropium 4 Gm Inhalation [place]) 1 gm INH Q4H [facility] Last Admin: 10/11/21 06:23 Dose: 1 puff Documented by: Albuterol/Ipratropium (Albuterol/Ipratropium 3.0-0.5 Mg/3 Ml Neb Soln) 3 ml NEB Q4HRRT PRN PRN Reason: Shortness of Breath Baricitinib (Baricitinib 2 Mg Tab) 4 mg PO DAILY [facility] Last Admin: 10/10/21 08:02 Dose: 4 mg Documented by: Cyclobenzaprine HCl (Cyclobenzaprine 10 Mg Tab) 10 mg PO TID PRN PRN Reason: muscle spasms Last Admin: 10/07/21 22:09 Dose: 10 mg Documented by: Dexamethasone (Dexamethasone 4 Mg/Ml Sdv) 6 mg IVPUSH Q24H [facility] Last Admin: 10/10/21 12:06 Dose: 6 mg Documented by: Enoxaparin Sodium (Enoxaparin 40 Mg/0.4 Ml Syringe) 40 mg SUBCUT Q12H [facility] Last Admin: 10/10/21 20:35 Dose: 40 mg Documented by: Guaifenesin (Guaifenesin 100 Mg/5 Ml Soln 5 Ml Ud Cup) 100 mg PO Q6H PRN PRN Reason: Cough Last Admin: 10/10/21 08:07 Dose: 100 mg Documented by: Levofloxacin/Dextrose 750 mg/ (Premix) 150 mls @ 100 mls/hr IV Q24H [facility] Last Admin: 10/10/21 16:27 Dose: 100 mls/hr Documented by: Lorazepam (Lorazepam 1 Mg Tab) 1 mg PO BID PRN PRN Reason: anxiety Last Admin: 10/10/21 20:35 Dose: 1 mg Documented by: Losartan Potassium (Losartan 50 Mg Tab) 100 mg PO DAILY [facility] Last Admin: 10/10/21 08:03 Dose: 100 mg Documented by: Ondansetron HCl (Ondansetron 4 Mg/2 Ml Sdv) 4 mg IVPUSH Q4H PRN PRN Reason: Vomiting Last Admin: 10/09/21 08:25 Dose: 4 mg Documented by: Tramadol HCl (Tramadol 50 Mg Tab) 50 mg PO BID PRN PRN Reason: Pain Last Admin: 10/08/21 20:41 Dose: 50 mg Documented by: Trazodone HCl (Trazodone 50 Mg Tab) 150 mg PO BEDTIME [facility] Last Admin: 10/10/21 20:36 Dose: 150 mg Documented by: Discontinued Medications Acetaminophen (Acetaminophen 500 Mg Tab) 1,000 mg PO ONETIME ONE Stop: 10/05/21 12:44 Last Admin: 10/05/21 13:25 Dose: 1,000 mg Documented by: Dexamethasone (Dexamethasone 4 Mg/Ml Sdv) 6 mg IVPUSH ONETIME ONE Stop: 10/05/21 13:16 Last Admin: 10/05/21 13:31 Dose: 6 mg Documented by: Enoxaparin Sodium (Enoxaparin 40 Mg/0.4 Ml Syringe) 40 mg SUBCUT Q24H [facility] Last Admin: 10/06/21 15:18 Dose: 40 mg Documented by: Sodium Chloride (Normal Saline) 1,000 mls @ 100 mls/hr IV STAT ONE Stop: 10/05/21 22:41 Last Admin: 10/05/21 13:31 Dose: 100 mls/hr Documented by: Remdesivir 200 mg/ Sodium (Chloride) 250 mls @ 250 mls/hr IV ONETIME ONE Stop: 10/05/21 13:16 Last Admin: 10/05/21 13:54 Dose: Not Given Documented by: Remdesivir 200 mg/ Sodium (Chloride) 250 mls @ 250 mls/hr IV ONETIME ONE Stop: 10/05/21 14:49 Last Admin: 10/05/21 13:59 Dose: 250 mls/hr Documented by: Pantoprazole Sodium 40 mg/ (Sodium Chloride) 10 mls @ 300 mls/hr IV DAILY [facility] Last Admin: 10/09/21 08:11 Dose: 300 mls/hr Documented by: Remdesivir 100 mg/ Sodium (Chloride) 100 mls @ 100 mls/hr IV Q24H [facility] Stop: 10/09/21 15:44 Last Admin: 10/09/21 14:01 Dose: 100 mls/hr Documented by: Pantoprazole Sodium 40 mg/ (Premix) 10 mls @ 300 mls/hr IV DAILY [facility] Last Admin: 10/10/21 08:37 Dose: 300 mls/hr Documented by: Iopamidol (Iopamidol 755 Mg/Ml 500 Ml Multipack Bottle) 100 ml IVPUSH ONETIME STA Stop: 10/07/21 11:44 Last Admin: 10/07/21 11:43 Dose: 100 ml Documented by: Losartan Potassium (Losartan 50 Mg Tab) 100 mg PO DAILY [facility] Non-Formulary Medication (Lisinopril) 10 mg PO DAILY [facility] Last Admin: 10/05/21 15:42 Dose: Not Given Documented by: Ondansetron HCl (Ondansetron 4 Mg/2 Ml Sdv) 4 mg IVPUSH ONETIME ONE Stop: 10/05/21 12:44 Last Admin: 10/05/21 13:22 Dose: 4 mg Documented by:
[2021-10-11 08:27] LABS: BLOOD UREA NITROGEN,BUN 20 mg/dL (7.0-18.0); CARBON DIOXIDE,CO2 24.3 mmol/L (21.0-32.0); CHLORIDE,CL 103 mmol/L (98-107); GLUCOSE RANDOM 218 mg/dL (74-106); POTASSIUM,K 3.8 mmol/L (3.5-5.1); SODIUM,NA 139 mmol/L (136-145)
[2021-10-11] MEDS: guaiFENesin 100 MG/5 ML Soln 5 ML UD Cup PO PRN (08:41)
[2021-10-11] MEDS: Losartan 50 MG Tab PO SCH (08:42)
[2021-10-11] MEDS: Enoxaparin 40 MG/0.4 ML Syringe SUBCUT SCH (08:47)
== END 2021-10-11 11:50 | disposition home or self-care (01) | DRG 177 ==
LOC: MW.ED 12:28 → MW.MS 13:52
PROVIDERS: ADMIT Internal Medicine; ATTEND Internal Medicine
PROC: XW033E5 Introduction of Remdesivir Anti-infective into Peripheral Vein, Percutaneous Approach, New Technology Group 5 (ICD-10-PCS; principal; 2021-10-05)
PROC: 3E0333Z Introduction of Anti-inflammatory into Peripheral Vein, Percutaneous Approach (ICD-10-PCS; 2021-10-05)
PROC: XW0DXM6 Introduction of Baricitinib into Mouth and Pharynx, External Approach, New Technology Group 6 (ICD-10-PCS; 2021-10-06)
PROC: 5A0935A Assistance with Respiratory Ventilation, Less than 24 Consecutive Hours, High Flow/Velocity Cannula (ICD-10-PCS; 2021-10-08)
DX: U07.1 COVID-19 (principal); J12.82 Pneumonia due to coronavirus disease 2019; J96.01 Acute respiratory failure with hypoxia; Z68.43 Body mass index [BMI] 50.0-59.9, adult; I10 Essential (primary) hypertension; G47.30 Sleep apnea, unspecified; F41.9 Anxiety disorder, unspecified; J45.909 Unspecified asthma, uncomplicated; E66.9 Obesity, unspecified; F32.A Depression, unspecified; Z87.442 Personal history of urinary calculi; Z79.52 Long term (current) use of systemic steroids; Z79.899 Other long term (current) drug therapy; Z91.040 Latex allergy status; Z88.0 Allergy status to penicillin; Z87.891 Personal history of nicotine dependence; Z90.710 Acquired absence of both cervix and uterus
CPT/HCPCS: 36415; 71045; 71045-26; 71275; 71275-26; 80053; 81001; 82803; 83605; 85025; 86140; 87040; 93005; 94640; 96374; 96375; 99285-25; A9270-GY; C9113; J1100; J1650; J1956; J2405; J7030; J7050; Q9967

== ENCOUNTER 2022-04-18 22:41 | Emergency (ER) | payer OTHER ==
[2022-04-18 23:33] LABS: ACETAMINOPHEN 16.7 ug/mL; BLOOD UREA NITROGEN,BUN 16 mg/dL (7.0-18.0); CARBON DIOXIDE,CO2 24.6 mmol/L (21.0-32.0); CHLORIDE,CL 105 mmol/L (98-107); GLUCOSE RANDOM 104 mg/dL (74-106); POTASSIUM,K 3.3 mmol/L (3.5-5.1); SODIUM,NA 139 mmol/L (136-145)
[2022-04-18] MEDS ORDERED: Ondansetron 4 MG/2 ML SDV IVPUSH ONE (23:36)
[2022-04-19] MEDS ORDERED: Ondansetron 4 MG/2 ML SDV IVPUSH ONE (01:31)
[2022-04-19 02:03] VITALS: BP 156/58; PULSE 81
== END 2022-04-19 02:10 | disposition home or self-care (01) ==
LOC: MW.ED 22:41
DX: T43.211A Poisoning by selective serotonin and norepinephrine reuptake inhibitors, accidental (unintentional), initial encounter (principal); J45.909 Unspecified asthma, uncomplicated; I10 Essential (primary) hypertension; E66.9 Obesity, unspecified; Z68.43 Body mass index [BMI] 50.0-59.9, adult; Z79.899 Other long term (current) drug therapy; Z90.49 Acquired absence of other specified parts of digestive tract; Z90.710 Acquired absence of both cervix and uterus
CPT/HCPCS: 36415; 80053; 80143; 80179; 80305-QW; 80307; 81001; 81025; 83735; 85025; 93005; 93010; 96374; 96376; 99284-25; 99285; J2405

== ENCOUNTER 2022-07-27 08:13 | Emergency (ER) | payer OTHER ==
[2022-07-27] MEDS ORDERED: Ketorolac 30 MG/ML SDV IM ONE (09:22)
[2022-07-27] MEDS ORDERED: Ondansetron 4 MG Tab.DIS PO ONE (09:22)
[2022-07-27] MEDS ORDERED: Ondansetron 4 MG/2 ML SDV IVPUSH ONE (09:29)
[2022-07-27] MEDS ORDERED: Ketorolac 30 MG/ML SDV IVPUSH ONE (09:29)
[2022-07-27] MEDS ORDERED: Sodium Chloride 0.9% 1,000 ML IV ONE (09:30)
[2022-07-27 09:57] LABS: CARBON DIOXIDE,CO2 26.2 mmol/L (21.0-32.0); POTASSIUM,K 4.3 mmol/L (3.5-5.1)
[2022-07-27 10:53] VITALS: BP 144/99; PULSE 58
== END 2022-07-27 10:51 | disposition home or self-care (01) ==
LOC: MW.ED 08:13
DX: B34.9 Viral infection, unspecified (principal); H10.89 Other conjunctivitis; Z20.822 Contact with and (suspected) exposure to COVID-19; I10 Essential (primary) hypertension; F41.9 Anxiety disorder, unspecified; F32.A Depression, unspecified; E66.9 Obesity, unspecified; Z68.43 Body mass index [BMI] 50.0-59.9, adult; Z79.899 Other long term (current) drug therapy; Z91.040 Latex allergy status; Z88.5 Allergy status to narcotic agent
CPT/HCPCS: 36415; 71045; 80053; 81003; 84484; 85025; 87635; 93005; 96361; 96374; 96375; 99284; J1885; J2405; J7030; U0002

== ENCOUNTER 2023-01-25 19:17 | Emergency (ER) | payer OTHER ==
[2023-01-25 21:06] VITALS: BP 110/70; PULSE 72
== END 2023-01-25 21:04 | disposition home or self-care (01) ==
LOC: MW.ED 19:17
DX: S92.351A Displaced fracture of fifth metatarsal bone, right foot, initial encounter for closed fracture (principal); S63.501A Unspecified sprain of right wrist, initial encounter; I10 Essential (primary) hypertension; E66.9 Obesity, unspecified; Z79.899 Other long term (current) drug therapy; Z88.5 Allergy status to narcotic agent; Z68.43 Body mass index [BMI] 50.0-59.9, adult; Z91.040 Latex allergy status; W00.0XXA Fall on same level due to ice and snow, initial encounter
CPT/HCPCS: 73110-26-RT; 73110-RT; 73610-26-RT; 73610-RT; 99283

== ENCOUNTER 2023-04-20 03:03 | Emergency (ER) | payer OTHER ==
[2023-04-20] MEDS ORDERED: Morphine 4 MG/ML Syringe IVPUSH ONE (03:31)
[2023-04-20] MEDS ORDERED: Ketorolac 30 MG/ML SDV IVPUSH ONE (03:31)
[2023-04-20] MEDS ORDERED: Ondansetron 4 MG/2 ML SDV IVPUSH ONE (03:31)
[2023-04-20 03:34] LABS: BILIRUBIN,URINE NEGATIVE (NEGATIVE); COLOR,URINE YELLOW; GLUCOSE,URINE 100 mg/dL (NEGATIVE); KETONES,URINE NEGATIVE (NEGATIVE); LEUKOCYTE ESTERASE,URINE NEGATIVE (NEGATIVE); NITRITE,URINE POSITIVE (NEGATIVE); OCCULT BLOOD,URINE LARGE (NEGATIVE); PROTEIN,URINE 30 mg/dL (NEGATIVE)
[2023-04-20 03:36] LABS: APPEARANCE,URINE CLOUDY
[2023-04-20 03:37] LABS: BACTERIA,URINE FEW (NEGATIVE); EPITHELIAL CELLS,URINE FEW (NONE-FEW); MUCUS,URINE LIGHT (NONE-MOD); RBC,URINE TOO NUMEROUS TO CT (0-2/HPF)
[2023-04-20 03:41] LABS: BASOPHILS ABSOLUTE AUTO 0.1 K/uL (0.0-0.1); BASOPHILS PERCENT AUTO 0.5 % (0.0-1.5); EOSINOPHILS ABSOLUTE AUTO 0.4 K/uL (0.0-0.7); EOSINOPHILS PERCENT AUTO 3.9 % (0.0-7.0); HEMATOCRIT 39.6 % (36.0-46.0); HEMOGLOBIN 12.5 g/dL (12.0-16.0); LYMPHOCYTES ABSOLUTE AUTO 3.3 K/uL (0.6-2.4); LYMPHOCYTES PERCENT AUTO 29.8 % (16.0-40.0); MEAN CORPUSCULAR HEMOGLOBIN 29.6 pg (27.0-32.0); MEAN CORPUSCULAR HGB CONC 31.6 g/dL (31.0-37.0); MEAN CORPUSCULAR VOLUME 93.8 fL (80.0-98.0); MONOCYTES ABSOLUTE AUTO 0.8 K/uL (0.0-0.8); NEUTROPHILS ABSOLUTE AUTO 6.5 K/uL (1.4-5.7); NEUTROPHILS PERCENT AUTO 58.8 % (48.0-80.0); PLATELET COUNT,PLT 336 K/uL (150-400); RED BLOOD CELL COUNT 4.22 M/uL (4.30-5.90); WHITE BLOOD CELL COUNT,WBC 11.14 K/uL (4.0-11.0)
[2023-04-20 03:51] LABS: A/G RATIO 0.8 (0.9-1.6); ALBUMIN 3.1 g/dL (3.4-5.0); BILIRUBIN TOTAL 0.2 mg/dL (0.2-1.0); CALCIUM 7.8 mg/dL (8.5-10.1); CARBON DIOXIDE,CO2 26.2 mmol/L (21.0-32.0); CREATININE 0.9 mg/dL (0.6-1.0); EST CRCL DRUG DOSING (CG) 82.42 mL/min; POTASSIUM,K 3.8 mmol/L (3.5-5.1); PROTEIN TOTAL,TP 7.1 g/dL (6.4-8.2)
[2023-04-20] MEDS ORDERED: HYDROmorphone 1 MG/ML Syringe IVPUSH ONE ×2 (04:52→07:18)
[2023-04-20] MEDS ORDERED: HYDROmorphone 1 MG/ML Syringe IVPUSH STA (06:16)
[2023-04-20 07:27] VITALS: BP 145/93; PULSE 81
== END 2023-04-20 07:38 ==
LOC: MW.ED 03:03
DX: N20.0 Calculus of kidney (principal); I10 Essential (primary) hypertension; J45.909 Unspecified asthma, uncomplicated; E66.9 Obesity, unspecified; Z68.43 Body mass index [BMI] 50.0-59.9, adult; Z79.899 Other long term (current) drug therapy; Z91.040 Latex allergy status; Z88.5 Allergy status to narcotic agent; Z98.890 Other specified postprocedural states
CPT/HCPCS: 36415; 74176; 80053; 81001; 81025; 85025; 96374; 96375; 96376; 99285; J1170; J1885; J2270; J2405

== ENCOUNTER 2024-05-25 06:59 | Emergency (ER) | payer OTHER ==
[2024-05-25] MEDS: Albuterol/Ipratropium 3.0-0.5 MG/3 ML Neb Soln NEB ONE (08:23)
[2024-05-25 09:00] LABS: BASE EXCESS VENOUS -1.5 (-2.0-3.0); BASOPHILS ABSOLUTE AUTO 0.07 K/uL (0.00-0.20); BASOPHILS PERCENT AUTO 0.9 % (0.0-1.0); BICARBONATE,VENOUS 26 mEQ/mL (22-28); EOSINOPHILS ABSOLUTE AUTO 0.18 K/uL (0.00-0.45); EOSINOPHILS PERCENT AUTO 2.3 % (0.0-6.0); HEMATOCRIT 42.5 % (37.0-47.0); HEMOGLOBIN 13.4 g/dL (12.0-16.0); IMMATURE GRAN ABSOLUTE AUTO 0.05 K/uL (0.00-0.05); IMMATURE GRAN PERCENT AUTO 0.6 % (0.0-0.4); LYMPHOCYTES ABSOLUTE AUTO 1.83 K/uL (1.00-4.80); LYMPHOCYTES PERCENT AUTO 22.9 % (24.0-44.0); MEAN CORPUSCULAR HEMOGLOBIN 28.5 pg (28.0-32.0); MEAN CORPUSCULAR HGB CONC 31.5 g/dL (32.0-36.0); MEAN CORPUSCULAR VOLUME 90.2 fL (83.0-99.0); MEAN PLATELET VOLUME 10.3 fL (9.4-12.3); MONOCYTES PERCENT AUTO 12.5 % (0.0-8.0); NEUTROPHILS ABSOLUTE AUTO 4.85 K/uL (1.80-7.70); NEUTROPHILS PERCENT AUTO 60.8 % (41.0-71.0); PCO2 VENOUS 53 mmHG (41-51); PH,VENOUS 7.29 (7.31-7.41); PLATELET COUNT,PLT 262 K/uL (150-400); PO2 VENOUS < 30 mmHG (35-45); RED BLOOD CELL COUNT 4.71 M/uL (4.10-5.30); WHITE BLOOD CELL COUNT,WBC 7.98 K/uL (3.9-11.3)
[2024-05-25] MEDS: Ondansetron 4 MG/2 ML SDV IVPUSH ONE (09:01)
[2024-05-25] MEDS: Sodium Chloride 0.9% 2.5 ML Syringe FLUSH PRN (09:03)
[2024-05-25] MEDS: Sodium Chloride 0.9% 10 ML Syringe FLUSH PRN (09:03)
[2024-05-25 09:29] LABS: A/G RATIO 0.9 (0.9-1.6); ALANINE AMINOTRANSFERASE,ALT 34 IU/L (14-63); ALBUMIN 3.5 g/dL (3.4-5.0); ALKALINE PHOSPHATASE 71 U/L (46-116); ASPARTATE AMNIOTRANSFERASE,AST 7 IU/L (15-37); BILIRUBIN TOTAL 0.4 mg/dL (0.2-1.0); BLOOD UREA NITROGEN,BUN 10 mg/dL (7.0-18.0); CALCIUM 8.7 mg/dL (8.5-10.1); CARBON DIOXIDE,CO2 26.9 mmol/L (21.0-32.0); CHLORIDE,CL 105 mmol/L (98-107); EST CRCL DRUG DOSING (CG) 73.45 mL/min; GLUCOSE RANDOM 119 mg/dL (74-106); LIPASE 24 U/L (16-77); MAGNESIUM 1.8 mg/dL (1.8-2.4); POTASSIUM,K 3.8 mmol/L (3.5-5.1); PRO B-TYPE NATRIUR PEPT,BNPPRO 421 pg/mL (0-125); PROTEIN TOTAL,TP 7.6 g/dL (6.4-8.2); SODIUM,NA 142 mmol/L (136-145)
[2024-05-25 09:30] LABS: ESTIMATED GFR 73 mL/min (>60)
[2024-05-25] MEDS: Dexamethasone 4 MG Tab PO ONE (09:35)
[2024-05-25] MEDS: Albuterol 0.083% 2.5 MG/3 ML Neb Soln NEB ONE (09:36)
[2024-05-25 11:11] LABS: BASE EXCESS VENOUS -2.3 (-2.0-3.0); PH,VENOUS 7.34 (7.31-7.41)
[2024-05-25 12:39] VITALS: BP 180/107; PULSE 83
== END 2024-05-25 12:35 | disposition home or self-care (01) ==
LOC: MW.ED 06:59
DX: U07.1 COVID-19 (principal); J45.901 Unspecified asthma with (acute) exacerbation; I10 Essential (primary) hypertension; E66.9 Obesity, unspecified; Z90.49 Acquired absence of other specified parts of digestive tract; Z90.710 Acquired absence of both cervix and uterus; Z79.899 Other long term (current) drug therapy; Z91.040 Latex allergy status; Z88.5 Allergy status to narcotic agent; Z68.44 Body mass index [BMI] 60.0-69.9, adult
CPT/HCPCS: 36415; 71045; 80053; 82803; 83690; 83735; 83880; 84484; 84703; 85025; 85379; 93005; 94640; 96374; 99285; J2405; J3490; J8540; 93010; 99284; J7620-GY

== ENCOUNTER 2024-09-18 11:41 | Emergency (ER) | payer OTHER ==
[2024-09-18] MEDS: Sodium Chloride 0.9% 1,000 ML IV ONE (12:39)
[2024-09-18] MEDS: Ondansetron 4 MG/2 ML SDV IVPUSH ONE (12:39)
[2024-09-18] MEDS: Ketorolac 30 MG/ML SDV IVPUSH ONE (12:39)
[2024-09-18 12:52] LABS: BILIRUBIN,URINE NEGATIVE (NEGATIVE); COLOR,URINE YELLOW; GLUCOSE,URINE NEGATIVE (NEGATIVE); KETONES,URINE NEGATIVE (NEGATIVE); LEUKOCYTE ESTERASE,URINE NEGATIVE (NEGATIVE); NITRITE,URINE NEGATIVE (NEGATIVE); OCCULT BLOOD,URINE LARGE (NEGATIVE); PH,URINE 6.5 (5.0-8.0); PROTEIN,URINE NEGATIVE (NEGATIVE); UROBILINOGEN,URINE 0.2 EU/dL (<2.0)
[2024-09-18 12:54] LABS: BASOPHILS ABSOLUTE AUTO 0.08 K/uL (0.00-0.20); EOSINOPHILS ABSOLUTE AUTO 0.28 K/uL (0.00-0.45); EOSINOPHILS PERCENT AUTO 3.5 % (0.0-6.0); HEMATOCRIT 40.5 % (37.0-47.0); IMMATURE GRAN ABSOLUTE AUTO 0.02 K/uL (0.00-0.05); IMMATURE GRAN PERCENT AUTO 0.2 % (0.0-0.4); LYMPHOCYTES ABSOLUTE AUTO 2.31 K/uL (1.00-4.80); LYMPHOCYTES PERCENT AUTO 28.6 % (24.0-44.0); MEAN CORPUSCULAR HEMOGLOBIN 28.3 pg (28.0-32.0); MEAN CORPUSCULAR HGB CONC 32.1 g/dL (32.0-36.0); MEAN PLATELET VOLUME 9.7 fL (9.4-12.3); MONOCYTES PERCENT AUTO 7.4 % (0.0-8.0); NEUTROPHILS ABSOLUTE AUTO 4.78 K/uL (1.80-7.70); NEUTROPHILS PERCENT AUTO 59.3 % (41.0-71.0); PLATELET COUNT,PLT 316 K/uL (150-400); WHITE BLOOD CELL COUNT,WBC 8.07 K/uL (3.9-11.3)
[2024-09-18 13:07] LABS: APPEARANCE,URINE HAZY; EPITHELIAL CELLS,URINE FEW (NONE-FEW); RBC,URINE 25-30 (0-2/HPF); WBC,URINE 0-2 (0-5/HPF)
[2024-09-18 13:08] LABS: BACTERIA,URINE FEW (NEGATIVE)
[2024-09-18] MEDS: Tamsulosin 0.4 MG Cap.ER PO ONE (13:25)
[2024-09-18] MEDS: Acetaminophen/HYDROcodone 325-10 MG Tab PO ONE (13:25)
[2024-09-18 13:31] LABS: A/G RATIO 0.9 (0.9-1.6); ALBUMIN 3.4 g/dL (3.4-5.0); BILIRUBIN TOTAL 0.3 mg/dL (0.2-1.0); CALCIUM 8.8 mg/dL (8.5-10.1); CREATININE 0.8 mg/dL (0.6-1.0); EST CRCL DRUG DOSING (CG) 91.81 mL/min; POTASSIUM,K 4.2 mmol/L (3.5-5.1); PROTEIN TOTAL,TP 7.4 g/dL (6.4-8.2)
[2024-09-18 14:09] VITALS: BP 162/92; PULSE 78
== END 2024-09-18 14:08 | disposition home or self-care (01) ==
LOC: MW.ED 11:41
DX: N13.2 Hydronephrosis with renal and ureteral calculous obstruction (principal); I10 Essential (primary) hypertension; J45.909 Unspecified asthma, uncomplicated; E66.9 Obesity, unspecified; Z68.43 Body mass index [BMI] 50.0-59.9, adult; Z86.16 Personal history of COVID-19; Z90.49 Acquired absence of other specified parts of digestive tract; Z90.710 Acquired absence of both cervix and uterus; Z79.899 Other long term (current) drug therapy; Z91.040 Latex allergy status; Z88.5 Allergy status to narcotic agent
CPT/HCPCS: 36415; 74176; 80053; 81001; 81025; 85025; 96361; 96374; 96375; 99285; A9270; J1885; J2405; J7030; 99284

== ENCOUNTER 2025-01-16 17:26 | Emergency (ER) | payer OTHER ==
[2025-01-16] MEDS: Acetaminophen/HYDROcodone 325-5 MG Tab PO ONE (18:37)
[2025-01-16 18:39] VITALS: BP 159/101; PULSE 91
== END 2025-01-16 18:46 | disposition home or self-care (01) ==
LOC: MW.ED 17:26
DX: S89.92XA Unspecified injury of left lower leg, initial encounter (principal); I10 Essential (primary) hypertension; J45.909 Unspecified asthma, uncomplicated; K21.9 Gastro-esophageal reflux disease without esophagitis; Z90.710 Acquired absence of both cervix and uterus; Z91.040 Latex allergy status; Z88.5 Allergy status to narcotic agent; Z79.899 Other long term (current) drug therapy; Z79.51 Long term (current) use of inhaled steroids; W18.39XA Other fall on same level, initial encounter; Y93.02 Activity, running
CPT/HCPCS: 99283; A9270

== ENCOUNTER 2025-08-21 18:24 | Emergency (ER) | payer OTHER ==
[2025-08-21] MEDS ORDERED: Sodium Chloride 0.9% 2.5 ML Syringe FLUSH PRN (18:28)
[2025-08-21] MEDS ORDERED: Sodium Chloride 0.9% 10 ML Syringe FLUSH PRN (18:28)
[2025-08-21 19:04] LABS: APPEARANCE,URINE CLOUDY; GLUCOSE,URINE NEGATIVE (NEGATIVE); OCCULT BLOOD,URINE LARGE (NEGATIVE)
[2025-08-21 19:12] LABS: EPITHELIAL CELLS,URINE MODERATE (NONE-FEW)
[2025-08-21] MEDS: droPERidol 2.5 MG/ML SDV IVPUSH ONE (19:14)
[2025-08-21] MEDS: Ketorolac 30 MG/ML SDV IVPUSH ONE ×2 (19:15→20:55)
[2025-08-21 19:32] LABS: BASOPHILS ABSOLUTE AUTO 0.10 K/uL (0.00-0.20); BASOPHILS PERCENT AUTO 0.9 % (0.0-1.0); EOSINOPHILS ABSOLUTE AUTO 0.19 K/uL (0.00-0.45); EOSINOPHILS PERCENT AUTO 1.8 % (0.0-6.0); IMMATURE GRAN ABSOLUTE AUTO 0.03 K/uL (0.00-0.05); IMMATURE GRAN PERCENT AUTO 0.3 % (0.0-0.4); LYMPHOCYTES ABSOLUTE AUTO 2.87 K/uL (1.00-4.80); LYMPHOCYTES PERCENT AUTO 26.5 % (24.0-44.0); MEAN PLATELET VOLUME 10.8 fL (9.4-12.3); MONOCYTES ABSOLUTE AUTO 0.52 K/uL (0.00-0.80); MONOCYTES PERCENT AUTO 4.8 % (0.0-8.0); NEUTROPHILS ABSOLUTE AUTO 7.11 K/uL (1.80-7.70); NEUTROPHILS PERCENT AUTO 65.7 % (41.0-71.0); NRBC ABSOLUTE 0.00 K/uL (0.00-0.02); NRBC PERCENT 0.0 /100WBC (0.0-0.2); PLATELET COUNT,PLT 337 K/uL (150-400); RED BLOOD CELL COUNT 5.15 M/uL (4.10-5.30); WHITE BLOOD CELL COUNT,WBC 10.82 K/uL (3.9-11.3)
[2025-08-21] MEDS: cefTRIAXone 2 GM in Water For Injection, Sterile 20 ML IVPUSH ONE (19:54)
[2025-08-21 21:15] LABS: A/G RATIO 0.9 (0.9-1.6); ALANINE AMINOTRANSFERASE,ALT 29 IU/L (14-63); ASPARTATE AMNIOTRANSFERASE,AST 20 IU/L (15-37); BILIRUBIN TOTAL 0.3 mg/dL (0.2-1.0); BLOOD UREA NITROGEN,BUN 12 mg/dL (7.0-18.0); CARBON DIOXIDE,CO2 18.8 mmol/L (21.0-32.0); CHLORIDE,CL 103 mmol/L (98-107); CREATININE 0.8 mg/dL (0.6-1.0); GLUCOSE RANDOM 86 mg/dL (74-106); POTASSIUM,K 4.0 mmol/L (3.5-5.1); PROTEIN TOTAL,TP 7.8 g/dL (6.4-8.2); SODIUM,NA 137 mmol/L (136-145)
[2025-08-21 21:16] LABS: ESTIMATED GFR 95 mL/min (>60)
[2025-08-21 21:23] LABS: AMPHETAMINES SCREEN, URINE NEGATIVE (CUTOFF=500); BUPRENORPHINE SCREEN,URINE NEGATIVE (CUTOFF=10); METHADONE SCREEN, URINE NEGATIVE (CUTOFF=200); METHAMPHETAMINES SCREEN, URINE NEGATIVE (CUTOFF=500); OXYCODONE SCREEN,URINE NEGATIVE (CUT0FF=100); PCP SCREEN,URINE NEGATIVE (CUTOFF=25); THC SCREEN,URINE 20 NG/ML PRESUMPTIVE POSITIVE (CUTOFF=50)
[2025-08-21 21:43] VITALS: BP 146/93; PULSE 85
== END 2025-08-21 21:53 | disposition home or self-care (01) ==
LOC: MW.ED 18:24
DX: N13.2 Hydronephrosis with renal and ureteral calculous obstruction (principal); N39.0 Urinary tract infection, site not specified; R31.0 Gross hematuria; F41.9 Anxiety disorder, unspecified; I10 Essential (primary) hypertension; J45.909 Unspecified asthma, uncomplicated; K21.9 Gastro-esophageal reflux disease without esophagitis; Z88.5 Allergy status to narcotic agent; Z91.040 Latex allergy status; Z79.899 Other long term (current) drug therapy
CPT/HCPCS: 36415; 80053; 80305; 81001; 83605; 85025; 85652; 86140; 96374; 96375; 96376; 99284; A4216; J0696; J1790; J1885; J7030; 99283

== ENCOUNTER 2025-08-27 14:16 | Emergency (ER) | payer OTHER ==
[2025-08-27 14:57] LABS: BASOPHILS ABSOLUTE AUTO 0.08 K/uL (0.00-0.20); BASOPHILS PERCENT AUTO 0.8 % (0.0-1.0); EOSINOPHILS ABSOLUTE AUTO 0.10 K/uL (0.00-0.45); EOSINOPHILS PERCENT AUTO 1.0 % (0.0-6.0); IMMATURE GRAN ABSOLUTE AUTO 0.04 K/uL (0.00-0.05); IMMATURE GRAN PERCENT AUTO 0.4 % (0.0-0.4); LYMPHOCYTES ABSOLUTE AUTO 1.52 K/uL (1.00-4.80); LYMPHOCYTES PERCENT AUTO 15.8 % (24.0-44.0); MEAN PLATELET VOLUME 10.3 fL (9.4-12.3); MONOCYTES ABSOLUTE AUTO 0.33 K/uL (0.00-0.80); MONOCYTES PERCENT AUTO 3.4 % (0.0-8.0); NEUTROPHILS ABSOLUTE AUTO 7.53 K/uL (1.80-7.70); NEUTROPHILS PERCENT AUTO 78.6 % (41.0-71.0); NRBC ABSOLUTE 0.00 K/uL (0.00-0.02); NRBC PERCENT 0.0 /100WBC (0.0-0.2); PLATELET COUNT,PLT 294 K/uL (150-400); RED BLOOD CELL COUNT 4.82 M/uL (4.10-5.30); WHITE BLOOD CELL COUNT,WBC 9.60 K/uL (3.9-11.3)
[2025-08-27 15:29] LABS: A/G RATIO 0.9 (0.9-1.6); ALANINE AMINOTRANSFERASE,ALT 26 IU/L (14-63); ASPARTATE AMNIOTRANSFERASE,AST 17 IU/L (15-37); BILIRUBIN TOTAL 0.2 mg/dL (0.2-1.0); BLOOD UREA NITROGEN,BUN 12 mg/dL (7.0-18.0); CARBON DIOXIDE,CO2 23.2 mmol/L (21.0-32.0); CHLORIDE,CL 103 mmol/L (98-107); CREATININE 0.7 mg/dL (0.6-1.0); GLUCOSE RANDOM 127 mg/dL (74-106); POTASSIUM,K 3.9 mmol/L (3.5-5.1); PROTEIN TOTAL,TP 7.4 g/dL (6.4-8.2); SODIUM,NA 138 mmol/L (136-145)
[2025-08-27 15:31] LABS: ESTIMATED GFR 112 mL/min (>60)
== END 2025-08-27 15:25 | disposition left against medical advice (07) ==
LOC: MW.ED 14:16
DX: Z53.21 Procedure and treatment not carried out due to patient leaving prior to being seen by health care provider (principal)
CPT/HCPCS: 36415; 80053; 83690; 83735; 84703; 85025